=== PATIENT | male | born 1940 | race Caucasian/White ===

== ENCOUNTER 2017-01-27 14:05 | Outpatient (CLI) | payer MEDICARE | END 2017-01-27 14:06 | disposition home or self-care (01) | DX: N44.8 Other noninflammatory disorders of the testis (principal); R33.8 Other retention of urine; N50.89 Other specified disorders of the male genital organs; N40.0 Benign prostatic hyperplasia without lower urinary tract symptoms ==

== ENCOUNTER 2017-02-23 12:56 | Outpatient (CLI) | payer MEDICARE | END 2017-02-23 12:57 | disposition home or self-care (01) | LOC: RT 12:56 | PROVIDERS: ATTEND Internal Medicine Cardiovascular Disease | DX: I48.91 Unspecified atrial fibrillation (principal) | CPT/HCPCS: 93005 ==

== ENCOUNTER 2017-03-30 10:54 | Outpatient (CLI) | payer MEDICARE | END 2017-03-30 10:55 | disposition critical access hospital (66) | LOC: EMS 10:54 | PROVIDERS: ATTEND Surgery | DX: R55 Syncope and collapse (principal); R10.12 Left upper quadrant pain; R03.1 Nonspecific low blood-pressure reading | CPT/HCPCS: A0425; A0427 ==

== ENCOUNTER 2017-03-30 11:30 | Emergency (ER) | payer MEDICARE ==
[~2017-03-30 11:30] MED LIST: SODIUM CHLORIDE 0.9% 1,000 ML IV ONE
[2017-03-30 12:16] LABS: BASOPHILS # (AUTO) 0.1 10^3/uL (0.0-0.1); BASOPHILS % (AUTO) 0.5 %; EOSINOPHILS % (AUTO) 0.1 %; HCT - HEMATOCRIT 41.4 % (42.0-52.0); HGB - HEMOGLOBIN 13.7 g/dL (14.0-18.0); LYMPHOCYTES # (AUTO) 1.1 10^3/uL (1.5-3.5); LYMPHOCYTES % (AUTO) 4.7 %; MEAN CORPUSCULAR HEMOGLOBIN 32.4 pg (27.0-31.0); MEAN CORPUSCULAR HGB CONC 33.1 g/dL (32.0-36.0); MEAN CORPUSCULAR VOLUME 97.7 fL (80.0-94.0); MEAN PLATELET VOLUME 9.1 fL (7.4-11.4); MONOCYTES # (AUTO) 1.7 10^3/uL (0.0-1.0); MONOCYTES % (AUTO) 7.3 %; NEUTROPHILS # (AUTO) 20.3 10^3/uL (1.5-6.6); NEUTROPHILS % (AUTO) 87.4 %; RED BLOOD COUNT 4.23 10^6/uL (4.70-6.10); RED CELL DISTRIBUTION WIDTH 14.2 % (12.0-15.0); UNCORRECTED WHITE BLOOD COUNT 23.2 x10^3/uL; WHITE BLOOD COUNT 23.2 x10^3/uL (4.8-10.8)
[2017-03-30] MEDS ORDERED: ASPIRIN CHEW 81 MG TABLET ONE (12:23)
[2017-03-30] MEDS ORDERED: NITROGLYCERIN SL 0.4 MG TABLET SL STA (12:24)
[2017-03-30] MEDS ORDERED: ASPIRIN CHEW 81 MG TABLET PO STA (12:24)
[2017-03-30] MEDS ORDERED: NITROGLYCERIN SL 0.4 MG TABLET SL ONE (12:34)
[2017-03-30 12:35] LABS: ALBUMIN/GLOBULIN RATIO 1.3 (1.0-2.2); BILIRUBIN,TOTAL 1.4 mg/dL (0.2-1.0); CALCIUM 8.7 mg/dL (8.5-10.3); CREATININE 1.1 mg/dL (0.6-1.2); POTASSIUM 4.1 mmol/L (3.5-5.0); TOTAL PROTEIN 6.4 g/dL (6.7-8.2)
[2017-03-30 12:37] LABS: NP AUTO DIFFERENTIAL? NO; NP MAN DIFFERENTIAL? YES; PLATELET ESTIMATE, MANUAL NORMAL (130-450,000) (NORMAL); PLATELET MORPHOLOGY NORMAL APPEARANCE (NORMAL)
--- NOTE | 2017-03-30 13:01 | XRAY Preliminary Report ---
Exam: XR Chest 1 View IMPRESSION: No consolidation evident. [facility] SITE ID: [id number]
--- NOTE | 2017-03-30 13:04 | XRAY Report ---
EXAM: CHEST RADIOGRAPHY EXAM DATE: 03/30/2017 12:47 PM. CLINICAL HISTORY: Chest pain. COMPARISON: None. TECHNIQUE: 1 view. AP portable FINDINGS: Lungs/Pleura: No focal opacities evident. No pleural effusion. No pneumothorax. Mediastinum: Atherosclerotic aortic calcifications. Other: None. IMPRESSION: No consolidation evident. [facility] Referring Provider Line: [phone] SITE ID: [id number]
--- NOTE | 2017-03-30 13:50 | ED Physician Documentation ---
PD HPI SYNCOPE - Stated complaint Stated Complaint: NEAR SYNCOPE - Chief complaint Chief Complaint: General - History obtained from History obtained from: Patient, EMS - History of Present Illness Witnessed: Witnessed (spouse) Timing - onset: Today Preceding symptoms: Generalized weakness Contributing factors: Other (Self caths for chronic urinary obstruction.) Injury occurred: None - Additional information Additional information: The patient is a 76-year-old male with history of CVA, chronic atrial fibrillation, and urinary retention, who presents via ambulance after a near syncopal episode this morning. He was sitting at the breakfast table when other family members noticed him slumping his head and not responding to verbal stimulation. He did not fall, and remained sitting in the chair. They called 911 , and when medics arrived his blood pressure was 50 systolic. An IV was established and he was transported without event. Upon arrival in the emergency department he reports slight left-sided chest pressure. He denies shortness of breath, nausea, vomiting, or abdominal pain. He was chilled during the night, and family members report he had cold sweats this morning. He has no history of similar symptoms in the past. Review of Systems Constitutional: reports: Chills Ears: denies: Tinnitus/ringing Nose: denies: Congestion Throat: denies: Sore throat Cardiac: reports: Chest pain / pressure. denies: Palpitations Respiratory: denies: Dyspnea, Cough GI: denies: Abdominal Pain, Nausea, Vomiting : reports: Other (self caths). denies: Dysuria Skin: denies: Rash Musculoskeletal: denies: Back pain, Extremity pain Neurologic: reports: Near syncope. denies: Headache PD PAST MEDICAL HISTORY - Past Medical History Past Medical History: Yes Cardiovascular: Hypertension, High cholesterol, Atrial fibrillation Neuro: CVA : Retention Musculoskeletal: Chronic back pain - Past Surgical History Past Surgical History: Yes General: Splenectomy Ortho: Hip replacement HEENT: Tonsil/Adenoidectomy - Present Medications Home Medications: Ambulatory Orders Medication Instructions Recorded Confirmed Dabigatran [Pradaxa] 0 mg PO DAILY 07/14/13 03/30/17 Tamsulosin [Flomax] 0.4 mg BID 03/30/17 03/30/17 - Allergies Allergies/Adverse Reactions: Allergies Allergy/AdvReac Type Severity Reaction Status Date / Time No Known Drug Allergies Allergy Verified 03/30/17 11:37 - Social History Does the pt smoke?: No Smoking Status: Never smoker Does the pt drink ETOH?: No Does the pt have substance abuse?: No - Immunizations Immunizations are current?: Yes PD ED PE NORMAL - Vitals Vital signs reviewed: Yes (blood pressure 101/53 with pulse 88.) - General General: Alert and oriented X 3 - HEENT HEENT: Atraumatic, EOMI, Pharynx benign - Neck Neck: Supple, no meningeal sign, No adenopathy - Cardiac Cardiac: No murmur, Other (Regular rate, irregularly irregular rhythm.) - Respiratory Respiratory: No respiratory distress, Clear bilaterally - Abdomen Abdomen: Soft, Non tender - Back Back: No CVA TTP - Derm Derm: No rash - Extremities Extremities: No edema, No calf tenderness / cord - Neuro Neuro: No motor deficit, Other (Alert, oriented, but mildly confused, preferring that his answer questions.) Results - Vitals Vitals: Vital Signs - 24 hr 03/30/17 03/30/17 03/30/17 11:31 11:41 11:45 Temperature 36.4 C L Heart Rate 88 79 76 Respiratory 20 16 16 Rate Blood Pressure 101/53 L 97/58 L 101/59 L O2 Saturation 96 98 03/30/17 03/30/17 03/30/17 12:00 12:15 12:30 Temperature Heart Rate 73 73 74 Respiratory 16 16 16 Rate Blood Pressure 109/61 95/61 109/60 O2 Saturation 100 99 99 03/30/17 03/30/17 03/30/17 12:45 13:00 13:30 Temperature Heart Rate 73 74 72 Respiratory 16 16 16 Rate Blood Pressure 101/65 102/68 100/77 O2 Saturation 99 97 03/30/17 03/30/17 03/30/17 14:00 14:30 15:00 Temperature Heart Rate 72 76 70 Respiratory 16 20 16 Rate Blood Pressure 93/58 L 109/59 L 108/57 L O2 Saturation 97 96 03/30/17 03/30/17 03/30/17 16:00 17:00 18:13 Temperature 36.6 C Heart Rate 70 70 71 Respiratory 16 16 15 Rate Blood Pressure 113/70 102/78 109/66 O2 Saturation 99 96 03/30/17 03/30/17 03/30/17 19:19 19:54 20:54 Temperature 36.4 C L 36.9 C Heart Rate 65 68 68 Respiratory 15 18 16 Rate Blood Pressure 108/65 113/63 112/62 O2 Saturation 99 98 99 03/30/17 21:45 Temperature Heart Rate 67 Respiratory 18 Rate Blood Pressure 115/69 O2 Saturation 98 Oxygen O2 Source Room air - EKG (time done) 11:38 Rate: Rate (enter#) (68) Rhythm: Atrial fibrillation [place]: Normal Ischemia: ST elevation c/w ischemia (Minimal ST elevation in anterior leads V2.) Computer interpretation: Agree with computer - Labs Labs: Laboratory Tests 03/30/17 03/30/17 03/30/17 12:06 12:06 12:06 WBC 23.2 H RBC 4.23 L Hgb 13.7 L Hct 41.4 L MCV 97.7 H MCH 32.4 H MCHC 33.1 RDW 14.2 Plt Count 228 MPV 9.1 Neut # 20.3 H Lymph # 1.1 L [place] # 1.7 H Eos # 0.0 Baso # 0.1 Absolute Nucleated RBC 0.00 Band Neuts % (Manual) Not Reportable Nucleated RBCs 0.0 Differential Comment MANUAL=AUTO DIFF Manual Slide Review Indicated Platelet Estimate NORMAL (130-450,000) Platelet Morphology NORMAL APPEARANCE RBC Morph Micro Appear NORMAL APPEARANCE Sodium 138 Potassium 4.1 Chloride 105 Carbon Dioxide 27 Anion Gap 6.0 BUN 23 H Creatinine 1.1 Estimated GFR (MDRD) 65 L Glucose 125 H Lactic Acid Calcium 8.7 Total Bilirubin 1.4 H AST 18 ALT 14 Alkaline Phosphatase 61 Troponin I < 0.04 Total Protein 6.4 L Albumin 3.6 Globulin 2.8 Albumin/Globulin Ratio 1.3 Lipase 23 Urine Color Urine Clarity Urine pH Ur Specific [place] Urine Protein Urine Glucose (UA) Urine Ketones Urine Occult Blood Urine Nitrite Urine Bilirubin Urine Urobilinogen Ur Leukocyte Esterase Urine RBC Urine WBC Ur Squamous Epith Cells Urine Bacteria Ur Microscopic Review Urine Culture Comments 03/30/17 03/30/17 14:24 15:15 WBC RBC Hgb Hct MCV MCH MCHC RDW Plt Count MPV Neut # Lymph # [place] # Eos # Baso # Absolute Nucleated RBC Band Neuts % (Manual) Nucleated RBCs Differential Comment Manual Slide Review Platelet Estimate Platelet Morphology RBC Morph Micro Appear Sodium Potassium Chloride Carbon Dioxide Anion Gap BUN Creatinine Estimated GFR (MDRD) Glucose Lactic Acid 1.1 Calcium Total Bilirubin AST ALT Alkaline Phosphatase Troponin I Total Protein Albumin Globulin Albumin/Globulin Ratio Lipase Urine Color YELLOW Urine Clarity CLOUDY Urine pH 7.0 Ur Specific [place] 1.010 Urine Protein TRACE Urine Glucose (UA) NEGATIVE Urine Ketones NEGATIVE Urine Occult Blood TRACE-LYSE Urine Nitrite POSITIVE H Urine Bilirubin NEGATIVE Urine Urobilinogen 0.2 (NORMAL) Ur Leukocyte Esterase MODERATE H Urine RBC 0-5 Urine WBC >25 H Ur Squamous Epith Cells FEW Squamous Urine Bacteria Many H Ur Microscopic Review INDICATED Urine Culture Comments INDICATED - Rads (name of study) Portable CXR Radiology: Prelim report reviewed, EMP read contemporaneously, See rad report ( No consolidation evident.) PD MEDICAL DECISION MAKING - ED course Complexity details: reviewed results, re-evaluated patient, considered differential, d/w patient, d/w family, d/w center lead consultant ED course: The patient's presentation is significant for urinary tract infection with systemic inflammatory response syndrome. His urine is positive for greater than 25 white cells per high-power field, and his white blood cell count is elevated at 23.2. Lactate level is normal at 1.1. Blood cultures x2 were drawn and are pending. Electrocardiogram reveals no acute ischemic abnormalities, and troponin level is normal. Treatment in the emergency department included administration of 4 baby aspirin orally. Nitroglycerin was considered, but the patient's mild chest discomfort completely resolved spontaneously. Normal saline 2 L administered IV, and ceftriaxone 1 g was administered IV after blood cultures had been drawn. I discussed the patient's condition with transfer staff at [place], who arranged for ambulance transport to [facility]. He is being transferred by [facility] ambulance. Transfer forms were completed. It should be noted that there was a long delay between the decision to transfer the patient and the arrival of the [facility] transfer crew, causing great consternation and dissatisfaction on the part of the patient's . Departure - Departure Disposition: 02 Transfer Acute Care Hosp Clinical Impression: Near syncope, SIRS (systemic inflammatory response syndrome), Chronic atrial fibrillation Urinary tract infection Qualifiers: Urinary tract infection type: site unspecified Hematuria presence: with hematuria Qualified Code(s): N39.0 - Urinary tract infection, site not specified Condition: Fair Discharge Date/Time: 03/30/17 21:59
[2017-03-30 14:34] LABS: BILIRUBIN,URINE NEGATIVE (NEGATIVE)
[2017-03-30 14:35] LABS: UA w/ MICROSCOPIC CHARGE YES
[2017-03-30 14:41] LABS: UR CULTURE IF IND INDICATED; WBC,URINE >25 /HPF (0-3)
[2017-03-30] MEDS ORDERED: SODIUM CHLORIDE 0.9% 1,000 ML IV ONE (14:46)
[2017-03-30] MEDS ORDERED: cefTRIAXone 1 GM in SODIUM CHLORIDE 0.9% MINIBAG 100 ML IV STA (14:46)
[2017-03-30] MEDS ORDERED: cefTRIAXone 1 GM VIAL ONE (16:25)
[2017-03-30 21:46] VITALS: BP 115/69
== END 2017-03-30 21:59 | disposition short-term general hospital (02) ==
LOC: ED 11:30
DX: N39.0 Urinary tract infection, site not specified (principal); R65.10 Systemic inflammatory response syndrome (SIRS) of non-infectious origin without acute organ dysfunction; I48.91 Unspecified atrial fibrillation; Z79.01 Long term (current) use of anticoagulants; R55 Syncope and collapse; I10 Essential (primary) hypertension; E78.00 Pure hypercholesterolemia, unspecified; Z86.73 Personal history of transient ischemic attack (TIA), and cerebral infarction without residual deficits
CPT/HCPCS: 36415; 71010; 80053; 81001; 83605; 83690; 84484; 85025; 87040; 87077; 87086; 87181; 93005; 93010; 96361; 96365; 99285; A9270; 81003

== ENCOUNTER 2017-07-18 11:55 | Emergency (ER) | payer MEDICARE ==
[2017-07-18 12:29] LABS: BILIRUBIN,URINE NEGATIVE (NEGATIVE)
[2017-07-18 12:30] LABS: UA w/ MICROSCOPIC CHARGE YES
[2017-07-18 12:41] LABS: UR CULTURE IF IND INDICATED; WBC,URINE >25 /HPF (0-3)
[2017-07-18 13:44] VITALS: BP 130/79
[2017-07-18] MEDS ORDERED: levoFLOXacin 250 MG TABLET PO STA (13:44)
--- NOTE | 2017-07-18 13:44 | ED Physician Documentation ---
PD HPI MALE - Stated complaint Stated Complaint: DIZZY - Chief complaint Chief Complaint: General - History obtained from History obtained from: Patient, Family - History of Present Illness Timing - onset: How many days ago (5) Timing - duration: Days (5) Timing - details: Gradual onset, Still present Associated symptoms: Other (light headed/dizzy periodically for the past week progressed.) PD HPI MALE CONTRIB FACTORS: Other (self caths 2 times per day) Similar symptoms before: Diagnosis (UTI) Recently seen: Not recently seen - Additional information Additional information: 76-year-old male status post CVA who has had chronic atrial fibrillation and urinary retention does self cathing twice per day and he is able to void in between. He has had issues with infection. He was admitted to [facility] in [place] in March of this year with urosepsis. He has had a second infection in May of this year which was discovered when they went to do a cystoscopy. He does not recall the antibiotics she was on with these. The patient's saw that he was having some trouble and she felt that he might be dehydrated and had him drink 4 glasses of water. The patient states that he does feel somewhat better now. Review of Systems Constitutional: reports: Fatigue, Sweats. denies: Fever, Chills Eyes: denies: Decreased vision Ears: denies: Ear pain Nose: denies: Congestion Throat: denies: Sore throat Cardiac: denies: Chest pain / pressure, Palpitations Respiratory: denies: Dyspnea, Cough GI: denies: Abdominal Pain, Nausea, Vomiting : denies: Dysuria Skin: denies: Rash Musculoskeletal: denies: Neck pain, Back pain, Extremity pain Neurologic: reports: Other (dizziness). denies: Generalized weakness, Focal weakness, Numbness PD PAST MEDICAL HISTORY - Past Medical History Cardiovascular: Hypertension, High cholesterol, Atrial fibrillation Respiratory: None Neuro: CVA Endocrine/Autoimmune: None GI: None : Benign prostate hypertrophy, Retention Psych: None Musculoskeletal: Chronic back pain Derm: None - Past Surgical History Past Surgical History: Yes General: Splenectomy Ortho: Hip replacement HEENT: Tonsil/Adenoidectomy - Present Medications Home Medications: Ambulatory Orders Medication Instructions Recorded Confirmed Dabigatran [Pradaxa] 0 mg PO DAILY 07/14/13 07/18/17 Tamsulosin [Flomax] 0.4 mg PO BID 03/30/17 07/18/17 Cholecalciferol (Vitamin D3) 1,000 mg PO DAILY 07/18/17 07/18/17 [Vitamin D3] Levofloxacin [Levaquin] 500 mg PO DAILY #7 tablet 07/18/17 - Allergies Allergies/Adverse Reactions: Allergies Allergy/AdvReac Type Severity Reaction Status Date / Time No Known Drug Allergies Allergy Verified 03/30/17 11:37 - Social History Does the pt smoke?: No Smoking Status: Former smoker Does the pt drink ETOH?: Yes Does the pt have substance abuse?: No - Immunizations Immunizations are current?: Yes PD ED PE NORMAL - Vitals Vital signs reviewed: Yes (hypertensive mild ) - General General: No acute distress, Well developed/nourished - HEENT HEENT: Atraumatic, PERRL - Neck Neck: Supple, no meningeal sign - Cardiac Cardiac: No murmur, Other (irregularly irregular) - Respiratory Respiratory: No respiratory distress, Clear bilaterally - Abdomen Abdomen: Soft, Non tender - Back Back: No CVA TTP, No spinal TTP - Extremities Extremities: No deformity, No edema - Neuro Neuro: No motor deficit, No sensory deficit - Psych Psych: Normal mood, Normal affect Results - Vitals Vitals: Vital Signs - 24 hr 07/18/17 07/18/17 11:58 12:32 Temperature 36.6 C Heart Rate 60 70 Respiratory 18 16 Rate Blood Pressure 124/86 H 130/91 H O2 Saturation 99 97 Oxygen O2 Source Room air - Labs Labs: Laboratory Tests 07/18/17 12:18 Urine Color YELLOW Urine Clarity CLEAR Urine pH 6.0 Ur Specific [place] 1.010 Urine Protein NEGATIVE Urine Glucose (UA) NEGATIVE Urine Ketones NEGATIVE Urine Occult Blood TRACE-INTA Urine Nitrite POSITIVE H Urine Bilirubin NEGATIVE Urine Urobilinogen 0.2 (NORMAL) Ur Leukocyte Esterase SMALL H Urine RBC 0-5 Urine WBC >25 H Ur Squamous Epith Cells RARE Squamous Urine Bacteria Few Urine Mucus Few Strands Ur Microscopic Review INDICATED Urine Culture Comments INDICATED Procedures - IVC sono (time) 1340 Bedside IVC sono: IVC measures (cm) (1.74), Euvolemia PD MEDICAL DECISION MAKING - ED course Complexity details: reviewed old records, reviewed results, re-evaluated patient , considered differential, d/w patient, d/w family ED course: 76-year-old male has had infection with self cathing. Today he has some symptoms to suggest possible infection and review of the urine under the microscope shows obvious evidence of infection. We have cultures here of 2 separate species of E. coli both which are sensitive to Levaquin. He is administered Levaquin 500 mg orally in the emergency department. He does not appear ill or septic at this time. Departure - Departure Disposition: 01 Home, Self Care Clinical Impression: Urinary tract infection Qualifiers: Urinary tract infection type: acute cystitis Hematuria presence: without hematuria Qualified Code(s): N30.00 - Acute cystitis without hematuria Condition: Stable Instructions: ED UTI Cystitis Male Follow-Up: Michele Bush MD [Primary Care Provider] - Prescriptions: Levofloxacin [Levaquin] 500 mg PO DAILY #7 tablet
[2017-07-18] MEDS ORDERED: levoFLOXacin 250 MG TABLET ONE (13:51)
== END 2017-07-18 15:02 | disposition home or self-care (01) ==
LOC: ED 11:55
DX: N30.00 Acute cystitis without hematuria (principal); I10 Essential (primary) hypertension; E78.00 Pure hypercholesterolemia, unspecified; Z86.73 Personal history of transient ischemic attack (TIA), and cerebral infarction without residual deficits; Z96.649 Presence of unspecified artificial hip joint; Z87.891 Personal history of nicotine dependence
CPT/HCPCS: 81001; 87086; 99283; 99284; A9270; 81003

== ENCOUNTER 2017-11-12 10:12 | Emergency (ER) | payer MEDICARE ==
[2017-11-12 10:40] LABS: BILIRUBIN,URINE NEGATIVE (NEGATIVE); GLUCOSE, URINE (UA) NEGATIVE (NEGATIVE); KETONES,URINE (UA) NEGATIVE (NEGATIVE); LEUKOCYTE ESTERASE, URINE NEGATIVE (NEGATIVE); NITRITE,URINE NEGATIVE (NEGATIVE); OCCULT BLOOD,URINE NEGATIVE (NEGATIVE); PH,URINE 7.5 PH (5.0-7.5); PROTEIN,URINE NEGATIVE (NEGATIVE); UROBILINOGEN,URINE 0.2 (NORMAL) E.U./dL (NORMAL)
[2017-11-12 10:41] LABS: CLARITY,URINE CLEAR (CLEAR)
[2017-11-12 10:57] LABS: BASOPHILS # (AUTO) 0.1 10^3/uL (0.0-0.1); BASOPHILS % (AUTO) 1.1 %; EOSINOPHILS # (AUTO) 0.2 10^3/uL (0.0-0.7); EOSINOPHILS % (AUTO) 2.3 %; HGB - HEMOGLOBIN 15.9 g/dL (14.0-18.0); LYMPHOCYTES # (AUTO) 1.6 10^3/uL (1.5-3.5); LYMPHOCYTES % (AUTO) 16.1 %; MEAN CORPUSCULAR HGB CONC 33.9 g/dL (32.0-36.0); MEAN CORPUSCULAR VOLUME 97.3 fL (80.0-94.0); MEAN PLATELET VOLUME 9.4 fL (7.4-11.4); MONOCYTES # (AUTO) 0.6 10^3/uL (0.0-1.0); MONOCYTES % (AUTO) 6.7 %; NEUTROPHILS # (AUTO) 7.1 10^3/uL (1.5-6.6); NEUTROPHILS % (AUTO) 73.8 %; PLT - PLATELET COUNT 216 10^3/uL (130-450); RED BLOOD COUNT 4.83 10^6/uL (4.70-6.10); RED CELL DISTRIBUTION WIDTH 13.5 % (12.0-15.0); WHITE BLOOD COUNT 9.7 x10^3/uL (4.8-10.8)
[2017-11-12 11:00] LABS: CALCIUM 9.5 mg/dL (8.5-10.3); CREATININE 0.9 mg/dL (0.6-1.2)
[2017-11-12 11:11] LABS: PLATELET MORPHOLOGY 1+ LARGE PLATELETS (NORMAL)
[2017-11-12 11:12] LABS: PLATELET ESTIMATE, MANUAL NORMAL (130-450,000) (NORMAL); RBC MORPHOLOGY (MULTIPLE) NORMAL APPEARANCE (NORMAL)
--- NOTE | 2017-11-12 12:32 | ED Physician Documentation ---
History of Present Illness - Stated complaint Stated Complaint: LIGHT HEADED - Chief complaint Chief Complaint: General - Additonal information Additional information: hx from pt 76 male had approx 15 min of diffuse weakness this AM no focal numbness or weakness no trouble with vision hearing speech no CP or palpitations no SOA not vertigo sx better now no new meds or med changes he occasionally gets UTIs and want to be checked for that Review of Systems Constitutional: denies: Fever, Chills Cardiac: denies: Chest pain / pressure, Palpitations Respiratory: denies: Dyspnea, Cough GI: denies: Abdominal Pain, Nausea, Vomiting, Diarrhea, Bloody / black stool : reports: Other (self cath) Neurologic: reports: Generalized weakness (X 15 min several hr ago better now) Endocrine: reports: Easy bruising / bleeding PD PAST MEDICAL HISTORY - Past Medical History Past Medical History: Yes Cardiovascular: Hypertension, High cholesterol, Atrial fibrillation Respiratory: None Neuro: CVA Endocrine/Autoimmune: None GI: None : Benign prostate hypertrophy, Retention Psych: None Musculoskeletal: Chronic back pain Derm: None - Past Surgical History Past Surgical History: Yes General: Splenectomy Ortho: Hip replacement HEENT: Tonsil/Adenoidectomy - Present Medications Home Medications: Ambulatory Orders Medication Instructions Recorded Confirmed Dabigatran [Pradaxa] 0 mg PO DAILY 07/14/13 11/12/17 Tamsulosin [Flomax] 0.4 mg PO BID 03/30/17 11/12/17 Cholecalciferol (Vitamin D3) 1,000 mg PO DAILY 07/18/17 11/12/17 [Vitamin D3] - Allergies Allergies/Adverse Reactions: Allergies Allergy/AdvReac Type Severity Reaction Status Date / Time No Known Drug Allergies Allergy Verified 11/12/17 10:21 - Social History Does the pt smoke?: No Smoking Status: Never smoker Does the pt drink ETOH?: Yes Does the pt have substance abuse?: No - Immunizations Immunizations are current?: Yes PD ED PE NORMAL - Vitals Vital signs reviewed: Yes (small dip in BP sitting up but not with standing and pt had no sx standing ) - General General: Alert and oriented X 3 - HEENT HEENT: PERRL - Neck Neck: Supple, no meningeal sign - Cardiac Cardiac: RRR - Respiratory Respiratory: No respiratory distress, Clear bilaterally - Abdomen Abdomen: Soft, Non tender - Derm Derm: Normal color - Neuro Neuro: Alert and oriented X 3, eligibility and occupancy interviewer 2-12 intact, No motor deficit, No sensory deficit, Normal speech Results - Vitals Vitals: Vital Signs - 24 hr 11/12/17 11/12/17 11/12/17 10:15 11:52 13:25 Temperature 36.2 C L Heart Rate 76 73 Heart Rate [ 77 Sitting] Heart Rate [ 91 Standing] Heart Rate [ 65 Supine] Respiratory 16 20 Rate Blood Pressure 122/77 132/96 H Blood Pressure 95/63 [Sitting] Blood Pressure 115/75 [Standing] Blood Pressure 114/73 [Supine] O2 Saturation 99 99 Oxygen O2 Source Room air - EKG (time done) 1139 Rate: Rate (enter#) (44) Rhythm: Atrial fibrillation Ischemia: Normal ST segments - Labs Labs: Laboratory Tests 11/12/17 11/12/17 11/12/17 10:25 10:43 10:43 WBC 9.7 RBC 4.83 Hgb 15.9 Hct 46.9 MCV 97.3 H MCH 33.0 H MCHC 33.9 RDW 13.5 Plt Count 216 MPV 9.4 Neut # 7.1 H Lymph # 1.6 [place] # 0.6 Eos # 0.2 Baso # 0.1 Absolute Nucleated RBC 0.01 Nucleated RBC % 0.1 Manual Slide Review Indicated Platelet Estimate NORMAL (130-450,000) Platelet Morphology 1+ LARGE PLATELETS RBC Morph Micro Appear NORMAL APPEARANCE Sodium 136 Potassium 4.0 Chloride 99 L Carbon Dioxide 26 Anion Gap 11.0 BUN 14 Creatinine 0.9 Estimated GFR (MDRD) 82 L Glucose 133 H Lactic Acid Calcium 9.5 Urine Color YELLOW Urine Clarity CLEAR Urine pH 7.5 Ur Specific [place] 1.015 Urine Protein NEGATIVE Urine Glucose (UA) NEGATIVE Urine Ketones NEGATIVE Urine Occult Blood NEGATIVE Urine Nitrite NEGATIVE Urine Bilirubin NEGATIVE Urine Urobilinogen 0.2 (NORMAL) Ur Leukocyte Esterase NEGATIVE Ur Microscopic Review NOT INDICATED Urine Culture Comments NOT INDICATED 11/12/17 10:43 WBC RBC Hgb Hct MCV MCH MCHC RDW Plt Count MPV Neut # Lymph # [place] # Eos # Baso # Absolute Nucleated RBC Nucleated RBC % Manual Slide Review Platelet Estimate Platelet Morphology RBC Morph Micro Appear Sodium Potassium Chloride Carbon Dioxide Anion Gap BUN Creatinine Estimated GFR (MDRD) Glucose Lactic Acid 1.7 Calcium Urine Color Urine Clarity Urine pH Ur Specific [place] Urine Protein Urine Glucose (UA) Urine Ketones Urine Occult Blood Urine Nitrite Urine Bilirubin Urine Urobilinogen Ur Leukocyte Esterase Ur Microscopic Review Urine Culture Comments PD MEDICAL DECISION MAKING - ED course ED course: traige VS and orthostatioc VS all fine but EKG HR was 44 will recheck not anemic nl lytes sx were not c/w stroke no UTI he has had prior SIRS /sepsis 2/2 UTI but that does not seem to be the issue today if anything cause this episode of weakness and low BP I suspect it was bradycardia suggested place in obs but pt and reluctant to do that so will try and get echo in ER and keep pt on tele for several more hr echo not available today and when I otilia to check in on pt I found him standing at the end of his bed doing calisthenics think he is OK to dc for today - with to keep an eye on him, they have a BP HR cuff to monitor VS, see PMD tomorrow for recheck and get echo arrange Departure - Departure Disposition: 01 Home, Self Care Clinical Impression: Near syncope Condition: Good Instructions: ED Near Syncope Unkn Follow-Up: Michele Bush MD [Primary Care Provider] - Comments: Please drink plenty of fluids Check your blood pressure and heart rate frequently at home and keep a record - if the heart rate is less than 45 or the systolic blood pressure is less than 100 come back to the ER. Otherwise follow up with your PMD tomorrow to get an echocardiogram arranged
[2017-11-12 13:26] VITALS: BP 132/96
== END 2017-11-12 14:04 | disposition home or self-care (01) ==
LOC: ED 10:12
DX: R55 Syncope and collapse (principal); I48.91 Unspecified atrial fibrillation; Z79.01 Long term (current) use of anticoagulants; I10 Essential (primary) hypertension; E78.00 Pure hypercholesterolemia, unspecified; N40.0 Benign prostatic hyperplasia without lower urinary tract symptoms; Z86.73 Personal history of transient ischemic attack (TIA), and cerebral infarction without residual deficits
CPT/HCPCS: 36415; 80048; 81001; 81003; 83605; 85025; 87040; 87086; 93005; 99283; 99284

== ENCOUNTER 2019-06-12 13:08 | Outpatient (CLI) | payer MEDICARE ==
--- NOTE | 2019-06-13 17:09 | Ultrasound Report ---
Reason: TESTICULAR MASS Procedure Date: 06/12/2019 Accession Number: [id number] / [id number] Procedure: US - Testicle CPT Code: FULL RESULT: EXAM: SCROTAL ULTRASOUND EXAM DATE: 06/12/2019 02:14 PM. CLINICAL HISTORY: Follow-up for right scrotal mass. COMPARISON: Scrotal ultrasound 01/27/2017. TECHNIQUE: Real-time scanning was performed with static images obtained. Color-flow images were utilized. FINDINGS: Right: Testis: 3.9 x 1.9 x 3.1 cm. 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 Otherwise normal echotexture. No suspicious mass, calcification, or abnormal blood flow. Epididymis: Better seen than before. Head 1 x 0.8 x 0.9 cm. Remainder of the epididymis appears heterogeneous but not enlarged or hyperemic. Hydrocele: Small. Varicocele: None. Other: Redemonstration of extratesticular multilocular cystic lesion measuring approximately 8.2 x 7.6 x 9.9 cm (previously 10 x 7.6 x 9.6 cm) without convincing blood flow on color Doppler. Left: Testis: 4.7 x 1.9 x 2.8 cm. Prominent rete testes as before. Otherwise normal echotexture. No mass, calcification, or abnormal blood flow. Epididymis: Head 1.1 x 0.8 x 0.7 cm. Normal echotexture. No mass or abnormal blood flow. Hydrocele: Small. Varicocele: None. Other: No scrotal hernia. IMPRESSION: 1. Similar prominent bilateral rete testes. Otherwise unremarkable bilateral testes. 2. Better depicted of a mildly heterogeneous right epididymis without acute findings or focal mass. 3. Redemonstration of the prominent extratesticular multilocular cystic lesion in the right hemiscrotum. Differential includes organized hydrocele or other fluid collection mimicking a cystic mass. Separation of this structure from the better depicted right epididymis makes spermatocele less likely. 4. Unremarkable left epididymis. 5. Otherwise small bilateral hydroceles. [facility]
== END 2019-06-12 13:09 | disposition home or self-care (01) ==
LOC: DI 13:08
PROVIDERS: ATTEND Internal Medicine
DX: N50.89 Other specified disorders of the male genital organs (principal); N43.3 Hydrocele, unspecified
CPT/HCPCS: 76870

== ENCOUNTER 2020-01-04 20:18 | Inpatient (IN) | payer MEDICARE ==
--- NOTE | 2020-01-04 20:55 | ED Physician Documentation ---
History of Present Illness - Stated complaint Stated Complaint: M , FEVER, SHAKY - Chief complaint Chief Complaint: Abd Pain - History obtained from History obtained from: Patient, Family (The patient is a 79-year-old male presents with his with a chief complaint of fever and likely urinary tract infection. Patient's been self cathing himself at home.He does report fevers and dysuria.Does get a history of recurrent admissions for urosepsis.) Review of Systems Constitutional: reports: Fever, Chills Eyes: reports: Reviewed and negative Ears: reports: Reviewed and negative Nose: reports: Reviewed and negative Throat: reports: Reviewed and negative Cardiac: reports: Reviewed and negative Respiratory: reports: Reviewed and negative GI: reports: Reviewed and negative : reports: Dysuria, Frequency, Hesitancy Skin: reports: Reviewed and negative Musculoskeletal: reports: Reviewed and negative Neurologic: reports: Reviewed and negative Psychiatric: reports: Reviewed and negative Endocrine: reports: Reviewed and negative Immunocompromised: reports: Reviewed and negative PD PAST MEDICAL HISTORY - Past Medical History Cardiovascular: Hypertension, High cholesterol, Atrial fibrillation Respiratory: None Endocrine/Autoimmune: None GI: None : Benign prostate hypertrophy, Retention Psych: None Musculoskeletal: Chronic back pain Derm: None - Past Surgical History Past Surgical History: Yes General: Splenectomy Ortho: Hip replacement HEENT: Tonsil/Adenoidectomy - Present Medications Home Medications: Ambulatory Orders Medication Instructions Recorded Confirmed Dabigatran [Pradaxa] 0 mg PO DAILY 07/14/13 11/12/17 Tamsulosin [Flomax] 0.4 mg PO BID 03/30/17 11/12/17 Cholecalciferol (Vitamin D3) 1,000 mg PO DAILY 07/18/17 11/12/17 [Vitamin D3] - Allergies Allergies/Adverse Reactions: Allergies Allergy/AdvReac Type Severity Reaction Status Date / Time No Known Drug Allergies Allergy Verified 11/12/17 10:21 - Social History Does the pt smoke?: No Smoking Status: Never smoker Does the pt drink ETOH?: Yes Does the pt have substance abuse?: No - Immunizations Immunizations are current?: Yes PD ED PE NORMAL - Vitals Vital signs reviewed: Yes - General General: No acute distress, Well developed/nourished - HEENT HEENT: Atraumatic, PERRL, Moist mucous membranes, Pharynx benign - Neck Neck: Supple, no meningeal sign, No JVD - Cardiac Cardiac: RRR, No murmur, Strong equal pulses - Respiratory Respiratory: No respiratory distress, Clear bilaterally - Abdomen Abdomen: Normal bowel sounds, Soft, Non tender, Non distended, No organomegaly - Male Male : Other (circumcised, testicles descended bilaterally, no blood at the urethral meatus. ) - Derm Derm: Normal color, Warm and dry, No rash - Extremities Extremities: No deformity, No edema - Neuro Neuro: Alert and oriented X 3, enamel shader 2-12 intact, No motor deficit, No sensory deficit, Normal speech - Psych Psych: Normal mood, Normal affect Results - Vitals Vitals: Vital Signs - 24 hr 01/04/20 20:20 Temperature 38.4 C H Heart Rate 95 Respiratory 18 Rate Blood Pressure 137/72 H O2 Saturation 100 Oxygen O2 Source Room air - Labs Labs: Laboratory Tests 01/04/20 01/04/20 01/04/20 20:45 20:58 20:58 WBC 15.1 H RBC 4.23 L Hgb 13.8 L Hct 42.4 MCV 100.2 H MCH 32.6 H MCHC 32.5 RDW 13.2 Plt Count 239 MPV 10.9 Neut # (Auto) Not Reportable Lymph # (Auto) Not Reportable [place] # (Auto) Not Reportable Eos # (Auto) Not Reportable Baso # (Auto) Not Reportable Absolute Nucleated RBC Not Reportable Total Counted 100 Band Neuts % (Manual) 0 Abnorm Lymph % (Manual) 0 Nucleated RBC % Not Reportable Neutrophils # (Manual) 13.6 H Lymphocytes # (Manual) 0.8 L Monocytes # (Manual) 0.8 Eosinophils # (Manual) 0.0 Basophils # (Manual) 0.0 Differential Comment MANUAL DIFFERENTIAL Manual Slide Review Indicated WBC Morphology NORMAL APPEARANCE Platelet Estimate NORMAL (130-450,000) Platelet Morphology NORMAL APPEARANCE RBC Morph Micro Appear 2+ MACROCYTOSIS PT 13.7 H INR 1.2 APTT 29.4 Sodium Potassium Chloride Carbon Dioxide Anion Gap BUN Creatinine Estimated GFR (MDRD) Glucose Lactic Acid Calcium Total Bilirubin AST ALT Alkaline Phosphatase Total Protein Albumin Globulin Albumin/Globulin Ratio Lipase Urine Color YELLOW Urine Clarity CLOUDY Urine pH 6.0 Ur Specific [place] 1.025 Urine Protein 100 H Urine Glucose (UA) NEGATIVE Urine Ketones NEGATIVE Urine Occult Blood SMALL H Urine Nitrite POSITIVE H Urine Bilirubin NEGATIVE Urine Urobilinogen 0.2 (NORMAL) Ur Leukocyte Esterase LARGE H Urine RBC 6-10 H Urine WBC >25 H Urine WBC Clumps PRESENT Ur Squamous Epith Cells NONE SEEN Urine Bacteria Many H Ur Microscopic Review INDICATED Urine Culture Comments INDICATED 01/04/20 01/04/20 20:58 20:58 WBC RBC Hgb Hct MCV MCH MCHC RDW Plt Count MPV Neut # (Auto) Lymph # (Auto) [place] # (Auto) Eos # (Auto) Baso # (Auto) Absolute Nucleated RBC Total Counted Band Neuts % (Manual) Abnorm Lymph % (Manual) Nucleated RBC % Neutrophils # (Manual) Lymphocytes # (Manual) Monocytes # (Manual) Eosinophils # (Manual) Basophils # (Manual) Differential Comment Manual Slide Review WBC Morphology Platelet Estimate Platelet Morphology RBC Morph Micro Appear PT INR APTT Sodium 134 L Potassium 3.8 Chloride 101 Carbon Dioxide 25 Anion Gap 8.0 BUN 19 Creatinine 1.1 Estimated GFR (MDRD) 65 L Glucose 137 H Lactic Acid 1.6 Calcium 8.5 Total Bilirubin 0.6 AST 18 ALT 11 Alkaline Phosphatase 42 Total Protein 6.7 Albumin 3.5 Globulin 3.2 Albumin/Globulin Ratio 1.1 Lipase 35 Urine Color Urine Clarity Urine pH Ur Specific [place] Urine Protein Urine Glucose (UA) Urine Ketones Urine Occult Blood Urine Nitrite Urine Bilirubin Urine Urobilinogen Ur Leukocyte Esterase Urine RBC Urine WBC Urine WBC Clumps Ur Squamous Epith Cells Urine Bacteria Ur Microscopic Review Urine Culture Comments PD MEDICAL DECISION MAKING - ED course Complexity details: considered differential (urosepsis) - Consults Consults: Consulted (name) (22:13 Dr. Neville, will accept for admission.), Request solutions delivery consultant admit patient (22:13) - Critical Care Time(min): 30 Time Includes: Direct patient care, Review records, Reassess patient, Document care, Coordinate care, Medical consult, Family consult for tx dec Data interpretation: Labs, Pulse ox, CXR Procedures included in critical care time: Peripheral IV Procedures excluded from critical care time: EKG Departure - Departure Disposition: 66 [facility] DC/Xfer Clinical Impression: UTI (urinary tract infection) Qualifiers: Urinary tract infection type: site unspecified Hematuria presence: without hematuria Qualified Code(s): N39.0 - Urinary tract infection, site not specified Condition: Stable
[2020-01-04] MEDS ORDERED: cefTRIAXone 1 GM in SODIUM CHLORIDE 0.9% MINIBAG 100 ML IV STA (21:05)
[2020-01-04] MEDS ORDERED: SODIUM CHLORIDE 0.9% 1,000 ML IV ONE (21:05)
[2020-01-04 21:07] LABS: EOSINOPHILS % (AUTO) 0.1 %
[2020-01-04 21:09] LABS: BILIRUBIN,URINE NEGATIVE (NEGATIVE); GLUCOSE, URINE (UA) NEGATIVE (NEGATIVE); KETONES,URINE (UA) NEGATIVE (NEGATIVE); LEUKOCYTE ESTERASE, URINE LARGE (NEGATIVE); NITRITE,URINE POSITIVE (NEGATIVE); OCCULT BLOOD,URINE SMALL (NEGATIVE); PROTEIN,URINE 100 mg/dL (NEGATIVE); UROBILINOGEN,URINE 0.2 (NORMAL) E.U./dL (NORMAL)
[2020-01-04 21:10] LABS: BASOPHILS % (AUTO) 0.7 %; HGB - HEMOGLOBIN 13.8 g/dL (14.0-18.0); LYMPHOCYTES % (AUTO) 5.2 %; MEAN CORPUSCULAR HEMOGLOBIN 32.6 pg (27.0-31.0); MEAN CORPUSCULAR HGB CONC 32.5 g/dL (32.0-36.0); MEAN CORPUSCULAR VOLUME 100.2 fL (80.0-94.0); MEAN PLATELET VOLUME 10.9 fL (7.4-11.4); MONOCYTES % (AUTO) 9.3 %; PLT - PLATELET COUNT 239 10^3/uL (130-450); RED BLOOD COUNT 4.23 10^6/uL (4.70-6.10); RED CELL DISTRIBUTION WIDTH 13.2 % (12.0-15.0); WHITE BLOOD COUNT 15.1 x10^3/uL (4.8-10.8)
[2020-01-04 21:11] LABS: CLARITY,URINE CLOUDY (CLEAR)
[2020-01-04 21:11] LABS: INR 1.2 (0.8-1.2); PT - PROTHROMBIN TIME 13.7 secs (9.9-12.6)
[2020-01-04 21:13] LABS: ABNORMAL LYMPHS % (MANUAL) 0 %; BAND NEUTROPHILS % (MANUAL) 0 %
[2020-01-04 21:18] LABS: PARTIAL THROMBOPLASTIN TIME 29.4 secs (24.9-33.3)
[2020-01-04 21:20] LABS: ALBUMIN 3.5 g/dL (3.2-5.5); ALBUMIN/GLOBULIN RATIO 1.1 (1.0-2.2); BILIRUBIN,TOTAL 0.6 mg/dL (0.2-1.0); CALCIUM 8.5 mg/dL (8.5-10.3); CREATININE 1.1 mg/dL (0.6-1.2); TOTAL PROTEIN 6.7 g/dL (6.7-8.2)
[2020-01-04 21:21] LABS: BACTERIA,URINE Many /HPF (None Seen); SQUAMOUS EPITHELIAL CELL,UR NONE SEEN (<= Few); WBC CLUMPS,URINE PRESENT
--- NOTE | 2020-01-04 21:21 | XRAY Report ---
Reason: fever Procedure Date: 01/04/2020 Accession Number: [id number] / [id number] Procedure: XR - Chest 1 View X-Ray CPT Code: 42872 Final Report FULL RESULT: EXAM: CHEST RADIOGRAPHY EXAM DATE: 01/04/2020 09:06 PM. CLINICAL HISTORY: Fever. COMPARISON: CHEST 1 VIEW 03/30/2017 12:47 PM. TECHNIQUE: 1 view. FINDINGS: LUNGS: The lungs are clear. PLEURA: No significant pleural effusion. No clinically significant pneumothorax. MEDIASTINUM: Heart and mediastinal contours are notable for aortic calcification. The cardiac silhouette is top normal in size. Question small hiatal hernia. BONES: No suspicious osseous lesions. IMPRESSION: No acute cardiopulmonary abnormality. RADIA
[2020-01-04 21:29] LABS: DIFFERENTIAL COMMENT MANUAL DIFFERENTIAL; LYMPHOCYTES # (MANUAL) 0.8 10^3/uL (1.5-3.5); LYMPHOCYTES % (MANUAL) 5 %; MONOCYTES # (MANUAL) 0.8 10^3/uL (0.0-1.0); PLATELET ESTIMATE, MANUAL NORMAL (130-450,000) (NORMAL); PLATELET MORPHOLOGY NORMAL APPEARANCE (NORMAL); RBC MORPHOLOGY (MULTIPLE) 2+ MACROCYTOSIS (NORMAL)
[2020-01-04] MEDS ORDERED: SODIUM CHLORIDE FLUSH 0.9% 10 ML SYRINGE IVP PRN (22:11)
--- NOTE | 2020-01-04 22:20 | HISTORY & PHYSICAL EXAMINATION ---
Chief Complaint - Chief Complaint Chief Complaint: fever History of Present Illness - Admitted From Admitted From:: [facility] - History Obtained From Records Reviewed: yes History obtained from: Exam Limitations: cognitively impaired since stroke - History of Present Illness HPI Comment/Other: Patient is a 79 y/o male who was brought to the ED by his because he had a temp of 104F at home, could not urinate and had rigors today. He has a history of BPH. He self-caths multiple times daily. He gets fixated on a need to urinate and wakes up every 45 minutes at night to do so. 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 In the ED he had a temperature of 38.4 C, a WBC of 15 and a UA which was strongl y suggestive of a UTI. As a result he was presented for admission. He denied chest pain, dyspnea, abd pain, nausea, vomiting, fever or chills. History - Past Medical History Cardiovascular: reports: Hypertension, High cholesterol, Atrial fibrillation Respiratory: reports: None Endocrine/Autoimmune: reports: None GI: reports: None : reports: Benign prostate hypertrophy, Retention Psych: reports: None Musculoskeletal: reports: Chronic back pain Derm: reports: None MRSA Hx?: No - Past Surgical History General: reports: Splenectomy Ortho: reports: Hip replacement (left), Knee replacement (left) HEENT: reports: Tonsil/Adenoidectomy, Other (Carotid endarterectomy) - Family & Social History Family History Comment/Other: father: dementia. at age 93. mother: Diabetes mellitus and CHF Living arrangement: At home Living Situation: With spouse/s.o. Social History Notes: 30+ smoking history. Quit in 1996. Rarely drinks alcohol. No illicit drugs - POLST Patient has POLST: No POLST Status: Full Code Meds/Allgy - Home Medications Home Medications: Ambulatory Orders Medication Instructions Recorded Confirmed Dabigatran [Pradaxa] 2 tab PO BID 07/14/13 11/12/17 Finasteride 1 tab DAILY 01/04/20 01/04/20 - Allergies Allergies/Adverse Reactions: Allergies Allergy/AdvReac Type Severity Reaction Status Date / Time No Known Drug Allergies Allergy Verified 11/12/17 10:21 Review of Systems - Constitutional Constitutional: reports: Fever. denies: Fatigue, Chills - Eyes Eyes: denies: Pain, Vision loss - Ears, Nose & Throat Ears, Nose & Throat: denies: Tinnitus, Sore throat - Cardiovascular Cariovascular: denies: Edema, Syncope - Respiratory Respiratory: denies: Cough, Sputum production, Wheezing, SOB at rest, SOB with exertion - Genitourinary Genitourinary: reports: Dysuria, Frequency - Musculoskeletal Musculoskeletal: denies: Muscle pain, Back pain, Stiffness - Integumentary Integumentary: denies: Rash, Pruritis, Lesions - Neurological Neurological: reports: Memory problems, Abnormal gait. denies: General weakness, Focal weakness, Headache - Psychiatric Psychiatric: denies: Depression, Anxiety - Endocrine Endocrine: denies: Polyuria, Polydypsia - Hematologic/Lymphatic Hematologic/Lymphatic: denies: Anemia, Bruising, Petechiae Prior Level of Functionality: He lives at home with his . He has some cognitive impairment since his stroke. He is fixated on urinating an wakes up every 45 minutes at night to do so, event when told that it is not necessary. His is not very stable on his feet. Exam - Vital Signs Vital Signs: Vital Signs x48h Temp Pulse Resp BP Pulse Ox 01/04/20 20:20 38.4 C H 95 18 137/72 H 100 - Physical Exam General Appearance: positive: No acute distress, Alert Eyes Bilateral: positive: PERRL, EOMI ENT: positive: No signs of dehydration Neck: positive: No JVD, Trachea midline, Other (site of previous carotid endarterectomy noted) Respiratory: positive: Chest non-tender, No respiratory distress, Breath sounds nml. negative: Wheezes, Rales, Rhonchi Cardiovascular: positive: Regular rate & rhythm Abdomen: positive: Non-tender, No organomegaly, Nml bowel sounds, No distention. negative: Guarding, Rebound Back: positive: Nml inspection Skin: positive: Color nml, No rash, Warm Extremities: positive: Non-tender, Full ROM, Nml appearance, No pedal edema Neurologic/Psychiatric: positive: Oriented x3, Mood/affect nml Comments/Other: right testicle more enlarged than the left. New cyst on the corner of left testicle. Conclusion/Plan - Problem List (1) Urinary tract infection Conclusion/Plan: Patient started on rocephin 2g daily Will continue. Blood and urine cultures pending Patient recephin IV hydration with NS at 100ml/hr Qualifiers: Urinary tract infection type: site unspecified Hematuria presence: without hematuria Qualified Code(s): N39.0 - Urinary tract infection, site not specified (2) Chronic atrial fibrillation Conclusion/Plan: On pradaxa Not on any rate controlling medication (3) BPH (benign prostatic hyperplasia) Conclusion/Plan: On finasteride - Lab Results Fish Bones: 01/04/20 20:58 01/04/20 20:58 Core Measures - Anticipated LOS I expect patient to be DC'd or transferred within 96 hours.: Yes - DVT/VTE - Prophylaxis VTE/DVT Prophylaxis med ordered at admit?: Yes
[2020-01-04] MEDS ORDERED: ACETAMINOPHEN 325 MG TABLET PO STA ×2 (22:22→22:27)
[2020-01-04] MEDS: SODIUM CHLORIDE 0.9% 1,000 ML IV SCH (23:08)
[2020-01-05] MEDS ORDERED: LORazepam 0.5 MG TABLET PO STA (00:09)
[2020-01-05] MEDS ORDERED: cefTRIAXone 1 GM in SODIUM CHLORIDE 0.9% MINIBAG 100 ML IV STA (00:10)
[2020-01-05] MEDS: SODIUM CHLORIDE FLUSH 0.9% 10 ML SYRINGE IVP SCH ×3 (00:59→16:59)
[2020-01-05] MEDS ORDERED: LIDOCAINE 2% URO-JET 5 ML SYRINGE UR ONE (01:19)
[2020-01-05] MEDS: ACETAMINOPHEN 325 MG TABLET PO PRN ×3 (04:04→21:00)
[2020-01-05 05:36] LABS: BASOPHILS % (AUTO) 0.5 %; EOSINOPHILS % (AUTO) 0.1 %; HGB - HEMOGLOBIN 12.9 g/dL (14.0-18.0); LYMPHOCYTES % (AUTO) 8.6 %; MEAN CORPUSCULAR HEMOGLOBIN 32.5 pg (27.0-31.0); MEAN CORPUSCULAR HGB CONC 32.4 g/dL (32.0-36.0); MEAN CORPUSCULAR VOLUME 100.3 fL (80.0-94.0); MEAN PLATELET VOLUME 11.4 fL (7.4-11.4); MONOCYTES % (AUTO) 13.5 %; NEUTROPHILS % (AUTO) 76.7 %; PLT - PLATELET COUNT 222 10^3/uL (130-450); RED BLOOD COUNT 3.97 10^6/uL (4.70-6.10); RED CELL DISTRIBUTION WIDTH 13.1 % (12.0-15.0); WHITE BLOOD COUNT 17.6 x10^3/uL (4.8-10.8)
[2020-01-05 05:41] LABS: ABNORMAL LYMPHS % (MANUAL) 0 %; BAND NEUTROPHILS % (MANUAL) 0 %
[2020-01-05 05:47] LABS: CALCIUM 8.2 mg/dL (8.5-10.3)
[2020-01-05 05:56] LABS: LYMPHOCYTES # (MANUAL) 2.1 10^3/uL (1.5-3.5); LYMPHOCYTES % (MANUAL) 12 %; MONOCYTES # (MANUAL) 1.9 10^3/uL (0.0-1.0)
[2020-01-05 05:57] LABS: DIFFERENTIAL COMMENT MANUAL DIFFERENTIAL; PLATELET ESTIMATE, MANUAL NORMAL (130-450,000) (NORMAL); PLATELET MORPHOLOGY NORMAL APPEARANCE (NORMAL); RBC MORPHOLOGY (MULTIPLE) NORMAL APPEARANCE (NORMAL)
[2020-01-05] MEDS: PANTOPRAZOLE 40 MG TABLET PO SCH (06:42)
--- NOTE | 2020-01-05 07:25 | PROVIDER PROGRESS NOTE ---
Subjective - Prog Note Date Prog Note Date: 01/05/20 Prog Note Time: 07:22 - Subjective Pt reports feeling: Improved Subjective: John has been tired for much of the AM. He has perked up for lunch and ate some of his sandwich. He remains confused, poor historian, but appears comfortable. His , Birdie is at the bedside. Her medical questions were addressed, and advanced care planning discussion took place concluding that Palliative care would be very beneficial. A Palliative care consult has been made, with tentative plans to meet with Anneliese Betancourt on Monday around 12 noon. Birdie was happy with the medical plan. Current Medications - Current Medications Current Medications: Active Medications: Acetaminophen (Tylenol) 650 mg PO Q6HR PRN Sodium Chloride (Normal Saline 0.9%) 1,000 mls @ 100 mls/hr IV .Q10H TYLER Meropenem 1 gm/ Sodium (Chloride) 100 mls @ 200 mls/hr IV Q8H TYLER Pantoprazole Sodium (Protonix) 40 mg PO QDAC TYLER HOME meds: Dabigatran [Pradaxa] 2 tab PO BID 07/14/13 Finasteride 1 tab DAILY 01/04/20 Objective - Vital Signs/Intake & Output Reviewed Vital Signs: Yes Vital Signs: Vital Signs x48h Temp Pulse Resp BP Pulse Ox 01/05/20 06:41 37.3 C 01/05/20 04:45 38.0 C H 01/05/20 03:57 38.7 C H 95 17 124/57 L 96 01/05/20 00:05 37.1 C Intake & Output: Intake & Output 01/02/20 01/03/20 01/04/20 01/05/20 23:59 23:59 23:59 23:59 Intake Total 1100 300 Output Total 1775 Balance 1100 -1475 - Objective General Appearance: positive: No acute distress, Alert, Lethargic Eyes Bilateral: positive: No lid inflammation ENT: positive: Pharyngeal erythema, Dry mucous membranes Neck: positive: Thyroid nml, No JVD, Trachea midline, Stiff neck, Other (scar to right neck) Respiratory: positive: Chest non-tender, No respiratory distress, Breath sounds nml, Other (diminished, bilaterally) Cardiovascular: positive: Irregularly irregular, Tachycardia, Systolic murmur, Decreased pulse(s) Peripheral Pulses: 1+ Radial (R), 1+ Radial (L) Abdomen: positive: Non-tender, Nml bowel sounds Back: positive: Nml inspection Skin: positive: Color nml, No rash, Warm, Dry, Other (slightly bronze toned) Extremities: positive: Non-tender, Nml appearance, No pedal edema, Joint swelling Neurologic/Psychiatric: positive: CN's nml (2-12), Disoriented to time, Weakness, Sensory loss, Facial droop (right facial droop, baseline per ), Slurred/abnml speech (Difficulty with full sentances today, garbled speech at times Unable to obtain reliable review of systems), Depressed mood/affect (flat) Reflexes: Bicep (R): 2+, Bicep (L): 2+ (patient is left hand dominent) - Lab Results Fish Bones: 01/05/20 05:00 01/05/20 05:00 Other Labs: Lab Results x24hrs 01/05/20 01/05/20 01/04/20 Range/Units 05:00 05:00 20:58 WBC 17.6 H (4.8-10.8) x10^3/uL RBC 3.97 L (4.70-6.10) 10^6/uL Hgb 12.9 L (14.0-18.0) g/dL Hct 39.8 L (42.0-52.0) % MCV 100.3 H (80.0-94.0) fL MCH 32.5 H (27.0-31.0) pg MCHC 32.4 (32.0-36.0) g/dL RDW 13.1 (12.0-15.0) % Plt Count 222 (130-450) 10^3/uL MPV 11.4 (7.4-11.4) fL Neut # (Auto) Not Reportable Lymph # (Auto) Not Reportable Mellette # (Auto) Not Reportable Eos # (Auto) Not Reportable Baso # (Auto) Not Reportable Absolute Nucleated RBC Not Reportable Total Counted 100 Band Neuts % (Manual) 0 (0 - 10) % Abnorm Lymph % (Manual) 0 % Nucleated RBC % Not Reportable Neutrophils # (Manual) 13.6 H (1.5-6.6) 10^3/uL Lymphocytes # (Manual) 2.1 (1.5-3.5) 10^3/uL Monocytes # (Manual) 1.9 H (0.0-1.0) 10^3/uL Eosinophils # (Manual) 0.0 (0-0.7) 10^3/uL Basophils # (Manual) 0.0 (0-0.1) 10^3/uL Differential Comment MANUAL DIFFERENTIAL Manual Slide Review WBC Morphology NORMAL APPEARANCE (NORMAL) Platelet Estimate NORMAL (130-450,000) (NORMAL) Platelet Morphology NORMAL APPEARANCE (NORMAL) RBC Morph Micro Appear NORMAL APPEARANCE (NORMAL) PT (9.9-12.6) secs INR (0.8-1.2) APTT (24.9-33.3) secs Sodium 138 (135-145) mmol/L Potassium 3.9 (3.5-5.0) mmol/L Chloride 102 (101-111) mmol/L Carbon Dioxide 26 (21-32) mmol/L Anion Gap 10.0 (6-13) BUN 14 (6-20) mg/dL Creatinine 1.0 (0.6-1.2) mg/dL Estimated GFR (MDRD) 72 L (>89) Glucose 115 H (70-100) mg/dL Lactic Acid 1.6 (0.5-2.2) mmol/L Calcium 8.2 L (8.5-10.3) mg/dL Total Bilirubin (0.2-1.0) mg/dL AST (10-42) IU/L ALT (10-60) IU/L Alkaline Phosphatase (42-121) IU/L Total Protein (6.7-8.2) g/dL Albumin (3.2-5.5) g/dL Globulin (2.1-4.2) g/dL Albumin/Globulin Ratio (1.0-2.2) Lipase (22-51) U/L Urine Color Urine Clarity (CLEAR) Urine pH (5.0-7.5) PH Ur Specific Axis (1.002-1.030) Urine Protein (NEGATIVE) mg/dL Urine Glucose (UA) (NEGATIVE) mg/dL Urine Ketones (NEGATIVE) mg/dL Urine Occult Blood (NEGATIVE) Urine Nitrite (NEGATIVE) Urine Bilirubin (NEGATIVE) Urine Urobilinogen (NORMAL) E.U./dL Ur Leukocyte Esterase (NEGATIVE) Urine RBC (0-5) /HPF Urine WBC (0-3) /HPF Urine WBC Clumps Ur Squamous Epith Cells (<= Few) Urine Bacteria (None Seen) /HPF Ur Microscopic Review Urine Culture Comments 01/04/20 01/04/20 01/04/20 Range/Units 20:58 20:58 20:58 WBC 15.1 H (4.8-10.8) x10^3/uL RBC 4.23 L (4.70-6.10) 10^6/uL Hgb 13.8 L (14.0-18.0) g/dL Hct 42.4 (42.0-52.0) % MCV 100.2 H (80.0-94.0) fL MCH 32.6 H (27.0-31.0) pg MCHC 32.5 (32.0-36.0) g/dL RDW 13.2 (12.0-15.0) % Plt Count 239 (130-450) 10^3/uL MPV 10.9 (7.4-11.4) fL Neut # (Auto) Not Reportable Lymph # (Auto) Not Reportable Mellette # (Auto) Not Reportable Eos # (Auto) Not Reportable Baso # (Auto) Not Reportable Absolute Nucleated RBC Not Reportable Total Counted 100 Band Neuts % (Manual) 0 (0 - 10) % Abnorm Lymph % (Manual) 0 % Nucleated RBC % Not Reportable Neutrophils # (Manual) 13.6 H (1.5-6.6) 10^3/uL Lymphocytes # (Manual) 0.8 L (1.5-3.5) 10^3/uL Monocytes # (Manual) 0.8 (0.0-1.0) 10^3/uL Eosinophils # (Manual) 0.0 (0-0.7) 10^3/uL Basophils # (Manual) 0.0 (0-0.1) 10^3/uL Differential Comment MANUAL DIFFERENTIAL Manual Slide Review Indicated WBC Morphology NORMAL APPEARANCE (NORMAL) Platelet Estimate NORMAL (130-450,000) (NORMAL) Platelet Morphology NORMAL APPEARANCE (NORMAL) RBC Morph Micro Appear 2+ MACROCYTOSIS (NORMAL) PT 13.7 H (9.9-12.6) secs INR 1.2 (0.8-1.2) APTT 29.4 (24.9-33.3) secs Sodium 134 L (135-145) mmol/L Potassium 3.8 (3.5-5.0) mmol/L Chloride 101 (101-111) mmol/L Carbon Dioxide 25 (21-32) mmol/L Anion Gap 8.0 (6-13) BUN 19 (6-20) mg/dL Creatinine 1.1 (0.6-1.2) mg/dL Estimated GFR (MDRD) 65 L (>89) Glucose 137 H (70-100) mg/dL Lactic Acid (0.5-2.2) mmol/L Calcium 8.5 (8.5-10.3) mg/dL Total Bilirubin 0.6 (0.2-1.0) mg/dL AST 18 (10-42) IU/L ALT 11 (10-60) IU/L Alkaline Phosphatase 42 (42-121) IU/L Total Protein 6.7 (6.7-8.2) g/dL Albumin 3.5 (3.2-5.5) g/dL Globulin 3.2 (2.1-4.2) g/dL Albumin/Globulin Ratio 1.1 (1.0-2.2) Lipase 35 (22-51) U/L Urine Color Urine Clarity (CLEAR) Urine pH (5.0-7.5) PH Ur Specific Axis (1.002-1.030) Urine Protein (NEGATIVE) mg/dL Urine Glucose (UA) (NEGATIVE) mg/dL Urine Ketones (NEGATIVE) mg/dL Urine Occult Blood (NEGATIVE) Urine Nitrite (NEGATIVE) Urine Bilirubin (NEGATIVE) Urine Urobilinogen (NORMAL) E.U./dL Ur Leukocyte Esterase (NEGATIVE) Urine RBC (0-5) /HPF Urine WBC (0-3) /HPF Urine WBC Clumps Ur Squamous Epith Cells (<= Few) Urine Bacteria (None Seen) /HPF Ur Microscopic Review Urine Culture Comments 01/04/20 Range/Units 20:45 WBC (4.8-10.8) x10^3/uL RBC (4.70-6.10) 10^6/uL Hgb (14.0-18.0) g/dL Hct (42.0-52.0) % MCV (80.0-94.0) fL MCH (27.0-31.0) pg MCHC (32.0-36.0) g/dL RDW (12.0-15.0) % Plt Count (130-450) 10^3/uL MPV (7.4-11.4) fL Neut # (Auto) Lymph # (Auto) Mellette # (Auto) Eos # (Auto) Baso # (Auto) Absolute Nucleated RBC Total Counted Band Neuts % (Manual) (0 - 10) % Abnorm Lymph % (Manual) % Nucleated RBC % Neutrophils # (Manual) (1.5-6.6) 10^3/uL Lymphocytes # (Manual) (1.5-3.5) 10^3/uL Monocytes # (Manual) (0.0-1.0) 10^3/uL Eosinophils # (Manual) (0-0.7) 10^3/uL Basophils # (Manual) (0-0.1) 10^3/uL Differential Comment Manual Slide Review WBC Morphology (NORMAL) Platelet Estimate (NORMAL) Platelet Morphology (NORMAL) RBC Morph Micro Appear (NORMAL) PT (9.9-12.6) secs INR (0.8-1.2) APTT (24.9-33.3) secs Sodium (135-145) mmol/L Potassium (3.5-5.0) mmol/L Chloride (101-111) mmol/L Carbon Dioxide (21-32) mmol/L Anion Gap (6-13) BUN (6-20) mg/dL Creatinine (0.6-1.2) mg/dL Estimated GFR (MDRD) (>89) Glucose (70-100) mg/dL Lactic Acid (0.5-2.2) mmol/L Calcium (8.5-10.3) mg/dL Total Bilirubin (0.2-1.0) mg/dL AST (10-42) IU/L ALT (10-60) IU/L Alkaline Phosphatase (42-121) IU/L Total Protein (6.7-8.2) g/dL Albumin (3.2-5.5) g/dL Globulin (2.1-4.2) g/dL Albumin/Globulin Ratio (1.0-2.2) Lipase (22-51) U/L Urine Color YELLOW Urine Clarity CLOUDY (CLEAR) Urine pH 6.0 (5.0-7.5) PH Ur Specific Axis 1.025 (1.002-1.030) Urine Protein 100 H (NEGATIVE) mg/dL Urine Glucose (UA) NEGATIVE (NEGATIVE) mg/dL Urine Ketones NEGATIVE (NEGATIVE) mg/dL Urine Occult Blood SMALL H (NEGATIVE) Urine Nitrite POSITIVE H (NEGATIVE) Urine Bilirubin NEGATIVE (NEGATIVE) Urine Urobilinogen 0.2 (NORMAL) (NORMAL) E.U./dL Ur Leukocyte Esterase LARGE H (NEGATIVE) Urine RBC 6-10 H (0-5) /HPF Urine WBC >25 H (0-3) /HPF Urine WBC Clumps PRESENT Ur Squamous Epith Cells NONE SEEN (<= Few) Urine Bacteria Many H (None Seen) /HPF Ur Microscopic Review INDICATED Urine Culture Comments INDICATED - Diagnostic Imaging Diagnostic Imaging Results: positive: Final report reviewed Diagnostic Imaging Comments: EXAM: CHEST RADIOGRAPHY 01/04/2020 09:06 PM IMPRESSION: No acute cardiopulmonary abnormality. ABX Reporting Has patient been on IV antibiotics over the past 48 hours?: Yes Sepsis Event Note (H) - Evaluation Current Stage of Sepsis: Sepsis Possible source of Sepsis: positive: Genitourinary Confirmed Source and Organism (if known) of Sepsis: e coli - Sepsis Criteria Sepsis Criteria: Recorded Temperature greater than 38.3C or Less than 36C, Recorded Heart Rate greater than 90 bpm, LOC[employer]: altered consciousness (unrelated to primary neuro pathology) Assessment/Plan - Problem List (1) Bacteremia due to Escherichia coli Impression: -1 of 2 blood cultures show e. coli -Rechecking BC x2 in the AM -Continues on Meropenem IV -Checking an echocardiogram in the AM to evaluate for endocarditis, valve vegetation -Continue gentle IV fluids, IV antibiotics, await final culture results Pyelonephritis -Initially treated with IV Rocephin, changed to Meropenem due to +blood cultures and severity of illness -Kidney US showed no hydronephrosis, bilateral simple renal cysts -Multiple, repeated home straight caths prior to coming to the ED beginning at least ~6 months ago -Acute on chronic back pain per patients -Diarrhea which started yesterday -Profound worsening of his baseline confusion -Await final sensitivities, indwelling pavon to remain in place Acute metabolic encephalopathy -Patients reported that the patient took off for a walk by himself, which was out of character for him yesterday before coming down with a fever leading to this admission -Patient has baseline dementia with at home -Profoundly confused throughout the night, requiring sedation -Likely a result of this illness, qualifier for complicated UTI (pyelonephritis) -Continue to treat illness, treat with low dose Ativan PO if needed Fever -Temp max was 38.7 C soon after arriving to the nursing floor, continues today at 1251PM, with a temp of 38.0 C -Treating infection, Tylenol for symptoms Chronic atrial fibrillation -Likely the contributing factor with the patients history of CVA -Continues on pradaxa BID, was instructed to take pills home -No other medications for rate control on home med list -Not on any rate controlling medication -First diagnosed just prior to his stroke, but there was a delay with starting anticoagulation at the time -Continues on telemetry, rates 90-110s, likely due to illness -Await echo in the AM Neurogenic bladder as late effect of CVA -On finasteride at home, recommend stopping since indwelling pavon will be kept in place -Given the patients baseline dementia and short term memory loss, the straight cath routine at home may be more risk than beneficial at home -Palliative care conference in the AM Moderate dementia with behavioral disturbance -Patient has progressively become worse in the past 6 months with absolutely no memory per patients -Status post CVA with cognitive deficit residual -Palliative care consult on Monday ~ 12 (pending approval from provider) to discuss goals of care, and ensure all needs are met for the patient to remain at home COPD with emphysema -Patient smoked for greater than 30 years in total, stopped in the year 1996 -Consequently had carotid artery occlusion, CVA, HTN, BNP (vascular complications) -No recent pneumonia, no cough -No home inhalers, not needed at this point -Await echo in the AM
[2020-01-05] MEDS: SODIUM CHLORIDE 0.9% 1,000 ML IV SCH ×2 (08:49→19:56)
[2020-01-05] MEDS: MEROPENEM 1 GM in SODIUM CHLORIDE 0.9% MINIBAG 100 ML IV SCH ×3 (08:49→23:54)
[2020-01-05] MEDS ORDERED: cefTRIAXone 2 GM in SODIUM CHLORIDE 0.9% MINIBAG 100 ML IV SCH (09:00)
[2020-01-05] MEDS ORDERED: cefTRIAXone 1 GM in SODIUM CHLORIDE 0.9% MINIBAG 100 ML IV SCH (09:00)
--- NOTE | 2020-01-05 10:07 | PHARMACY PROGRESS NOTE ---
- Best Possible Medication History Admit Date and Time: 01/04/202211 Processed by: Pharmacy Medication History completed: Yes Patient Interview: Completed Secondary Source(s): Prescription bottles, Spouse/Significant other As the person ultimately responsible for medication therapy, providers are able to order a medication from an existing home medication list in [facility] via the "Reconcile Routine" prior to Confirmation of that medication by call center support consultant. Such practice is discouraged except when the physician, in their clinical judgment, deems that a medical need exists for a medication without regard to previous use.
--- NOTE | 2020-01-05 10:18 | Ultrasound Report ---
Reason: back pain, UTI, confusion Procedure Date: 01/05/2020 Accession Number: [id number] / [id number] Procedure: US - Retroperitoneal CPT Code: Final Report FULL RESULT: EXAM: RENAL ULTRASOUND EXAM DATE: 01/05/2020 09:07 AM. CLINICAL HISTORY: Back pain, UTI, confusion. COMPARISON: BLADDER ultrasound 01/27/2017 3:29 PM. TECHNIQUE: Real-time scanning was performed with static images obtained. FINDINGS: Right Kidney: 11.6 x 5.7 x 6.0 cm. Normal echotexture with no stones, contour-deforming masses, or hydronephrosis. There are multiple simple renal cortical cysts includin. Inferior pole cyst measuring 0.8 x 0.6 cm. 2. Inferior pole cyst measuring 1.0 x 0.8 x 0.9 cm. 3. Superior lateral cyst measuring 1.5 x 1.6 x 1.9 cm. Left Kidney: 11.6 x 5.3 x 5.5 cm. Normal echotexture with no stones, contour-deforming masses, or hydronephrosis. There are multiple simple renal cortical cysts includin. Medial interpolar region cyst measuring 0.7 x 0.5 x 0.9 cm. 2. Lateral interpolar region cyst measuring 1.1 x 0.7 x 1.3 cm. 3. Superior lateral cyst measuring 1.7 x 1.4 x 1.2 cm. Bladder: Decompressed by a Neumann catheter, limiting evaluation. Other: None. IMPRESSION: 1. No hydronephrosis bilaterally. 2. There are multiple bilateral small simple renal cortical cysts. 3. The bladder is decompressed by a Neumann catheter. RADIA
[2020-01-05] MEDS: DABIGATRAN 75 MG CAPSULE PO SCH ×2 (12:14→21:00)
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
[2020-01-05] MEDS: CALCIUM CARBONATE CHEW 500 MG TABLET PO SCH (22:10)
[2020-01-05] MEDS: LORazepam 0.5 MG TABLET PO PRN (22:10)
[2020-01-06] MEDS: SODIUM CHLORIDE FLUSH 0.9% 10 ML SYRINGE IVP SCH ×3 (01:00→16:05)
[2020-01-06] MEDS: SODIUM CHLORIDE 0.9% 1,000 ML IV SCH (05:56)
[2020-01-06] MEDS: CALCIUM CARBONATE CHEW 500 MG TABLET PO SCH ×3 (05:56→21:26)
[2020-01-06] MEDS: PANTOPRAZOLE 40 MG TABLET PO SCH (05:57)
[2020-01-06 06:13] LABS: BASOPHILS # (AUTO) 0.1 10^3/uL (0.0-0.1); BASOPHILS % (AUTO) 0.5 %; EOSINOPHILS # (AUTO) 0.1 10^3/uL (0.0-0.7); EOSINOPHILS % (AUTO) 0.6 %; HGB - HEMOGLOBIN 13.5 g/dL (14.0-18.0); LYMPHOCYTES # (AUTO) 2.7 10^3/uL (1.5-3.5); LYMPHOCYTES % (AUTO) 14.6 %; MEAN CORPUSCULAR HEMOGLOBIN 31.8 pg (27.0-31.0); MEAN CORPUSCULAR HGB CONC 31.9 g/dL (32.0-36.0); MEAN CORPUSCULAR VOLUME 99.8 fL (80.0-94.0); MONOCYTES # (AUTO) 1.9 10^3/uL (0.0-1.0); MONOCYTES % (AUTO) 10.2 %; NEUTROPHILS # (AUTO) 13.3 10^3/uL (1.5-6.6); NEUTROPHILS % (AUTO) 73.4 %; PLT - PLATELET COUNT 211 10^3/uL (130-450); RED BLOOD COUNT 4.24 10^6/uL (4.70-6.10); RED CELL DISTRIBUTION WIDTH 13.5 % (12.0-15.0); WHITE BLOOD COUNT 18.2 x10^3/uL (4.8-10.8)
[2020-01-06 06:17] LABS: CALCIUM 8.5 mg/dL (8.5-10.3); CREATININE 0.9 mg/dL (0.6-1.2)
[2020-01-06] MEDS: MEROPENEM 1 GM in SODIUM CHLORIDE 0.9% MINIBAG 100 ML IV SCH ×2 (08:58→16:04)
[2020-01-06] MEDS: polyethylene glycoL 3350 17 GM PACKET PO SCH (09:01)
[2020-01-06] MEDS: DOCUSATE SODIUM 250 MG CAPSULE PO SCH (09:01)
[2020-01-06] MEDS: DABIGATRAN 75 MG CAPSULE PO SCH ×2 (09:37→21:26)
--- NOTE | 2020-01-06 13:47 | PROVIDER PROGRESS NOTE ---
Subjective - Prog Note Date Prog Note Date: 01/06/20 Prog Note Time: 13:45 - Subjective Pt reports feeling: Improved Subjective: John has no complaints and has no pain this morning. He has less chills today and is enjoying the food here. The Palliative care conference was beneficial to the patient and his in future planning and in reviewing goals of care. Current Medications - Current Medications Current Medications: Active Medications: Acetaminophen (Tylenol) 650 mg PO Q6HR PRN Calcium Carbonate/Glycine (Tums) 500 mg PO TID [facility]YLER Dabigatran (Pradaxa) 150 mg PO BID [facility] Docusate Sodium (Colace 250mg Capsule) 250 - 500 mg PO DAILY [facility] Meropenem 1 gm/ Sodium (Chloride) 100 mls @ 200 mls/hr IV Q8H [facility] Lorazepam (Ativan) 0.5 mg PO QPM PRN Pantoprazole Sodium (Protonix) 40 mg PO QDAC [facility] Polyethylene Glycol (Miralax) 17 gm PO DAILY [facility] HOME meds: Dabigatran [Pradaxa] 150 mg PO BID 07/14/13 Finasteride 5 mg PO DAILY 01/04/20 Objective - Vital Signs/Intake & Output Reviewed Vital Signs: Yes Vital Signs: Vital Signs x48h Temp Pulse Resp BP Pulse Ox 01/06/20 08:50 37.4 C 89 18 95/61 96 Intake & Output: Intake & Output 01/03/20 01/04/20 01/05/20 01/06/20 23:59 23:59 23:59 23:59 Intake Total 1100 3468.333 1153.333 Output Total 2800 1250 Balance 1100 668.333 -96.667 - Objective General Appearance: positive: No acute distress, Alert Eyes Bilateral: positive: PERRL, No lid inflammation ENT: positive: Pharynx nml, No signs of dehydration Neck: positive: Thyroid nml, No JVD Respiratory: positive: Chest non-tender, No respiratory distress, Breath sounds nml Cardiovascular: positive: Regular rate & rhythm, No gallop, Systolic murmur, Decreased pulse(s) Peripheral Pulses: 1+ Radial (R), 1+ Radial (L) Abdomen: positive: Non-tender, Nml bowel sounds Back: positive: Nml inspection Skin: positive: No rash, Warm, Dry, Other (bronze toned skin) Extremities: positive: Non-tender, Full ROM, Nml appearance, No pedal edema Neurologic/Psychiatric: positive: CN's nml (2-12), Motor nml, Sensation nml, Weakness, Slurred/abnml speech, Depressed mood/affect (flat), Other (baseline dementia) Reflexes: Bicep (R): 2+, Bicep (L): 2+ - Lab Results Fish Bones: 01/06/20 05:00 01/06/20 05:00 Other Labs: Lab Results x24hrs 01/06/20 01/06/20 01/06/20 Range/Units 05:00 05:00 05:00 WBC 18.2 H (4.8-10.8) x10^3/uL RBC 4.24 L (4.70-6.10) 10^6/uL Hgb 13.5 L (14.0-18.0) g/dL Hct 42.3 (42.0-52.0) % MCV 99.8 H (80.0-94.0) fL MCH 31.8 H (27.0-31.0) pg MCHC 31.9 L (32.0-36.0) g/dL RDW 13.5 (12.0-15.0) % Plt Count 211 (130-450) 10^3/uL MPV 12.0 H (7.4-11.4) fL Neut # (Auto) 13.3 H (1.5-6.6) 10^3/uL Lymph # (Auto) 2.7 (1.5-3.5) 10^3/uL [place] # (Auto) 1.9 H (0.0-1.0) 10^3/uL Eos # (Auto) 0.1 (0.0-0.7) 10^3/uL Baso # (Auto) 0.1 (0.0-0.1) 10^3/uL Absolute Nucleated RBC 0.00 x10^3/uL Nucleated RBC % 0.0 /100WBC Sodium 139 (135-145) mmol/L Potassium 4.0 (3.5-5.0) mmol/L Chloride 105 (101-111) mmol/L Carbon Dioxide 26 (21-32) mmol/L Anion Gap 8.0 (6-13) BUN 13 (6-20) mg/dL Creatinine 0.9 (0.6-1.2) mg/dL Estimated GFR (MDRD) 82 L (>89) Glucose 94 (70-100) mg/dL Calcium 8.5 (8.5-10.3) mg/dL TSH 0.80 (0.34-5.60) uIU/mL ABX Reporting Has patient been on IV antibiotics over the past 48 hours?: Yes Sepsis Event Note (H) - Evaluation Current Stage of Sepsis: Sepsis Possible source of Sepsis: positive: Genitourinary - Sepsis Criteria Sepsis Criteria: Recorded Temperature greater than 38.3C or Less than 36C, Recorded Heart Rate greater than 90 bpm, SENIOR ACCOUNTING SPECIALIST: altered consciousness (unrelated to primary neuro pathology) Assessment/Plan - Problem List (1) Bacteremia due to Escherichia coli Impression: -1 of 2 blood cultures show e. coli -Repeat BC x2 are pending -Continues on Meropenem IV -Echocardiogram has been obtained to evaluate for endocarditis, valve vegetation -Continue IV antibiotics, await final culture results Pyelonephritis -Initially treated with IV Rocephin, changed to Meropenem due to +blood cultures and severity of illness -Kidney US showed no hydronephrosis, bilateral simple renal cysts -Multiple, repeated home straight caths prior to coming to the ED beginning at least ~6 months ago -Acute on chronic back pain per patients -Diarrhea is nearly resolved -Profound worsening of his baseline confusion -Await final sensitivities, indwelling pavon to remain in place Acute metabolic encephalopathy -Patients reported that the patient took off for a walk by himself, which was out of character for him yesterday before coming down with a fever leading to this admission -Patient has baseline dementia with owning at home -Profoundly confused throughout the night, requiring sedation -Likely a result of this illness, qualifier for complicated UTI (pyelonephritis) -Continue to treat illness, treat with low dose Ativan PO if needed Fever -Temp max was 38.7 C soon after arriving to the nursing floor, continues today at 1251PM, with a temp of 38.0 C -Treating infection, Tylenol for symptoms Chronic atrial fibrillation -Likely the contributing factor with the patients history of CVA -Continues on pradaxa BID, was instructed to take pills home -No other medications for rate control on home med list -Not on any rate controlling medication -First diagnosed just prior to his stroke, but there was a delay with starting anticoagulation at the time -Monitor vital signs Neurogenic bladder as late effect of CVA -On finasteride at home, recommend stopping since indwelling pavon will be kept in place -Given the patients baseline dementia and short term memory loss, the straight cath routine at home may be more risk than beneficial at home -Palliative care with Anneliese Betancourt with plans to follow up outpatient Moderate dementia with behavioral disturbance -Patient has progressively become worse in the past 6 months with absolutely no memory per patients -Status post CVA with cognitive deficit residual -Palliative care with Anneliese Betancourt with plans to follow up outpatient COPD with emphysema -Patient smoked for greater than 30 years in total, stopped in the year 1996 -Consequently had carotid artery occlusion, CVA, HTN, BNP (vascular complications) -No recent pneumonia, no cough -No home inhalers, not needed at this point
--- NOTE | 2020-01-06 19:34 | CONSULTATION NOTE ---
Palliative Care Consultation - Referral Referring Provider: Trish MICHELLE Time of Visit: 12-1300 Referral setting: Hospitalized patient Referral Reason: Goals of Care/Dementia/UTI/Sepsis - Information Sources Records reviewed: RN notes reviewed, Previous records reviewed History/Review of Systems obtained from: Patient, Family ( Birdie provided history) Exam limitations: Clinical condition (moderate to severe dementia) - History of Present Illness Brief History of Present Illness: This is a 79-year-old who presented to [facility] on 01/04[facility]2020 with high temp of 104, and worsening symptoms of UTI. Patient has had a history of BPH, has been self cathing which has become more difficult in the context of his dementia. She had been told by urologist, only other option was suprapubic catheter, she is quite relieved to find he can have a Pavon catheter. Patient has been hospitalized in the past with sepsis related to UTI. And according to has been treated multiple times by his primary care provider for UTIs. Her frustration is she can see the changes happening, and often it takes a couple weeks to get in. We did discuss so at that point in time, often the UTI has resolved, with pushing fluids and a more conservative approach. Patient does have a history of a significant stroke 7-1/2 years ago, with that has comes severe cognitive issues and short-term memory issues. Patient dany longo has some insight into this, though does not recognize the severity of his deficits. He was sent to neurology, he is due for a follow-up test in February. She had made the appointment as he has continued to decline fairly rapidly, and has presented with symptoms of sundowning, perseveration, and most of these have been focused on his feeling he "I have to pee". She would get quite frustrated with him as there was no correcting this or talking him out of it, and patient does not have the dexterity nor the wherewithal to be cathing with good technique at this point in time. Patient is quite pleasant, easy to engage. They are still involved in their community, he was absolutely "vibrant" previous to his stroke, was a voracious reader, and now is unable to read though still takes a [employer]. He has lost more more executive function, 3 months ago was able to make coffee, now cannot figure it out. He was driving last March, and now has difficulty tracking conversations. 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 Their experience has been with his father, who had Alzheimer's and ended up in a care home, so she is trying to keep his mobility, they are currently in physical therapy with performance therapy, as well as a one-on-one program with a personal driver since May. He has not had any falls. Patient is responding to antibiotics, is feeling somewhat better, does not have fever and chills though did run a low-grade temp this morning. He has been mostly bedbound, he is eating and drinking, but is still quite impulsive and needs his to oversee his care still. Patient's other comorbidities include chronic atrial fib, neurogenic bladder as a late effect of CVA, moderate dementia with behavioral disturbances, COPD with emphysema, history of CAD D, carotid artery occlusion, and is awaiting results of an echo. 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 Support System: Patient lives with his jose alberto of 56 years, . She is aware of the natural course of dementia, and is looking forward to 1 of their 4 sons coming who is moving in May nearby. They currently live in their old family home, she does have friends she walks with on a regular basis, she does not attend the Alzheimer's support groups. She reports all 4 children are very attentive and supportive. Family History - Family History Family History: Mother: , CAD, Diabetes, Type 2, Father: , Alzheimer's Disease Medications/Allergies - Medications Active Medication List: Active Medications Acetaminophen (Tylenol) 650 mg PO Q6HR PRN PRN Reason: Pain 1 to 4 Last Admin: 01/05/20 21:00 Dose: 650 mg Calcium Carbonate/Glycine (Tums) 500 mg PO TID [facility] Last Admin: 01/06/20 14:08 Dose: Not Given Dabigatran (Pradaxa) 150 mg PO BID [facility] Last Admin: 01/06/20 09:37 Dose: 150 mg Docusate Sodium (Colace 250mg Capsule) 250 - 500 mg PO DAILY [facility] Last Admin: 01/06/20 09:01 Dose: 500 mg Meropenem 1 gm/ Sodium (Chloride) 100 mls @ 200 mls/hr IV Q8H [facility] Last Infusion: 01/06/20 16:34 Dose: Infused Lorazepam (Ativan) 0.5 mg PO QPM PRN PRN Reason: Insomnia Last Admin: 01/05/20 22:10 Dose: 0.5 mg Pantoprazole Sodium (Protonix) 40 mg PO QDAC [facility] Last Admin: 01/06/20 05:57 Dose: 40 mg Polyethylene Glycol (Miralax) 17 gm PO DAILY [facility] Last Admin: 01/06/20 09:01 Dose: 17 gm Sodium Chloride (Normal Saline Flush 0.9%) 10 ml IVP PRN PRN PRN Reason: NEEDED PER PROVIDER ORDERS Sodium Chloride (Normal Saline Flush 0.9%) 10 ml IVP 0100,0900,1700 [facility] Last Admin: 01/06/20 16:05 Dose: 10 ml Dabigatran [Pradaxa] 150 mg PO BID 07/14/13 Finasteride 5 mg PO DAILY 01/04/20 - Allergies Allergies/Adverse Reactions: Allergies Allergy/AdvReac Type Severity Reaction Status Date / Time No Known Drug Allergies Allergy Verified 11/12/17 10:21 Review of Systems - Constitutional Constitutional: reports: Fatigue, Fever (recent prior to admission; low grade earlier today 37.4), Weight stable (190) - Eyes Eyes: reports: Vision loss - Ears, Nose & Throat Ears, Nose & Throat: reports: Hearing loss - Respiratory Respiratory: denies: SOB at rest - Gastrointestinal Gastrointestinal: reports: Diarrhea (improved), Good appetite - Genitourinary Genitourinary: reports: Other (new pavon) - Musculoskeletal Musculoskeletal: reports: Stiffness, Muscle weakness - Integumentary Integumentary: reports: Dryness - Neurological Neurological: reports: General weakness, Memory problems (worsening; more acutely in last few months;) - Psychiatric Psychiatric: reports: Anxiety, Behavior disturbances - Hematologic/Lymphatic Hematologic/Lymphatic: reports: Recurrent infections (UTIs; frequent tx) - All Other Systems All Other Systems: reports: Other (limited for ROS with patient report) Physical Exam - Vital Signs Vital Signs: Vital Signs x48h Temp Pulse Resp BP Pulse Ox 01/06/20 16:18 37.0 C 49 L 18 109/65 97 01/06/20 14:56 75 127/63 - Physical Exam General Appearance: positive: No acute distress, Alert Eyes Bilateral: positive: Other (eyes matted with secretions) ENT: negative: Dry mucous membranes Neck: positive: No JVD, Trachea midline Cardiovascular: positive: Irregular Respiratory: positive: No respiratory distress, Diminished in bases. negative: Wheezes, Rales, Rhonchi Abdomen: positive: Non-tender, Soft, Nml bowel sounds Skin: positive: Pallor, Dryness Extremities: positive: No pedal edema Neurologic/Psychiatric: positive: Mood/affect nml, Disoriented to time, Weakness, Flat affect Palliative Care - POLST Patient has POLST: No POLST Status: Full Code (discussion regarding CODE status; please see Palliative Care discussion) Pain: Pain unchanged, Location (intermittent low back pain; exacerbated with "tasks"; currently not on medication) Tiredness/Fatigue: Moderate (4-6) Feelings of wellbeing/Perceived Quality of Life: Fair, Acceptable, Comment (per ; see PC discussion) Sleep: Sleeps poorly Performance Status: Patient's functional status has been declining, it is more difficult for him to walk, though has not had any falls. Birdie is fearful of him eventually ending up in a wheelchair. They do have a walk-in shower with a seat, he does need assistance in direction and cueing for dressing. It will be interesting given his impulsivity, if he is going to be able to manage a Pavon catheter, is certainly preferable to straight cathing. - Palliative Care Discussion: Did discuss goals, hope is to return home, with recovery from his sepsis/UTI. Patient though has been on a downward spiral both functionally and cognitively. They do have some advanced care planning documents, but these were done around the time of the stroke, will need to get a copy of these for the records. She does not have a POLST for her . In the context of CODE STATUS, her original conversation started out with she would want initially things done, and make a decision as far as withdrawing care. Did reframe it in the context at this point in time with his advanced age, more comorbidities, decline, that most likely the chance of success would be smaller, as well as the likelihood of his recovery back to his previous level of function slight to none. She is quite clear in her context of discussing patient's decline, that she would not want surgery again, as anesthesia made him worse in his dementia seem to decline more rapidly. We discussed this in the same context as a procedure the DNAR, and most likely would not benefit him. Did introduce the POLST with DNA R versus CPR; but also then followed up with given the goals of they are expressing, would be to weigh the benefits and burdens moving forward of as decisions as they came up, patient could still have been a DNA R and received the care he is received. She will discuss this with her sons, and we agreed to meet in 2 to 3 weeks to complete the POLST and follow-up on further goals of care. Her goal is to keep him as functional as possible, she does not want to have to place him in a care home like she did with her [id number], but does recognize she also needs to take care of herself. Her [id number] did care for her patient's father at home for long period of time until it got too much. She is looking forward to having her son's support. She does describe behav iors so that are indicative of sundowning, even with the resolution of the Pavon catheter suspect these will continue and may continue to worsen. Patient was present for the conversation, did not seem to be able to grasp, when asked what his understanding was of conversation. 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 Patient does not present with decision-making capacity to be able to weigh benefits and burdens of medical decisions, this will fall to Birdie. She would like the support of her sons, and further following up and defining POLST. Results - Lab Results Lab results reviewed: Yes Fish Bones: 01/06/20 05:00 01/06/20 05:00 Lab and Imaging Results: Lab Results x24hrs 01/06/20 01/06/20 01/06/20 Range/Units 05:00 05:00 05:00 WBC 18.2 H (4.8-10.8) x10^3/uL RBC 4.24 L (4.70-6.10) 10^6/uL Hgb 13.5 L (14.0-18.0) g/dL Hct 42.3 (42.0-52.0) % MCV 99.8 H (80.0-94.0) fL MCH 31.8 H (27.0-31.0) pg MCHC 31.9 L (32.0-36.0) g/dL RDW 13.5 (12.0-15.0) % Plt Count 211 (130-450) 10^3/uL MPV 12.0 H (7.4-11.4) fL Neut # (Auto) 13.3 H (1.5-6.6) 10^3/uL Lymph # (Auto) 2.7 (1.5-3.5) 10^3/uL [place] # (Auto) 1.9 H (0.0-1.0) 10^3/uL Eos # (Auto) 0.1 (0.0-0.7) 10^3/uL Baso # (Auto) 0.1 (0.0-0.1) 10^3/uL Absolute Nucleated RBC 0.00 x10^3/uL Nucleated RBC % 0.0 /100WBC Sodium 139 (135-145) mmol/L Potassium 4.0 (3.5-5.0) mmol/L Chloride 105 (101-111) mmol/L Carbon Dioxide 26 (21-32) mmol/L Anion Gap 8.0 (6-13) BUN 13 (6-20) mg/dL Creatinine 0.9 (0.6-1.2) mg/dL Estimated GFR (MDRD) 82 L (>89) Glucose 94 (70-100) mg/dL Calcium 8.5 (8.5-10.3) mg/dL TSH 0.80 (0.34-5.60) uIU/mL Impression and Recommendations - Palliative Care Impression: This is a 79-year-old gentleman with worsening dementia, 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 Patient is not appropriate candidate for self cathing, and will continue with Pavon catheter for long-term maintenance/management. Patient does present with functional and cognitive decline, increasing care needs, and concern for future goals of care. Palliative care to provide support regarding anticipatory guidance around advanced care planning and educating regarding disease trajectory. Recommendations/Counseling Done: 1. BPH. Counseling provided regarding long-term management of Pavon catheter indwelling. Patient no longer candidate for self cathing, and documented BPH as well as neurogenic bladder in chart. Patient does not present is homebound at this point in time, would recommend in follow-up with PCP and this information is shared with , for prescription to have catheter changed up at [facility] every 4 to 6 weeks. Patient will also need ongoing supplies, these can be ordered through [facility]. Would recommend nursing work with patient and and transition plan, with leg bag, Birdie will need support and training to manage this. 2. Generalized weakness. Patient has reinitiated outpatient physical therapy, would recommend continue with this plan. Follow-up with hospitalist regarding PT eval and work with patient inpatient. Birdie does need patient to be functional, to be able to continue to manage him at home. She does understand with each hospitalization, will continue to be some functional and cognitive decline, but would like to mitigate this if possible. 3. Dementia with behavioral disturbances. Birdie did stay the night, very much appreciated patient sleeping, looks like they used Ativan. Patient may need if continues with perseverating behaviors, and sundowning low-dose antipsychotic at bedtime. Patient is due to see the neurologist in February, may need to be addressed sooner by PCP or on discharge. Counseling provided regarding the natural course of disease, as well as trajectory. Birdie has some insight related to her experience with her [id number], counseling provided to link also the trajectory to goals of care. 4. Advanced care planning. Birdie reports they have done documents that are reflective of not prolonging suffering, looking at quality of life issues, but do not have a POLST. Counseling and education regarding POLST provided, as well as CODE STATUS and implications as well as recommendations for shared decision making in the future.She does want to speak with her sons prior to filling out POLST, she will be the one needing to sign, though certainly can have patient participate with his values. Counseling provided regarding the role of palliative care, will pursue outpatient referral and follow-up in the community setting with PCP. Time Spent: 60 minutes with greater than 50% of this done in counseling regarding advanced care planning, disease trajectory, continuum of care and anticipatory guidance. Coordination of care with hospital team.
[2020-01-06] MEDS: LORazepam 0.5 MG TABLET PO PRN (23:03)
[2020-01-07] MEDS: MEROPENEM 1 GM in SODIUM CHLORIDE 0.9% MINIBAG 100 ML IV SCH ×3 (00:57→16:28)
[2020-01-07] MEDS: SODIUM CHLORIDE FLUSH 0.9% 10 ML SYRINGE IVP SCH ×3 (00:57→16:30)
[2020-01-07 05:46] LABS: BASOPHILS # (AUTO) 0.1 10^3/uL (0.0-0.1); BASOPHILS % (AUTO) 0.6 %; EOSINOPHILS # (AUTO) 0.2 10^3/uL (0.0-0.7); HGB - HEMOGLOBIN 12.8 g/dL (14.0-18.0); LYMPHOCYTES # (AUTO) 1.5 10^3/uL (1.5-3.5); LYMPHOCYTES % (AUTO) 10.3 %; MEAN CORPUSCULAR HEMOGLOBIN 32.7 pg (27.0-31.0); MEAN CORPUSCULAR VOLUME 99.2 fL (80.0-94.0); MEAN PLATELET VOLUME 11.8 fL (7.4-11.4); MONOCYTES # (AUTO) 1.4 10^3/uL (0.0-1.0); MONOCYTES % (AUTO) 9.7 %; NEUTROPHILS # (AUTO) 11.1 10^3/uL (1.5-6.6); NEUTROPHILS % (AUTO) 77.8 %; PLT - PLATELET COUNT 184 10^3/uL (130-450); RED BLOOD COUNT 3.91 10^6/uL (4.70-6.10); RED CELL DISTRIBUTION WIDTH 13.2 % (12.0-15.0); WHITE BLOOD COUNT 14.3 x10^3/uL (4.8-10.8)
[2020-01-07 05:59] LABS: CALCIUM 8.3 mg/dL (8.5-10.3); CREATININE 0.8 mg/dL (0.6-1.2)
[2020-01-07] MEDS: ACETAMINOPHEN 325 MG TABLET PO PRN (06:55)
[2020-01-07] MEDS: PANTOPRAZOLE 40 MG TABLET PO SCH (06:55)
[2020-01-07] MEDS: CALCIUM CARBONATE CHEW 500 MG TABLET PO SCH ×3 (06:56→21:14)
[2020-01-07] MEDS: DABIGATRAN 75 MG CAPSULE PO SCH ×2 (09:55→21:14)
[2020-01-07] MEDS: DOCUSATE SODIUM 250 MG CAPSULE PO SCH (09:55)
[2020-01-07] MEDS: polyethylene glycoL 3350 17 GM PACKET PO SCH (09:56)
[2020-01-07 14:11] LABS: BASOPHILS % (AUTO) 0.4 %; EOSINOPHILS % (AUTO) 1.3 %; LYMPHOCYTES % (AUTO) 11.2 %; MEAN CORPUSCULAR HEMOGLOBIN 31.6 pg (27.0-31.0); MEAN CORPUSCULAR HGB CONC 31.8 g/dL (32.0-36.0); MEAN CORPUSCULAR VOLUME 99.5 fL (80.0-94.0); MEAN PLATELET VOLUME 10.9 fL (7.4-11.4); NEUTROPHILS % (AUTO) 73.4 %; PLT - PLATELET COUNT 182 10^3/uL (130-450); RED BLOOD COUNT 4.11 10^6/uL (4.70-6.10); RED CELL DISTRIBUTION WIDTH 13.3 % (12.0-15.0); WHITE BLOOD COUNT 14.9 x10^3/uL (4.8-10.8)
[2020-01-07 14:13] LABS: ABNORMAL LYMPHS % (MANUAL) 0 %
[2020-01-07 14:34] LABS: BAND NEUTROPHILS % (MANUAL) 1 %; DIFFERENTIAL COMMENT MANUAL DIFFERENTIAL; LYMPHOCYTES # (MANUAL) 1.6 10^3/uL (1.5-3.5); LYMPHOCYTES % (MANUAL) 11 %; MONOCYTES # (MANUAL) 1.3 10^3/uL (0.0-1.0); PLATELET ESTIMATE, MANUAL NORMAL (130-450,000) (NORMAL); PLATELET MORPHOLOGY NORMAL APPEARANCE (NORMAL); RBC MORPHOLOGY (MULTIPLE) NORMAL APPEARANCE (NORMAL)
[2020-01-07] MEDS ORDERED: ZOLPIDEM 5 MG TABLET PO PRN (15:13)
--- NOTE | 2020-01-07 15:15 | PROVIDER PROGRESS NOTE ---
Subjective - Prog Note Date Prog Note Date: 01/07/20 - Subjective Pt reports feeling: Worse Subjective: pt present very confused today. pt has hx of dementia. pt does not present focal neurological deficits. pt has no fever, chill. discussed with pt's for d/c plan for pt. pt's refused pt to be d/c to nurse home, consulted with social work for safely d/c plan Current Medications - Current Medications Current Medications: Active Medications Acetaminophen (Tylenol) 650 mg PO Q6HR PRN PRN Reason: Pain 1 to 4 Last Admin: 01/07/20 06:55 Dose: 650 mg Calcium Carbonate/Glycine (Tums) 500 mg PO TID [facility] Last Admin: 01/07/20 06:56 Dose: 500 mg Dabigatran (Pradaxa) 150 mg PO BID [facility] Last Admin: 01/07/20 09:55 Dose: 150 mg Docusate Sodium (Colace 250mg Capsule) 250 - 500 mg PO DAILY [facility] Last Admin: 01/07/20 09:55 Dose: 500 mg Meropenem 1 gm/ Sodium (Chloride) 100 mls @ 200 mls/hr IV Q8H [facility] Last Infusion: 01/07/20 10:25 Dose: Infused Lorazepam (Ativan) 0.5 mg PO QPM PRN PRN Reason: Insomnia Last Admin: 01/06/20 23:03 Dose: 0.5 mg Pantoprazole Sodium (Protonix) 40 mg PO QDAC [facility] Last Admin: 01/07/20 06:55 Dose: 40 mg Polyethylene Glycol (Miralax) 17 gm PO DAILY [facility] Last Admin: 01/07/20 09:56 Dose: 17 gm Sodium Chloride (Normal Saline Flush 0.9%) 10 ml IVP PRN PRN PRN Reason: NEEDED PER PROVIDER ORDERS Sodium Chloride (Normal Saline Flush 0.9%) 10 ml IVP 0100,0900,1700 [facility] Last Admin: 01/07/20 10:12 Dose: 10 ml Zolpidem Tartrate (Ambien) 5 mg PO QPM PRN PRN Reason: Insomnia Dabigatran [Pradaxa] 150 mg PO BID 07/14/13 Finasteride 5 mg PO DAILY 01/04/20 Objective - Vital Signs/Intake & Output Vital Signs: Vital Signs x48h Temp Pulse Pulse Resp BP BP Pulse Ox 01/07/20 11:33 89 126/73 01/07/20 09:53 92 147/91 H 01/07/20 09:34 37.2 C 75 18 141/91 H 94 Pulse Ox Pulse Ox 01/07/20 11:33 99 01/07/20 09:53 99 01/07/20 09:34 Intake & Output: Intake & Output 01/04/20 01/05/20 01/06/20 01/07/20 23:59 23:59 23:59 23:59 Intake Total 1100 3468.333 3051.333 920 Output Total 2800 1925 2200 Balance 1100 261.192 9109.333 -1280 - Objective General Appearance: positive: No acute distress, Alert. negative: Lethargic Eyes Bilateral: positive: Normal inspection, PERRL, No lid inflammation ENT: positive: ENT inspection nml, Pharynx nml, No signs of dehydration. negative: Purulent nasal drainage Neck: positive: Nml inspection, Thyroid nml, No JVD Respiratory: positive: Chest non-tender, No respiratory distress, Breath sounds nml. negative: Wheezes, Rales, Rhonchi Cardiovascular: positive: Regular rate & rhythm, No murmur, No gallop. negative: Irregularly irregular, Extrasystoles, Tachycardia, Bradycardia, Systolic murmur, Diastolic murmur Peripheral Pulses: 2+ Radial (R), 2+ Radial (L), 2+ Dorsalis pedis (R), 2+ Dorsalis pedis (L) Abdomen: positive: Non-tender, No organomegaly, Nml bowel sounds, No distention. negative: Tenderness, Guarding, Rebound Back: positive: Nml inspection. negative: CVA tenderness (R), CVA tenderness (L) Skin: positive: Color nml, No rash, Warm, Dry. negative: Cyanosis, Diaphoresis, Pallor Extremities: positive: Non-tender, Full ROM, Nml appearance. negative: Calf tenderness, My's sign/cords Neurologic/Psychiatric: positive: Sensation nml. negative: Weakness, Sensory l oss, Facial droop, Slurred/abnml speech, Depressed mood/affect - Lab Results Fish Bones: 01/07/20 14:00 01/07/20 05:00 Other Labs: Lab Results x24hrs 01/07/20 01/07/20 01/07/20 Range/Units 14:00 08:00 08:00 WBC 14.9 H (4.8-10.8) x10^3/uL RBC 4.11 L (4.70-6.10) 10^6/uL Hgb 13.0 L (14.0-18.0) g/dL Hct 40.9 L (42.0-52.0) % MCV 99.5 H (80.0-94.0) fL MCH 31.6 H (27.0-31.0) pg MCHC 31.8 L (32.0-36.0) g/dL RDW 13.3 (12.0-15.0) % Plt Count 182 (130-450) 10^3/uL MPV 10.9 (7.4-11.4) fL Neut # (Auto) Not Reportable (1.5-6.6) 10^3/uL Lymph # (Auto) Not Reportable (1.5-3.5) 10^3/uL Crenshaw # (Auto) Not Reportable (0.0-1.0) 10^3/uL Eos # (Auto) Not Reportable (0.0-0.7) 10^3/uL Baso # (Auto) Not Reportable (0.0-0.1) 10^3/uL Absolute Nucleated RBC Not Reportable x10^3/uL Total Counted 100 Band Neuts % (Manual) 1 (0 - 10) % Abnorm Lymph % (Manual) 0 % Nucleated RBC % Not Reportable /100WBC Neutrophils # (Manual) 11.9 H (1.5-6.6) 10^3/uL Lymphocytes # (Manual) 1.6 (1.5-3.5) 10^3/uL Monocytes # (Manual) 1.3 H (0.0-1.0) 10^3/uL Eosinophils # (Manual) 0.0 (0-0.7) 10^3/uL Basophils # (Manual) 0.0 (0-0.1) 10^3/uL Differential Comment MANUAL DIFFERENTIAL Platelet Estimate NORMAL (130-450,000) (NORMAL) Platelet Morphology NORMAL APPEARANCE (NORMAL) RBC Morph Micro Appear NORMAL APPEARANCE (NORMAL) ESR 11 (0-20) mm/Hr Sodium (135-145) mmol/L Potassium (3.5-5.0) mmol/L Chloride (101-111) mmol/L Carbon Dioxide (21-32) mmol/L Anion Gap (6-13) BUN (6-20) mg/dL Creatinine (0.6-1.2) mg/dL Estimated GFR (MDRD) (>89) Glucose (70-100) mg/dL Calcium (8.5-10.3) mg/dL C-Reactive Protein 10.9 H (0-1.0) mg/dL 01/07/20 01/07/20 Range/Units 05:00 05:00 WBC 14.3 H (4.8-10.8) x10^3/uL RBC 3.91 L (4.70-6.10) 10^6/uL Hgb 12.8 L (14.0-18.0) g/dL Hct 38.8 L (42.0-52.0) % MCV 99.2 H (80.0-94.0) fL MCH 32.7 H (27.0-31.0) pg MCHC 33.0 (32.0-36.0) g/dL RDW 13.2 (12.0-15.0) % Plt Count 184 (130-450) 10^3/uL MPV 11.8 H (7.4-11.4) fL Neut # (Auto) 11.1 H (1.5-6.6) 10^3/uL Lymph # (Auto) 1.5 (1.5-3.5) 10^3/uL Crenshaw # (Auto) 1.4 H (0.0-1.0) 10^3/uL Eos # (Auto) 0.2 (0.0-0.7) 10^3/uL Baso # (Auto) 0.1 (0.0-0.1) 10^3/uL Absolute Nucleated RBC 0.00 x10^3/uL Total Counted Band Neuts % (Manual) (0 - 10) % Abnorm Lymph % (Manual) % Nucleated RBC % 0.0 /100WBC Neutrophils # (Manual) (1.5-6.6) 10^3/uL Lymphocytes # (Manual) (1.5-3.5) 10^3/uL Monocytes # (Manual) (0.0-1.0) 10^3/uL Eosinophils # (Manual) (0-0.7) 10^3/uL Basophils # (Manual) (0-0.1) 10^3/uL Differential Comment Platelet Estimate (NORMAL) Platelet Morphology (NORMAL) RBC Morph Micro Appear (NORMAL) ESR (0-20) mm/Hr Sodium 138 (135-145) mmol/L Potassium 3.6 (3.5-5.0) mmol/L Chloride 106 (101-111) mmol/L Carbon Dioxide 24 (21-32) mmol/L Anion Gap 8.0 (6-13) BUN 13 (6-20) mg/dL Creatinine 0.8 (0.6-1.2) mg/dL Estimated GFR (MDRD) 94 (>89) Glucose 105 H (70-100) mg/dL Calcium 8.3 L (8.5-10.3) mg/dL C-Reactive Protein (0-1.0) mg/dL ABX Reporting Has patient been on IV antibiotics over the past 48 hours?: Yes Sepsis Event Note (H) - Evaluation Current Stage of Sepsis: Sepsis Possible source of Sepsis: positive: Genitourinary - Sepsis Criteria Sepsis Criteria: Recorded Temperature greater than 38.3C or Less than 36C, Recorded Heart Rate greater than 90 bpm, EGG [employer] SP[employer] MIXER: altered consciousness (unrelated to primary neuro pathology) Assessment/Plan - Problem List (1) Confused Impression: Pt is very confused today afternoon. pt hx of dementia, might be "[place]". but pt did not present focal neurological deficits. nurse report he had no good sleep on last night. pt's sleep at pt's room on last night and made some disturbance for pt's sleep. hospital let pt's go home. pt is prescribed low dosage of Ambien, hopefully it can improve pt's sleep overnight and improve pt's confusion. Bacteremia due to Escherichia coli repeated blood culture were negative for bacteremia, pt has no more fever for three days. but pt still had elevated WBC at 14.9. pt might had elevated WBC. CRP is still elevated but ESR is normal. ECHO reveals unremarkable, no vegetations in ECHO. continue Meropenem IV UTI positive for UTI, UA culture reveals positive for Ecoli. pt has been treated with Meropenem. will switch to PO antibiotics on d/c Fever resolved. Chronic atrial fibrillation stable, Continues on pradaxa BID Neurogenic bladder as late effect of CVA pt hx of dementia and CVA. pt has issue to remain clean Neumann in home. Palliat dipika care with Anneliese Betancourt with plans to follow up outpatient, plan order home health RN and Aids Moderate dementia with behavioral disturbance Patient has progressively become worse in the past 6 months with absolutely no memory per patients , but worsening on today. Status post CVA with cognitive deficit residual. Palliative care was consult and follow up outpati ent. continue nurse support.
[2020-01-07] MEDS: LORazepam 0.5 MG TABLET PO PRN (21:14)
[2020-01-08] MEDS: MEROPENEM 1 GM in SODIUM CHLORIDE 0.9% MINIBAG 100 ML IV SCH ×2 (00:15→09:07)
[2020-01-08] MEDS: SODIUM CHLORIDE FLUSH 0.9% 10 ML SYRINGE IVP SCH ×2 (00:19→09:09)
[2020-01-08] MEDS: ACETAMINOPHEN 325 MG TABLET PO PRN (05:09)
[2020-01-08 05:43] LABS: BASOPHILS % (AUTO) 0.3 %; EOSINOPHILS # (AUTO) 0.2 10^3/uL (0.0-0.7); EOSINOPHILS % (AUTO) 1.4 %; HGB - HEMOGLOBIN 11.8 g/dL (14.0-18.0); LYMPHOCYTES # (AUTO) 1.6 10^3/uL (1.5-3.5); LYMPHOCYTES % (AUTO) 13.4 %; MEAN CORPUSCULAR HEMOGLOBIN 31.8 pg (27.0-31.0); MEAN CORPUSCULAR HGB CONC 32.5 g/dL (32.0-36.0); MEAN CORPUSCULAR VOLUME 97.8 fL (80.0-94.0); MEAN PLATELET VOLUME 11.5 fL (7.4-11.4); MONOCYTES # (AUTO) 1.1 10^3/uL (0.0-1.0); MONOCYTES % (AUTO) 9.2 %; NEUTROPHILS # (AUTO) 8.9 10^3/uL (1.5-6.6); NEUTROPHILS % (AUTO) 75.4 %; PLT - PLATELET COUNT 179 10^3/uL (130-450); RED BLOOD COUNT 3.71 10^6/uL (4.70-6.10); RED CELL DISTRIBUTION WIDTH 13.2 % (12.0-15.0); WHITE BLOOD COUNT 11.8 x10^3/uL (4.8-10.8)
[2020-01-08 05:51] LABS: CALCIUM 8.3 mg/dL (8.5-10.3); CREATININE 0.7 mg/dL (0.6-1.2); CRP - C-REACTIVE PROTEIN 8.7 mg/dL (0-1.0)
[2020-01-08] MEDS: CALCIUM CARBONATE CHEW 500 MG TABLET PO SCH ×2 (06:26→14:54)
[2020-01-08] MEDS: polyethylene glycoL 3350 17 GM PACKET PO SCH (10:36)
[2020-01-08] MEDS: DABIGATRAN 75 MG CAPSULE PO SCH (10:37)
[2020-01-08] MEDS: DOCUSATE SODIUM 250 MG CAPSULE PO SCH (10:37)
[2020-01-08] MEDS: PANTOPRAZOLE 40 MG TABLET PO SCH (10:38)
--- NOTE | 2020-01-08 11:37 | Discharge Plan ---
Discharge Plan Problem Reviewed?: Yes Disposition: Home Health Service Condition: Poor Prescriptions: Ciprofloxacin [Cipro] 500 mg PO BID #28 tablet Diet: Regular Activity Restrictions: Activity as Tolerated Shower Restrictions: No (fall precaution) Instruction Topics: Ciprofloxacin tablets, Catheter Bag Urinary Empty Clean, Catheter Indwelling Urinary Dc, Leg Bag Care Dc Health Concerns: UTI and Neumann care Plan of Treatment: you was found to have fever, UTI and bacteremia. you are prescribed antibiotics Cipro to finish the treatment course. Home health RN and Aide are arranged for your Neumann care and your dementia care. Care Goals: stabilization and improvement of your medical conditions Assessment: discussed with you about the care plan, you understood Additional Instructions or Follow Up instructions: you may followup your PCP in one to two weeks, followup your urologist as out- pt. Should your symptoms return or worsen, you may present ER or call 911 for help. No Smoking: If you smoke, Please STOP! Call for help. Follow-up with: Ray Warren MD [Primary Care Provider] -
--- NOTE | 2020-01-08 11:55 | DISCHARGE SUMMARY ---
Discharge Summary Admit Date: 01/04/20 Discharge Date: 01/08/20 Discharging Provider: Ion Maciel Primary Care Provider: Ray Hankins Condition at Discharge: Poor Discharge Disposition: Home Health Service Discharge Facility Name: home - DIAGNOSES Admission Diagnoses: (1) Urinary tract infection (2) Chronic atrial fibrillation (3) BPH (benign prostatic hyperplasia) Discharge Diagnoses with Status of Each Condition: acute Confused resolved as pt's baseline Bacteremia due to Escherichia coli stable. pt is prescribed antibiotics Cipro to finish the treatment course. pt was found UTI and bacteremia with positive for Ecoli. second blood culture was negative UTI stable, UA culture reveals positive for Ecoli. pt is prescribed PO antibiotics on d/c sepsis resolved. pt was found to have fever, elevated WBC, and bacteremia with positive for Ecoli. pt is prescribed antibiotics Cipro to finish the treatment course. Chronic atrial fibrillation stable, Continues on pradaxa BID Neurogenic bladder as late effect of CVA pt hx of dementia and CVA. pt has issue to remain clean Neumann in home. P alliative care with Anneliese Betancourt with plans to follow up outpatient, plan order home health RN and Aids Moderate dementia with behavioral disturbance stable/chronic I just found pt had temperature at 38.[address] [facility] at 1520 on 01/08/2020 on discharge day. I did not get report pt has lower degree fever from nurse on 01/08/2020. I just talked with nurse working at that day, she state she did not get report from nurse tech pt had lower degree fever at 01/08/2020. When I ordered the d/c order, pt had normal arrange temperature. pt had no fever for nearly three days, second blood culture was negative for bacteremia. pt was prescribed antibiotics Cipro for d/c home. I report this situation to nurse pit supervisor Julia. he will investigate the situation and take appropriate action to correct that. - HPI History of Present Illness: refer from Dr. Neville's HPI on 01/04/2020 Patient is a 79 y/o male who was brought to the ED by his because he had a temp of 104F at home, could not urinate and had rigors today. He has a history of BPH. He self-caths multiple times daily. He gets fixated on a need to urinate and wakes up every 45 minutes at night to do so. 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 In the ED he had a temperature of 38.4 C, a WBC of 15 and a UA which was strongly suggestive of a UTI. As a result he was presented for admission. He denied chest pain, dyspnea, abd pain, nausea, vomiting, fever or chills. - HOSPITAL COURSE Hospital Course: pt was admitted for fever. pt was found to have UTI, and bacteremia. pt was treated with antibiotics. after treatment, pt had no more fever for nearly three days, second blood culture was negative. UTI and blood culture reveals positive for Ecoli. pt was prescribed antibiotics Cipro according to the sensitive study. The detail of hospital course is as the below. acute Confused resolved as pt's baseline Bacteremia due to Escherichia coli stable. pt is prescribed antibiotics Cipro to finish the treatment course. pt was found UTI and bacteremia with positive for Ecoli. second blood culture was negative UTI stable, UA culture reveals positive for Ecoli. pt is prescribed PO antibiotics on d/c sepsis resolved. pt was found to have fever, elevated WBC, and bacteremia with positive for Ecoli. pt is prescribed antibiotics Cipro to finish the treatment course. Chronic atrial fibrillation stable, Continues on pradaxa BID Neurogenic bladder as late effect of CVA pt hx of dementia and CVA. pt has issue to remain clean Neumann in home. Palliative care with Anneliese Betancourt with plans to follow up outpatient, plan order home health RN and Aids Moderate dementia with behavioral disturbance stable/chronic - ALLERGIES Allergies/Adverse Reactions: Allergies Allergy/AdvReac Type Severity Reaction Status Date / Time No Known Drug Allergies Allergy Verified 11/12/17 10:21 - MEDICATIONS Home Medications: Ambulatory Orders Medication Instructions Recorded Confirmed Dabigatran [Pradaxa] 150 mg PO BID 07/14/13 01/05/20 Finasteride 5 mg PO DAILY 01/04/20 01/05/20 Ciprofloxacin [Cipro] 500 mg PO BID #28 tablet 01/08/20 - PHYSICAL EXAM AT DISCHARGE General Appearance: positive: No acute distress, Alert. negative: Lethargic Eyes Bilateral: positive: Normal inspection, PERRL, No lid inflammation ENT: positive: ENT inspection nml, Pharynx nml, No signs of dehydration. negative: Purulent nasal drainage Neck: positive: Nml inspection, Thyroid nml, No JVD, Trachea midline. negative: Thyromegaly, Lymphadenopathy (R), Lymphadenopathy (L) Respiratory: positive: Chest non-tender, No respiratory distress, Breath sounds nml. negative: Wheezes, Rales, Rhonchi Cardiovascular: positive: Regular rate & rhythm, No murmur, No gallop. negative: Irregularly irregular, Extrasystoles, Tachycardia, Bradycardia, JVD present, Systolic murmur, Diastolic murmur Peripheral Pulses: positive: 2+ Abdomen: positive: Non-tender, No organomegaly, Nml bowel sounds, No distention. negative: Tenderness, Guarding, Rebound Back: positive: Nml inspection. negative: CVA tenderness (R), CVA tenderness (L) Skin: positive: Color nml, No rash, Warm, Dry. negative: Cyanosis, Diaphoresis, Pallor Extremities: positive: Non-tender, Full ROM, Nml appearance. negative: Calf tenderness, My's sign/cords Neurologic/Psychiatric: positive: Sensation nml, Mood/affect nml. negative: [place], Sensory loss, Facial droop, Slurred/abnml speech, Depressed mood/affect - LABS Result Diagrams: 01/08/20 05:10 01/08/20 05:10 - SEPSIS Current Stage of Sepsis: Sepsis Possible source of Sepsis: Genitourinary Sepsis Criteria: Recorded Temperature greater than 38.3C or Less than 36C, Recorded Heart Rate greater than 90 bpm, CHIEF CHEMIST: altered consciousness (unrelated to primary neuro pathology) - FOLLOW UP Follow Up: you was found to have fever, UTI and bacteremia. you are prescribed antibiotics Cipro to finish the treatment course. Home health RN and Aide are arranged for your Neumann care and your dementia care. you may followup your PCP in one to two weeks, followup your urologist as out- pt. Should your symptoms return or worsen, you may present ER or call 911 for help. - TIME SPENT Time Spent in Discharge (Minutes): 30
[2020-01-08] MEDS ORDERED: CIPROFLOXACIN 250 MG TABLET PO SCH (12:00)
[2020-01-08 15:23] VITALS: BP 118/76
== END 2020-01-08 16:57 | disposition home or self-care (01) | DRG 871 ==
LOC: ED 20:18 → MS2 22:12
PROVIDERS: ADMIT Internal Medicine; ATTEND Nurse Practitioner Gerontology
DX: N39.0 Urinary tract infection, site not specified (principal); A41.51 Sepsis due to Escherichia coli [E. coli]; I48.91 Unspecified atrial fibrillation; E78.00 Pure hypercholesterolemia, unspecified; G93.41 Metabolic encephalopathy; N12 Tubulo-interstitial nephritis, not specified as acute or chronic; I48.20 Chronic atrial fibrillation, unspecified; F03.91 Unspecified dementia, unspecified severity, with behavioral disturbance; N31.9 Neuromuscular dysfunction of bladder, unspecified; I69.911 Memory deficit following unspecified cerebrovascular disease; N40.1 Benign prostatic hyperplasia with lower urinary tract symptoms; R33.8 Other retention of urine; I10 Essential (primary) hypertension; I25.10 Atherosclerotic heart disease of native coronary artery without angina pectoris; E78.5 Hyperlipidemia, unspecified; J43.9 Emphysema, unspecified; R19.7 Diarrhea, unspecified; G89.29 Other chronic pain; M54.9 Dorsalgia, unspecified; R26.9 Unspecified abnormalities of gait and mobility; Z96.642 Presence of left artificial hip joint; Z96.652 Presence of left artificial knee joint; Z51.5 Encounter for palliative care; Z90.49 Acquired absence of other specified parts of digestive tract; Z91.81 History of falling; Z87.891 Personal history of nicotine dependence
CPT/HCPCS: 36415; 51798; 71045; 76770; 80048; 80053; 81001; 83605; 83690; 84443; 85025; 85610; 85651; 85730; 86140; 87040; 87086; 87181; 93306; 96365; 97161; 97165; 99222; 99285; 99291; A9270; J2185; 81003

== ENCOUNTER 2020-01-09 16:42 | Emergency (ER) | payer MEDICARE ==
[2020-01-09 16:56] VITALS: BP 142/100
--- NOTE | 2020-01-09 17:33 | ED Physician Documentation ---
History of Present Illness - Stated complaint Stated Complaint: CATHETER COMPLICATION - Chief complaint Chief Complaint: General - History obtained from History obtained from: Patient - History of Present Illness Timing: Today Pain level max: 0 Pain level now: 0 - Additonal information Additional information: Apparently the patient's catheter was not draining well earlier today at the doctor's office and so they sent him here. Nothing makes this better or worse. No fevers. No other symptoms Review of Systems Constitutional: denies: Fever, Chills GI: denies: Abdominal Pain, Vomiting, Diarrhea Skin: denies: Rash PD PAST MEDICAL HISTORY - Past Medical History Cardiovascular: Hypertension, High cholesterol, Atrial fibrillation Respiratory: None Neuro: Dementia, CVA Endocrine/Autoimmune: None GI: None : Benign prostate hypertrophy, Retention, Incontinence, Indwelling catheter (new to be permanent) Psych: Anxiety, Other Musculoskeletal: Chronic back pain Derm: None - Past Surgical History Past Surgical History: Yes General: Splenectomy, Other Ortho: Hip replacement, Knee replacement HEENT: Tonsil/Adenoidectomy, Other (Carotid endarterectomy) - Present Medications Home Medications: Ambulatory Orders Medication Instructions Recorded Confirmed Dabigatran [Pradaxa] 150 mg PO BID 07/14/13 01/05/20 Finasteride 5 mg PO DAILY 01/04/20 01/05/20 Ciprofloxacin [Cipro] 500 mg PO BID #28 tablet 01/08/20 - Allergies Allergies/Adverse Reactions: Allergies Allergy/AdvReac Type Severity Reaction Status Date / Time No Known Drug Allergies Allergy Verified 11/12/17 10:21 - Social History Does the pt smoke?: No Smoking Status: Former smoker Does the pt drink ETOH?: Yes Does the pt have substance abuse?: No - Immunizations Immunizations are current?: Yes - POLST Patient has POLST: No POLST Status: Full Code PD ED PE NORMAL - Vitals Vital signs reviewed: Yes - General General: Alert and oriented X 3, No acute distress - HEENT HEENT: Moist mucous membranes - Derm Derm: Warm and dry - Extremities Extremities: No edema - Neuro Neuro: Alert and oriented X 3 - Psych Psych: Normal mood, Normal affect Results - Vitals Vitals: Vital Signs - 24 hr 01/09/20 16:49 Temperature 37.2 C Heart Rate 85 Respiratory 18 Rate Blood Pressure 142/100 H O2 Saturation 93 Oxygen O2 Source [With Activity] Room air O2 Source Room air PD MEDICAL DECISION MAKING - ED course Complexity details: considered differential, d/w patient ED course: Catheter is draining without any difficulty, clear yellow urine. Catheter care was reviewed by the nurse with the . Patient and family both feel comfortable at this time. Patient and family counseled regarding signs and symptoms for which I believe and urgent re-evaluation would be necessary. Patient with good understanding of and agreement to plan and is comfortable going home at this time This document was made in part using voice recognition software. While efforts are made to proofread this document, sound alike and grammatical errors may occur. Departure - Departure Disposition: Home, Self Care Clinical Impression: Neumann catheter in place Condition: Good Instructions: ED Catheter Care Neumann Follow-Up: Ray Warren MD [Primary Care Provider] - Comments: Return if you worsen. Leave the catheter in place.
== END 2020-01-09 17:35 | disposition home or self-care (01) ==
LOC: ED 16:42
DX: Z03.89 Encounter for observation for other suspected diseases and conditions ruled out (principal); I10 Essential (primary) hypertension; F03.90 Unspecified dementia, unspecified severity, without behavioral disturbance, psychotic disturbance, mood disturbance, and anxiety; Z87.891 Personal history of nicotine dependence
CPT/HCPCS: 99281; 99282

== ENCOUNTER 2020-01-22 13:00 | Outpatient (CLI) | payer MEDICARE ==
--- NOTE | 2020-01-22 17:24 | CONSULTATION NOTE ---
Palliative Care Follow Up - Referral Referring Provider: Dr. Ray Warren Time of Visit: DIGITAL PHONE CALL [phone] [id number] Referral setting: Home Referral Reason: Demenita/Constipation/BPH/F/up UTI - Information Sources Records reviewed: Previous records reviewed History/Review of Systems obtained from: Family (patient unable to participate other than thru 's questions; spoke with Birdie in home) Exam limitations: Clinical condition (patient with dementia) - History of Present Illness Update Brief HPI Update: Patient hospitalized 01/03 through 01/07 for urinary tract infection, has long- term BPH, and had been straight cathing. Patient with his increasing dementia, is no longer able to maintain appropriate technique, and had bacteremia due to E. coli. He is currently completing his Cipro, is still with his dementia having difficulty adapting to Pavon catheter, and now presents with constipation. He has been declining both functionally and cognitively over the last few weeks to months, palliative care had initial consult in hospital, agreed to follow-up regarding goals of care and support. Patient is receiving support through [employer], and they are wanting to limit exposure so telephone follow up set up as do not have video capability. Social History - Living Situation Living arrangement: At home Living Situation: With spouse/s.o. Support System: Birdie reports feeling quite isolated, she does have support from her family but they are not wanting to expose either 1 of them. Patient does have some insight into his dementia, but is having more confusion and difficulty and needing more redirection. Though she does report his behaviors as far as perseverating and wandering at night, have improved with placement of the Pavon catheter. Medications/Allergies - Medications Home Medications: Ambulatory Orders Medication Instructions Recorded Confirmed Dabigatran [Pradaxa] 150 mg PO BID 07/14/13 01/05/20 Finasteride 5 mg PO DAILY 01/04/20 01/05/20 Ciprofloxacin [Cipro] 500 mg PO BID #28 tablet 01/08/20 polyethylene glycoL 3350 [Miralax] 17 gm PO DAILY PRN 01/23/20 01/23/20 - Allergies Allergies/Adverse Reactions: Allergies Allergy/AdvReac Type Severity Reaction Status Date / Time No Known Drug Allergies Allergy Verified 11/12/17 10:21 Review of Systems - Constitutional Constitutional: reports: Fever (low grade 99.0; no chills), Weakness - Respiratory Respiratory: denies: Cough, SOB at rest - Gastrointestinal Gastrointestinal: reports: Constipation (having hard stool; c/o difficulty during phone call) - Genitourinary Genitourinary: reports: Other (pavon catheter; did get leg bag; learning to manage with RN support) - Musculoskeletal Musculoskeletal: reports: Muscle weakness (to start PT tomorrow) - Neurological Neurological: reports: Memory problems (she does recognize he has not returned to baseline; reviewed mostly likely would not) - Psychiatric Psychiatric: reports: Anxiety, Aggitation (improved), Other (sleeping better) - Hematologic/Lymphatic Hematologic/Lymphatic: reports: Recurrent infections (UTI) Palliative Care - POLST Patient has POLST: No - Palliative Care Discussion: Had initiated conversation regarding goals of care and POLST form with in hospital. She had wanted to have further conversations with her family. We reviewed the POLST, at this point in time it would be prudent and recommended to be DNA R, given her goals are still to treat reversible conditions and perceives though his quality of life is deteriorating is still acceptable to lola selective treatments. She does understand he is on a decline, both functionally and cognitively. She will complete the POLST, encouraged her to get signed at providers office sooner than later given his high risk for recurrent infection and hospitalization. Impression and Recommendations - Palliative Care Impression: This is a 79-year-old gentleman who continues to present with failure to thrive, recent hospitalization for UTI and now with permanent Pavon catheter placement. He continues to have functional and cognitive decline, remains at high risk for rehospitalization. Goals are to focus on supporting and improving quality of life. Recommendations/Counseling Done: 1. BPH. Patient currently receiving home health services, is getting support for monthly catheter changes, patient is homebound given he is too frail to be out with the coronavirus. They are staying isolated. She does feel like they are managing better. Patient still has continued trouble adapting. 2. Constipation. Instructed given the Pavon catheter, she does need to make sure he is having soft bowel movements every 1 to 2 days, counseling provided regarding initiating MiraLAX at least every other day. She can also titrate to half capful if 1 capful to much for loosening. 3. Advanced care planning. Discussion regarding POLST, reviewed options again, encouraged to fill out and have local provider sign. We discussed in the future, continue with telephone support, if an acute change or downward deterioration can reach out for palliative care for home visit if needed. Time Spent: 30 minutes of counseling via phone consult for [id number].
== END 2020-01-22 13:01 | disposition home or self-care (01) ==
LOC: PC 13:00
PROVIDERS: ATTEND Nurse Practitioner Adult Health
DX: Z51.5 Encounter for palliative care (principal); R62.7 Adult failure to thrive; N40.1 Benign prostatic hyperplasia with lower urinary tract symptoms; K59.00 Constipation, unspecified; F03.91 Unspecified dementia, unspecified severity, with behavioral disturbance; Z91.83 Wandering in diseases classified elsewhere; N39.0 Urinary tract infection, site not specified; B96.20 Unspecified Escherichia coli [E. coli] as the cause of diseases classified elsewhere; M62.81 Muscle weakness (generalized); Z79.899 Other long term (current) drug therapy

== ENCOUNTER 2020-01-31 07:01 | Emergency (ER) | payer MEDICARE ==
--- NOTE | 2020-01-31 07:33 | ED Physician Documentation ---
PD HPI MALE - Stated complaint Stated Complaint: MALE - Chief complaint Chief Complaint: General - History obtained from History obtained from: Patient - History of Present Illness Timing - onset: Today Timing - duration: Hours (The patient had his catheter changed by home health nurse last evening around 5 PM. There was some blood out in the catheter at the time of changing it. He denied it really hurting much. He had some hematuria in the catheter after the placement. However overnight he feels full bladder with distention and there is not been any output in his catheter bag. He feels the catheter is not draining.) Timing - details: Gradual onset, Still present Associated symptoms: Indwelling catheter, Neumann problem (not draining overnight, with full bladder now.) Recently seen: Other (Home health nurse changed his Neumann catheter 5 PM with some blood in the urine after changing it. This was a routine planned Neumann change.) Review of Systems Constitutional: denies: Fever, Chills Nose: denies: Congestion Throat: denies: Sore throat Respiratory: denies: Cough GI: denies: Nausea, Vomiting : reports: Hematuria Skin: denies: Rash PD PAST MEDICAL HISTORY - Past Medical History Cardiovascular: Hypertension, High cholesterol, Atrial fibrillation Respiratory: None Neuro: Dementia, CVA Endocrine/Autoimmune: None GI: None : Benign prostate hypertrophy, Retention, Incontinence, Indwelling catheter Psych: Anxiety, Other Musculoskeletal: Chronic back pain Derm: None - Past Surgical History Past Surgical History: Yes General: Splenectomy, Other Ortho: Hip replacement, Knee replacement HEENT: Tonsil/Adenoidectomy, Other - Present Medications Home Medications: Ambulatory Orders Medication Instructions Recorded Confirmed Dabigatran [Pradaxa] 150 mg PO BID 07/14/13 01/05/20 Finasteride 5 mg PO DAILY 01/04/20 01/05/20 Ciprofloxacin [Cipro] 500 mg PO BID #28 tablet 01/08/20 polyethylene glycoL 3350 [Miralax] 17 gm PO DAILY PRN 01/23/20 01/23/20 - Allergies Allergies/Adverse Reactions: Allergies Allergy/AdvReac Type Severity Reaction Status Date / Time No Known Drug Allergies Allergy Verified 01/31/20 07:11 - Social History Does the pt smoke?: No Smoking Status: Never smoker Does the pt drink ETOH?: Yes Does the pt have substance abuse?: No - Immunizations Immunizations are current?: Yes - POLST Patient has POLST: No POLST Status: Full Code PD ED PE NORMAL - Vitals Vital signs reviewed: Yes - General General: Alert and oriented X 3, Well developed/nourished, Other (He appears uncomfortable with a full bladder. The Neumann catheter is in place without any drainage around it. The penile meatus is normal in appearance.) - Abdomen Abdomen: Normal bowel sounds, Soft, No organomegaly, Other (Suprapubic and bladder fullness with some tenderness locally. Upper abdomen is nontender.) - Male Male : Other (Neumann in place with normal external genitalia.) - Back Back: No CVA TTP - Derm Derm: Normal color, Warm and dry - Neuro Neuro: Alert and oriented X 3, No motor deficit, Normal speech Results - Vitals Vitals: Vital Signs - 24 hr 01/31/20 01/31/20 07:11 09:14 Temperature 36.9 C 36.8 C Heart Rate 116 H 85 Respiratory 18 16 Rate Blood Pressure 151/107 H 150/87 H O2 Saturation 97 98 Oxygen O2 Source [With Activity] Room air O2 Source Room air PD MEDICAL DECISION MAKING - ED course Complexity details: considered differential (Sounds like a clogged Neumann likely from blood clots. The nurse tried irrigation first but was unable to get it to clear. The current Neumann was removed and a new one placed with good drainage of some clots and a lot of urine. He is feeling much improved. The nurse then irrigated the bladder and did not get any further clots out. There is only a slight red tinge of the urine out at this time. Appears to be draining.), d/w patient Departure - Departure Disposition: 01 Home, Self Care Clinical Impression: Complication, blocked Neumann catheter Qualifiers: Encounter type: initial encounter Qualified Code(s): T83.091A - Other mechanical complication of indwelling urethral catheter, initial encounter Hematuria Qualifiers: Hematuria type: gross Qualified Code(s): R31.0 - Gross hematuria Condition: Stable Record reviewed to determine appropriate education?: Yes Follow-Up: Ray Warren MD [Primary Care Provider] - Comments: I would anticipate your catheter draining well now since there is less blood coming out to clog it. Return if blocked catheter again later today or tomorrow. Otherwise normal activity and medications. Discharge Date/Time: 01/31/20 10:12
[2020-01-31 09:29] VITALS: BP 150/87
== END 2020-01-31 10:12 | disposition home or self-care (01) ==
LOC: ED 07:01
DX: T83.091A Other mechanical complication of indwelling urethral catheter, initial encounter (principal); R31.0 Gross hematuria; I10 Essential (primary) hypertension; I48.91 Unspecified atrial fibrillation; N40.1 Benign prostatic hyperplasia with lower urinary tract symptoms; R33.9 Retention of urine, unspecified; R32 Unspecified urinary incontinence
CPT/HCPCS: 51702; 99283

== ENCOUNTER 2020-02-20 18:38 | Outpatient (CLI) | payer MEDICARE | END 2020-02-20 23:59 | disposition EMS.NT | LOC: EMS 18:38 | PROVIDERS: ATTEND Surgery | DX: R53.1 Weakness (principal); R42 Dizziness and giddiness ==

== ENCOUNTER 2020-02-23 15:02 | Emergency (ER) | payer MEDICARE ==
[2020-02-23 15:11] VITALS: BP 141/72
[2020-02-23] MEDS ORDERED: TETANUS/DIPHTHERIA/PERTUSSIS 0.5 ML SYRINGE IM ONE (15:36)
--- NOTE | 2020-02-23 15:36 | ED Physician Documentation ---
History of Present Illness - Stated complaint Stated Complaint: R HAND INJ/L SIDE WEAKNESS - Chief complaint Chief Complaint: Ext Problem - History obtained from History obtained from: Patient, Family - History of Present Illness Timing: How many days ago (3) Pain level max: 4 Pain level now: 3 - Additonal information Additional information: 79-year-old male with a history of dementia presents to the emergency department complaining of right hand redness and swelling for the past 3 days. Nothing makes it better or worse. Started after he spent the day gardening. No fevers. Unknown last tetanus shot. also states that he had trouble holding a glass 3 days ago, symptoms have not recurred since then. 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 He is left-handed. Review of Systems Unable to obtain: Dementia Constitutional: denies: Fever, Chills GI: denies: Vomiting Neurologic: denies: Focal weakness, Numbness, Altered mental status, Headache PD PAST MEDICAL HISTORY - Past Medical History Cardiovascular: Hypertension, High cholesterol, Atrial fibrillation Respiratory: None Neuro: Dementia, CVA Endocrine/Autoimmune: None GI: None : Benign prostate hypertrophy, Retention, Incontinence, Indwelling catheter Psych: Anxiety, Other Musculoskeletal: Chronic back pain Derm: None - Past Surgical History Past Surgical History: Yes General: Splenectomy, Other Ortho: Hip replacement, Knee replacement HEENT: Tonsil/Adenoidectomy, Other - Present Medications Home Medications: Ambulatory Orders Medication Instructions Recorded Confirmed Dabigatran [Pradaxa] 150 mg PO BID 07/14/13 01/05/20 Finasteride 5 mg PO DAILY 01/04/20 01/05/20 Ciprofloxacin [Cipro] 500 mg PO BID #28 tablet 01/08/20 polyethylene glycoL 3350 [Miralax] 17 gm PO DAILY PRN 01/23/20 01/23/20 Cephalexin [Keflex] 500 mg PO Q6H #28 capsule 02/23/20 Sulfamethox/Trimeth 800/160 1 each PO BID #14 tablet 02/23/20 [Bactrim Ds 800/160] - Allergies Allergies/Adverse Reactions: Allergies Allergy/AdvReac Type Severity Reaction Status Date / Time No Known Drug Allergies Allergy Verified 01/31/20 07:11 - Social History Does the pt smoke?: No Smoking Status: Never smoker Does the pt drink ETOH?: Yes Does the pt have substance abuse?: No - Immunizations Immunizations are current?: Yes - POLST Patient has POLST: No POLST Status: Full Code PD ED PE NORMAL - Vitals Vital signs reviewed: Yes - General General: Alert and oriented X 3, No acute distress, Well developed/nourished - HEENT HEENT: Atraumatic, PERRL, EOMI, Moist mucous membranes - Neck Neck: Supple, no meningeal sign - Cardiac Cardiac: RRR - Respiratory Respiratory: No respiratory distress, Clear bilaterally - Abdomen Abdomen: Soft, Non tender, Non distended - Back Back: No spinal TTP - Derm Derm: Warm and dry - Extremities Extremities: Other (Erythema and mild swelling to the dorsum of the right hand extending up to the right wrist. Neurovascular intact. No palmar tenderness. No pain with range of motion of the fingers. No tenderness along the tendon sheaths. No drainable abscess.) - Neuro Neuro: Alert and oriented X 3, No motor deficit, No sensory deficit Eye Opening: Spontaneous Motor: Obeys Commands Verbal: Oriented GCS Score: 15 - Psych Psych: Normal mood, Normal affect - Free text exam Free text exam: NIH stroke scale of 0 at 1530 Results - Vitals Vitals: Vital Signs - 24 hr 02/23/20 15:05 Temperature 36.6 C Heart Rate 83 Respiratory 16 Rate Blood Pressure 141/72 H O2 Saturation 98 Oxygen O2 Source [With Activity] Room air O2 Source Room air PD MEDICAL DECISION MAKING - ED course Complexity details: considered differential, d/w patient, d/w family ED course: Patient with cellulitis of the right hand. Will place him on antibiotics for this. He had difficulty with his left hand a few days ago, unlikely to see much on the CT scan today, recommend following up with his doctor for an MRI. Patient and family are comfortable with this plan. Symptoms only lasted a few minutes. Patient is well-appearing, nontoxic. Afebrile. Normal neuro exam here. Patient and family counseled regarding signs and symptoms for which I believe and urgent re-evaluation would be necessary. Patient with good understanding of and agreement to plan and is comfortable going home at this time This document was made in part using voice recognition software. While efforts are made to proofread this document, sound alike and grammatical errors may occur. Departure - Departure Disposition: 01 Home, Self Care Clinical Impression: Cellulitis Qualifiers: Site of cellulitis: extremity Site of cellulitis of extremity: upper extremity Laterality: right Qualified Code(s): L03.113 - Cellulitis of right upper limb Condition: Good Instructions: ED Infec Skin Cellulitis Follow-Up: Ray Warren MD [Primary Care Provider] - Within 3 Days Prescriptions: Cephalexin [Keflex] 500 mg PO Q6H #28 capsule Sulfamethox/Trimeth 800/160 [Bactrim Ds 800/160] 1 each PO BID #14 tablet Comments: Your prescriptions were sent to [facility] in [place]. Return if you worsen. Follow-up with your doctor in 3 days for wound check. Return for increasing redness, swelling, fevers or any other new or worsening symptoms.
== END 2020-02-23 15:51 | disposition home or self-care (01) ==
LOC: ED 15:02
DX: L03.113 Cellulitis of right upper limb (principal); F03.90 Unspecified dementia, unspecified severity, without behavioral disturbance, psychotic disturbance, mood disturbance, and anxiety; I10 Essential (primary) hypertension
CPT/HCPCS: 90471; 99283; 99284

== ENCOUNTER 2020-04-01 14:48 | Emergency (ER) | payer MEDICARE ==
--- NOTE | 2020-04-01 15:36 | ED Physician Documentation ---
PD HPI MALE - Stated complaint Stated Complaint: M - Chief complaint Chief Complaint: Abd Pain - History obtained from History obtained from: Patient, Family - History of Present Illness Timing - onset: Today Timing - duration: Hours Timing - details: Abrupt onset, Still present Associated symptoms: Unable to urinate, Neumann problem PD HPI MALE CONTRIB FACTORS: Indwelling catheter Similar symptoms before: Diagnosis (urinary retention) Recently seen: Admitted - Additional information Additional information: 79-year-old male who previously was self cathing has had an indwelling Neumann catheter over the past month after a prior infection. Today the home health nurse came in to change out the catheter and this is not part properly draining now. The catheter was readjusted a small amount of drainage came out the patient has a distended bladder and discomfort related to this. He has not had fever or vomiting associated with this. Review of Systems Constitutional: denies: Fever Eyes: denies: Decreased vision Ears: denies: Ear pain Nose: denies: Congestion Throat: denies: Sore throat Cardiac: denies: Chest pain / pressure Respiratory: denies: Dyspnea, Cough GI: denies: Abdominal Pain, Nausea, Vomiting : reports: Unable to Void, Neumann Problem. denies: Dysuria, Frequency PD PAST MEDICAL HISTORY - Past Medical History Cardiovascular: Hypertension, High cholesterol, Atrial fibrillation Respiratory: None Neuro: Dementia, CVA Endocrine/Autoimmune: None GI: None : Benign prostate hypertrophy, Retention, Incontinence, Indwelling catheter Psych: Anxiety, Other Musculoskeletal: Chronic back pain Derm: None - Past Surgical History Past Surgical History: Yes General: Splenectomy, Other Ortho: Hip replacement, Knee replacement HEENT: Tonsil/Adenoidectomy, Other - Present Medications Home Medications: Ambulatory Orders Medication Instructions Recorded Confirmed Dabigatran [Pradaxa] 150 mg PO BID 07/14/13 01/05/20 Finasteride 5 mg PO DAILY 01/04/20 01/05/20 Ciprofloxacin [Cipro] 500 mg PO BID #28 tablet 01/08/20 polyethylene glycoL 3350 [Miralax] 17 gm PO DAILY PRN 01/23/20 01/23/20 Cephalexin [Keflex] 500 mg PO Q6H #28 capsule 02/23/20 Sulfamethox/Trimeth 800/160 1 each PO BID #14 tablet 02/23/20 [Bactrim Ds 800/160] Nitrofurantoin Monohyd/M-Cryst 100 mg PO BID #14 capsule 04/01/20 [Macrobid 100 mg Capsule] - Allergies Allergies/Adverse Reactions: Allergies Allergy/AdvReac Type Severity Reaction Status Date / Time No Known Drug Allergies Allergy Verified 04/01/20 15:01 - Social History Does the pt smoke?: No Smoking Status: Never smoker Does the pt drink ETOH?: Yes Does the pt have substance abuse?: No - Immunizations Immunizations are current?: Yes - POLST Patient has POLST: No POLST Status: Full Code PD ED PE NORMAL - Vitals Vital signs reviewed: Yes (hypertensive and bradycardic) - General General: Alert and oriented X 3, No acute distress, Well developed/nourished - HEENT HEENT: Atraumatic, PERRL, EOMI - Respiratory Respiratory: No respiratory distress - Abdomen Abdomen: Soft, Other (There is suprapubic tenderness that is severe and there is a palpable bladder below the umbilicus.) - Back Back: No CVA TTP, No spinal TTP - Derm Derm: Normal color, Warm and dry, No rash - Extremities Extremities: No deformity, No edema - Neuro Neuro: Alert and oriented X 3, nuclear physicist 2-12 intact, No motor deficit, No sensory deficit, Normal speech Eye Opening: Spontaneous Motor: Obeys Commands Verbal: Oriented GCS Score: 15 - Psych Psych: Normal mood, Normal affect Results - Vitals Vitals: Vital Signs - 24 hr 04/01/20 14:54 Temperature 98.5 C H Heart Rate 46 L Respiratory 16 Rate Blood Pressure 188/130 H O2 Saturation 93 Oxygen O2 Source [With Activity] Room air O2 Source Room air - Labs Labs: Laboratory Tests 04/01/20 04/01/20 04/01/20 15:48 15:48 15:55 WBC 14.5 H RBC 4.51 L Hgb 14.7 Hct 45.3 MCV 100.4 H MCH 32.6 H MCHC 32.5 RDW 14.2 Plt Count 236 MPV 10.9 Neut # (Auto) 11.2 H Lymph # (Auto) 1.7 Barber # (Auto) 1.3 H Eos # (Auto) 0.2 Baso # (Auto) 0.1 Absolute Nucleated RBC 0.00 Nucleated RBC % 0.0 Sodium 137 Potassium 3.7 Chloride 99 L Carbon Dioxide 28 Anion Gap 10.0 BUN 16 Creatinine 1.0 Estimated GFR (MDRD) 72 L Glucose 119 H Calcium 9.2 Total Bilirubin 0.9 AST 21 ALT 14 Alkaline Phosphatase 48 Total Protein 7.1 Albumin 4.0 Globulin 3.1 Albumin/Globulin Ratio 1.3 Lipase 37 Urine Color YELLOW Urine Clarity CLOUDY Urine pH 6.0 Ur Specific [place] 1.010 Urine Protein TRACE Urine Glucose (UA) NEGATIVE Urine Ketones NEGATIVE Urine Occult Blood LARGE H Urine Nitrite NEGATIVE Urine Bilirubin NEGATIVE Urine Urobilinogen 0.2 (NORMAL) Ur Leukocyte Esterase LARGE H Urine RBC 6-10 H Urine WBC >25 H Urine WBC Clumps PRESENT Ur Squamous Epith Cells NONE SEEN Urine Bacteria Moderate H Ur Microscopic Review INDICATED Urine Culture Comments INDICATED PD MEDICAL DECISION MAKING - ED course Complexity details: reviewed old records, reviewed results, re-evaluated patient, considered differential, d/w patient, d/w family ED course: 79-year-old male with a recently indwelling Neumann catheter had his catheter changed today by the visiting home health nurse and following that he developed urinary retention. Here in the emergency department the RN has removed the prior catheter placed a new catheter and she is irrigated debris from the bladder. The patient has evidence of infection and today we will treat. I have discussed with the patient and his the eventual colonization of his catheter and at some point treating what appears to be infection will not be indicated Departure - Departure Disposition: 01 Home, Self Care Clinical Impression: Urinary retention Urinary tract infection Qualifiers: Urinary tract infection type: catheter-associated UTI Indwelling urinary catheter type: indwelling urethral catheter Encounter type: initial encounter Qualified Code(s): T83.511A - Infection and inflammatory reaction due to indwelling urethral catheter, initial encounter; N39.0 - Urinary tract infection, site not specified Condition: Stable Instructions: ED UTI Cystitis Male Follow-Up: Ray Warren MD [Primary Care Provider] - Prescriptions: Nitrofurantoin Monohyd/M-Cryst [Macrobid 100 mg Capsule] 100 mg PO BID #14 capsule
[2020-04-01 16:00] LABS: BASOPHILS # (AUTO) 0.1 10^3/uL (0.0-0.1); BASOPHILS % (AUTO) 0.8 %; EOSINOPHILS # (AUTO) 0.2 10^3/uL (0.0-0.7); EOSINOPHILS % (AUTO) 1.1 %; HGB - HEMOGLOBIN 14.7 g/dL (14.0-18.0); LYMPHOCYTES # (AUTO) 1.7 10^3/uL (1.5-3.5); LYMPHOCYTES % (AUTO) 11.8 %; MEAN CORPUSCULAR HEMOGLOBIN 32.6 pg (27.0-31.0); MEAN CORPUSCULAR HGB CONC 32.5 g/dL (32.0-36.0); MEAN CORPUSCULAR VOLUME 100.4 fL (80.0-94.0); MEAN PLATELET VOLUME 10.9 fL (7.4-11.4); MONOCYTES # (AUTO) 1.3 10^3/uL (0.0-1.0); MONOCYTES % (AUTO) 8.6 %; NEUTROPHILS # (AUTO) 11.2 10^3/uL (1.5-6.6); NEUTROPHILS % (AUTO) 77.2 %; PLT - PLATELET COUNT 236 10^3/uL (130-450); RED BLOOD COUNT 4.51 10^6/uL (4.70-6.10); RED CELL DISTRIBUTION WIDTH 14.2 % (12.0-15.0); WHITE BLOOD COUNT 14.5 x10^3/uL (4.8-10.8)
[2020-04-01 16:07] LABS: ALBUMIN/GLOBULIN RATIO 1.3 (1.0-2.2); BILIRUBIN,TOTAL 0.9 mg/dL (0.2-1.0); CALCIUM 9.2 mg/dL (8.5-10.3); TOTAL PROTEIN 7.1 g/dL (6.7-8.2)
[2020-04-01 16:15] LABS: BILIRUBIN,URINE NEGATIVE (NEGATIVE); CLARITY,URINE CLOUDY (CLEAR); GLUCOSE, URINE (UA) NEGATIVE (NEGATIVE); KETONES,URINE (UA) NEGATIVE (NEGATIVE); LEUKOCYTE ESTERASE, URINE LARGE (NEGATIVE); NITRITE,URINE NEGATIVE (NEGATIVE); OCCULT BLOOD,URINE LARGE (NEGATIVE); PROTEIN,URINE TRACE mg/dL (NEGATIVE); UROBILINOGEN,URINE 0.2 (NORMAL) E.U./dL (NORMAL)
[2020-04-01] MEDS ORDERED: LIDOCAINE 1% 2 ML VIAL MC ONE (16:15)
[2020-04-01] MEDS ORDERED: cefTRIAXone 1 GM VIAL IM STA (16:15)
[2020-04-01 16:26] LABS: BACTERIA,URINE Moderate /HPF (None Seen); SQUAMOUS EPITHELIAL CELL,UR NONE SEEN (<= Few); WBC CLUMPS,URINE PRESENT
[2020-04-01 16:42] VITALS: BP 161/89
== END 2020-04-01 16:42 | disposition home or self-care (01) ==
LOC: ED 14:48
DX: T83.511A Infection and inflammatory reaction due to indwelling urethral catheter, initial encounter (principal); N39.0 Urinary tract infection, site not specified; Y84.6 Urinary catheterization as the cause of abnormal reaction of the patient, or of later complication, without mention of misadventure at the time of the procedure; R33.9 Retention of urine, unspecified; I10 Essential (primary) hypertension; R00.1 Bradycardia, unspecified; Z86.73 Personal history of transient ischemic attack (TIA), and cerebral infarction without residual deficits; Z79.01 Long term (current) use of anticoagulants
CPT/HCPCS: 36415; 51798; 80053; 81001; 81003; 83690; 85025; 87086; 87181; 96372; 99283; 99284

== ENCOUNTER 2020-07-03 17:09 | Inpatient (IN) | payer MEDICARE ==
--- NOTE | 2020-07-03 17:34 | ED Physician Documentation ---
PD HPI MALE - Stated complaint Stated Complaint: MALE - Chief complaint Chief Complaint: UTI - History obtained from History obtained from: Patient, Family - Additional information Additional information: 79-year-old gentleman had his Neumann catheter replaced today and subsequently developed gross hematuria and now it is obstructed. Suprapubic pain, during his evaluation he developed chills, fever, and left flank pain as well. Review of Systems Ten Systems: 10 systems reviewed and negative Constitutional: reports: Chills GI: reports: Abdominal Pain : reports: Unable to Void, Hematuria PD PAST MEDICAL HISTORY - Past Medical History Cardiovascular: Hypertension, High cholesterol, Atrial fibrillation Respiratory: None Neuro: Dementia, CVA Endocrine/Autoimmune: None GI: None : Benign prostate hypertrophy, Retention, Incontinence, Indwelling catheter Psych: Anxiety, Other Musculoskeletal: Chronic back pain Derm: None - Past Surgical History Past Surgical History: Yes General: Splenectomy, Other Ortho: Hip replacement, Knee replacement HEENT: Tonsil/Adenoidectomy, Other - Present Medications Home Medications: Ambulatory Orders Medication Instructions Recorded Confirmed Dabigatran [Pradaxa] 150 mg PO BID 07/14/13 01/05/20 Finasteride 5 mg PO DAILY 01/04/20 01/05/20 Ciprofloxacin [Cipro] 500 mg PO BID #28 tablet 01/08/20 polyethylene glycoL 3350 [Miralax] 17 gm PO DAILY PRN 01/23/20 01/23/20 Cephalexin [Keflex] 500 mg PO Q6H #28 capsule 02/23/20 Sulfamethox/Trimeth 800/160 1 each PO BID #14 tablet 02/23/20 [Bactrim Ds 800/160] Nitrofurantoin Monohyd/M-Cryst 100 mg PO BID #14 capsule 04/01/20 [Macrobid 100 mg Capsule] - Allergies Allergies/Adverse Reactions: Allergies Allergy/AdvReac Type Severity Reaction Status Date / Time No Known Drug Allergies Allergy Verified 04/01/20 15:01 - Social History Does the pt smoke?: No Smoking Status: Never smoker Does the pt drink ETOH?: Yes Does the pt have substance abuse?: No - Immunizations Immunizations are current?: Yes - POLST Patient has POLST: No POLST Status: Full Code PD ED PE NORMAL - Vitals Vital signs reviewed: Yes - General General: Alert and oriented X 3, No acute distress - Respiratory Respiratory: No respiratory distress, Clear bilaterally - Abdomen Abdomen: Normal bowel sounds, Soft, Other (Not Much in the leg bag, what is there is bloody, the suprapubic area is full and tender.) Results - Vitals Vitals: Vital Signs - 24 hr 07/03/20 07/03/20 07/03/20 17:10 17:28 18:42 Temperature 38.6 C H 99.7 C H Heart Rate 91 75 114 H Respiratory 18 16 23 Rate Blood Pressure 186/97 H 178/105 H 119/55 L O2 Saturation 98 100 95 07/03/20 07/03/20 07/03/20 19:12 19:37 20:16 Temperature 99.1 C H 37.9 C H 37.9 C H Heart Rate 104 H 96 105 H Respiratory 20 19 18 Rate Blood Pressure 119/55 L 135/72 H 148/72 H O2 Saturation 96 98 98 Oxygen O2 Source [With Activity] Room air O2 Source Room air - Labs Labs: Laboratory Tests 07/03/20 07/03/20 07/03/20 18:15 18:15 18:15 WBC 10.6 RBC 4.67 L Hgb 14.9 Hct 46.3 MCV 99.1 H MCH 31.9 H MCHC 32.2 RDW 13.3 Plt Count 215 MPV 10.4 Neut # (Auto) Not Reportable Lymph # (Auto) Not Reportable [place] # (Auto) Not Reportable Eos # (Auto) Not Reportable Baso # (Auto) Not Reportable Absolute Nucleated RBC Not Reportable Total Counted 100 Band Neuts % (Manual) 23 H Abnorm Lymph % (Manual) 0 Nucleated RBC % Not Reportable Neutrophils # (Manual) 9.2 H Lymphocytes # (Manual) 1.0 L Monocytes # (Manual) 0.0 Eosinophils # (Manual) 0.4 Basophils # (Manual) 0.0 Differential Comment MANUAL DIFFERENTIAL Platelet Estimate NORMAL (130-450,000) Platelet Morphology NORMAL APPEARANCE RBC Morph Micro Appear NORMAL APPEARANCE Sodium 142 Potassium 4.0 Chloride 103 Carbon Dioxide 28 Anion Gap 11.0 BUN 17 Creatinine 1.1 Estimated GFR (MDRD) 65 L Glucose 86 Lactic Acid 4.3 H* Calcium 9.4 Total Bilirubin 0.7 AST 25 ALT 16 Alkaline Phosphatase 53 Total Protein 7.1 Albumin 3.9 Globulin 3.2 Albumin/Globulin Ratio 1.2 Lipase 39 Urine Color Urine Clarity Urine pH Ur Specific [place] Urine Protein Urine Glucose (UA) Urine Ketones Urine Occult Blood Urine Nitrite Urine Bilirubin Urine Urobilinogen Ur Leukocyte Esterase Urine RBC Urine WBC Ur Squamous Epith Cells Urine Bacteria Ur Microscopic Review Urine Culture Comments 07/03/20 18:22 WBC RBC Hgb Hct MCV MCH MCHC RDW Plt Count MPV Neut # (Auto) Lymph # (Auto) [place] # (Auto) Eos # (Auto) Baso # (Auto) Absolute Nucleated RBC Total Counted Band Neuts % (Manual) Abnorm Lymph % (Manual) Nucleated RBC % Neutrophils # (Manual) Lymphocytes # (Manual) Monocytes # (Manual) Eosinophils # (Manual) Basophils # (Manual) Differential Comment Platelet Estimate Platelet Morphology RBC Morph Micro Appear Sodium Potassium Chloride Carbon Dioxide Anion Gap BUN Creatinine Estimated GFR (MDRD) Glucose Lactic Acid Calcium Total Bilirubin AST ALT Alkaline Phosphatase Total Protein Albumin Globulin Albumin/Globulin Ratio Lipase Urine Color LT RED Urine Clarity HAZY Urine pH 6.0 Ur Specific [place] 1.010 Urine Protein NEGATIVE Urine Glucose (UA) NEGATIVE Urine Ketones NEGATIVE Urine Occult Blood LARGE H Urine Nitrite NEGATIVE Urine Bilirubin NEGATIVE Urine Urobilinogen 0.2 (NORMAL) Ur Leukocyte Esterase LARGE H Urine RBC 11-25 H Urine WBC 11-25 H Ur Squamous Epith Cells NONE SEEN Urine Bacteria Many H Ur Microscopic Review INDICATED Urine Culture Comments INDICATED - Rads (name of study) CT KUB Radiology: EMP read contemporaneously (Wall thickening and perivesicular inflammation consistent with cystitis. Possible 5.6 cm bladder diverticulum without stones. No obstructive uropathy.) PD MEDICAL DECISION MAKING - ED course ED course: 79-year-old gentleman presents with an obstructed Neumann catheter with hematuria. Tried irrigating it at bedside which was unsuccessful and subsequently replacement of the Neumann was done by the nurse with significant output, however despite that his suprapubic pain and some left flank pain worsened and this is in the setting of a fever. Sepsis time of onset as per sepsis orders (1842) when lactic acidosis was noted. Given cefepime. Note made that I had ordered 2 blood cultures but nurse started antibiotics after the first without obtaining the second. Was given 30 mils per kilogram of crystalloid. CT done to rule out obstruction and negative for same. - Critical Care Time(min): 45 Time Includes: Direct patient care, Review records, Reassess patient, Document care, Coordinate care, Medical consult, Family consult for tx dec Data interpretation: Labs, Pulse ox Procedures included in critical care time: Peripheral IV - Sepsis Event Current Stage of Sepsis: Sepsis Possible source of Sepsis: Genitourinary Mental/Cognitive Status: Normal for patient Capillary refill: Less than 2 seconds Peripheral Pulse Strength: 3+ Normal Sepsis Comment: Lactic acidosis + source Departure - Departure Disposition: 66 [facility] DC/Xfer Clinical Impression: Neurogenic bladder as late effect of cerebrovascular accident (CVA), Chronic atrial fibrillation Complication, blocked Neumann catheter Qualifiers: Encounter type: initial encounter Qualified Code(s): T83.091A - Other mechanical complication of indwelling urethral catheter, initial encounter Fever Qualifiers: Fever type: due to other condition Qualified Code(s): R50.81 - Fever presenting with conditions classified elsewhere Sepsis Qualifiers: Sepsis type: sepsis due to unspecified organism Sepsis acute organ dysfunction status: without acute organ dysfunction Qualified Code(s): A41.9 - Sepsis, unspecified organism Condition: Serious Discharge Date/Time: 07/03/20 21:21
[2020-07-03] MEDS ORDERED: ACETAMINOPHEN 325 MG TABLET PO STA (17:53)
[2020-07-03] MEDS ORDERED: MORPHINE 2 MG/ML CARPUJECT IVP STA (17:57)
[2020-07-03 18:26] LABS: BASOPHILS % (AUTO) 0.5 %; EOSINOPHILS % (AUTO) 1.6 %; HGB - HEMOGLOBIN 14.9 g/dL (14.0-18.0); LYMPHOCYTES % (AUTO) 10.5 %; MEAN CORPUSCULAR HEMOGLOBIN 31.9 pg (27.0-31.0); MEAN CORPUSCULAR HGB CONC 32.2 g/dL (32.0-36.0); MEAN CORPUSCULAR VOLUME 99.1 fL (80.0-94.0); MEAN PLATELET VOLUME 10.4 fL (7.4-11.4); MONOCYTES % (AUTO) 0.5 %; NEUTROPHILS % (AUTO) 86.3 %; PLT - PLATELET COUNT 215 10^3/uL (130-450); RED BLOOD COUNT 4.67 10^6/uL (4.70-6.10); RED CELL DISTRIBUTION WIDTH 13.3 % (12.0-15.0); WHITE BLOOD COUNT 10.6 x10^3/uL (4.8-10.8)
[2020-07-03] MEDS ORDERED: HYDROmorphone 1 MG/ML CARPUJECT IVP STA (18:26)
[2020-07-03 18:37] LABS: ABNORMAL LYMPHS % (MANUAL) 0 %
[2020-07-03 18:38] LABS: ALBUMIN 3.9 g/dL (3.2-5.5); ALBUMIN/GLOBULIN RATIO 1.2 (1.0-2.2); BILIRUBIN,TOTAL 0.7 mg/dL (0.2-1.0); CALCIUM 9.4 mg/dL (8.5-10.3); CREATININE 1.1 mg/dL (0.6-1.2); TOTAL PROTEIN 7.1 g/dL (6.7-8.2)
[2020-07-03] MEDS ORDERED: LACTATED RINGERS 2,449.41 ML IV STA (18:42)
[2020-07-03] MEDS ORDERED: CEFEPIME 2 GM in SODIUM CHLORIDE 0.9% MINIBAG 100 ML IV STA (18:43)
[2020-07-03 18:51] LABS: BILIRUBIN,URINE NEGATIVE (NEGATIVE); GLUCOSE, URINE (UA) NEGATIVE (NEGATIVE); KETONES,URINE (UA) NEGATIVE (NEGATIVE); LEUKOCYTE ESTERASE, URINE LARGE (NEGATIVE); NITRITE,URINE NEGATIVE (NEGATIVE); OCCULT BLOOD,URINE LARGE (NEGATIVE); PROTEIN,URINE NEGATIVE (NEGATIVE); UROBILINOGEN,URINE 0.2 (NORMAL) E.U./dL (NORMAL)
[2020-07-03 18:53] LABS: CLARITY,URINE HAZY (CLEAR)
[2020-07-03 19:16] LABS: BAND NEUTROPHILS % (MANUAL) 23 %; EOSINOPHILS # (MANUAL) 0.4 10^3/uL (0-0.7); LYMPHOCYTES % (MANUAL) 9 %
[2020-07-03 19:18] LABS: BACTERIA,URINE Many /HPF (None Seen); SQUAMOUS EPITHELIAL CELL,UR NONE SEEN (<= Few)
[2020-07-03 19:20] LABS: PLATELET ESTIMATE, MANUAL NORMAL (130-450,000) (NORMAL); PLATELET MORPHOLOGY NORMAL APPEARANCE (NORMAL); RBC MORPHOLOGY (MULTIPLE) NORMAL APPEARANCE (NORMAL)
[2020-07-03 19:21] LABS: DIFFERENTIAL COMMENT MANUAL DIFFERENTIAL
--- NOTE | 2020-07-03 20:05 | CT Report ---
PROCEDURE: Abdomen/Pelvis WO INDICATIONS: back pain, uti TECHNIQUE: Noncontrast 5 mm thick sections acquired from the diaphragms to the symphysis. 5 mm coronal and sagi ttal reformats were then performed. For radiation dose reduction, the following was used: automated exposure control, adjustment of mA and/or kV according to patient size. COMPARISON: None. FINDINGS: Image quality: Adequate. There is respiratory motion at the lung bases and suboptimal positioning of the patient's arms.. ABDOMEN: Lung bases: No dense consolidations at the lung bases. Heart size is mildly enlarged. There is a sm all paraesophageal hiatal hernia. Solid organs: There has been a splenectomy and redevelopment of multiple small soft tissue masses in the high left upper quadrant consistent with splenosis. The unenhanced appearance of the liver is nor mal. Gallbladder is within normal limits Pancreas is normal in contours. No adrenal nodules. Kidne ys are normal in size, without hydronephrosis or nephrolithiasis. There is a small cortical cyst in the upper pole of each kidney. Mild, symmetric perinephric inflammation. Peritoneum and bowel: Unenhanced bowel loops demonstrate normal wall thickness and caliber. No free fluid or air. Occasional sigmoid diverticulosis. Nodes and vessels: No retroperitoneal or mesenteric adenopathy by size criteria. Aorta and inferior vena cava are normal in caliber. Mild abdominal aortic calcification. Miscellaneous: Tiny fat-containing umbilical hernia.. PELVIS: Genitourinary: The urinary bladder is partially decompressed with Neumann catheter and there is a small amount of air anteriorly. The wall demonstrates diffuse thickening and mild perivesicular inflammati on. Posterior and to the right of midline from the urinary bladder is unencapsulated, slightly irregu lar thin walled fluid collection measuring roughly 5.6 x 4.8 x 3.6 cm which contains a small amount o f nondependent gas. This may be a bladder diverticulum, though this is not well assessed secondary to beam hardening artifact from the left hip arthroplasty. No definite stones in the urinary bladder or in the possible bladder diverticulum. The prostate gland may be enlarged. Miscellaneous: No inguinal hernias or adenopathy. Bones: No suspicious bony lesions. No vertebral body compression fractures. Degenerative disc and endplate changes at L4-5 and L5-S1. IMPRESSION: 1. There is bladder wall thickening and perivesicular inflammation consistent with cystitis and poten tially superimposed on chronic outlet obstruction. 2. Possible 5.6 cm bladder diverticulum may predispose the patient to urinary stasis though no stones are evident. 3. No CT evidence of obstructive uropathy in the kidneys. Without IV contrast, pyelonephritis cannot be excluded. 4. Small periesophageal hiatal hernia. 5. Post splenectomy with splenosis. Reviewed by: Niya Duarte MD on 07/03/2020 8:04 PM PDT Approved by: Niya Duarte MD on 07/03/2020 8:04 PM PDT Station ID: [id number]
[2020-07-03] MEDS ORDERED: SODIUM CHLORIDE FLUSH 0.9% 10 ML SYRINGE IVP PRN (20:21)
[2020-07-03] MEDS ORDERED: ACETAMINOPHEN 325 MG TABLET PO PRN (20:21)
--- NOTE | 2020-07-03 20:32 | HISTORY & PHYSICAL EXAMINATION ---
History of Present Illness - Admitted From Admitted From:: [facility] ED - History Obtained From Records Reviewed: Yes History obtained from: ED physician and notes - History of Present Illness HPI Comment/Other: Patient is a 79-year-old male with history of a Atrial fibrillation on pradaxa, CVA and cognitive deficit as a result. He presented to the ED because his Neumann catheter was replaced after which he developed gross hematuria. The catheter subsequently became obstructed and the patient started experiencing some suprapubic pain. During evaluation in the ED he was noted to have chills and a fever with a temperature as high as 38.6C. He had about 24% bands on his CBC and a lactic acid of 4.3 Consequently he was presented for admission for treatment of sepsis due to UTI. The patient was last admitted in December 2019 with a UTI At bedside patient is alert and awake but not oriented to place time or reason. He denies chest pain, dyspnea, abdominal pain, nausea, vomiting. He has significant scrotal edema on exam. Neumann catheter is in place draining urine which appears clear but with some reddish sedimentation in the tubing. Attempts to reach his for more information regarding his presentation has been unsuccessful. A message was left on the voicemail to call back. The history above was mainly obtained from the ED physician and the ED physicians documentation. 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 at age 93. mother: Diabetes mellitus and CHF Social History Notes: 30+ smoking history. Quit in 1996. Rarely drinks alcohol. No illicit drugs - POLST Patient has POLST: No POLST Status: Full Code Meds/Allgy - Home Medications Home Medications: Ambulatory Orders Medication Instructions Recorded Confirmed Dabigatran [Pradaxa] 150 mg PO BID 07/14/13 01/05/20 Finasteride 5 mg PO DAILY 01/04/20 01/05/20 Ciprofloxacin [Cipro] 500 mg PO BID #28 tablet 01/08/20 polyethylene glycoL 3350 [Miralax] 17 gm PO DAILY PRN 01/23/20 01/23/20 Cephalexin [Keflex] 500 mg PO Q6H #28 capsule 02/23/20 Sulfamethox/Trimeth 800/160 1 each PO BID #14 tablet 02/23/20 [Bactrim Ds 800/160] Nitrofurantoin Monohyd/M-Cryst 100 mg PO BID #14 capsule 04/01/20 [Macrobid 100 mg Capsule] - Allergies Allergies/Adverse Reactions: Allergies Allergy/AdvReac Type Severity Reaction Status Date / Time No Known Drug Allergies Allergy Verified 04/01/20 15:01 Review of Systems - Constitutional Constitutional: reports: Fever, Chills. denies: Fatigue - Eyes Eyes: denies: Pain - Ears, Nose & Throat Ears, Nose & Throat: denies: Ear pain - Cardiovascular Cariovascular: denies: Irregular heart rate, Palpitations, Chest pain, Edema, Lightheadedness, Syncope - Respiratory Respiratory: denies: Cough, Sputum production, Wheezing - Gastrointestinal Gastrointestinal: denies: Abdominal pain, Abdominal distention, Black stools, Nausea, Vomiting - Genitourinary Genitourinary: reports: Hematuria, Flank pain - Musculoskeletal Musculoskeletal: denies: Muscle pain, Back pain, Muscle aches - Integumentary Integumentary: denies: Rash, Pruritis, Lesions - Neurological Neurological: denies: Focal weakness, Headache, Dizziness Prior Level of Functionality: Current to previous records, he lives at home with his . He has some cognitive impairment since his stroke. He is fixated on urinating and wakes up every 45 minutes at night to do so, even when told that it is not necessary. He is not very stable on his feet. Exam - Vital Signs Vital Signs: Vital Signs x48h Temp Pulse Resp BP Pulse Ox 07/03/20 20:16 37.9 C H 105 H 18 148/72 H 98 07/03/20 19:37 37.9 C H 96 19 135/72 H 98 07/03/20 19:12 99.1 C H 104 H 20 119/55 L 96 07/03/20 18:42 99.7 C H 114 H 23 119/55 L 95 07/03/20 17:28 75 16 178/105 H 100 07/03/20 17:10 38.6 C H 91 18 186/97 H 98 - Physical Exam General Appearance: positive: Mild distress, Moderate distress Eyes Bilateral: positive: PERRL, EOMI ENT: positive: Dry mucous membranes Neck: positive: No JVD, Trachea midline Respiratory: positive: Chest non-tender, No respiratory distress, Breath sounds nml. negative: Wheezes, Rales, Rhonchi Cardiovascular: positive: Regular rate & rhythm, No murmur Abdomen: positive: Non-tender, No organomegaly, Nml bowel sounds, No distention. negative: Guarding, Rebound Skin: positive: Color nml, No rash, Warm, Dry Extremities: positive: Non-tender, Full ROM, Nml appearance, No pedal edema Neurologic/Psychiatric: positive: Mood/affect nml. negative: Oriented x3 Comments/Other: Scrotal edema Sepsis Event Note (H) - Evaluation Current Stage of Sepsis: Sepsis Possible source of Sepsis: positive: Genitourinary - Sepsis Criteria Sepsis Criteria: Recorded Temperature greater than 38.3C or Less than 36C, Recorded Heart Rate greater than 90 bpm, WBC count greater than 10% bands, Metabolic: lactate > 2 mmol/L Conclusion/Plan - Problem List (1) Sepsis Conclusion/Plan: Secondary to UTI. Blocked catheter was changed. Urine and blood cultures were collected. Patient was started on Rocephin. Will continue. IV hydration with normal saline at 100 mils an hour. Tylenol for fever prn Qualifiers: Sepsis type: sepsis due to unspecified organism Sepsis acute organ dysfunction status: without acute organ dysfunction Qualified Code(s): A41.9 - Sepsis, unspecified organism (2) Urinary tract infection Conclusion/Plan: Blocked catheter was changed. Urine and blood cultures were collected. Patient was started on Rocephin. Will continue. IV hydration with normal saline at 100 mils an hour. Tylenol for fever prn Qualifiers: Urinary tract infection type: catheter-associated UTI Indwelling urinary catheter type: indwelling urethral catheter Encounter type: initial encounter Qualified Code(s): T83.511A - Infection and inflammatory reaction due to indwelling urethral catheter, initial encounter; N39.0 - Urinary tract infec tion, site not specified (3) Chronic atrial fibrillation Conclusion/Plan: On Pradaxa. Not on any rate controlling medication (4) BPH (benign prostatic hyperplasia) Conclusion/Plan: On finasteride. (5) Scrotal swelling Conclusion/Plan: Testicular ultrasound pending - Lab Results Fish Bones: 07/03/20 18:15 07/03/20 18:15
[2020-07-03] MEDS: SODIUM CHLORIDE 0.9% 1,000 ML IV SCH (22:14)
[2020-07-03] MEDS: ACETAMINOPHEN 325 MG TABLET PO PRN (22:19)
[2020-07-04] MEDS: SODIUM CHLORIDE FLUSH 0.9% 10 ML SYRINGE IVP SCH ×3 (00:18→18:46)
[2020-07-04] MEDS ORDERED: ONDANSETRON 4 MG/2 ML VIAL IVP PRN (04:02)
[2020-07-04 05:26] LABS: CALCIUM 8.7 mg/dL (8.5-10.3)
[2020-07-04 05:29] LABS: BASOPHILS % (AUTO) 0.5 %; EOSINOPHILS % (AUTO) 0.1 %; HGB - HEMOGLOBIN 13.6 g/dL (14.0-18.0); LYMPHOCYTES % (AUTO) 1.5 %; MEAN CORPUSCULAR HEMOGLOBIN 33.1 pg (27.0-31.0); MEAN CORPUSCULAR HGB CONC 32.8 g/dL (32.0-36.0); MEAN PLATELET VOLUME 11.5 fL (7.4-11.4); MONOCYTES % (AUTO) 4.6 %; NEUTROPHILS % (AUTO) 90.3 %; PLT - PLATELET COUNT 183 10^3/uL (130-450); RED BLOOD COUNT 4.11 10^6/uL (4.70-6.10); RED CELL DISTRIBUTION WIDTH 13.7 % (12.0-15.0); WHITE BLOOD COUNT 28.6 x10^3/uL (4.8-10.8)
[2020-07-04 05:37] LABS: ABNORMAL LYMPHS % (MANUAL) 0 %
[2020-07-04 05:53] LABS: BAND NEUTROPHILS % (MANUAL) 3 %; LYMPHOCYTES # (MANUAL) 0.3 10^3/uL (1.5-3.5); LYMPHOCYTES % (MANUAL) 1 %; MONOCYTES # (MANUAL) 0.9 10^3/uL (0.0-1.0)
[2020-07-04 05:54] LABS: DIFFERENTIAL COMMENT MANUAL DIFFERENTIAL; PLATELET ESTIMATE, MANUAL NORMAL (130-450,000) (NORMAL); PLATELET MORPHOLOGY NORMAL APPEARANCE (NORMAL); RBC MORPHOLOGY (MULTIPLE) NORMAL APPEARANCE (NORMAL)
[2020-07-04] MEDS: PANTOPRAZOLE 40 MG TABLET PO SCH (06:38)
[2020-07-04] MEDS: ACETAMINOPHEN 325 MG TABLET PO PRN (06:38)
[2020-07-04] MEDS: SODIUM CHLORIDE 0.9% 1,000 ML IV SCH ×2 (06:43→18:45)
[2020-07-04] MEDS ORDERED: BENZOCAINE/MENTHOL LOZENGE MM PRN (07:35)
[2020-07-04] MEDS: cefTRIAXone 1 GM in SODIUM CHLORIDE 0.9% MINIBAG 100 ML IV SCH (09:00)
--- NOTE | 2020-07-04 09:01 | PROVIDER PROGRESS NOTE ---
Assessment/Plan - Problem List (1) Sepsis Assessment/Plan: Lactic acid level of 4.5 has corrected down to 1.5 10.6 white blood count at admission has climbed to 28.6 today, and UTI as the source. Continue with IV fluids, iv antibiotics. (2) Gram-negative bacteremia Assessment/Plan: He has a complicated UTI, chronic indwelling Neumann in place and the CT abdomen pelvis showed positive cystitis with bladder wall streaking. Follow the white blood count 4 improvement. Await culture results of identification and sensitivity. Conitnue empiric IV ceftriaxone for now. (3) UTI (urinary tract infection) Assessment/Plan: This ss a complicated UTI; he has a chronic indwelling Neumann for his neurogenic bladder and BPH, there is evidence of cystitis but not pyelonephritis. Await urine culture and sensitivity results. Remain on empiric iv ceftriaxone for now (4) Complication, blocked Neumann catheter Qualifiers: Encounter type: initial encounter Qualified Code(s): T83.091A - Other mechanical complication of indwelling urethral catheter, initial encounter Assessment/Plan: As per hx, the Neumann placed in the ED is patent (5) Scrotal swelling Assessment/Plan: He had tenderness localized to the scrotum when examined by the admitting hospitalist. Ultrasound of the testicles was ordered and shows a large, hypoechoic, septated mass of the right side, which is likely a spermatocele. We will request a consultation regarding management from General Surgery, we do not have Urology here. 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 Details of why the Neumann was changed yesterday in the first place, before coming to the ER, is not clear. His medication list (which has not yet been reconciled by pharmacy), indicates he takes Keflex, Macrobid, Bactrim and Cipro, presumably as prophylaxis/to suppress UTIs. (8) BPH (benign prostatic hyperplasia) Assessment/Plan: As per Hx. Resume any meds for BPH once his medications are reconciled. (9) Chronic atrial fibrillation Assessment/Plan: Rate is controlled, without any heart rate slowing meds, this is a sign of conduction system disease. He remains on Pradaxa for stroke prophylaxis. (10) Dementia Assessment/Plan: Reportedly, this started after his CVA - Current Meds Current Meds: Current Medications Generic Name Dose Route Start Last Admin Trade Name Rileyq PRN Reason Stop Dose Admin Acetaminophen 650 mg 07/03/20 22:16 07/04/20 06:38 Tylenol PO 650 mg Q4HR PRN Administration Pain 1 to 4 Sodium Chloride 1,000 mls @ 100 mls/hr 07/03/20 21:00 07/04/20 06:43 Normal Saline 0.9% IV 100 mls/hr .Q10H TYLER Administration Ondansetron HCl 4 mg 07/04/20 04:02 07/04/20 04:13 Zofran Inj IVP 4 mg Q4HR PRN Administration Nausea / Vomiting Pantoprazole Sodium 40 mg 07/04/20 07:00 07/04/20 06:38 Protonix PO 40 mg QDAC TYLER Administration Sodium Chloride 10 ml 07/04/20 01:00 07/04/20 00:18 Normal Saline Flush 0.9% IVP Not Given 0100,0900,1700 TYLER - Lab Result Fish Bone Diagrams: 07/04/20 04:40 07/04/20 04:40 Subjective - Subjective Patient Reports: Resting Comfortably, Other (Awake, confused, was calling for help to be repositioned) Objective Vital Signs: Vital Signs - 24 hr 07/03/20 07/03/20 07/03/20 17:10 17:28 18:42 Temperature 38.6 C H 99.7 C H Heart Rate 91 75 114 H Heart Rate [ Brachial] Heart Rate [ Monitoring electrodes] Respiratory 18 16 23 Rate Blood Pressure 186/97 H 178/105 H 119/55 L Blood Pressure [Right Brachial artery] O2 Saturation 98 100 95 07/03/20 07/03/20 07/03/20 19:12 19:37 20:16 Temperature 99.1 C H 37.9 C H 37.9 C H Heart Rate 104 H 96 105 H Heart Rate [ Brachial] Heart Rate [ Monitoring electrodes] Respiratory 20 19 18 Rate Blood Pressure 119/55 L 135/72 H 148/72 H Blood Pressure [Right Brachial artery] O2 Saturation 96 98 98 07/03/20 07/03/20 07/03/20 20:37 21:01 21:25 Temperature 37.6 C H Heart Rate 99 105 H Heart Rate [ 80 Brachial] Heart Rate [ Monitoring electrodes] Respiratory 18 19 18 Rate Blood Pressure 146/79 H 146/79 H Blood Pressure 136/89 H [Right Brachial artery] O2 Saturation 98 99 99 07/03/20 07/03/20 07/04/20 22:20 23:18 00:05 Temperature 38 C H 36.6 C 37.1 C Heart Rate Heart Rate [ 94 Brachial] Heart Rate [ Monitoring electrodes] Respiratory 16 Rate Blood Pressure Blood Pressure 104/41 L [Right Brachial artery] O2 Saturation 95 07/04/20 07/04/20 03:34 08:15 Temperature 37.0 C 36.9 C Heart Rate Heart Rate [ 74 Brachial] Heart Rate [ 71 Monitoring electrodes] Respiratory 17 18 Rate Blood Pressure Blood Pressure 115/71 102/56 L [Right Brachial artery] O2 Saturation 96 98 Oxygen O2 Source [With Activity] Room air O2 Source Room air I&O (Last 24 Hrs): Intake and Output Totals x24h 07/02/20 07/03/20 07/04/20 23:59 23:59 23:59 Intake Total 3121.077 776.667 Output Total 2000 350 Balance 1121.077 426.667 General: Alert HEENT: Mucous membr. moist/pink Neck: Supple Neuro: Disoriented, Non Focal Cardiovascular: Other (irreg) Respiratory: No respiratory distress Abdomen: Soft Genitourinary: Other (Neumann in place) Extremities: No edema - Results Results: Laboratory Results WBC 28.6 x10^3/uL (4.8-10.8) H 07/04/20 04:40 RBC 4.11 10^6/uL (4.70-6.10) L 07/04/20 04:40 Hgb 13.6 g/dL (14.0-18.0) L 07/04/20 04:40 Hct 41.5 % (42.0-52.0) L 07/04/20 04:40 MCV 101.0 fL (80.0-94.0) H 07/04/20 04:40 MCH 33.1 pg (27.0-31.0) H 07/04/20 04:40 MCHC 32.8 g/dL (32.0-36.0) 07/04/20 04:40 RDW 13.7 % (12.0-15.0) 07/04/20 04:40 Plt Count 183 10^3/uL (130-450) 07/04/20 04:40 MPV 11.5 fL (7.4-11.4) H 07/04/20 04:40 Neut # (Auto) Not Reportable 07/04/20 04:40 Lymph # (Auto) Not Reportable 07/04/20 04:40 [place] # (Auto) Not Reportable 07/04/20 04:40 Eos # (Auto) Not Reportable 07/04/20 04:40 Baso # (Auto) Not Reportable 07/04/20 04:40 Absolute Nucleated RBC Not Reportable 07/04/20 04:40 Total Counted 100 07/04/20 04:40 Band Neuts % (Manual) 3 % (0-10) 07/04/20 04:40 Abnorm Lymph % (Manual) 0 % 07/04/20 04:40 Nucleated RBC % Not Reportable 07/04/20 04:40 Neutrophils # (Manual) 27.5 10^3/uL (1.5-6.6) H 07/04/20 04:40 Lymphocytes # (Manual) 0.3 10^3/uL (1.5-3.5) L 07/04/20 04:40 Monocytes # (Manual) 0.9 10^3/uL (0.0-1.0) 07/04/20 04:40 Eosinophils # (Manual) 0.0 10^3/uL (0-0.7) 07/04/20 04:40 Basophils # (Manual) 0.0 10^3/uL (0-0.1) 07/04/20 04:40 Differential Comment MANUAL DIFFERENTIAL 07/04/20 04:40 WBC Morphology NORMAL APPEARANCE (NORMAL) 07/04/20 04:40 Platelet Estimate NORMAL (130-450,000) (NORMAL) 07/04/20 04:40 Platelet Morphology NORMAL APPEARANCE (NORMAL) 07/04/20 04:40 RBC Morph Micro Appear NORMAL APPEARANCE (NORMAL) 07/04/20 04:40 Sodium 139 mmol/L (135-145) 07/04/20 04:40 Potassium 4.0 mmol/L (3.5-5.0) 07/04/20 04:40 Chloride 106 mmol/L (101-111) 07/04/20 04:40 Carbon Dioxide 25 mmol/L (21-32) 07/04/20 04:40 Anion Gap 8.0 (6-13) 07/04/20 04:40 BUN 17 mg/dL (6-20) 07/04/20 04:40 Creatinine 1.0 mg/dL (0.6-1.2) 07/04/20 04:40 Estimated GFR (MDRD) 72 (>89) L 07/04/20 04:40 Glucose 156 mg/dL (70-100) H 07/04/20 04:40 Lactic Acid 1.5 mmol/L (0.5-2.2) 07/03/20 20:40 Calcium 8.7 mg/dL (8.5-10.3) 07/04/20 04:40 Total Bilirubin 0.7 mg/dL (0.2-1.0) 07/03/20 18:15 AST 25 IU/L (10-42) 07/03/20 18:15 ALT 16 IU/L (10-60) 07/03/20 18:15 Alkaline Phosphatase 53 IU/L (42-121) 07/03/20 18:15 Total Protein 7.1 g/dL (6.7-8.2) 07/03/20 18:15 Albumin 3.9 g/dL (3.2-5.5) 07/03/20 18:15 Globulin 3.2 g/dL (2.1-4.2) 07/03/20 18:15 Albumin/Globulin Ratio 1.2 (1.0-2.2) 07/03/20 18:15 Lipase 39 U/L (22-51) 07/03/20 18:15 Urine Color LT RED 07/03/20 18:22 Urine Clarity HAZY (CLEAR) 07/03/20 18:22 Urine pH 6.0 PH (5.0-7.5) 07/03/20 18:22 Ur Specific [place] 1.010 (1.002-1.030) 07/03/20 18:22 Urine Protein NEGATIVE mg/dL (NEGATIVE) 07/03/20 18:22 Urine Glucose (UA) NEGATIVE mg/dL (NEGATIVE) 07/03/20 18:22 Urine Ketones NEGATIVE mg/dL (NEGATIVE) 07/03/20 18:22 Urine Occult Blood LARGE (NEGATIVE) H 07/03/20 18:22 Urine Nitrite NEGATIVE (NEGATIVE) 07/03/20 18:22 Urine Bilirubin NEGATIVE (NEGATIVE) 07/03/20 18:22 Urine Urobilinogen 0.2 (NORMAL) E.U./dL (NORMAL) 07/03/20 18:22 Ur Leukocyte Esterase LARGE (NEGATIVE) H 07/03/20 18:22 Urine RBC 11-25 /HPF (0-5) H 07/03/20 18:22 Urine WBC 11-25 /HPF (0-3) H 07/03/20 18:22 Ur Squamous Epith Cells NONE SEEN (<= Few) 07/03/20 18:22 Urine Bacteria Many /HPF (None Seen) H 07/03/20 18:22 Ur Microscopic Review INDICATED 07/03/20 18: Urine Culture Comments INDICATED 07/03/20 18:22 Sepsis Event Note (H) - Evaluation Current Stage of Sepsis: Sepsis Possible source of Sepsis: positive: Genitourinary - Sepsis Criteria Sepsis Criteria: Recorded Temperature greater than 38.3C or Less than 36C, Recorded Heart Rate greater than 90 bpm, WBC count greater than 10% bands, Metabolic: lactate > 2 mmol/L
--- NOTE | 2020-07-04 11:23 | Ultrasound Report ---
PROCEDURE: Testicle INDICATIONS: scrotal swelling and pain TECHNIQUE: Real-time scanning was performed of the scrotum and testicles, with image documentation. Color and p ulse Doppler interrogation was performed of both testicles. COMPARISON: None. FINDINGS: Right: Testicle is normal in size at 3.2 x 2.0 x 2.5 cm, and homogenous in echotexture. Epididymis is not visualized. No hydrocele or varicoceles. Prominent septated focus of hypoechogenicity appears to be surrounding the testicle and present within the scrotal sac. Multiple areas of septation are i dentified. Left: Testicle is normal in size at 3.5 x 2.8 x 2.8 cm, and homogeneous in echotexture. There appear s to be incidental note of prominence of the rete testis. Epididymis is normal in overall size and mo rphology. Varicocele is present. Overlying scrotal skin is normal in thickness. Doppler: Color and pulse Doppler demonstrate normal and symmetric arterial flow in both testicles. IMPRESSION: 1. Large hypoechoic focus with septations surrounding the right testicle in the scrotal sac. Overall appearance appears most suggestive of a large spermatocele. Reviewed by: Stephanie Patel MD on 07/04/2020 11:21 AM PDT Approved by: Stephanie Patel MD on 07/04/2020 11:21 AM PDT Station ID: [id number]
[2020-07-04] MEDS ORDERED: polyethylene glycoL 3350 17 GM PACKET PO PRN (15:20)
[2020-07-04] MEDS: oxyCODONE 5 MG TABLET PO PRN (22:00)
[2020-07-04] MEDS: DABIGATRAN 75 MG CAPSULE PO SCH (22:00)
[2020-07-05] MEDS: SODIUM CHLORIDE FLUSH 0.9% 10 ML SYRINGE IVP SCH ×3 (00:30→17:13)
[2020-07-05] MEDS: SODIUM CHLORIDE 0.9% 1,000 ML IV SCH ×2 (05:10→17:13)
[2020-07-05] MEDS: PANTOPRAZOLE 40 MG TABLET PO SCH (06:53)
[2020-07-05 07:40] LABS: CALCIUM 8.4 mg/dL (8.5-10.3)
[2020-07-05] MEDS: oxyCODONE 5 MG TABLET PO PRN (07:52)
[2020-07-05 07:57] LABS: BASOPHILS # (AUTO) 0.1 10^3/uL (0.0-0.1); BASOPHILS % (AUTO) 0.6 %; EOSINOPHILS # (AUTO) 0.1 10^3/uL (0.0-0.7); EOSINOPHILS % (AUTO) 0.5 %; HGB - HEMOGLOBIN 13.4 g/dL (14.0-18.0); LYMPHOCYTES # (AUTO) 1.3 10^3/uL (1.5-3.5); LYMPHOCYTES % (AUTO) 7.2 %; MEAN CORPUSCULAR HEMOGLOBIN 32.4 pg (27.0-31.0); MEAN CORPUSCULAR VOLUME 98.3 fL (80.0-94.0); MEAN PLATELET VOLUME 11.4 fL (7.4-11.4); MONOCYTES % (AUTO) 5.5 %; NEUTROPHILS # (AUTO) 15.2 10^3/uL (1.5-6.6); NEUTROPHILS % (AUTO) 85.5 %; PLT - PLATELET COUNT 185 10^3/uL (130-450); RED BLOOD COUNT 4.13 10^6/uL (4.70-6.10); RED CELL DISTRIBUTION WIDTH 13.8 % (12.0-15.0); WHITE BLOOD COUNT 17.8 x10^3/uL (4.8-10.8)
[2020-07-05] MEDS: DABIGATRAN 75 MG CAPSULE PO SCH ×2 (08:48→20:33)
[2020-07-05] MEDS: FINASTERIDE 5 MG TABLET PO SCH (08:48)
[2020-07-05] MEDS: cefTRIAXone 1 GM in SODIUM CHLORIDE 0.9% MINIBAG 100 ML IV SCH (08:48)
--- NOTE | 2020-07-05 09:01 | PROVIDER PROGRESS NOTE ---
Assessment/Plan - Problem List (1) Gram-negative bacteremia Assessment/Plan: Awaiting identification and then sensitivities. Computer continue empiric ceftriaxone IV. A 14-day total course is planned. Will switch to p.o. antibiotics when appropriate. (2) E. coli UTI Assessment/Plan: The urine culture has grown E. coli which is pansensitive. Continue with IV antibiotics, because of the bacteremia and cystitis was found on imaging of the abdomen pelvis by CT. A total 14-day course of antibiotics is planned. Will switch to p.o. antibiotics when appropriate. (3) Complication, blocked Neumann catheter Qualifiers: Encounter type: initial encounter Qualified Code(s): T83.091A - Other mechanical complication of indwelling urethral catheter, initial encounter Assessment/Plan: Neumann was blocked and was replaced in the ER this admission. (4) Spermatocele of epididymis, single Assessment/Plan: He had tenderness localized to the scrotum when examined by the admitting Hospitalist. Ultrasound of the testicles was ordered and shows a large, hypoechoic, septated mass of the right side, which is a spermatocele. We will request a consultation regarding management from General Surgery, we do not have Urology here. 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 He used to have to self catheterize himself, and by report, he did this every 45 minutes, probably from his dementia. Now he has a chronic indwelling Neumann. (6) Chronic indwelling Neumann catheter Assessment/Plan: As per Hx. It is unclear why the Neumann was changed on the day that led up to the fever, and presentation to the ER. Neumann was blocked and was replaced in the ER this admission. (7) BPH (benign prostatic hyperplasia) Assessment/Plan: BPH meds have been started to use here (8) Dementia Assessment/Plan: He has dementia with behavioral disturbances, needs a lot of supervision. 24-hour care home care as needed after discharge, will communicate this to Social Work and commercial airline pilot. (9) Chronic atrial fibrillation Assessment/Plan: His heart rate is under control, without any heart rate slowing meds; this is a sign of conduction system disease but there are no bradycardias that are concer brayden. He is on Pradaxa for stroke prophylaxis. (10) Sepsis Assessment/Plan: Cleared - Current Meds Current Meds: Current Medications Generic Name Dose Route Start Last Admin Trade Name Rileyq PRN Reason Stop Dose Admin Acetaminophen 650 mg 07/03/20 22:16 07/04/20 06:38 Tylenol PO 650 mg Q4HR PRN Administration Pain 1 to 4 Dabigatran 150 mg 07/04/20 21:00 07/05/20 08:48 Pradaxa PO 150 mg BID TYLER Administration Finasteride 5 mg 07/05/20 09:00 07/05/20 08:48 Proscar PO 5 mg DAILY TYLER Administration Sodium Chloride 1,000 mls @ 100 mls/hr 07/03/20 21:00 07/05/20 05:10 Normal Saline 0.9% IV 100 mls/hr .Q10H TYLER Administration Ceftriaxone Sodium 1 gm/ 100 mls @ 200 mls/hr 07/04/20 09:00 07/05/20 08:48 Sodium Chloride IV 200 mls/hr DAILY TYLER Administration Ondansetron HCl 4 mg 07/04/20 04:02 07/04/20 04:13 Zofran Inj IVP 4 mg Q4HR PRN Administration Nausea / Vomiting Oxycodone HCl 5 mg 07/03/20 20:21 07/05/20 07:52 Roxicodone PO 5 mg Q4HR PRN Administration Pain 5 to 7 Pantoprazole Sodium 40 mg 07/04/20 07:00 07/05/20 06:53 Protonix PO Not Given QDAC TYLER Sodium Chloride 10 ml 07/04/20 01:00 07/05/20 00:30 Normal Saline Flush 0.9% IVP 10 ml 0100,0900,1700 TYLER Administration - Lab Result Fish Bone Diagrams: 07/05/20 07:25 07/05/20 07:25 - Additional Planning My Orders: My Active Orders 07/04/20 15:20 polyethylene glycoL 3350 [Miralax] 17 gm PO DAILY PRN 07/04/20 21:00 Dabigatran [Pradaxa] 150 mg PO BID 07/05/20 09:00 Finasteride [Proscar] 5 mg PO DAILY 07/06/20 05:00 MAGNESIUM [CHEM] DAILYLAB Subjective - Subjective Nursing Reports: Other (This patient needs constant monitoring from his RN and [employer], he tries to get up out of bed often, has pulled out his IV and then played with the iv line, calls for help just to be repositioned in bed.) Objective Vital Signs: Vital Signs - 24 hr 07/04/20 07/04/20 07/04/20 11:25 12:42 16:01 Temperature 36.7 C 36.7 C Heart Rate [ 72 Activity] Heart Rate [ 55 L 65 Brachial] Heart Rate [ 99 Monitoring electrodes] Heart Rate [ 75 Sitting] Heart Rate [ 74 Supine] Respiratory 20 18 Rate Blood Pressure 114/64 [Activity] Blood Pressure [Left Brachial artery] Blood Pressure 113/69 121/65 [Right Brachial artery] Blood Pressure 108/70 [Sitting] Blood Pressure 122/75 [Supine] O2 Saturation 98 100 07/04/20 07/04/20 07/05/20 22:06 23:20 04:30 Temperature 36.6 C 36.6 C 36.8 C Heart Rate [ Activity] Heart Rate [ 77 Brachial] Heart Rate [ 62 92 Monitoring electrodes] Heart Rate [ Sitting] Heart Rate [ Supine] Respiratory 18 16 16 Rate Blood Pressure [Activity] Blood Pressure 129/94 H [Left Brachial artery] Blood Pressure 153/92 H 148/89 H [Right Brachial artery] Blood Pressure [Sitting] Blood Pressure [Supine] O2 Saturation 98 98 99 07/05/20 08:03 Temperature 36.7 C Heart Rate [ Activity] Heart Rate [ Brachial] Heart Rate [ 93 Monitoring electrodes] Heart Rate [ Sitting] Heart Rate [ Supine] Respiratory 18 Rate Blood Pressure [Activity] Blood Pressure 148/93 H [Left Brachial artery] Blood Pressure [Right Brachial artery] Blood Pressure [Sitting] Blood Pressure [Supine] O2 Saturation 97 Oxygen O2 Source [With Activity] Room air O2 Source Room air I&O (Last 24 Hrs): Intake and Output Totals x24h 07/03/20 07/04/20 07/05/20 23:59 23:59 23:59 Intake Total 3121.077 2176.667 1000 Output Total 1999 0268 650 Balance 1121.077 -248.333 350 General: Other (Awake, appears in no distress) HEENT: Atraumatic, Mucous membr. moist/pink Neck: Supple Neuro: Disoriented Cardiovascular: Other (Irreg irreg) Respiratory: No respiratory distress Abdomen: Soft Extremities: No edema - Results Results: Laboratory Results WBC 17.8 x10^3/uL (4.8-10.8) H 07/05/20 07:25 RBC 4.13 10^6/uL (4.70-6.10) L 07/05/20 07:25 Hgb 13.4 g/dL (14.0-18.0) L 07/05/20 07:25 Hct 40.6 % (42.0-52.0) L 07/05/20 07:25 MCV 98.3 fL (80.0-94.0) H 07/05/20 07:25 MCH 32.4 pg (27.0-31.0) H 07/05/20 07:25 MCHC 33.0 g/dL (32.0-36.0) 07/05/20 07:25 RDW 13.8 % (12.0-15.0) 07/05/20 07:25 Plt Count 185 10^3/uL (130-450) 07/05/20 07:25 MPV 11.4 fL (7.4-11.4) 07/05/20 07:25 Neut # (Auto) 15.2 10^3/uL (1.5-6.6) H 07/05/20 07:25 Lymph # (Auto) 1.3 10^3/uL (1.5-3.5) L 07/05/20 07:25 [place] # (Auto) 1.0 10^3/uL (0.0-1.0) 07/05/20 07:25 Eos # (Auto) 0.1 10^3/uL (0.0-0.7) 07/05/20 07:25 Baso # (Auto) 0.1 10^3/uL (0.0-0.1) 07/05/20 07:25 Absolute Nucleated RBC 0.00 x10^3/uL 07/05/20 07:25 Total Counted 100 07/04/20 04:40 Band Neuts % (Manual) 3 % (0-10) 07/04/20 04:40 Abnorm Lymph % (Manual) 0 % 07/04/20 04:40 Nucleated RBC % 0.0 /100WBC 07/05/20 07:25 Neutrophils # (Manual) 27.5 10^3/uL (1.5-6.6) H 07/04/20 04:40 Lymphocytes # (Manual) 0.3 10^3/uL (1.5-3.5) L 07/04/20 04:40 Monocytes # (Manual) 0.9 10^3/uL (0.0-1.0) 07/04/20 04:40 Eosinophils # (Manual) 0.0 10^3/uL (0-0.7) 07/04/20 04:40 Basophils # (Manual) 0.0 10^3/uL (0-0.1) 07/04/20 04:40 Differential Comment MANUAL DIFFERENTIAL 07/04/20 04:40 WBC Morphology NORMAL APPEARANCE (NORMAL) 07/04/20 04:40 Platelet Estimate NORMAL (130-450,000) (NORMAL) 07/04/20 04:40 Platelet Morphology NORMAL APPEARANCE (NORMAL) 07/04/20 04:40 RBC Morph Micro Appear NORMAL APPEARANCE (NORMAL) 07/04/20 04:40 Sodium 140 mmol/L (135-145) 07/05/20 07:25 Potassium 3.9 mmol/L (3.5-5.0) 07/05/20 07:25 Chloride 108 mmol/L (101-111) 07/05/20 07:25 Carbon Dioxide 25 mmol/L (21-32) 07/05/20 07:25 Anion Gap 7.0 (6-13) 07/05/20 07:25 BUN 14 mg/dL (6-20) 07/05/20 07:25 Creatinine 1.0 mg/dL (0.6-1.2) 07/05/20 07:25 Estimated GFR (MDRD) 72 (>89) L 07/05/20 07:25 Glucose 103 mg/dL (70-100) H 07/05/20 07:25 Lactic Acid 1.5 mmol/L (0.5-2.2) 07/03/20 20:40 Calcium 8.4 mg/dL (8.5-10.3) L 07/05/20 07:25 Total Bilirubin 0.7 mg/dL (0.2-1.0) 07/03/20 18:15 AST 25 IU/L (10-42) 07/03/20 18:15 ALT 16 IU/L (10-60) 07/03/20 18:15 Alkaline Phosphatase 53 IU/L (42-121) 07/03/20 18:15 Total Protein 7.1 g/dL (6.7-8.2) 07/03/20 18:15 Albumin 3.9 g/dL (3.2-5.5) 07/03/20 18:15 Globulin 3.2 g/dL (2.1-4.2) 07/03/20 18:15 Albumin/Globulin Ratio 1.2 (1.0-2.2) 07/03/20 18:15 Lipase 39 U/L (22-51) 07/03/20 18:15 Urine Color LT RED 07/03/20 18:22 Urine Clarity HAZY (CLEAR) 07/03/20 18:22 Urine pH 6.0 PH (5.0-7.5) 07/03/20 18:22 Ur Specific [place] 1.010 (1.002-1.030) 07/03/20 18:22 Urine Protein NEGATIVE mg/dL (NEGATIVE) 07/03/20 18:22 Urine Glucose (UA) NEGATIVE mg/dL (NEGATIVE) 07/03/20 18:22 Urine Ketones NEGATIVE mg/dL (NEGATIVE) 07/03/20 18:22 Urine Occult Blood LARGE (NEGATIVE) H 07/03/20 18:22 Urine Nitrite NEGATIVE (NEGATIVE) 07/03/20 18:22 Urine Bilirubin NEGATIVE (NEGATIVE) 07/03/20 18:22 Urine Urobilinogen 0.2 (NORMAL) E.U./dL (NORMAL) 07/03/20 18:22 Ur Leukocyte Esterase LARGE (NEGATIVE) H 07/03/20 18:22 Urine RBC 11-25 /HPF (0-5) H 07/03/20 18:22 Urine WBC 11-25 /HPF (0-3) H 07/03/20 18:22 Ur Squamous Epith Cells NONE SEEN (<= Few) 07/03/20 18:22 Urine Bacteria Many /HPF (None Seen) H 07/03/20 18:22 Ur Microscopic Review INDICATED 07/03/20 18: Urine Culture Comments INDICATED 07/03/20 18:22 Sepsis Event Note (H) - Evaluation Current Stage of Sepsis: Sepsis Possible source of Sepsis: positive: Genitourinary - Sepsis Criteria Sepsis Criteria: Recorded Temperature greater than 38.3C or Less than 36C, Recorded Heart Rate greater than 90 bpm, WBC count greater than 10% bands, Metabolic: lactate > 2 mmol/L
[2020-07-05] MEDS: polyethylene glycoL 3350 17 GM PACKET PO SCH (13:21)
--- NOTE | 2020-07-05 16:02 | CONSULTATION NOTE ---
Referring Provider Name of Referring Provider:: Dr. Vida Stokes MD Consult Date: 07/05/20 Chief Complaint - Chief Complaint Chief Complaint: Scrotal swelling History of Present Illness - History Obtained From Records Reviewed: EMR History obtained from: EMR, Hospitalist, Patient Exam Limitations: Minimal - History of Present Illness HPI Comment/Other: 79-year-old male with history of a Atrial fibrillation on pradaxa, CVA and cognitive deficit as a result. History of neurogenic bladder for which he performs self-catheterization regularly. He presented to the ED because his Neumann catheter was replaced after which he developed gross hematuria, and ultimately developed suprapubic pain, fever, lactic acidosis as well as leukocytosis. Consequently he was admitted for treatment of presumptive uroepsis. He was noted for scrotal edema and work-up was performed. Suspected spermatocele surgery was consulted. 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 at age 93. mother: Diabetes mellitus and CHF Social History Notes: 30+ smoking history. Quit in 1996. Rarely drinks alcohol. No illicit drugs - POLST Patient has POLST: No POLST Status: Full Code Meds/Allgy - Home Medications Home Medications: Ambulatory Orders Medication Instructions Recorded Confirmed Dabigatran [Pradaxa] 150 mg PO BID 07/14/13 01/05/20 Finasteride 5 mg PO DAILY 01/04/20 01/05/20 polyethylene glycoL 3350 [Miralax] 17 gm PO DAILY PRN 01/23/20 01/23/20 - Allergies Allergies/Adverse Reactions: Allergies Allergy/AdvReac Type Severity Reaction Status Date / Time No Known Drug Allergies Allergy Verified 04/01/20 15:01 Review of Systems - Constitutional Constitutional: reports: Other (See hospitalist note for specifics of presenting review of systems.) - Eyes Eyes: reports: Other (See hospitalist note for specifics of presenting review of systems.) - Ears, Nose & Throat Ears, Nose & Throat: reports: Other (See hospitalist note for specifics of presenting review of systems.) - Cardiovascular Cariovascular: reports: Other (See hospitalist note for specifics of presenting review of systems.) - Respiratory Respiratory: reports: Other (See hospitalist note for specifics of presenting review of systems.) - Gastrointestinal Gastrointestinal: reports: Other (See hospitalist note for specifics of presenting review of systems.) - Genitourinary Genitourinary: reports: Other (Denies any scrotal pain, redness, discharge, or other complication in recent days other than his presenting symptoms as a relates to his historic bladder concerns.) - Musculoskeletal Musculoskeletal: reports: Other (See hospitalist note for specifics of presenting review of systems.) - Integumentary Integumentary: reports: Other (See hospitalist note for specifics of presenting review of systems.) - Neurological Neurological: reports: Other (See hospitalist note for specifics of presenting review of systems. He is awake and alert with no gross sensorimotor deficits on my focused exam.) - Psychiatric Psychiatric: reports: Other (See hospitalist note for specifics of presenting review of systems.) - Endocrine Endocrine: reports: Other (See hospitalist note for specifics of presenting review of systems.) - Hematologic/Lymphatic Hematologic/Lymphatic: reports: Other (See hospitalist note for specifics of presenting review of systems.) Exam - Vital Signs Vital Signs: Vital Signs x48h Temp Pulse Pulse Resp BP BP Pulse Ox 07/05/20 12:08 37.1 C 85 20 118/83 H 98 07/05/20 08:03 36.7 C 93 18 148/93 H 97 - Physical Exam General Appearance: positive: No acute distress, Alert Eyes Bilateral: positive: Normal inspection, PERRL, EOMI ENT: positive: ENT inspection nml Neck: positive: Nml inspection Respiratory: positive: Chest non-tender, No respiratory distress, Breath sounds nml. negative: Wheezes, Rales, Rhonchi Abdomen: positive: Non-tender. negative: Tenderness, Guarding, Rebound Rectal: positive: Other (No perianal tenderness, no palpable cords, no areas of palpable fluctuance, no peritoneal pathology on inspection. WENCESLAO was deferred.) Extremities: positive: Non-tender, Full ROM Neurologic/Psychiatric: positive: CN's nml (2-12) Comments/Other: Scrotal exam was as follows: Palpable testicle on left, no palpable hernia bilaterally, area of fullness on the right without significant pain, no warmth, no concerns for tracking infection, no blanching erythema. Right testicle palpable mobile as well with no associated pain. Fullness consistent with either hydrocele and/or spermatocele. No firmness concerning for malignancy on physical exam. Conclusion/Plan - Diagnosis Diagnosis: 1. History of CVA. 2. Systemic anticoagulation. 3. Atrial fibr illation. 4. Neurogenic bladder. 5. Urosepsis. 6. Spermatocele versus hydrocele - Plan Plan: 79-year-old male with for urosepsis with multiple comorbid states including atrial fibrillation, history of CVA, systemic anticoagulation. Right scrotal swelling on imaging without any concerns on CT for herniation. Patient with no obstructive symptoms from a gastrointestinal standpoint as well. As it relates to his scrotal ultrasound, concern for spermatocele however could also be hydrocele. In either case absent any significant symptomatology would d efer any operative intervention. Would only consider these in someone with chronic discomfort and given this patient's age, comorbid states, and complicating features and absence any concerns for any infectious etiology which would merit emergent intervention especially as relates to a tracking peroneal/perianal infection for which he has no evidence, would defer any surgical intervention at this time. Please note that voice recognition software was used to transcribe this note and inadvertent errors might persist in spite of review and editing. I am obliged to you for your attention. I am thankful to you for allowing me to participate with you in this care of this patient. - Lab Results Fish Bones: 07/06/20 05:07 07/06/20 05:07
[2020-07-05] MEDS: ACETAMINOPHEN 325 MG TABLET PO PRN (21:09)
[2020-07-06] MEDS: SODIUM CHLORIDE 0.9% 1,000 ML IV SCH ×3 (01:13→22:07)
[2020-07-06] MEDS: SODIUM CHLORIDE FLUSH 0.9% 10 ML SYRINGE IVP SCH ×3 (01:14→20:55)
[2020-07-06 05:33] LABS: BASOPHILS # (AUTO) 0.1 10^3/uL (0.0-0.1); BASOPHILS % (AUTO) 0.5 %; EOSINOPHILS # (AUTO) 0.1 10^3/uL (0.0-0.7); EOSINOPHILS % (AUTO) 0.9 %; HGB - HEMOGLOBIN 12.8 g/dL (14.0-18.0); LYMPHOCYTES # (AUTO) 0.8 10^3/uL (1.5-3.5); LYMPHOCYTES % (AUTO) 7.1 %; MEAN CORPUSCULAR HEMOGLOBIN 32.4 pg (27.0-31.0); MEAN CORPUSCULAR HGB CONC 33.3 g/dL (32.0-36.0); MEAN CORPUSCULAR VOLUME 97.2 fL (80.0-94.0); MEAN PLATELET VOLUME 11.4 fL (7.4-11.4); MONOCYTES # (AUTO) 0.7 10^3/uL (0.0-1.0); NEUTROPHILS # (AUTO) 9.9 10^3/uL (1.5-6.6); NEUTROPHILS % (AUTO) 85.1 %; PLT - PLATELET COUNT 164 10^3/uL (130-450); RED BLOOD COUNT 3.95 10^6/uL (4.70-6.10); RED CELL DISTRIBUTION WIDTH 13.5 % (12.0-15.0); WHITE BLOOD COUNT 11.6 x10^3/uL (4.8-10.8)
[2020-07-06 05:50] LABS: CALCIUM 8.3 mg/dL (8.5-10.3); CREATININE 0.8 mg/dL (0.6-1.2)
[2020-07-06] MEDS: PANTOPRAZOLE 40 MG TABLET PO SCH (06:46)
[2020-07-06] MEDS: cefTRIAXone 1 GM in SODIUM CHLORIDE 0.9% MINIBAG 100 ML IV SCH (10:02)
[2020-07-06] MEDS: FINASTERIDE 5 MG TABLET PO SCH (10:04)
[2020-07-06] MEDS: DABIGATRAN 75 MG CAPSULE PO SCH ×2 (10:06→20:55)
[2020-07-06] MEDS: polyethylene glycoL 3350 17 GM PACKET PO SCH (11:50)
--- NOTE | 2020-07-06 14:39 | PHARMACY PROGRESS NOTE ---
- Best Possible Medication History Admit Date and Time: 07/03/202020 Processed by: Pharmacy Medication History completed: Yes Patient Interview: Pt unable to participate Secondary Source(s): Spouse/Significant other As the person ultimately responsible for medication therapy, providers are able to order a medication from an existing home medication list in [facility] via the "Reconcile Routine" prior to Confirmation of that medication by marketing support coordinator. Such practice is discouraged except when the physician, in their clinical judgment, deems that a medical need exists for a medication without regard to previous use.
--- NOTE | 2020-07-06 18:36 | PROVIDER PROGRESS NOTE ---
Assessment/Plan - Problem List (1) E coli bacteremia Assessment/Plan: The blood culture bacteria was identified as E coli. We are awaiting sensitivities to determine duration of treatment and what antibiotic will be planned. (2) E. coli UTI Assessment/Plan: We are awaiting the sensitivities of this E. coli, found on blood cultures, to ascertain if it is the same as the urine, and this will determine the plan for antibiotic treatment. He can then be changed to oral antibiotics. His course of treatment is planned for 3 to 4 weeks since he has a complicated UTI as the source. (3) Complication, blocked Neumann catheter Qualifiers: Encounter type: subsequent encounter Qualified Code(s): T83.091D - Other mechanical complication of indwelling urethral catheter, subsequent encounter Assessment/Plan: Patient had presented after his Neumann was changed by his Home Health agency, and apparently he had to wait 5 weeks for this to be done. The patient's would like a new and different Home Health agency referral placed, since she said the Urologist wants the chronic Neumann to be changed every 3 to 4 weeks. A Home [facility] referral will be ordered. (4) Spermatocele of epididymis, single Assessment/Plan: He had tenderness localized to the scrotum when examined by the admitting Hospitalist. Ultrasound of the testicles was ordered and shows a large, hypoechoic, septated mass of the right side, which is a spermatocele. A consultation regarding management from General Surgery was done, outpatient management was advised. 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 He used to have to self catheterize himself, and by report, he did this every 45 minutes, probably from his dementia. Now he has a chronic indwelling Neumann. (6) Chronic indwelling Neumann catheter Assessment/Plan: As per Hx. The Neumann was changed on the day that led up to the fever, and presentation to the ER. Neumann was blocked and was replaced in the ER this admission. (7) BPH (benign prostatic hyperplasia) Assessment/Plan: BPH meds have been ordered to use here (8) Dementia Assessment/Plan: He has dementia with behavioral disturbances, needs alot of supervision here. 24-hour longterm care is needed after discharge. Social Work and icing mixer have been in contact with the , his caregiver. (9) Chronic atrial fibrillation Assessment/Plan: His heart rate is under control, without any heart rate slowing meds; this is a sign of conduction system disease but there are no bradycardias that are concerning. He is on Pradaxa for stroke prophylaxis. (10) Sepsis Assessment/Plan: Resolved - Current Meds Current Meds: Current Medications Generic Name Dose Route Start Last Admin Trade Name Freq PRN Reason Stop Dose Admin Acetaminophen 650 mg 07/03/20 22:16 07/05/20 21:09 Tylenol PO 650 mg Q4HR PRN Administration Pain 1 to 4 Dabigatran 150 mg 07/04/20 21:00 07/06/20 10:06 Pradaxa PO 150 mg BID TYLER Administration Finasteride 5 mg 07/05/20 09:00 07/06/20 10:04 Proscar PO 5 mg DAILY TYLER Administration Sodium Chloride 1,000 mls @ 100 mls/hr 07/03/20 21:00 07/06/20 11:13 Normal Saline 0.9% IV 100 mls/hr .Q10H TYLER Administration Ceftriaxone Sodium 1 gm/ 100 mls @ 200 mls/hr 07/04/20 09:00 07/06/20 11:51 Sodium Chloride IV Infused DAILY TYLER Infusion Ondansetron HCl 4 mg 07/04/20 04:02 07/04/20 04:13 Zofran Inj IVP 4 mg Q4HR PRN Administration Nausea / Vomiting Oxycodone HCl 5 mg 07/03/20 20:21 07/05/20 07:52 Roxicodone PO 5 mg Q4HR PRN Administration Pain 5 to 7 Pantoprazole Sodium 40 mg 07/04/20 07:00 07/06/20 06:46 Protonix PO 40 mg QDAC TYLER Administration Polyethylene Glycol 17 gm 07/05/20 12:00 07/06/20 11:50 Miralax PO Not Given DAILY TYLER Sodium Chloride 10 ml 07/04/20 01:00 07/06/20 10:07 Normal Saline Flush 0.9% IVP Not Given 0100,0900,1700 TYLER - Lab Result Fish Bone Diagrams: 07/07/20 05:40 07/07/20 05:40 - Additional Planning My Orders: My Active Orders 07/06/20 11:06 Miscellaenous Nursing Order [RC] QSHIFT 07/06/20 Lunch Cardiac Diet [DIET] Subjective - Subjective Patient Reports: Resting Comfortably Nursing Reports: Other (He climbs out of bed without calling for assistance.) Objective Vital Signs: Vital Signs - 24 hr 07/05/20 07/05/20 07/06/20 21:00 23:55 03:45 Temperature 37.2 C 36.6 C 36.3 C L Heart Rate [ Activity] Heart Rate [ 52 L Brachial] Heart Rate [ 81 95 Monitoring electrodes] Heart Rate [ Sitting] Heart Rate [ Supine] Respiratory 19 16 16 Rate Blood Pressure [Activity] Blood Pressure 150/67 H 159/91 H [Left Brachial artery] Blood Pressure 154/91 H [Right Brachial artery] Blood Pressure [Sitting] Blood Pressure [Supine] O2 Saturation 100 97 96 07/06/20 07/06/20 07/06/20 07:07 10:35 11:11 Temperature 36.8 C 37.2 C Heart Rate [ 72 Activity] Heart Rate [ Brachial] Heart Rate [ 89 92 Monitoring electrodes] Heart Rate [ 75 Sitting] Heart Rate [ 81 Supine] Respiratory 18 18 Rate Blood Pressure 114/64 [Activity] Blood Pressure [Left Brachial artery] Blood Pressure 166/99 H 147/91 H [Right Brachial artery] Blood Pressure 108/70 [Sitting] Blood Pressure 166/117 H [Supine] O2 Saturation 97 94 07/06/20 17:00 Temperature 37.0 C Heart Rate [ Activity] Heart Rate [ 51 L Brachial] Heart Rate [ Monitoring electrodes] Heart Rate [ Sitting] Heart Rate [ Supine] Respiratory 18 Rate Blood Pressure [Activity] Blood Pressure [Left Brachial artery] Blood Pressure 150/70 H [Right Brachial artery] Blood Pressure [Sitting] Blood Pressure [Supine] O2 Saturation 99 Oxygen O2 Source [With Activity] Room air O2 Source Room air I&O (Last 24 Hrs): Intake and Output Totals x24h 07/04/20 07/05/20 07/06/20 23:59 23:59 23:59 Intake Total 2176.667 0906.667 2083.333 Output Total 2425 0 2650 Balance -130.889 2968.667 -566.667 - Results Results: Laboratory Results WBC 11.6 x10^3/uL (4.8-10.8) H 07/06/20 05:07 RBC 3.95 10^6/uL (4.70-6.10) L 07/06/20 05:07 Hgb 12.8 g/dL (14.0-18.0) L 07/06/20 05:07 Hct 38.4 % (42.0-52.0) L 07/06/20 05:07 MCV 97.2 fL (80.0-94.0) H 07/06/20 05:07 MCH 32.4 pg (27.0-31.0) H 07/06/20 05:07 MCHC 33.3 g/dL (32.0-36.0) 07/06/20 05:07 RDW 13.5 % (12.0-15.0) 07/06/20 05:07 Plt Count 164 10^3/uL (130-450) 07/06/20 05:07 MPV 11.4 fL (7.4-11.4) 07/06/20 05:07 Neut # (Auto) 9.9 10^3/uL (1.5-6.6) H 07/06/20 05:07 Lymph # (Auto) 0.8 10^3/uL (1.5-3.5) L 07/06/20 05:07 Menard # (Auto) 0.7 10^3/uL (0.0-1.0) 07/06/20 05:07 Eos # (Auto) 0.1 10^3/uL (0.0-0.7) 07/06/20 05:07 Baso # (Auto) 0.1 10^3/uL (0.0-0.1) 07/06/20 05:07 Absolute Nucleated RBC 0.00 x10^3/uL 07/06/20 05:07 Total Counted 100 07/04/20 04:40 Band Neuts % (Manual) 3 % (0-10) 07/04/20 04:40 Abnorm Lymph % (Manual) 0 % 07/04/20 04:40 Nucleated RBC % 0.0 /100WBC 07/06/20 05:07 Neutrophils # (Manual) 27.5 10^3/uL (1.5-6.6) H 07/04/20 04:40 Lymphocytes # (Manual) 0.3 10^3/uL (1.5-3.5) L 07/04/20 04:40 Monocytes # (Manual) 0.9 10^3/uL (0.0-1.0) 07/04/20 04:40 Eosinophils # (Manual) 0.0 10^3/uL (0-0.7) 07/04/20 04:40 Basophils # (Manual) 0.0 10^3/uL (0-0.1) 07/04/20 04:40 Differential Comment MANUAL DIFFERENTIAL 07/04/20 04:40 WBC Morphology NORMAL APPEARANCE (NORMAL) 07/04/20 04:40 Platelet Estimate NORMAL (130-450,000) (NORMAL) 07/04/20 04:40 Platelet Morphology NORMAL APPEARANCE (NORMAL) 07/04/20 04:40 RBC Morph Micro Appear NORMAL APPEARANCE (NORMAL) 07/04/20 04:40 Sodium 139 mmol/L (135-145) 07/06/20 05:07 Potassium 3.7 mmol/L (3.5-5.0) 07/06/20 05:07 Chloride 107 mmol/L (101-111) 07/06/20 05:07 Carbon Dioxide 27 mmol/L (21-32) 07/06/20 05:07 Anion Gap 5.0 (6-13) L 07/06/20 05:07 BUN 10 mg/dL (6-20) 07/06/20 05:07 Creatinine 0.8 mg/dL (0.6-1.2) 07/06/20 05:07 Estimated GFR (MDRD) 94 (>89) 07/06/20 05:07 Glucose 107 mg/dL (70-100) H 07/06/20 05:07 Lactic Acid 1.5 mmol/L (0.5-2.2) 07/03/20 20:40 Calcium 8.3 mg/dL (8.5-10.3) L 07/06/20 05:07 Magnesium 2.0 mg/dL (1.7-2.8) 07/06/20 05:07 Total Bilirubin 0.7 mg/dL (0.2-1.0) 07/03/20 18:15 AST 25 IU/L (10-42) 07/03/20 18:15 ALT 16 IU/L (10-60) 07/03/20 18:15 Alkaline Phosphatase 53 IU/L (42-121) 07/03/20 18:15 Total Protein 7.1 g/dL (6.7-8.2) 07/03/20 18:15 Albumin 3.9 g/dL (3.2-5.5) 07/03/20 18:15 Globulin 3.2 g/dL (2.1-4.2) 07/03/20 18:15 Albumin/Globulin Ratio 1.2 (1.0-2.2) 07/03/20 18:15 Lipase 39 U/L (22-51) 07/03/20 18:15 Urine Color LT RED 07/03/20 18:22 Urine Clarity HAZY (CLEAR) 07/03/20 18:22 Urine pH 6.0 PH (5.0-7.5) 07/03/20 18:22 Ur Specific Huguenot 1.010 (1.002-1.030) 07/03/20 18:22 Urine Protein NEGATIVE mg/dL (NEGATIVE) 07/03/20 18:22 Urine Glucose (UA) NEGATIVE mg/dL (NEGATIVE) 07/03/20 18:22 Urine Ketones NEGATIVE mg/dL (NEGATIVE) 07/03/20 18:22 Urine Occult Blood LARGE (NEGATIVE) H 07/03/20 18:22 Urine Nitrite NEGATIVE (NEGATIVE) 07/03/20 18:22 Urine Bilirubin NEGATIVE (NEGATIVE) 07/03/20 18:22 Urine Urobilinogen 0.2 (NORMAL) E.U./dL (NORMAL) 07/03/20 18:22 Ur Leukocyte Esterase LARGE (NEGATIVE) H 07/03/20 18:22 Urine RBC 11-25 /HPF (0-5) H 07/03/20 18:22 Urine WBC 11-25 /HPF (0-3) H 07/03/20 18:22 Ur Squamous Epith Cells NONE SEEN (<= Few) 07/03/20 18:22 Urine Bacteria Many /HPF (None Seen) H 07/03/20 18:22 Ur Microscopic Review INDICATED 07/03/20 18: Urine Culture Comments INDICATED 07/03/20 18: Sepsis Event Note (H) - Evaluation Current Stage of Sepsis: Sepsis Possible source of Sepsis: positive: Genitourinary - Sepsis Criteria Sepsis Criteria: Recorded Temperature greater than 38.3C or Less than 36C, Recorded Heart Rate greater than 90 bpm, WBC count greater than 10% bands, Metabolic: lactate > 2 mmol/L
[2020-07-06] MEDS: oxyCODONE 5 MG TABLET PO PRN (20:55)
[2020-07-06] MEDS: ACETAMINOPHEN 325 MG TABLET PO PRN (20:55)
[2020-07-07] MEDS: SODIUM CHLORIDE FLUSH 0.9% 10 ML SYRINGE IVP SCH ×2 (03:43→09:13)
[2020-07-07 05:59] LABS: BASOPHILS # (AUTO) 0.1 10^3/uL (0.0-0.1); BASOPHILS % (AUTO) 0.7 %; EOSINOPHILS # (AUTO) 0.2 10^3/uL (0.0-0.7); EOSINOPHILS % (AUTO) 1.8 %; HGB - HEMOGLOBIN 13.3 g/dL (14.0-18.0); LYMPHOCYTES # (AUTO) 1.9 10^3/uL (1.5-3.5); LYMPHOCYTES % (AUTO) 16.6 %; MEAN CORPUSCULAR HEMOGLOBIN 31.7 pg (27.0-31.0); MEAN CORPUSCULAR HGB CONC 32.4 g/dL (32.0-36.0); MEAN CORPUSCULAR VOLUME 97.9 fL (80.0-94.0); MEAN PLATELET VOLUME 11.4 fL (7.4-11.4); MONOCYTES # (AUTO) 0.6 10^3/uL (0.0-1.0); MONOCYTES % (AUTO) 5.6 %; NEUTROPHILS # (AUTO) 8.5 10^3/uL (1.5-6.6); NEUTROPHILS % (AUTO) 74.6 %; PLT - PLATELET COUNT 174 10^3/uL (130-450); RED BLOOD COUNT 4.19 10^6/uL (4.70-6.10); RED CELL DISTRIBUTION WIDTH 13.5 % (12.0-15.0); WHITE BLOOD COUNT 11.4 x10^3/uL (4.8-10.8)
[2020-07-07 06:09] LABS: CALCIUM 8.4 mg/dL (8.5-10.3); CREATININE 0.7 mg/dL (0.6-1.2)
[2020-07-07] MEDS: SODIUM CHLORIDE 0.9% 1,000 ML IV SCH (08:45)
[2020-07-07] MEDS: DABIGATRAN 75 MG CAPSULE PO SCH (08:46)
[2020-07-07] MEDS: PANTOPRAZOLE 40 MG TABLET PO SCH (08:50)
[2020-07-07] MEDS: ACETAMINOPHEN 325 MG TABLET PO PRN (08:50)
[2020-07-07] MEDS: FINASTERIDE 5 MG TABLET PO SCH (08:50)
[2020-07-07] MEDS: polyethylene glycoL 3350 17 GM PACKET PO SCH (08:51)
[2020-07-07] MEDS ORDERED: CIPROFLOXACIN 250 MG TABLET PO SCH (09:00)
[2020-07-07] MEDS ORDERED: DOCUSATE SODIUM 250 MG CAPSULE PO SCH (09:00)
[2020-07-07] MEDS ORDERED: SENNA 8.6 MG TABLET PO SCH (09:00)
--- NOTE | 2020-07-07 10:48 | Discharge Plan ---
Discharge Plan Problem Reviewed?: Yes Disposition: Home Health Service Condition: Fair Prescriptions: Ciprofloxacin [Cipro] 500 mg PO BID #120 tablet Tamsulosin [Flomax] 0.4 mg PO DAILY #30 capsule Walker [Ultra-Light Rollator] 1 each MC DAILY #1 each Diet: Cardiac Activity Restrictions: Activity as Tolerated Shower Restrictions: No Driving Restrictions: Yes (no driving) Assistance Devices: Walker Health Concerns: You have an enlarged prostate and you are unable to urinate normally because of it. Due to that you have a chronic indwelling Neumann catheter. Your catheter gets changed periodically by [facility]. In the last few days before he came to the hospital, your catheter became blocked, and you began having bladder pain. You had chills, fever, and increasing confusion. In the emergency room you were identified as having an obstructed bladder, resulting in sepsis with a urinary tract infection. You also have a large spermatocele in 1 of your testicles. You were treated with IV fluids, antibiotics, and seen by Dr. Ovalle (general surgery) for the spermatocele. Unfortunately you do have some memory loss, and that can result in occasional behavioral problems. Plan of Treatment: 1. You will need antibiotics for at least 4 weeks because of your large prostate resulting in a urinary tract infection 2. You are requesting referral to [facility] [place] urology services. However, we cannot make referrals directly. We are asking that Dr. Bush, your primary vt re provider, make that referral to the [facility] [place]. We will notify his office of your request. 3. You have requested a change from [facility] to [facility]. We have written that order. 4. We have asked [facility] be [facility] to change your catheter every 4 weeks. 5. While you were in the hospital, you have quite a bit of balance problems and are at risk for falls. Physical therapy has requested that you received a walker. Since you have [employer] insurance, we cannot send you home with a walker. We will be sending a prescription to [facility] and [facility] will send it to your ho use. 6. Please see your primary care provider in follow-up in the next 1 to 2 weeks. Care Goals: 1. To hopefully have the Neumann removed in the near future 2. To remain stable with regards to confusion and behavior due to dementia Assessment: Patient has memory loss, unable to process discharge instructions. These written instructions will be provided to his . Follow-Up Care: Home Health - RN, Home Health - PT No Smoking: If you smoke, Please STOP! Call for help. Follow-up with: Ray Warren MD [Primary Care Provider] -
[2020-07-07 14:21] VITALS: BP 145/88
--- NOTE | 2020-07-07 17:20 | DISCHARGE SUMMARY ---
Discharge Summary Admit Date: 07/03/20 Discharge Date: 07/07/20 Discharging Provider: Ludy Christianson MD Primary Care Provider: Ray Warren MD Code Status: Attempt Resuscitation Condition at Discharge: Fair Discharge Disposition: Home Health Service - DIAGNOSES Discharge Diagnoses with Status of Each Condition: 1. Sepsis 2. E. coli UTI 3. E. coli bacteremia 4. Complication, blocked Neumann catheter present on admission with status of chronic indwelling Neumann catheter 5. Spermatocele of epididymis 6. Neurogenic bladder as late effect of stroke 7. Benign prostatic hypertrophy with lower urinary tract symptoms of obstruction 8. Dementia 9. Chronic atrial fibrillation - HPI History of Present Illness: Patient is a 79-year-old male with history of a Atrial fibrillation on pradaxa, CVA and cognitive deficit as a result. He presented to the ED because his Neumann catheter was replaced after which he developed gross hematuria. The catheter subsequently became obstructed and the patient started experiencing some suprapubic pain. During evaluation in the ED he was noted to have chills and a fever with a temperature as high as 38.6C. He had about 24% bands on his CBC and a lactic acid of 4.3 Consequently he was presented for admission for treatment of sepsis due to UTI. The patient was last admitted in December 2019 with a UTI At bedside patient is alert and awake but not oriented to place time or reason. He denies chest pain, dyspnea, abdominal pain, nausea, vomiting. He has significant scrotal edema on exam. Neumann catheter is in place draining urine which appears clear but with some reddish sedimentation in the tubing. Attempts to reach his for more information regarding his presentation has been unsuccessful. A message was left on the voicemail to call back. The history above was mainly obtained from the ED physician and the ED physicians documentation. History - Past Medical History Cardiovascular: reports: Hypertension, High cholesterol, Atrial fibrillation Respiratory: reports: None Neuro: reports: Dementia, CVA Endocrine/Autoimmune: reports: None GI: reports: None : reports: Benign prostate hypertrophy, Retention, Incontinence, Indwelling catheter Psych: reports: Anxiety, Other Musculoskeletal: reports: Chronic back pain Derm: reports: None MRSA Hx?: No - Past Surgical History General: reports: Splenectomy, Other Ortho: reports: Hip replacement, Knee replacement HEENT: reports: Tonsil/Adenoidectomy, Other - CONSULTS | PROCEDURES Procedures: 1. Abdomen/pelvis CT without contrast. Bladder wall thickening and perivesicular inflammation consistent with cystitis and potentially superimposed chronic outlet obstruction. There is a possible 5.6 cm bladder diverticulum. No CT evidence of obstruction to of uropathy. Small paraesophageal hiatal hernia. Postsplenectomy splenosis. 2. Scrotum ultrasound with large hypoechoic focus with septations surrounding the right testicle and the scrotal sac. Overall appearance suggestive of large spermatocele. 3. Blood culture July 03 with E. coli 4. Urine culture with E. coli. - HOSPITAL COURSE Hospital Course: During his stay, he was treated with IV antibiotics. Sepsis criteria resolved. Antibiotics were de-escalated once E. coli was identified. Because of good tissue tendon penetration, he is a candidate for oral quinolone to go home on for up to 4 weeks. Chronic atrial fibrillation roommate controlled. Remained on Pradaxa for stroke prophylaxis. General surgery saw the patient for an enlarged scrotal sac and he was I diagnosed with a spermatocele. He was kept on Proscar and Flomax added for his history of benign prostatic hypertrophy. His , power of district attorney, made it clear that she was not happy with the critical access hospital agency that was following her for his Neumann catheter change. She requested a new home health agency and that was done. As such physical therapy is requesting he go home with a walker. He will need RN for Neumann, PT/OT, and a bath aide. She is also requesting the patient be referred to urology at [facility]. We have explained to her in the discharge instructions that his primary care provider, Ray Warren, can make that referral. She describes a situation where his dementia is relatively stable with regards to behavior. However there are outburst that he has at home. She finds those deeply unsettling. At discharge the patient was upright in bed. Wrinkling his nose at breakfast saying that it did not taste good. He was also angry with his . Said that she was not allowing him to speak to their children and keeping him "a prisoner in his own home. I do not know if there is delusions or paranoia with his dementia. His temperature was 37. Pulse 78. Blood pressure 145/88. Respirations 20. 98% on room air. He is a 5 foot 10 inch white male, 84 kg. Looks his stated age. Well-nourished well-developed. Neck is supple without JVD. Lungs are clear to auscultation and percussion. He has a slow regular rate and rhythm. To me he sounds like he is in sinus but he does have a history of A. fib. Abdomen is soft, nontender. Normal bowel sounds. No masses. No suprapubic tenderness. The Neumann is in place draining clear yellow urine. He is confused, very forgetful. He is oriented to who he is and that he is in [place], and that this is the hospital. But not why he is here. Or the date. He is able to feed himself. Stand but has balance issues. Greater than 30 minutes was spent coordinating discharge. - ALLERGIES Allergies/Adverse Reactions: Allergies Allergy/AdvReac Type Severity Reaction Status Date / Time No Known Drug Allergies Allergy Verified 04/01/20 15:01 - MEDICATIONS Home Medications: Ambulatory Orders Medication Instructions Recorded Confirmed Dabigatran Etexilate Mesylate 150 mg PO BID 07/06/20 07/06/20 [Pradaxa] Acetaminophen [Tylenol] 650 mg PO Q4HR PRN tablet 07/07/20 Ciprofloxacin [Cipro] 500 mg PO BID #120 tablet 07/07/20 Finasteride [Proscar] 5 mg PO DAILY tablet 07/07/20 Tamsulosin [Flomax] 0.4 mg PO DAILY #30 capsule 07/07/20 Walker [Ultra-Light Rollator] 1 each MC DAILY #1 each 07/07/20 - LABS Result Diagrams: 07/07/20 05:40 07/07/20 05:40 - SEPSIS Current Stage of Sepsis: Sepsis Possible source of Sepsis: Genitourinary Sepsis Criteria: Recorded Temperature greater than 38.3C or Less than 36C, Recorded Heart Rate greater than 90 bpm, WBC count greater than 10% bands, Metabolic: lactate > 2 mmol/L
== END 2020-07-07 14:22 | disposition home health service (06) | DRG 698 ==
LOC: ED 17:09 → MS3 20:21 → MS2 21:30
PROVIDERS: ADMIT Internal Medicine; ATTEND Specialist
DX: T83.518A Infection and inflammatory reaction due to other urinary catheter, initial encounter (principal); A41.9 Sepsis, unspecified organism; E87.2 Acidosis; A41.51 Sepsis due to Escherichia coli [E. coli]; R65.20 Severe sepsis without septic shock; I48.20 Chronic atrial fibrillation, unspecified; N13.8 Other obstructive and reflux uropathy; N39.0 Urinary tract infection, site not specified; F03.91 Unspecified dementia, unspecified severity, with behavioral disturbance; T83.091A Other mechanical complication of indwelling urethral catheter, initial encounter; N30.91 Cystitis, unspecified with hematuria; I69.998 Other sequelae following unspecified cerebrovascular disease; N31.9 Neuromuscular dysfunction of bladder, unspecified; I69.919 Unspecified symptoms and signs involving cognitive functions following unspecified cerebrovascular disease; N40.1 Benign prostatic hyperplasia with lower urinary tract symptoms; R33.8 Other retention of urine; R32 Unspecified urinary incontinence; N43.40 Spermatocele of epididymis, unspecified; I10 Essential (primary) hypertension; E78.00 Pure hypercholesterolemia, unspecified; R26.2 Difficulty in walking, not elsewhere classified; Z96.649 Presence of unspecified artificial hip joint; Z96.659 Presence of unspecified artificial knee joint; Z87.891 Personal history of nicotine dependence; Z87.440 Personal history of urinary (tract) infections; Z79.2 Long term (current) use of antibiotics; Z79.01 Long term (current) use of anticoagulants; Z91.81 History of falling
CPT/HCPCS: 36415; 51702; 74176; 76870; 80048; 80053; 81001; 83605; 83690; 83735; 85025; 87040; 87077; 87086; 87181; 96361; 96365; 96375; 97116; 97161; 97165; 97530; 99291; A9270; J1170; J7120; 81003

== ENCOUNTER 2020-10-18 10:05 | Emergency (ER) | payer MEDICARE ==
[2020-10-18 10:12] VITALS: BP 149/56
[2020-10-18 11:04] LABS: BILIRUBIN,URINE NEGATIVE (NEGATIVE); GLUCOSE, URINE (UA) NEGATIVE (NEGATIVE); KETONES,URINE (UA) NEGATIVE (NEGATIVE); LEUKOCYTE ESTERASE, URINE SMALL (NEGATIVE); NITRITE,URINE POSITIVE (NEGATIVE); OCCULT BLOOD,URINE LARGE (NEGATIVE); PH,URINE 6.5 PH (5.0-7.5); PROTEIN,URINE 100 mg/dL (NEGATIVE); UROBILINOGEN,URINE 1 (NORMAL) E.U./dL (NORMAL)
[2020-10-18 11:07] LABS: CLARITY,URINE CLOUDY (CLEAR)
[2020-10-18 11:12] LABS: BACTERIA,URINE Moderate /HPF (None Seen); RBC,URINE TNTC /HPF (0-5); SQUAMOUS EPITHELIAL CELL,UR NONE SEEN (<= Few)
--- NOTE | 2020-10-18 11:25 | ED Physician Documentation ---
History of Present Illness - Stated complaint Stated Complaint: MALE - Chief complaint Chief Complaint: Abd Pain - History obtained from History obtained from: Family () - Additonal information Additional information: 79-year-old man with past medical history of UTI, BPH, straight cath intermittently, presents with hematuria for the past 2 days. He has advanced dementia and further history is limited by this. states that he has not had fevers at home. Review of Systems Unable to obtain: Dementia PD PAST MEDICAL HISTORY - Past Medical History Past Medical History: Yes Cardiovascular: Hypertension, High cholesterol, Atrial fibrillation Respiratory: None Neuro: Dementia, CVA Endocrine/Autoimmune: None GI: None : Benign prostate hypertrophy, Retention, Incontinence, Indwelling catheter HEENT: None Psych: Anxiety, Other Musculoskeletal: Chronic back pain Derm: None - Past Surgical History Past Surgical History: Yes General: Splenectomy, Other Ortho: Hip replacement, Knee replacement HEENT: Tonsil/Adenoidectomy, Other - Present Medications Home Medications: Ambulatory Orders Medication Instructions Recorded Confirmed Dabigatran Etexilate Mesylate 150 mg PO BID 07/06/20 07/06/20 [Pradaxa] Acetaminophen [Tylenol] 650 mg PO Q4HR PRN tablet 07/07/20 Ciprofloxacin [Cipro] 500 mg PO BID #120 tablet 07/07/20 Finasteride [Proscar] 5 mg PO DAILY tablet 07/07/20 Tamsulosin [Flomax] 0.4 mg PO DAILY #30 capsule 07/07/20 Walker [Ultra-Light Rollator] 1 each MC DAILY #1 each 07/07/20 Cefpodoxime Proxetil [Vantin] 200 mg PO Q12H 7 Days #14 tablet 10/18/20 - Allergies Allergies/Adverse Reactions: Allergies Allergy/AdvReac Type Severity Reaction Status Date / Time No Known Drug Allergies Allergy Verified 10/18/20 10:11 - Social History Does the pt smoke?: No Smoking Status: Never smoker Does the pt drink ETOH?: Yes Does the pt have substance abuse?: No - Immunizations Immunizations are current?: Yes - POLST Patient has POLST: No POLST Status: Full Code PD ED PE NORMAL - Vitals Vital signs reviewed: Yes - General General: Alert and oriented X 3 - HEENT HEENT: Atraumatic, PERRL, EOMI - Neck Neck: Supple, no meningeal sign - Cardiac Cardiac: RRR - Respiratory Respiratory: No respiratory distress, Clear bilaterally - Abdomen Abdomen: Non tender, Non distended - Male Male : Other (External male genitalia.Treatment, however states this is at baseline. Normal cremaster reflex bilaterally) - Rectal Rectal: Deferred - Back Back: No CVA TTP - Neuro Neuro: Other (alert, No acute distress) - Psych Psych: Normal mood, Normal affect Results - Vitals Vitals: Vital Signs - 24 hr 10/18/20 10:09 Temperature 36.0 C L Heart Rate 91 Respiratory 20 Rate Blood Pressure 149/56 H O2 Saturation 100 Oxygen O2 Source [With Activity] Room air O2 Source Room air - Labs Labs: Microbiology 10/18/20 10:56 Urine Culture - Preliminary Urine,Clean Catch CULTURE IN PROGRESS. RESULTS TO FOLLOW. Laboratory Tests 10/18/20 10:56 Urine Color BROWN Urine Clarity CLOUDY Urine pH 6.5 Ur Specific [place] 1.025 Urine Protein 100 H Urine Glucose (UA) NEGATIVE Urine Ketones NEGATIVE Urine Occult Blood LARGE H Urine Nitrite POSITIVE H Urine Bilirubin NEGATIVE Urine Urobilinogen 1 (NORMAL) Ur Leukocyte Esterase SMALL H Urine RBC TNTC H Urine WBC 6-10 H Ur Squamous Epith Cells NONE SEEN Urine Bacteria Moderate H Urine Culture Comments INDICATED PD MEDICAL DECISION MAKING - ED course ED course: 79yM with History of BPH requiring self-catheterization, with prior hospitalization for urinary tract infection in June presents with asymptomatic hematuria x2 days. Patient states that he otherwise feels fine. Had a CT without any signs of cancer or stones at that time. His urinalysis today shows urinary tract infection. Will treat with antibiotics. Shared decision made to discharge the patient with the understanding that if any of his symptoms worsen or if he develops new symptoms he should have a low index to return. Strict return precautions given. Patient will follow up with his urologist. Departure - Departure Disposition: 01 Home, Self Care Clinical Impression: UTI (urinary tract infection), Hematuria Condition: Good Instructions: ED UTI Cystitis Male Prescriptions: Cefpodoxime Proxetil [Vantin] 200 mg PO Q12H 7 Days #14 tablet Comments: you have Been seen in the emergency department for urinary tract infection. Make sure that you use sterile procedure when doing self catheterizations from now on. Return to the ED if you develop fevers, abdominal pain, or any other new or worsening symptoms. Take antibiotics as prescribed. follow up with urology. Discharge Date/Time: 10/18/20 11:41
== END 2020-10-18 11:41 | disposition home or self-care (01) ==
LOC: ED 10:05
DX: N39.0 Urinary tract infection, site not specified (principal); R31.9 Hematuria, unspecified; N40.1 Benign prostatic hyperplasia with lower urinary tract symptoms; R33.8 Other retention of urine; I10 Essential (primary) hypertension; I48.91 Unspecified atrial fibrillation; Z79.01 Long term (current) use of anticoagulants; F03.90 Unspecified dementia, unspecified severity, without behavioral disturbance, psychotic disturbance, mood disturbance, and anxiety
CPT/HCPCS: 81001; 87077; 87086; 87181; 99283

== ENCOUNTER 2020-10-27 14:31 | Outpatient (CLI) | payer MEDICARE ==
[2020-10-27 20:13] LABS: BASOPHILS # (AUTO) 0.1 10^3/uL (0.0-0.1); BASOPHILS % (AUTO) 1.1 %; EOSINOPHILS # (AUTO) 0.2 10^3/uL (0.0-0.7); EOSINOPHILS % (AUTO) 2.1 %; HGB - HEMOGLOBIN 14.9 g/dL (14.0-18.0); LYMPHOCYTES # (AUTO) 1.6 10^3/uL (1.5-3.5); LYMPHOCYTES % (AUTO) 17.4 %; MEAN CORPUSCULAR HEMOGLOBIN 32.1 pg (27.0-31.0); MEAN CORPUSCULAR HGB CONC 32.4 g/dL (32.0-36.0); MEAN CORPUSCULAR VOLUME 99.1 fL (80.0-94.0); MEAN PLATELET VOLUME 11.7 fL (7.4-11.4); MONOCYTES # (AUTO) 0.8 10^3/uL (0.0-1.0); NEUTROPHILS # (AUTO) 6.3 10^3/uL (1.5-6.6); NEUTROPHILS % (AUTO) 70.2 %; PLT - PLATELET COUNT 278 10^3/uL (130-450); RED BLOOD COUNT 4.64 10^6/uL (4.70-6.10)
[2020-10-27 20:33] LABS: ALBUMIN 4.2 g/dL (3.2-5.5); ALBUMIN/GLOBULIN RATIO 1.4 (1.0-2.2); BILIRUBIN,TOTAL 0.8 mg/dL (0.2-1.0); CALCIUM 9.5 mg/dL (8.5-10.3); TOTAL PROTEIN 7.2 g/dL (6.7-8.2)
== END 2020-10-27 14:32 | disposition home or self-care (01) ==
LOC: LAB.S 14:31
PROVIDERS: ATTEND Physician Assistant
DX: Z86.2 Personal history of diseases of the blood and blood-forming organs and certain disorders involving the immune mechanism (principal); R31.9 Hematuria, unspecified
CPT/HCPCS: 36415; 80053; 85025

== ENCOUNTER 2020-11-21 12:45 | Outpatient (CLI) | payer MEDICARE | END 2020-11-21 12:46 | disposition critical access hospital (66) | LOC: EMS 12:45 | PROVIDERS: ATTEND Surgery | DX: R53.1 Weakness (principal) | CPT/HCPCS: A0425; A0427 ==

== ENCOUNTER 2020-11-21 13:20 | Observation (INO) | payer MEDICARE ==
[2020-11-21] MEDS ORDERED: SODIUM CHLORIDE 0.9% 1,000 ML IV STA (13:41)
--- NOTE | 2020-11-21 13:44 | ED Physician Documentation ---
History of Present Illness - Stated complaint Stated Complaint: NEAR SYNCOPE - Chief complaint Chief Complaint: General - Additonal information Additional information: 79-year-old male who has a history of atrial fibrillation (anticoagulated on pradaxa), prostate issues, previous CVA with left-sided deficits presents the emergency department with a near syncopal event. He was at home and his was helping him to the bathroom when he began to feel as though he would pass out or faint. He did not lose consciousness. He reports that the symptom of feeling that he wanted to pass out improved after he had a bowel movement. EMS was on scene and they noted a blood sugar of 116. He however was orthostatic for them when they stood him up his blood pressures dropped to the 80s over 50s. They initiated IV fluid and gave him approximately 500 mils in route to the emergency department. At this time patient denies chest pain, shortness of breath, abdominal pain. He does have a history of significant prostate enlargement and self catheterizes. He did recently complete a course of antibiotics for urinary tract infection. meds: Flomax, finasteride, donezepil, Seroquel Review of Systems Constitutional: reports: Reviewed and negative Ears: reports: Reviewed and negative Nose: reports: Reviewed and negative Throat: reports: Reviewed and negative Cardiac: reports: Reviewed and negative Respiratory: reports: Reviewed and negative GI: reports: Reviewed and negative : reports: Unable to Void (self cath at baseline, hx of prostate concerns) Skin: reports: Reviewed and negative Musculoskeletal: reports: Reviewed and negative Neurologic: reports: Focal weakness (mild left sided deficits), Near syncope. denies: Syncope, Seizure, Headache, Head injury, LOC PD PAST MEDICAL HISTORY - Past Medical History Cardiovascular: Hypertension, High cholesterol, Atrial fibrillation Respiratory: None Neuro: Dementia, CVA Endocrine/Autoimmune: None GI: None : Benign prostate hypertrophy, Retention, Incontinence, Indwelling catheter HEENT: None Psych: Anxiety, Other Musculoskeletal: Chronic back pain Derm: None - Past Surgical History Past Surgical History: Yes General: Splenectomy, Other Ortho: Hip replacement, Knee replacement HEENT: Tonsil/Adenoidectomy, Other - Present Medications Home Medications: Ambulatory Orders Medication Instructions Recorded Confirmed Finasteride [Proscar] 5 mg PO DAILY tablet 07/07/20 11/21/20 Tamsulosin [Flomax] 0.4 mg PO DAILY #30 capsule 07/07/20 11/21/20 Walker [Ultra-Light Rollator] 1 each MC DAILY #1 each 07/07/20 11/21/20 Donepezil [Aricept] 5 mg PO DAILY PM 11/21/20 11/21/20 QUEtiapine [SEROquel] 25 mg PO DAILY PM 11/21/20 11/21/20 - Allergies Allergies/Adverse Reactions: Allergies Allergy/AdvReac Type Severity Reaction Status Date / Time No Known Drug Allergies Allergy Verified 11/21/20 13:37 - Social History Does the pt smoke?: No Smoking Status: Never smoker Does the pt drink ETOH?: Yes Does the pt have substance abuse?: No - Immunizations Immunizations are current?: Yes - POLST Patient has POLST: No POLST Status: Full Code PD ED PE EXPANDED - General General: Alert, No acute distress, Well developed/nourished - HEENT HEENT: Atraumatic, PERRL, Moist mucous membranes, Pharynx normal - Eyes Eyes: PERRL, Normal accommodation - Neck Neck: Adenopathy, No tenderness - Cardiac Cardiac: Irregularly irregular, Radial strong equal, Cap refill < 2 sec, Prolonged cap refill. No: Murmur Present - Respiratory Respiratory: Clear to ausultation devin. No: Distress, Labored - Abdomen Abdomen: Normal Bowel sounds. No: Tender to palpation - Derm Derm: Normal color, Warm and dry. No: Rash - Extremities Extremities: Normal. No: Deformity, Tenderness - Neuro Neuro: Confused (dementia), CNII-XII intact (mild left arm weakness (baseline)), Normal speech - GCS Eye Opening: Spontaneous Motor: Obeys Commands Verbal: Oriented Total: 15 Results - Vitals Vitals: Vital Signs - 24 hr 11/21/20 11/21/20 11/21/20 13:31 13:37 14:23 Temperature 36.8 C 36.2 C L Heart Rate 66 72 Heart Rate [ 72 Sitting] Heart Rate [ 76 Standing] Heart Rate [ 71 Supine] Respiratory 13 17 Rate Blood Pressure 109/61 113/48 L Blood Pressure 108/68 [Sitting] Blood Pressure 98/68 [Standing] Blood Pressure 121/63 [Supine] O2 Saturation 98 99 11/21/20 15:10 Temperature Heart Rate 76 Heart Rate [ Sitting] Heart Rate [ Standing] Heart Rate [ Supine] Respiratory 16 Rate Blood Pressure 132/85 H Blood Pressure [Sitting] Blood Pressure [Standing] Blood Pressure [Supine] O2 Saturation 100 Oxygen O2 Source [With Activity] Room air O2 Source Room air - EKG (time done) 1347 Rate: Rate (enter#) (70) Rhythm: Atrial fibrillation [place]: Normal Intervals: Normal OK Ischemia: Non specific changes Compare to prior EKG: Unchanged from prior EKG Computer interpretation: Disagree with computer (no LEONOR) - Labs Labs: Laboratory Tests 11/21/20 11/21/20 11/21/20 14:11 14:11 14:11 WBC 16.1 H RBC 4.13 L Hgb 13.4 L Hct 41.6 L MCV 100.7 H MCH 32.4 H MCHC 32.2 RDW 14.0 Plt Count 220 MPV 11.0 Manual Slide Review Indicated Sodium 141 Potassium 4.1 Chloride 100 L Carbon Dioxide 25 Anion Gap 16.0 H BUN 15 Creatinine 1.2 Estimated GFR (MDRD) 59 L Glucose 99 Lactic Acid Calcium 9.2 Total Bilirubin 1.3 H AST 15 ALT 10 Alkaline Phosphatase 50 Troponin I High Sens 12.6 Total Protein 6.3 L Albumin 3.4 Globulin 2.9 Albumin/Globulin Ratio 1.2 Lipase 27 Urine Color Urine Clarity Urine pH Ur Specific [place] Urine Protein Urine Glucose (UA) Urine Ketones Urine Occult Blood Urine Nitrite Urine Bilirubin Urine Urobilinogen Ur Leukocyte Esterase Urine RBC Urine WBC Urine WBC Clumps Ur Squamous Epith Cells Urine Bacteria Ur Microscopic Review Urine Culture Comments 11/21/20 11/21/20 14:32 14:48 WBC RBC Hgb Hct MCV MCH MCHC RDW Plt Count MPV Manual Slide Review Sodium Potassium Chloride Carbon Dioxide Anion Gap BUN Creatinine Estimated GFR (MDRD) Glucose Lactic Acid 1.8 Calcium Total Bilirubin AST ALT Alkaline Phosphatase Troponin I High Sens Total Protein Albumin Globulin Albumin/Globulin Ratio Lipase Urine Color YELLOW Urine Clarity SL. CLOUDY Urine pH 6.5 Ur Specific [place] 1.010 Urine Protein TRACE Urine Glucose (UA) NEGATIVE Urine Ketones NEGATIVE Urine Occult Blood SMALL H Urine Nitrite POSITIVE H Urine Bilirubin NEGATIVE Urine Urobilinogen 0.2 (NORMAL) Ur Leukocyte Esterase LARGE H Urine RBC 0-5 Urine WBC >25 H Urine WBC Clumps PRESENT Ur Squamous Epith Cells RARE Squamous Urine Bacteria Many H Ur Microscopic Review INDICATED Urine Culture Comments INDICATED - Rads (name of study) CXR Radiology: Final report received (no acute findings) PD MEDICAL DECISION MAKING - ED course Complexity details: reviewed results, re-evaluated patient, considered differential, d/w patient, d/w family ED course: 79-year-old male brought into the ER via EMS for a near syncopal event at home when he was ambulating with his to the bathroom. He does have a pre- existing history of atrial fib rate controlled with finasteride and anticoagulated on Pradaxa. 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 He did complete a course of antibiotics last week for a recurrent urinary tract infection. Here in the emergency department he was noted to have an orthostatic blood pressure change with a decrease of almost 20 points systolic from laying to standing. This was after 1 L of IV fluid. Screening labs reveal moderate leukocytosis of 16,000. Lactic acid is not elevated. He does not have a fever here. However unfortunately his urine does show persistence of infection. 1 g of ceftriaxone was ordered. I discussed this case with our admitting hospitalist Dr. Martini she agrees to bring the patient in on an observation status for further management of his presyncopal episodes and evaluation of his urinary tract infection. He does not meet the criteria for sepsis. I did speak on the phone with his and she understands that we will be bringing him into the hospital overnight. Departure - Departure Disposition: ED Place in Observation Clinical Impression: Near syncope, Cystitis
--- NOTE | 2020-11-21 13:54 | ED Physician Documentation ---
History of Present Illness - Stated complaint Stated Complaint: NEAR SYNCOPE - Chief complaint Chief Complaint: General PD PAST MEDICAL HISTORY - Past Medical History Past Medical History: Yes Cardiovascular: Hypertension, High cholesterol, Atrial fibrillation Respiratory: None Neuro: Dementia, CVA Endocrine/Autoimmune: None GI: None : Benign prostate hypertrophy, Retention, Incontinence, Indwelling catheter HEENT: None Psych: Anxiety, Other Musculoskeletal: Chronic back pain Derm: None - Past Surgical History Past Surgical History: Yes General: Splenectomy, Other Ortho: Hip replacement, Knee replacement HEENT: Tonsil/Adenoidectomy, Other - Present Medications Home Medications: Ambulatory Orders Medication Instructions Recorded Confirmed Dabigatran Etexilate Mesylate 150 mg PO BID 07/06/20 07/06/20 [Pradaxa] Acetaminophen [Tylenol] 650 mg PO Q4HR PRN tablet 07/07/20 Ciprofloxacin [Cipro] 500 mg PO BID #120 tablet 07/07/20 Finasteride [Proscar] 5 mg PO DAILY tablet 07/07/20 Tamsulosin [Flomax] 0.4 mg PO DAILY #30 capsule 07/07/20 Walker [Ultra-Light Rollator] 1 each MC DAILY #1 each 07/07/20 Cefpodoxime Proxetil [Vantin] 200 mg PO Q12H 7 Days #14 tablet 10/18/20 - Allergies Allergies/Adverse Reactions: Allergies Allergy/AdvReac Type Severity Reaction Status Date / Time No Known Drug Allergies Allergy Verified 11/21/20 13:37 - Social History Does the pt smoke?: No Smoking Status: Never smoker Does the pt drink ETOH?: Yes Does the pt have substance abuse?: No - Immunizations Immunizations are current?: Yes - POLST Patient has POLST: No POLST Status: Full Code Results - Vitals Vitals: Vital Signs - 24 hr 11/21/20 11/21/20 13:31 13:37 Temperature 36.8 C 36.2 C L Heart Rate 66 72 Respiratory 13 17 Rate Blood Pressure 109/61 113/48 L O2 Saturation 98 99 Oxygen O2 Source [With Activity] Room air O2 Source Room air - EKG (time done) 1347 Rhythm: Atrial fibrillation [place]: Other QRS: Normal Compare to prior EKG: Unchanged from prior EKG Computer interpretation: Disagree with computer (no ST elevation anterior leads)
[2020-11-21 14:16] LABS: BASOPHILS # (AUTO) 0.1 10^3/uL (0.0-0.1); BASOPHILS % (AUTO) 0.3 %; EOSINOPHILS % (AUTO) 0.2 %; HGB - HEMOGLOBIN 13.4 g/dL (14.0-18.0); LYMPHOCYTES # (AUTO) 1.2 10^3/uL (1.5-3.5); LYMPHOCYTES % (AUTO) 7.4 %; MEAN CORPUSCULAR HEMOGLOBIN 32.4 pg (27.0-31.0); MEAN CORPUSCULAR HGB CONC 32.2 g/dL (32.0-36.0); MEAN CORPUSCULAR VOLUME 100.7 fL (80.0-94.0); MONOCYTES # (AUTO) 1.8 10^3/uL (0.0-1.0); MONOCYTES % (AUTO) 11.2 %; NEUTROPHILS % (AUTO) 80.7 %; PLT - PLATELET COUNT 220 10^3/uL (130-450); RED BLOOD COUNT 4.13 10^6/uL (4.70-6.10); WHITE BLOOD COUNT 16.1 x10^3/uL (4.8-10.8)
[2020-11-21 14:41] LABS: BILIRUBIN,URINE NEGATIVE (NEGATIVE); GLUCOSE, URINE (UA) NEGATIVE (NEGATIVE); KETONES,URINE (UA) NEGATIVE (NEGATIVE); LEUKOCYTE ESTERASE, URINE LARGE (NEGATIVE); NITRITE,URINE POSITIVE (NEGATIVE); OCCULT BLOOD,URINE SMALL (NEGATIVE); PH,URINE 6.5 PH (5.0-7.5); PROTEIN,URINE TRACE mg/dL (NEGATIVE); UROBILINOGEN,URINE 0.2 (NORMAL) E.U./dL (NORMAL)
[2020-11-21 14:43] LABS: CLARITY,URINE SL. CLOUDY (CLEAR)
--- NOTE | 2020-11-21 14:48 | XRAY Report ---
PROCEDURE: Chest 1 View X-Ray INDICATIONS: Chest Pain TECHNIQUE: One view of the chest was acquired. COMPARISON: None. FINDINGS: Surgical changes and devices: None. Lungs and pleura: No pleural effusions or pneumothorax. Lungs are clear. Mediastinum: Mediastinal contours appear normal. Heart size is normal. Bones and chest wall: No suspicious bony lesions. Overlying soft tissues appear unremarkable. IMPRESSION: No acute disease. Reviewed by: Rito Beal MD on 11/21/2020 2:47 PM PST Approved by: Rito Beal MD on 11/21/2020 2:47 PM PST Station ID: [id number]
[2020-11-21 14:49] LABS: ALBUMIN 3.4 g/dL (3.2-5.5); ALBUMIN/GLOBULIN RATIO 1.2 (1.0-2.2); BILIRUBIN,TOTAL 1.3 mg/dL (0.2-1.0); CALCIUM 9.2 mg/dL (8.5-10.3); CREATININE 1.2 mg/dL (0.6-1.2); TOTAL PROTEIN 6.3 g/dL (6.7-8.2)
[2020-11-21 14:54] LABS: BACTERIA,URINE Many /HPF (None Seen); RBC,URINE 0-5 /HPF (0-5); SQUAMOUS EPITHELIAL CELL,UR RARE Squamous (<= Few); WBC CLUMPS,URINE PRESENT
[2020-11-21] MEDS ORDERED: cefTRIAXone 1 GM VIAL IVP STA (15:23)
[2020-11-21 16:01] LABS: DIFFERENTIAL COMMENT MANUAL=AUTO DIFF; PLATELET ESTIMATE, MANUAL NORMAL (130-450,000) (NORMAL); PLATELET MORPHOLOGY NORMAL APPEARANCE (NORMAL); RBC MORPHOLOGY (MULTIPLE) NORMAL APPEARANCE (NORMAL)
[2020-11-21 16:30] LABS: C. PNEUMONIAE- RESP PCR PANEL NOT DETECTED
[2020-11-21] MEDS ORDERED: ACETAMINOPHEN 325 MG TABLET PO PRN (17:27)
[2020-11-21] MEDS ORDERED: SODIUM CHLORIDE FLUSH 0.9% 10 ML SYRINGE IVP PRN (17:27)
[2020-11-21] MEDS ORDERED: DONEPEZIL 5 MG TABLET PO SCH ×2 (18:00)
[2020-11-21] MEDS: NS W/20 MEQ KCL 1,000 ML IV SCH (18:51)
--- NOTE | 2020-11-21 18:58 | CT Report ---
PROCEDURE: Abdomen/Pelvis WO INDICATIONS: UTI, self caths for BPH TECHNIQUE: Noncontrast 5 mm thick sections acquired from the diaphragms to the symphysis. 5 mm coronal and sagi ttal reformats were then performed. For radiation dose reduction, the following was used: automated exposure control, adjustment of mA and/or kV according to patient size. COMPARISON: None. FINDINGS: Image quality: Excellent. ABDOMEN: Lung bases: Lung bases are clear. Heart size is borderline enlarged. Mild coronary artery calcifica tions. Moderate hiatal hernia. Solid organs: Liver and spleen are normal in size. Gallbladder negative. Pancreas is normal in cont ours. No adrenal nodules. Kidneys are normal in size, without hydronephrosis or nephrolithiasis. Mi ld prominence of the left ureter although the exact etiology and age is unknown. Subcentimeter renal foci which are statistically cysts, however too to characterize accurately and therefore technically indeterminate. Nonspecific presumed right renal exophytic cyst. This finding technically too small to characterize. Peritoneum and bowel: Unenhanced bowel loops demonstrate normal wall thickness and caliber. No free fluid or air. Colonic diverticulosis incidentally noted without evidence of acute inflammation. Nodes and vessels: No retroperitoneal or mesenteric adenopathy by size criteria. Aorta and inferior vena cava are normal in caliber. Scattered vascular calcifications are present in the aorta. Miscellaneous: No ventral hernias. PELVIS: Genitourinary: Large right posterior bladder diverticulum. The bladder is distended. Miscellaneous: No inguinal hernias or adenopathy. Bones: No suspicious bony lesions. No vertebral body compression fractures. IMPRESSION: No urolithiasis. No definite urinary obstruction. Moderate hiatal hernia Additional chronic and incidental findings as above. Distended bladder. Reviewed by: Rito Akers MD on 11/21/2020 6:56 PM PST Approved by: Rito Akers MD on 11/21/2020 6:56 PM PST Station ID: [id number]
[2020-11-21] MEDS ORDERED: QUEtiapine 25 MG TABLET PO SCH (21:00)
--- NOTE | 2020-11-21 21:22 | HISTORY & PHYSICAL EXAMINATION ---
DATE OF SERVICE: 11/21/2020 Physician: Vida Pineda MD HISTORY OF PRESENT ILLNESS: This is a 79-year-old white male with a history of stroke and dementia following that stroke, also has neurogenic bladder because of the stroke and BPH. He required a chronic indwelling Neumann during 2019, prior to that he was self-cathing and because of his dementia, he would get up 45 minutes to do this. He has been admitted here approximately 6 months ago and a year ago with UTI growing Escherichia coli and also had gram-negative bacteremia with that and a blocked Neumann catheter. He also has BPH, chronic atrial fibrillation and is on Pradaxa. The patient was walking to the bathroom with the assistance of his today and had near syncope, but did not entirely lose consciousness. He sat on the toilet and then felt better. Because of this, the called the ambulance. On the scene, he was documented to have a standing blood pressure of 80s/50s. He started to get fluids en route by ambulance. In the ER, he still was orthostatic after getting a liter of fluid with a supine blood pressure of 121/63 and then upon standing, it was 98/68. His heart rate is in the 70s with this and did not have a compensatory tachycardia. His other workup in the ER showed an abnormal urinalysis with evidence of bacteriuria and he is being placed in observation for managing near syncope, orthostasis, possible recurrent UTI. PAST MEDICAL HISTORY 1. Stroke. 2. Dementia. 3. Neurogenic bladder. 4. BPH. 5. Chronic atrial fibrillation. 6. Prior chronic indwelling Neumann, but this is no longer present and he does self-cath at home. 7. History of COPD. 8. History of prior spermatocele. 9. Recurrent UTIs and prior gram-negative bacteremia. ALLERGIES: NONE. MEDICATIONS 1. Pradaxa 150 mg b.i.d. 2. Tamsulosin 0.4 mg b.i.d. 3. Finasteride 5 mg every day. 4. Donepezil 5 mg every night. 5. Quetiapine 25 mg t.i.d. REVIEW OF SYSTEMS: The patient states he is still feeling "weak." He cannot give me any other details about any other parts of his history. I tried to call his and there is nobody picking up the phone to give me more details. A comprehensive review of systems was done from chart review and the pertinent positives are listed, the rest are negative. FAMILY HISTORY: No inherited diseases. SOCIAL HISTORY: He lives with his . He is a Nonsmoker. No alcohol abuse history. PHYSICAL EXAM GENERAL: Elderly white male. He appears fatigued, but is in no distress. He is supine in bed. VITAL SIGNS: Blood pressure 127/81, pulse 84 in atrial fibrillation, afebrile, and room air saturation is 100%. HEENT: Reveals dry oral mucosa and his eyes looked very tired and he appears sleepy. NECK: No JVD in a supine position. CHEST: Clear anteriorly. HEART: Sounds are irregular. No audible murmur. ABDOMEN: Soft, nontender. No organomegaly. EXTREMITIES: No clubbing, cyanosis or edema. NEUROLOGIC: Poor memory, nonfocal. LABORATORY DATA: Sodium 141, potassium 4.1, BUN 15, creatinine 1.2. His usual creatinine is 0.7. Lactic acid is 1.8. Troponin is normal at 12.6. bilirubin 1.3. Normal liver tests. Normal lipase. White blood count 16.1, hemoglobin 13.4, MCV is 100.7, platelet count normal at 220. No INR was done and it would be inaccurate in a patient on Pradaxa. [employer] swab was negative for COVID. His urinalysis showed a pH of 6.5, specific gravity 1.01, trace protein, small occult blood, positive nitrite, large leukocyte esterase, greater than 25 white cells and many bacteria. CHEST X-RAY: No active pulmonary disease. EKG: Atrial fibrillation, low voltage in the limb leads, there is no significant change from prior EKG. IMPRESSION/DIAGNOSES 1. Near syncope. 2. Orthostatic hypotension. 3. Prerenal azotemia. 4. Probable urinary tract infection with presence of both nitrites, leukocyte esterase and many bacteria in a patient who has to self-cath. 5. Neurogenic bladder. 6. Benign prostatic hypertrophy. 7. Dementia. 8. Old stroke. 9. Chronic atrial fibrillation and this patient is not on any heart rate slowing medications with no orthostatic rise in heart rate to compensate, suggesting that he has sick sinus syndrome. PLAN 1. Admit the patient to Observation status on the Hospitalist service on telemetry. 2. Start IV fluids and follow I's and O's. 3. Recheck orthostatic vital signs every day. If he continues to have orthostasis and evidence of prerenal azotemia on labs tomorrow, he will be admitted to full inpatient status for further management of his intravascular volume. 4. Start treatment for UTI using IV ceftriaxone. Review if he is sensitive to ceftriaxone on old urine cultures. 5. Obtain CT of the abdomen and pelvis without contrast for evaluation of extent of UTI, such as possible pyelonephritis. If this is present, then he will also have indication to be admitted to full inpatient status. 6. Continue with his medications for dementia and anxiety and agitation. 7. Continue his medications for stroke prophylaxis using his Pradaxa. Continue medications for his BPH, resuming his tamsulosin and finasteride. CODE STATUS: FULL CODE (there is no POLST on file in this EMR and he does not understand due to dementia). DEEP VENOUS THROMBOSIS PROPHYLAXIS: KASANDRA stockings for compression. ATTESTATION: Patient is expected to be discharged or transferred to another facility within 96 hours: Yes. cc: Michele Bush MD TD: 11/21/2020 18:11 MTDD
[2020-11-21] MEDS: DONEPEZIL 5 MG TABLET PO SCH (22:45)
[2020-11-21] MEDS: DABIGATRAN 75 MG CAPSULE PO SCH (22:45)
[2020-11-21] MEDS: FAMOTIDINE 20 MG TABLET PO SCH (22:45)
[2020-11-21] MEDS: QUEtiapine 25 MG TABLET PO SCH (22:45)
[2020-11-21] MEDS: TAMSULOSIN 0.4 MG CAPSULE PO SCH (22:46)
[2020-11-22] MEDS: SODIUM CHLORIDE FLUSH 0.9% 10 ML SYRINGE IVP SCH ×3 (03:38→16:40)
[2020-11-22] MEDS: NS W/20 MEQ KCL 1,000 ML IV SCH ×2 (05:00→14:52)
[2020-11-22 05:06] LABS: BASOPHILS % (AUTO) 0.6 %; EOSINOPHILS % (AUTO) 2.2 %; HGB - HEMOGLOBIN 13.3 g/dL (14.0-18.0); MEAN CORPUSCULAR HEMOGLOBIN 31.7 pg (27.0-31.0); MEAN CORPUSCULAR VOLUME 99.3 fL (80.0-94.0); MEAN PLATELET VOLUME 11.1 fL (7.4-11.4); MONOCYTES % (AUTO) 14.5 %; NEUTROPHILS % (AUTO) 62.2 %; PLT - PLATELET COUNT 234 10^3/uL (130-450); RED BLOOD COUNT 4.19 10^6/uL (4.70-6.10); RED CELL DISTRIBUTION WIDTH 14.1 % (12.0-15.0)
[2020-11-22 05:19] LABS: CALCIUM 8.6 mg/dL (8.5-10.3); CREATININE 0.9 mg/dL (0.6-1.2); MAGNESIUM 2.4 mg/dL (1.7-2.8)
[2020-11-22 05:27] LABS: ABNORMAL LYMPHS % (MANUAL) 0 %; BAND NEUTROPHILS % (MANUAL) 0 %
[2020-11-22 05:56] LABS: EOSINOPHILS # (MANUAL) 0.2 10^3/uL (0-0.7); LYMPHOCYTES # (MANUAL) 2.6 10^3/uL (1.5-3.5); LYMPHOCYTES % (MANUAL) 22 %; MONOCYTES # (MANUAL) 1.6 10^3/uL (0.0-1.0); RBC MORPHOLOGY (MULTIPLE) NORMAL APPEARANCE (NORMAL)
[2020-11-22 05:57] LABS: DIFFERENTIAL COMMENT MANUAL DIFFERENTIAL; PLATELET ESTIMATE, MANUAL NORMAL (130-450,000) (NORMAL); PLATELET MORPHOLOGY NORMAL APPEARANCE (NORMAL)
[2020-11-22] MEDS: DABIGATRAN 75 MG CAPSULE PO SCH ×2 (08:38→20:37)
[2020-11-22] MEDS: TAMSULOSIN 0.4 MG CAPSULE PO SCH ×2 (08:38→20:37)
[2020-11-22] MEDS: FAMOTIDINE 20 MG TABLET PO SCH ×2 (08:38→20:37)
[2020-11-22] MEDS: FINASTERIDE 5 MG TABLET PO SCH (08:39)
[2020-11-22] MEDS: cefTRIAXone 1 GM in SODIUM CHLORIDE 0.9% MINIBAG 100 ML IV SCH (08:43)
[2020-11-22] MEDS ORDERED: cefTRIAXone 1 GM VIAL IVP SCH (09:00)
[2020-11-22] MEDS ORDERED: TAMSULOSIN 0.4 MG CAPSULE PO SCH (09:00)
--- NOTE | 2020-11-22 13:04 | PROVIDER PROGRESS NOTE ---
Assessment/Plan - Problem List (1) Orthostatic hypotension Assessment/Plan: Patient has improved in his orthostasis and is no longer hypotensive with standing. His morning labs show resolution of the prerenal azotemia. Continue with IV fluids. Continue to treat the underlying infection. (2) Near syncope Assessment/Plan: Etiology appears to be dehydration, probably from his acute infection. Continue to check orthostatic vital signs. We will order PT evaluation since this near syncope happened while he was walking. (3) E. coli UTI Assessment/Plan: Urinalysis was very abnormal at admission yesterday. CT of abdomen and pelvis did not show nephrolithiasis or hydronephrosis. He does have an enlarged urinary bladder which was expected because of his history (see below). White blood count was elevated at 17, and is improved to 12 after starting IV antibiotics The urine culture is already growing E. coli. Await sensitivities. The last infection was with E. coli and it was 1 month ago. That bacteria was sensitive to cephalosporins. Continue with empiric IV ceftrixone. Follow CBC daily. (4) Urinary retention Assessment/Plan: This is due to a neurogenic bladder after having a stroke, and due to BPH. Since being here, bladder scans are showing 250-1500 cc of fluid in the bladder. We will order straight cath 3 times daily, this is what he does at home, so as to not require inserting a Neumann catheter, which was recently advised to be removed by his Urologist. (5) Dementia Qualifiers: Dementia behavioral disturbance: without behavioral disturbance Assessment/Plan: Continue his home donepezil dose and is quiet appearing, with this he has no behavioral disturbances and is cooperative. The patient's told me yesterday by phone, there is a POLST form in the house but she could not remember the details, however she herself requested the patient be a FULL CODE yesterday. I have requested that Social Work obtain a copy of that POLST form, which is a legal document, and we will follow that documented CODE STATUS, unless the wishes to legally change that request with a new POLST form. (6) Chronic atrial fibrillation Assessment/Plan: His heart rate is in a good range, and this is without any heart rate slowing meds, indicating that he has sick sinus syndrome or intrinsic conduction system disease. He is on his home dose of Pradaxa for stroke prophylaxis. - Current Meds Current Meds: Current Medications Generic Name Dose Route Start Last Admin Trade Name Freq PRN Reason Stop Dose Admin Dabigatran 150 mg 11/21/20 21:00 11/22/20 08:38 Dabigatran 75 Mg Capsule PO 150 mg BID TYLER Administration Donepezil HCl 5 mg 11/21/20 21:00 11/21/20 22:45 Donepezil 5 Mg Tablet PO 5 mg QPM TYLER Administration Famotidine 20 mg 11/21/20 21:00 11/22/20 08:38 Famotidine 20 Mg Tablet PO 20 mg BID TYLER Administration Finasteride 5 mg 11/22/20 09:00 11/22/20 08:39 Finasteride 5 Mg Tablet PO 5 mg DAILY TYLER Administration Potassium Chloride/Sodium Chloride 1,000 mls @ 100 mls/hr 11/21/20 18:00 11/22/20 09:15 Normal Saline 0.9% W/20 Meq Kcl IV 100 mls/hr .Q10H TYLER Infusion Ceftriaxone Sodium 1 gm/ 100 mls @ 200 mls/hr 11/22/20 09:00 11/22/20 09:15 Sodium Chloride IV Infused DAILY TYLER Infusion Quetiapine Fumarate 75 mg 11/21/20 21:00 11/21/20 22:45 Quetiapine 25 Mg Tablet PO 75 mg QPM TYLER Administration Sodium Chloride 10 ml 11/22/20 01:00 11/22/20 08:38 Sodium Chloride Flush 0.9% 10 Ml Syringe IVP Not Given 0100,0900,1700 TYLER Tamsulosin HCl 0.4 mg 11/21/20 21:00 11/22/20 08:38 Tamsulosin 0.4 Mg Capsule PO 0.4 mg BID TYLER Administration - Lab Result Fish Bone Diagrams: 11/22/20 04:14 11/22/20 04:14 - Additional Planning My Orders: My Active Orders 11/21/20 Dinner Soft Mechanical Diet [DIET] 11/21/20 17:27 Activity Orders [RC] Q2HR IO [RC] IOSHIFT Initiate Bowel Care Protocol [RC] .protocol Initiate Line Care Protocol [RC] QSHIFT Initiate Personal Care Protoco [RC] .protocol Telemetry (24 Hour) [RC] Q4HR Vital Signs [RC] Q4HR Acetaminophen [Tylenol] 650 mg PO Q4HR PRN Sodium Chloride Flush 0.9% [Normal Saline Flush 0.9%] 10 ml IVP PRN PRN Code Status [OTHERS] Routine Condition of Patient [OTHERS] Routine DVT Prophylaxis [OTHERS] Routine 11/21/20 17:29 IV Insert [RC] .ALLAN George [RC] QSHIFT 11/21/20 18:00 Ns W/20 Meq KCl [Normal Saline 0.9% W/20 Meq KCl] 1,000 ml IV 100 mls/hr 11/21/20 21:00 Dabigatran [Pradaxa] 150 mg PO BID Donepezil [Aricept] 5 mg PO QPM Famotidine [Pepcid] 20 mg PO BID QUEtiapine [SEROquel] 75 mg PO QPM Tamsulosin [Flomax] 0.4 mg PO BID 11/22/20 Evaluate and Treat PT [PT] Routine 11/22/20 01:00 Sodium Chloride Flush 0.9% [Normal Saline Flush 0.9%] 10 ml IVP 0100,0900,1700 11/22/20 08:00 Orthostatic [Vital Signs - Orthostatic] [RC] DAILY 11/22/20 09:00 Finasteride [Proscar] 5 mg PO DAILY 11/22/20 10:42 Straight Catheter Insertion [RC] TID Subjective - Subjective Patient Reports: Resting Comfortably Objective Vital Signs: Vital Signs - 24 hr 11/21/20 11/21/20 11/21/20 13:31 13:37 14:23 Temperature 36.8 C 36.2 C L Heart Rate 66 72 Heart Rate [ Brachial] Heart Rate [ Monitoring electrodes] Heart Rate [ 72 Sitting] Heart Rate [ 76 Standing] Heart Rate [ 71 Supine] Respiratory 13 17 Rate Blood Pressure 109/61 113/48 L Blood Pressure [Right Brachial artery] Blood Pressure [Right Femoral artery] Blood Pressure 108/68 [Sitting] Blood Pressure 98/68 [Standing] Blood Pressure 121/63 [Supine] O2 Saturation 98 99 11/21/20 11/21/20 11/21/20 15:10 16:22 17:37 Temperature 37.0 C Heart Rate 76 74 84 Heart Rate [ Brachial] Heart Rate [ Monitoring electrodes] Heart Rate [ Sitting] Heart Rate [ Standing] Heart Rate [ Supine] Respiratory 16 20 19 Rate Blood Pressure 132/85 H 112/80 127/81 H Blood Pressure [Right Brachial artery] Blood Pressure [Right Femoral artery] Blood Pressure [Sitting] Blood Pressure [Standing] Blood Pressure [Supine] O2 Saturation 100 99 100 11/21/20 11/21/20 11/22/20 18:06 21:00 00:27 Temperature 36.7 C 36.7 C 36.6 C Heart Rate Heart Rate [ 75 77 Brachial] Heart Rate [ 75 Monitoring electrodes] Heart Rate [ Sitting] Heart Rate [ Standing] Heart Rate [ Supine] Respiratory 18 18 16 Rate Blood Pressure Blood Pressure 136/73 H 133/57 H [Right Brachial artery] Blood Pressure 128/69 [Right Femoral artery] Blood Pressure [Sitting] Blood Pressure [Standing] Blood Pressure [Supine] O2 Saturation 96 96 94 11/22/20 11/22/20 11/22/20 05:00 08:31 11:34 Temperature 36.6 C 36.7 C 36.6 C Heart Rate Heart Rate [ 73 83 71 Brachial] Heart Rate [ Monitoring electrodes] Heart Rate [ Sitting] Heart Rate [ Standing] Heart Rate [ Supine] Respiratory 15 16 18 Rate Blood Pressure Blood Pressure 136/85 H 136/82 H 134/77 H [Right Brachial artery] Blood Pressure [Right Femoral artery] Blood Pressure [Sitting] Blood Pressure [Standing] Blood Pressure [Supine] O2 Saturation 97 98 98 Oxygen O2 Source [With Activity] Room air O2 Source Room air I&O (Last 24 Hrs): Intake and Output Totals x24h 11/20/20 11/21/20 11/22/20 23:59 23:59 23:59 Intake Total 1000 3188.333 Output Total 1820 Balance 1000 1368.333 General: Alert HEENT: Mucous membr. moist/pink Neck: Supple, No JVD Neuro: Alert, Disoriented, Non Focal Cardiovascular: No murmurs, Other (Irreg irreg) Respiratory: No respiratory distress Abdomen: Normal bowel sounds Extremities: No edema - Results Results: Laboratory Results WBC 12.0 x10^3/uL (4.8-10.8) H 11/22/20 04:14 RBC 4.19 10^6/uL (4.70-6.10) L 11/22/20 04:14 Hgb 13.3 g/dL (14.0-18.0) L 11/22/20 04:14 Hct 41.6 % (42.0-52.0) L 11/22/20 04:14 MCV 99.3 fL (80.0-94.0) H 11/22/20 04:14 MCH 31.7 pg (27.0-31.0) H 11/22/20 04:14 MCHC 32.0 g/dL (32.0-36.0) 11/22/20 04:14 RDW 14.1 % (12.0-15.0) 11/22/20 04:14 Plt Count 234 10^3/uL (130-450) 11/22/20 04:14 MPV 11.1 fL (7.4-11.4) 11/22/20 04:14 Neut # (Auto) Not Reportable 11/22/20 04:14 Lymph # (Auto) Not Reportable 11/22/20 04:14 Sunflower # (Auto) Not Reportable 11/22/20 04:14 Eos # (Auto) Not Reportable 11/22/20 04:14 Baso # (Auto) Not Reportable 11/22/20 04:14 Absolute Nucleated RBC Not Reportable 11/22/20 04:14 Total Counted 100 11/22/20 04:14 Band Neuts % (Manual) 0 % (0-10) 11/22/20 04:14 Abnorm Lymph % (Manual) 0 % 11/22/20 04:14 Nucleated RBC % Not Reportable 11/22/20 04:14 Neutrophils # (Manual) 7.6 10^3/uL (1.5-6.6) H 11/22/20 04:14 Lymphocytes # (Manual) 2.6 10^3/uL (1.5-3.5) 11/22/20 04:14 Monocytes # (Manual) 1.6 10^3/uL (0.0-1.0) H 11/22/20 04:14 Eosinophils # (Manual) 0.2 10^3/uL (0-0.7) 11/22/20 04:14 Basophils # (Manual) 0.0 10^3/uL (0-0.1) 11/22/20 04:14 Differential Comment MANUAL DIFFERENTIAL 11/22/20 04:14 Manual Slide Review Indicated 11/21/20 14:11 WBC Morphology NORMAL APPEARANCE (NORMAL) 11/22/20 04:14 Platelet Estimate NORMAL (130-450,000) (NORMAL) 11/22/20 04:14 Platelet Morphology NORMAL APPEARANCE (NORMAL) 11/22/20 04:14 RBC Morph Micro Appear NORMAL APPEARANCE (NORMAL) 11/22/20 04:14 Sodium 138 mmol/L (135-145) 11/22/20 04:14 Potassium 3.9 mmol/L (3.5-5.0) 11/22/20 04:14 Chloride 105 mmol/L (101-111) 11/22/20 04:14 Carbon Dioxide 24 mmol/L (21-32) 11/22/20 04:14 Anion Gap 9.0 (6-13) 11/22/20 04:14 BUN 11 mg/dL (6-20) 11/22/20 04:14 Creatinine 0.9 mg/dL (0.6-1.2) 11/22/20 04:14 Estimated GFR (MDRD) 82 (>89) L 11/22/20 04:14 Glucose 104 mg/dL (70-100) H 11/22/20 04:14 Lactic Acid 1.8 mmol/L (0.5-2.2) 11/21/20 14:48 Calcium 8.6 mg/dL (8.5-10.3) 11/22/20 04:14 Magnesium 2.4 mg/dL (1.7-2.8) 11/22/20 04:14 Total Bilirubin 1.3 mg/dL (0.2-1.0) H 11/21/20 14:11 AST 15 IU/L (10-42) 11/21/20 14:11 ALT 10 IU/L (10-60) 11/21/20 14:11 Alkaline Phosphatase 50 IU/L (42-121) 11/21/20 14:11 Troponin I High Sens 12.6 ng/L (2.3-19.7) 11/21/20 14:11 Total Protein 6.3 g/dL (6.7-8.2) L 11/21/20 14:11 Albumin 3.4 g/dL (3.2-5.5) 11/21/20 14:11 Globulin 2.9 g/dL (2.1-4.2) 11/21/20 14:11 Albumin/Globulin Ratio 1.2 (1.0-2.2) 11/21/20 14:11 Lipase 27 U/L (22-51) 11/21/20 14:11 Urine Color YELLOW 11/21/20 14:32 Urine Clarity SL. CLOUDY (CLEAR) 11/21/20 14:32 Urine pH 6.5 PH (5.0-7.5) 11/21/20 14:32 Ur Specific Robinson 1.010 (1.002-1.030) 11/21/20 14:32 Urine Protein TRACE mg/dL (NEGATIVE) 11/21/20 14:32 Urine Glucose (UA) NEGATIVE mg/dL (NEGATIVE) 11/21/20 14:32 Urine Ketones NEGATIVE mg/dL (NEGATIVE) 11/21/20 14:32 Urine Occult Blood SMALL (NEGATIVE) H 11/21/20 14:32 Urine Nitrite POSITIVE (NEGATIVE) H 11/21/20 14:32 Urine Bilirubin NEGATIVE (NEGATIVE) 11/21/20 14:32 Urine Urobilinogen 0.2 (NORMAL) E.U./dL (NORMAL) 11/21/20 14:32 Ur Leukocyte Esterase LARGE (NEGATIVE) H 11/21/20 14:32 Urine RBC 0-5 /HPF (0-5) 11/21/20 14:32 Urine WBC >25 /HPF (0-3) H 11/21/20 14:32 Urine WBC Clumps PRESENT 11/21/20 14:32 Ur Squamous Epith Cells RARE Squamous (<= Few) 11/21/20 14:32 Urine Bacteria Many /HPF (None Seen) H 11/21/20 14:32 Ur Microscopic Review INDICATED 11/21/20 14:32 Urine Culture Comments INDICATED 11/21/20 14:32 Nasal Adenovirus (PCR) NOT DETECTED 11/21/20 15:23 Nasal B. parapertussis DNA (PCR) NOT DETECTED 11/21/20 15:23 Nasal Coronavir 229E PCR NOT DETECTED 11/21/20 15:23 Nasal Coronavir HKU1 PCR NOT DETECTED 11/21/20 15:23 Nasal Coronavir NL63 PCR NOT DETECTED 11/21/20 15:23 Nasal Coronavir OC43 PCR NOT DETECTED 11/21/20 15:23 Nasal Enterovir/Rhinovir PCR NOT DETECTED 11/21/20 15:23 Nasal Influenza B PCR NOT DETECTED 11/21/20 15:23 Nasal Influenza A PCR NOT DETECTED 11/21/20 15:23 Nasal Parainfluen 1 PCR NOT DETECTED 11/21/20 15:23 Nasal Parainfluen 2 PCR NOT DETECTED 11/21/20 15:23 Nasal Parainfluen 3 PCR NOT DETECTED 11/21/20 15:23 Nasal Parainfluen 4 PCR NOT DETECTED 11/21/20 15:23 Nasal RSV (PCR) NOT DETECTED 11/21/20 15:23 Nasal B.pertussis DNA PCR NOT DETECTED 11/21/20 15:23 Nasal C.pneumoniae (PCR) NOT DETECTED 11/21/20 15:23 Chon Human Metapneumo PCR NOT DETECTED 11/21/20 15:23 Nasal M.pneumoniae (PCR) NOT DETECTED 11/21/20 15:23 Nasal SARS-CoV-2 (PCR) NOT DETECTED 11/21/20 15:23
[2020-11-22] MEDS: DONEPEZIL 5 MG TABLET PO SCH (20:37)
[2020-11-22] MEDS: QUEtiapine 25 MG TABLET PO SCH (20:39)
[2020-11-23] MEDS: NS W/20 MEQ KCL 1,000 ML IV SCH ×2 (01:10→11:08)
[2020-11-23] MEDS: SODIUM CHLORIDE FLUSH 0.9% 10 ML SYRINGE IVP SCH ×2 (01:11→08:50)
[2020-11-23] MEDS: DABIGATRAN 75 MG CAPSULE PO SCH (08:47)
[2020-11-23] MEDS: FINASTERIDE 5 MG TABLET PO SCH (08:48)
[2020-11-23] MEDS: FAMOTIDINE 20 MG TABLET PO SCH (08:48)
[2020-11-23] MEDS: TAMSULOSIN 0.4 MG CAPSULE PO SCH (08:48)
[2020-11-23] MEDS: cefTRIAXone 1 GM in SODIUM CHLORIDE 0.9% MINIBAG 100 ML IV SCH (08:48)
[2020-11-23 09:05] LABS: BASOPHILS # (AUTO) 0.1 10^3/uL (0.0-0.1); BASOPHILS % (AUTO) 0.8 %; EOSINOPHILS # (AUTO) 0.3 10^3/uL (0.0-0.7); EOSINOPHILS % (AUTO) 3.1 %; HGB - HEMOGLOBIN 13.2 g/dL (14.0-18.0); LYMPHOCYTES # (AUTO) 1.9 10^3/uL (1.5-3.5); LYMPHOCYTES % (AUTO) 17.1 %; MEAN CORPUSCULAR HEMOGLOBIN 32.8 pg (27.0-31.0); MEAN CORPUSCULAR HGB CONC 32.9 g/dL (32.0-36.0); MEAN CORPUSCULAR VOLUME 99.5 fL (80.0-94.0); MEAN PLATELET VOLUME 10.8 fL (7.4-11.4); MONOCYTES # (AUTO) 1.3 10^3/uL (0.0-1.0); MONOCYTES % (AUTO) 11.6 %; NEUTROPHILS # (AUTO) 7.3 10^3/uL (1.5-6.6); PLT - PLATELET COUNT 246 10^3/uL (130-450); RED BLOOD COUNT 4.03 10^6/uL (4.70-6.10); RED CELL DISTRIBUTION WIDTH 13.8 % (12.0-15.0); WHITE BLOOD COUNT 10.9 x10^3/uL (4.8-10.8)
[2020-11-23 09:35] LABS: CALCIUM 8.8 mg/dL (8.5-10.3); CREATININE 0.9 mg/dL (0.6-1.2)
[2020-11-23] MEDS: OFLOXACIN 0.3% OPHTH DROPS EACHEYE SCH ×2 (10:00→13:30)
--- NOTE | 2020-11-23 11:09 | Discharge Plan ---
Discharge Plan Problem Reviewed?: Yes Disposition: 06 Home Health Service Condition: Fair Prescriptions: Ciprofloxacin HCl [Cipro] 500 mg PO BID #14 tablet Ofloxacin 0.3% Ophth Drops [Ocuflox 0.3% Ophth Drops] 2 drops EACHEYE QID #1 bottle Diet: Regular Activity Restrictions: Activity as Tolerated Shower Restrictions: No Driving Restrictions: Yes Assistance Devices: [facility] Concerns: The patient was hospitalized for treating dehydration which was causing a low blood pressure, which caused him to nearly faint. The cause was found to be a new urinary tract infection plus significant urinary retention. A new Neumann catheter has been inserted and he is going home with this. The urine culture has grown E. coli. The Hospitalist team spoke to his Urologist, Dr. Ramirez at [facility] today, who advised the antibiotic Ciprofloxacin for 7 days and to continue with the new Neumann, no straight cathing for now. Dr. Ramirez would like the patient to see him in 1 week in his Urology clinic, please make an appointment for that. Home Health service has been reordered for helping manage the Neumann catheter. Please resume all pre-hospital medications. A new medication was electronically prescribed for eyedrops for conjunctivitis. Plan of Treatment: As above. Care Goals: Improvement in symptoms and stabilization are the goals. Assessment: Written instructions are provided for the to take care of this patient at home. No Smoking: If you smoke, Please STOP! Call for help. Follow-up with: Michele Bush MD [Primary Care Provider] - Gurpo Ramirez MD [Physician No Access] -
--- NOTE | 2020-11-23 11:16 | DISCHARGE SUMMARY ---
Discharge Summary Admit Date: 11/21/20 Discharge Date: 11/23/20 Discharging Provider: Dr Vida Pineda Condition at Discharge: Fair Discharge Disposition: 06 Home Health Service - [facility] History of Present Illness: This is a 80 year old white male with history of a stroke that left him with dementia and a neurogenic bladder, he has COPD, BPH and chronic Afib, on Pradaxa. He lives with his who is his caregiver. He has had prior admissions for UTIs, due to chronic indwelling Neumann and due to self cathing (previously he did this every 45 min overnight, presumably due to his dementia). He had his Neumann ordered to be removed in Jun 2020, and self cathing has been managed just 3 times a day now. He saw his Urologist just 1 week ago. Today, while walking in his home, supported by his , he had near syncope, but the sat him down and he felt better. She called paramedics who found him to have a BP of 80/50 at the scene. He was transported to the hospital. He got iv fluids but was still orthostatic in the ER, and is being placed in Observation for management of near syncope with iv hydration. In addition, his WBC is elevated at 16 and urinalysis shows many WBC, positive Nitrates and Leukocyte Esterase and many bacteria, consistent with a UTI. He will have the urine cultured and will be started on empiric antibiotics. He is aware of himself and location, but not aware of time and cannot give any detailed history of what happened and appears lethargic but not in distress. - HOSPITAL COURSE Hospital Course: (1) Orthostatic hypotension Orthostatic vital signs were checked and he was orthostatic yet on the second day. We continued with IV fluids and continued to treat the underlyingurinary tract infection. Orthostasis improved after 30 hours. His morning labs also showed resolution of his prerenal azotemia. (2) Near syncope Etiology appeared to be dehydration, probably from his acute infection. He was evaluated by PT on the day of discharge, since this near syncope happened while he was walking, and PT recommended home PT with [facility], which was ordered. (3) E. coli UTI The urine culture grew E coli, sensitive to everything but Amp and Bactrim. He received iv Ceftrixone while here. A CT of abdomen and pelvis was done and did not show nephrolithiasis or hydronephrosis. It did show an enlarged urinary bladder (not unexpected because of his history). His white blood count was elevated at 16.7, and is improved to 12 after starting IV antibiotics. The Hospitalist called his Urologist, Dr Ramirez, who reported that at the office visit last week, the urinalysis there had also turned positive for E coli, and Dr Ramirez recommended discharge on Cipro 500 mg po bid for 7 days, which was done. (4) Urinary retention He was kept on Flomax and Proscar. His bladder scans were showing up to 1500 cc of residual urine in the bladder. This is due to his neurogenic bladder after having a stroke, and due to his BPH. We first ordered straight cath 3 times daily, as at home, but eventually he did require inserting a Neumann catheter. This was also discussed with Dr Ramirez and he advised to discharge him home with the Neumann, and he would remove it at an appointment to be arranged in 1 week. Home Health nursing was ordered for Neumann care. (5) Dementia We continued his home Donepezil and Quetiapine doses and he had no behavioral disturbances and was cooperative. The patient's was requested to bring in his POLST form, for scanning into his hospital records. (6) Chronic atrial fibrillation His heart rate was in a good range, without any heart rate slowing meds, indicating that he has sick sinus syndrome or intrinsic conduction system disease. He was kept on his home dose of Pradaxa for stroke prophylaxis. (7) Conjunctvitis On the morning of discharge, he was found to have yellow crusty discharge of both eyes. Ofloxacin eyedrops were prescribed for home use. - ALLERGIES Allergies/Adverse Reactions: Allergies Allergy/AdvReac Type Severity Reaction Status Date / Time No Known Drug Allergies Allergy Verified 11/21/20 13:37 - MEDICATIONS Home Medications: Ambulatory Orders Medication Instructions Recorded Confirmed Finasteride [Proscar] 5 mg PO DAILY tablet 07/07/20 11/21/20 Tamsulosin [Flomax] 0.4 mg PO DAILY #30 capsule 07/07/20 11/21/20 Walker [Ultra-Light Rollator] 1 each MC DAILY #1 each 07/07/20 11/21/20 Donepezil [Aricept] 5 mg PO DAILY PM 11/21/20 11/21/20 QUEtiapine [SEROquel] 75 mg PO DAILY PM 11/21/20 11/22/20 Dabigatran Etexilate Mesylate 150 mg PO BID 11/22/20 11/22/20 [Pradaxa] Ciprofloxacin HCl [Cipro] 500 mg PO BID #14 tablet 11/23/20 Ofloxacin 0.3% Ophth Drops 2 drops EACHEYE QID #1 bottle 11/23/20 [Ocuflox 0.3% Ophth Drops] - PHYSICAL EXAM AT DISCHARGE General Appearance: positive: No acute distress, Alert Eyes Bilateral: positive: Other (Yellow crusty secretions of both eyelids) Neck: positive: Nml inspection, No JVD Respiratory: positive: No respiratory distress, Breath sounds nml Cardiovascular: positive: No murmur, Irregularly irregular Abdomen: positive: Non-tender, Nml bowel sounds, Other (A Neumann catheter is in place.) Skin: positive: Warm, Dry Extremities: positive: Non-tender, No pedal edema Neurologic/Psychiatric: positive: Disoriented to time, Other (Alert, non-focal.) - LABS Result Diagrams: 11/23/20 08:50 11/23/20 08:50 - DIAGNOSTIC IMAGING Diagnostic Imaging Results: Final report reviewed - FOLLOW UP Follow Up: See PCP as per routine. See Dr Ramirez, Urologist in 1 week. - TIME SPENT Time Spent in Discharge (Minutes): 60
[2020-11-23 12:51] VITALS: BP 128/69
== END 2020-11-23 13:30 | disposition home health service (06) ==
LOC: EDUNIT# → EDSEX → ED 13:20 → MS2 15:58
PROVIDERS: ADMIT Internal Medicine; ATTEND Internal Medicine
DX: N39.0 Urinary tract infection, site not specified (principal); I95.1 Orthostatic hypotension; R55 Syncope and collapse; B96.20 Unspecified Escherichia coli [E. coli] as the cause of diseases classified elsewhere; E86.0 Dehydration; R79.89 Other specified abnormal findings of blood chemistry; I69.354 Hemiplegia and hemiparesis following cerebral infarction affecting left non-dominant side; I69.398 Other sequelae of cerebral infarction; N40.1 Benign prostatic hyperplasia with lower urinary tract symptoms; R33.8 Other retention of urine; N31.8 Other neuromuscular dysfunction of bladder; F03.90 Unspecified dementia, unspecified severity, without behavioral disturbance, psychotic disturbance, mood disturbance, and anxiety; I48.20 Chronic atrial fibrillation, unspecified; Z79.01 Long term (current) use of anticoagulants; J44.9 Chronic obstructive pulmonary disease, unspecified; Z79.899 Other long term (current) drug therapy; F41.9 Anxiety disorder, unspecified
CPT/HCPCS: 36415; 51701; 51702; 71045; 74176; 80048; 80053; 81001; 83605; 83690; 83735; 84484; 85025; 87086; 87181; 87631; 93005; 96365; 96366; 96368; 96375; 97161; 99284; 99285; A9270; G0378; 0202U; 81003

== ENCOUNTER 2020-11-27 11:53 | Outpatient (CLI) | payer MEDICARE ==
--- NOTE | 2020-11-27 12:21 | XRAY Report ---
PROCEDURE: Toe(s) RT INDICATIONS: RIGHT GREAT TOE PAIN TECHNIQUE: 3 views of the right toe(s) acquired. COMPARISON: None FINDINGS: Bones: No fractures or dislocations. No suspicious bony lesions. Moderate joint space narrowing an d periarticular osteophyte formation at the first metatarsophalangeal joint. Mild periarticular osteo phyte formation at the interphalangeal joints of the digits. Soft tissues: No suspicious soft tissue densities. IMPRESSION: 1. Osteoarthritis. 2. No acute fracture. No osseous lesion. If symptoms and/or clinical suspicion for pathology continue , further assessment with repeat plain films, or advanced imaging (e.g., CT, MRI, or bone scan) is re commended for further assessment. Reviewed by: Krystin Mccrary MD on 11/27/2020 12:20 PM PST Approved by: Krystin Mccrary MD on 11/27/2020 12:20 PM PST Station ID: [id number]
== END 2020-11-27 23:59 | disposition home or self-care (01) ==
LOC: DI.S 11:53
PROVIDERS: ATTEND Physician Assistant
DX: M19.071 Primary osteoarthritis, right ankle and foot (principal)

== ENCOUNTER 2020-12-15 17:30 | Outpatient (CLI) | payer MEDICARE ==
[2020-12-15 19:43] LABS: BILIRUBIN,URINE NEGATIVE (NEGATIVE); GLUCOSE, URINE (UA) NEGATIVE (NEGATIVE); KETONES,URINE (UA) NEGATIVE (NEGATIVE); LEUKOCYTE ESTERASE, URINE MODERATE (NEGATIVE); NITRITE,URINE POSITIVE (NEGATIVE); OCCULT BLOOD,URINE MODERATE (NEGATIVE); PROTEIN,URINE NEGATIVE (NEGATIVE); UROBILINOGEN,URINE 0.2 (NORMAL) E.U./dL (NORMAL)
[2020-12-15 19:49] LABS: CLARITY,URINE SL. CLOUDY (CLEAR)
[2020-12-15 19:51] LABS: BACTERIA,URINE Moderate /HPF (None Seen); MUCUS,URINE Few Strands; SQUAMOUS EPITHELIAL CELL,UR FEW Squamous (<= Few)
== END 2020-12-15 23:59 | disposition home or self-care (01) ==
LOC: LAB.R 17:30
PROVIDERS: ATTEND Internal Medicine
DX: N39.0 Urinary tract infection, site not specified (principal)
CPT/HCPCS: 81001; 81003; 87086

== ENCOUNTER 2021-01-26 | Outpatient (CLI) | payer MEDICARE | END 2021-01-26 09:47 | disposition critical access hospital (66) | DX: R55 Syncope and collapse (principal) | CPT/HCPCS: A0425; A0427 ==

== ENCOUNTER 2021-01-26 10:21 | Emergency (ER) | payer MEDICARE ==
[2021-01-26] MEDS ORDERED: SODIUM CHLORIDE 0.9% 1,000 ML IV STA (10:53)
--- NOTE | 2021-01-26 11:07 | ED Physician Documentation ---
History of Present Illness - Stated complaint Stated Complaint: NEAR SYNCOPE - Chief complaint Chief Complaint: Neuro - History obtained from History obtained from: Patient - Additonal information Additional information: Patient comes emergency department chief complaint of a near syncopal episode that happened this morning. He states that he has a history of syncope and near syncope previously and he is not really sure what triggered this 1. He denies any shortness of breath or chest pain. No abdominal pain. No nausea or vomiting. No focal neurologic deficits. He states he has not felt ill with anything recently. No fevers or chills. No cough. No dysuria. Patient states that he was walking around his house when he suddenly began to feel lightheaded. He states that by the time he sat down, he was removing fruit. He states that he could hear what was going on around him but was not awake enough to move or respond. According to medics, the patient was hypotensive when they picked him up but rebounded in route. Patient denies any other complaints at this time. He states he is not known to have any cardiac issues. He has a history of borderline hypertension, he reports. Review of Systems Ten Systems: 10 systems reviewed and negative Constitutional: reports: Reviewed and negative Eyes: reports: Reviewed and negative Ears: reports: Reviewed and negative Nose: reports: Reviewed and negative Throat: reports: Reviewed and negative Cardiac: reports: Reviewed and negative Respiratory: reports: Reviewed and negative GI: reports: Reviewed and negative : reports: Reviewed and negative Skin: reports: Reviewed and negative Musculoskeletal: reports: Reviewed and negative Neurologic: reports: Syncope. denies: Head injury Psychiatric: reports: Reviewed and negative Endocrine: reports: Reviewed and negative Immunocompromised: reports: Reviewed and negative PD PAST MEDICAL HISTORY - Past Medical History Cardiovascular: Hypertension, High cholesterol, Atrial fibrillation Respiratory: None Neuro: Dementia, CVA Endocrine/Autoimmune: None GI: None : Benign prostate hypertrophy, Retention, Incontinence, Indwelling catheter HEENT: None Psych: Anxiety, Other Musculoskeletal: Chronic back pain Derm: None - Past Surgical History Past Surgical History: Yes General: Splenectomy, Other Ortho: Hip replacement, Knee replacement HEENT: Tonsil/Adenoidectomy, Other - Present Medications Home Medications: Ambulatory Orders Medication Instructions Recorded Confirmed Finasteride [Proscar] 5 mg PO DAILY tablet 07/07/20 11/21/20 Tamsulosin [Flomax] 0.4 mg PO DAILY #30 capsule 07/07/20 11/21/20 Walker [Ultra-Light Rollator] 1 each MC DAILY #1 each 07/07/20 11/21/20 Donepezil [Aricept] 5 mg PO DAILY PM 11/21/20 11/21/20 QUEtiapine [SEROquel] 75 mg PO DAILY PM 11/21/20 11/22/20 Dabigatran Etexilate Mesylate 150 mg PO BID 11/22/20 11/22/20 [Pradaxa] Ciprofloxacin HCl [Cipro] 500 mg PO BID #14 tablet 11/23/20 Ofloxacin 0.3% Ophth Drops 2 drops EACHEYE QID #1 bottle 11/23/20 [Ocuflox 0.3% Ophth Drops] - Allergies Allergies/Adverse Reactions: Allergies Allergy/AdvReac Type Severity Reaction Status Date / Time No Known Drug Allergies Allergy Verified 01/26/21 10:26 - Social History Does the pt smoke?: No Smoking Status: Never smoker Does the pt drink ETOH?: Yes Does the pt have substance abuse?: No - Immunizations Immunizations are current?: Yes - POLST Patient has POLST: No POLST Status: Full Code PD ED PE NORMAL - Vitals Vital signs reviewed: Yes - General General: No acute distress, Well developed/nourished, Other (Patient is alert and well-appearing.) - HEENT HEENT: Atraumatic, PERRL, EOMI, Moist mucous membranes - Neck Neck: Supple, no meningeal sign - Cardiac Cardiac: RRR, No murmur, Strong equal pulses - Respiratory Respiratory: No respiratory distress, Clear bilaterally - Abdomen Abdomen: Soft, Non tender, Non distended - Derm Derm: Normal color, Warm and dry, No rash - Extremities Extremities: No deformity, No edema, No calf tenderness / cord - Neuro Neuro: drafter chief design 2-12 intact, No motor deficit, No sensory deficit, Normal speech, Other (Patient is alert and appropriate and answers questions for himself.) - Psych Psych: Normal mood, Normal affect Results - Vitals Vitals: Vital Signs - 24 hr 01/26/21 01/26/21 01/26/21 10:26 11:00 11:30 Temperature 36.2 C L Heart Rate 76 65 67 Respiratory 16 17 14 Rate Blood Pressure 111/72 122/75 120/70 O2 Saturation 98 98 99 01/26/21 12:00 Temperature 37.0 C Heart Rate 60 Respiratory 15 Rate Blood Pressure 125/69 O2 Saturation 98 Oxygen O2 Source [With Activity] Room air O2 Source Room air - Labs Labs: Laboratory Tests 01/26/21 01/26/21 01/26/21 11:05 11:05 11:05 WBC 9.9 RBC 4.26 L Hgb 13.7 L Hct 42.2 MCV 99.1 H MCH 32.2 H MCHC 32.5 RDW 13.7 Plt Count 219 MPV 10.6 Neut # (Auto) 7.8 H Lymph # (Auto) 1.1 L Mcmullen # (Auto) 0.7 Eos # (Auto) 0.1 Baso # (Auto) 0.1 Absolute Nucleated RBC 0.00 Nucleated RBC % 0.0 Manual Slide Review Indicated WBC Morphology NORMAL APPEARANCE Platelet Estimate NORMAL (130-450,000) Platelet Morphology NORMAL APPEARANCE RBC Morph Micro Appear 1+ MACROCYTOSIS PT 15.5 H INR 1.4 H Sodium 140 Potassium 4.1 Chloride 107 Carbon Dioxide 28 Anion Gap 5.0 L BUN 15 Creatinine 1.0 Estimated GFR (MDRD) 72 L Glucose 112 H Calcium 8.8 Total Bilirubin 0.8 AST 16 ALT 11 Alkaline Phosphatase 48 Troponin I High Sens B-Natriuretic Peptide Total Protein 6.3 L Albumin 3.8 Globulin 2.5 Albumin/Globulin Ratio 1.5 Lipase 33 01/26/21 01/26/21 11:05 11:05 WBC RBC Hgb Hct MCV MCH MCHC RDW Plt Count MPV Neut # (Auto) Lymph # (Auto) Mcmullen # (Auto) Eos # (Auto) Baso # (Auto) Absolute Nucleated RBC Nucleated RBC % Manual Slide Review WBC Morphology Platelet Estimate Platelet Morphology RBC Morph Micro Appear PT INR Sodium Potassium Chloride Carbon Dioxide Anion Gap BUN Creatinine Estimated GFR (MDRD) Glucose Calcium Total Bilirubin AST ALT Alkaline Phosphatase Troponin I High Sens 12.0 B-Natriuretic Peptide 224 H Total Protein Albumin Globulin Albumin/Globulin Ratio Lipase - Rads (name of study) CXR Radiology: Final report received, EMP read indepedently, See rad report (NAD) PD MEDICAL DECISION MAKING - ED course Complexity details: reviewed old records, reviewed results, re-evaluated patient, considered differential, d/w patient ED course: The patient was worked up with labs, EKG, urinalysis, and chest x-ray, all of which were unremarkable. We have discussed the importance of drinking plenty of fluids. Pt has been given an IV fluid bolus in the ED. We have discussed the usual indications for return. Departure - Departure Disposition: 01 Home, Self Care Clinical Impression: Syncope Condition: Stable Instructions: ED Syncope Vasovagal Comments: Your labs, x-ray, and EKG all look good. There is no evidence of an emergent cause of your fainting episode today. Please follow-up with your primary care physician as needed if you continue to have these episodes of lightheadedness. Please also be sure to drink plenty of water to keep yourself well-hydrated and put yourself at less risk of fainting again. If you become faint and also experienced chest pain and shortness of breath, you should return to the [facility] department immediately. Discharge Date/Time: 01/26/21 12:14
[2021-01-26 11:10] LABS: BASOPHILS # (AUTO) 0.1 10^3/uL (0.0-0.1); BASOPHILS % (AUTO) 0.6 %; EOSINOPHILS # (AUTO) 0.1 10^3/uL (0.0-0.7); EOSINOPHILS % (AUTO) 1.2 %; HCT - HEMATOCRIT 42.2 % (42.0-52.0); HGB - HEMOGLOBIN 13.7 g/dL (14.0-18.0); LYMPHOCYTES # (AUTO) 1.1 10^3/uL (1.5-3.5); LYMPHOCYTES % (AUTO) 11.3 %; MEAN CORPUSCULAR HEMOGLOBIN 32.2 pg (27.0-31.0); MEAN CORPUSCULAR HGB CONC 32.5 g/dL (32.0-36.0); MEAN CORPUSCULAR VOLUME 99.1 fL (80.0-94.0); MEAN PLATELET VOLUME 10.6 fL (7.4-11.4); MONOCYTES # (AUTO) 0.7 10^3/uL (0.0-1.0); MONOCYTES % (AUTO) 7.3 %; NEUTROPHILS # (AUTO) 7.8 10^3/uL (1.5-6.6); NEUTROPHILS % (AUTO) 79.3 %; PLT - PLATELET COUNT 219 10^3/uL (130-450); RED BLOOD COUNT 4.26 10^6/uL (4.70-6.10); RED CELL DISTRIBUTION WIDTH 13.7 % (12.0-15.0); WHITE BLOOD COUNT 9.9 x10^3/uL (4.8-10.8)
[2021-01-26 11:11] LABS: SLIDE REVIEW? Indicated
[2021-01-26 11:29] LABS: INR 1.4 (0.8-1.2); PT - PROTHROMBIN TIME 15.5 secs (9.9-12.6)
--- NOTE | 2021-01-26 11:30 | XRAY Report ---
PROCEDURE: Chest 1 View X-Ray INDICATIONS: Chest Pain TECHNIQUE: One view of the chest was acquired. COMPARISON: 11/21/2020 FINDINGS: Surgical changes and devices: None. Lungs and pleura: No pleural effusions or pneumothorax. Lungs are clear. Mediastinum: Mediastinal contours appear normal. Heart size is normal. Small hiatal hernia is pres ent. Bones and chest wall: No suspicious bony lesions. Overlying soft tissues appear unremarkable. IMPRESSION: 1. No acute process. 2. Small hiatal hernia, chronic. Reviewed by: Niya Duarte MD on 01/26/2021 10:29 AM [place] Approved by: Niya Duarte MD on 01/26/2021 10:29 AM [place] Station ID: [id number]
[2021-01-26 11:36] LABS: ALBUMIN 3.8 g/dL (3.2-5.5); ALBUMIN/GLOBULIN RATIO 1.5 (1.0-2.2); BILIRUBIN,TOTAL 0.8 mg/dL (0.2-1.0); CALCIUM 8.8 mg/dL (8.5-10.3); POTASSIUM 4.1 mmol/L (3.5-5.0); TOTAL PROTEIN 6.3 g/dL (6.7-8.2)
[2021-01-26 11:48] LABS: PLATELET MORPHOLOGY NORMAL APPEARANCE (NORMAL)
[2021-01-26 11:49] LABS: PLATELET ESTIMATE, MANUAL NORMAL (130-450,000) (NORMAL); RBC MORPHOLOGY (MULTIPLE) 1+ MACROCYTOSIS (NORMAL); WBC MORPHOLOGY (MULTIPLE) NORMAL APPEARANCE (NORMAL)
[2021-01-26 12:14] VITALS: BP 125/69
--- OUTSIDE RECORDS SUMMARY | 2021-01-27 03:22 | EXTERNAL MEDICAL SUMMARY RPT | Continuity of Care Document ---
:1940 Demographics Phone Unavailable Preferred Language Unknown Marital Status Unknown Buddhist Affiliation Unknown Race Unknown Ethnic Group Unknown Author Organization [facility] Address [address] [phone] Phone Care Team Providers Name Role Phone PA-C Unavailable Unavailable Problems date description facility [id number] Acquired hallux rigidus [facility] [id number] Alcohol intake [facility] [phone] Alcohol use [facility] [id number] Details of drug misuse behavior [facility] [id number] Exercise [facility] [phone] FOOT COMPLETE MIN 3 VIEW [facility] [phone] Former smoker [facility] [phone] Hallux rigidus [facility] [phone] Hallux rigidus, right foot [facility] [phone] Health-related behavior [facility] [phone] Pain in limb [facility] [phone] Pain in toe [facility] [phone] Pain in unspecified toe(s[facility] [phone] Tobacco smoking status DEIS [facility] [phone] Tobacco use and exposure [facility] Medications date description facility [id number] PREDNISONE [facility] [phone] FINASTERIDE [facility] [phone] COLCHICINE [facility] [phone] CIPROFLOXACIN HCL [facility] [phone] COLCHICINE [facility] [phone] CIPROFLOXACIN HCL [facility] [phone] FINASTERIDE [facility] [place] [id number] PREDNISONE [facility] [place] [facility] [place] Vital Signs date measurement value source 20201127 BMI 27.31 kg/m2 20201127 BP_diastolic 70 mm[Hg] 20201127 BP_systolic 105 mm[Hg] 20201127 heart_rate 95 /min 20201127 height_metric 175.9 cm 20201127 height_standard 69.25 in 20201127 respiration_rate 17 /min 20201127 temperature_metric 36.56 C 20201127 temperature_standard 97.8 F 20201127 weight_metric 84.19 kg 20201127 weight_standard 185.6 lb Social History date description facility [id number]
== END 2021-01-26 12:14 | disposition home or self-care (01) ==
LOC: EDUNIT# → ED 10:21
DX: R55 Syncope and collapse (principal)
CPT/HCPCS: 36415; 80053; 83690; 83880; 84484; 85025; 85610; 93005; 99283

== ENCOUNTER 2021-03-14 08:00 | Outpatient (CLI) | payer MEDICARE | END 2021-03-14 23:59 | disposition home or self-care (01) | LOC: LAB.S 08:00 | PROVIDERS: ATTEND Physician Assistant | DX: R30.0 Dysuria (principal) | CPT/HCPCS: 87077; 87086; 87181 ==

== ENCOUNTER 2021-07-12 11:14 | Outpatient (CLI) | payer MEDICARE | END 2021-07-12 11:15 | disposition home or self-care (01) | LOC: RT 11:14 | PROVIDERS: ATTEND Psychiatry & Neurology Neurology | DX: F03.91 Unspecified dementia, unspecified severity, with behavioral disturbance (principal); Z79.899 Other long term (current) drug therapy | CPT/HCPCS: 93005 ==

== ENCOUNTER 2022-08-10 09:08 | Outpatient (CLI) | payer MEDICARE | END 2022-08-10 09:09 | disposition EMS.NT | LOC: EMS 09:08 | DX: Z03.89 Encounter for observation for other suspected diseases and conditions ruled out (principal) ==

== ENCOUNTER 2022-08-11 12:13 | Outpatient (CLI) | payer MEDICARE ==
--- NOTE | 2022-08-11 11:20 | XRAY Report ---
PROCEDURE: Knee 3 View LT INDICATIONS: LEFT KNEE PAIN TECHNIQUE: 3 views of the left knee(s) were acquired. COMPARISON: None. FINDINGS: Bones: No fractures or dislocations. No suspicious bony lesions. Knee arthroplasty is present. Augustus dware is intact without evidence of hardware fracture or periprosthetic lucency to suggest loosening. Soft tissues: Mild joint effusion. No suspicious soft tissue calcifications. IMPRESSION: Knee arthroplasty as above. Reviewed by: Stephanie Patel MD on 08/11/2022 11:18 AM PDT Approved by: Stephanie Patel MD on 08/11/2022 11:18 AM PDT Station ID: [id number]
== END 2022-08-11 12:14 | disposition home or self-care (01) ==
LOC: DI.S 12:13
PROVIDERS: ATTEND Physician Assistant
DX: M25.562 Pain in left knee (principal); Z96.652 Presence of left artificial knee joint

== ENCOUNTER 2022-11-23 21:59 | Outpatient (CLI) | payer MEDICARE | END 2022-11-23 22:00 | disposition EMS.NT | LOC: EMS 21:59 | DX: Z03.89 Encounter for observation for other suspected diseases and conditions ruled out (principal) ==

== ENCOUNTER 2022-11-24 06:43 | Outpatient (CLI) | payer MEDICARE | END 2022-11-24 06:44 | disposition critical access hospital (66) | LOC: EMS 06:43 | DX: M54.50 Low back pain, unspecified (principal); F03.90 Unspecified dementia, unspecified severity, without behavioral disturbance, psychotic disturbance, mood disturbance, and anxiety | CPT/HCPCS: A0425; A0427 ==

== ENCOUNTER 2022-11-24 07:21 | Emergency (ER) | payer MEDICARE ==
[2022-11-24 08:00] LABS: BASOPHILS % (AUTO) 0.4 %; EOSINOPHILS # (AUTO) 0.2 10^3/uL (0.0-0.7); EOSINOPHILS % (AUTO) 1.6 %; HCT - HEMATOCRIT 41.9 % (42.0-52.0); HGB - HEMOGLOBIN 13.7 g/dL (14.0-18.0); LYMPHOCYTES # (AUTO) 1.3 10^3/uL (1.5-3.5); LYMPHOCYTES % (AUTO) 13.7 %; MEAN CORPUSCULAR HEMOGLOBIN 32.2 pg (27.0-31.0); MEAN CORPUSCULAR HGB CONC 32.7 g/dL (32.0-36.0); MEAN CORPUSCULAR VOLUME 98.4 fL (80.0-94.0); MEAN PLATELET VOLUME 10.2 fL (7.4-11.4); MONOCYTES # (AUTO) 0.9 10^3/uL (0.0-1.0); MONOCYTES % (AUTO) 9.5 %; NEUTROPHILS # (AUTO) 7.3 10^3/uL (1.5-6.6); NEUTROPHILS % (AUTO) 74.4 %; PLT - PLATELET COUNT 184 10^3/uL (130-450); RED BLOOD COUNT 4.26 10^6/uL (4.70-6.10); RED CELL DISTRIBUTION WIDTH 13.3 % (12.0-15.0); WHITE BLOOD COUNT 9.8 x10^3/uL (4.8-10.8)
[2022-11-24 08:14] LABS: ALBUMIN 3.6 g/dL (3.2-5.5); ALBUMIN/GLOBULIN RATIO 1.4 (1.0-2.2); BILIRUBIN,TOTAL 0.9 mg/dL (0.2-1.0); CALCIUM 8.4 mg/dL (8.5-10.3); CREATININE 0.9 mg/dL (0.6-1.2); POTASSIUM 3.9 mmol/L (3.5-5.0); TOTAL PROTEIN 6.2 g/dL (6.7-8.2)
[2022-11-24] MEDS ORDERED: ONDANSETRON 4 MG/2 ML VIAL IVP STA (08:14)
[2022-11-24] MEDS ORDERED: MORPHINE 2 MG/ML CARPUJECT IVP STA (08:14)
[2022-11-24] MEDS ORDERED: iohexoL-300 100 ML VIAL ONE (08:23)
[2022-11-24] MEDS ORDERED: PANTOPRAZOLE 80 MG in SODIUM CHLORIDE 0.9% 100ML 100 ML IV STA ×4 (08:28)
[2022-11-24 08:41] LABS: INR 1.4 (0.8-1.2); PT - PROTHROMBIN TIME 15.2 secs (9.9-12.6)
--- NOTE | 2022-11-24 09:06 | CT Report ---
PROCEDURE: CERVICAL SPINE WO INDICATIONS: fall/dementia TECHNIQUE: Noncontrast 3 mm thick sections acquired from the skull base to the T4 level. Sagittal and coronal r eformats were then constructed. For radiation dose reduction, the following was used: automated exp osure control, adjustment of mA and/or kV according to patient size. COMPARISON: None. FINDINGS: Image quality: Excellent. Bones: No fractures or dislocations. There is mild reversal of normal cervical lordosis. Loss of di sc height, degenerative endplate changes and bilateral facet hypertrophic changes are noted throughou t cervical spine with dorsal disc osteophyte complex formation causing dmlx-cy-fkiebrdy central canal stenosis and bilateral neural foraminal narrowing most notably at C5-6 and C6-7 levels Visualized lara perior ribs are intact. Soft tissues: Prevertebral soft tissues are normal in thickness. No paravertebral hematomas. No ap ical pneumothoraces. IMPRESSION: 1. No acute cervical spine fracture or dislocation. 2. Degenerative disc disease throughout cervical spine as above. Reviewed by: Trenton Conroy MD on 11/24/2022 9:04 AM PST Approved by: Trenton Conroy MD on 11/24/2022 9:04 AM PST Station ID: [id number]
[2022-11-24] MEDS ORDERED: iohexoL-300 100 ML VIAL IVP ONE (09:07)
--- NOTE | 2022-11-24 09:09 | CT Report ---
PROCEDURE: HEAD WO INDICATIONS: fall/dementia TECHNIQUE: Noncontrast 4.5 mm thick angled axial sections acquired from the foramen magnum to the vertex. For r adiation dose reduction, the following was used: automated exposure control, adjustment of mA and/or kV according to patient size. COMPARISON: None. FINDINGS: Image quality: Diagnostic. Patient motion is noted. CSF spaces: Basal cisterns are patent. No extra-axial fluid collections. Ventricles are normal in size and shape. Brain: Old infarction involving right frontal parietal lobe near vertex is seen with encephalomalacia . There is moderate cerebral and cerebellar volume loss. Mild periventricular and deep white matter c hronic ischemic small vessel changes are seen. No midline shift. No intracranial masses or hemorrhag e. Last-white matter interface is normal. Skull and face: Calvarium and visualized facial bones are intact, without suspicious lesions. Sinuses: Mild mucosal thickening in bilateral ethmoid sinuses is seen. IMPRESSION: 1. No CT evidence of acute intracranial abnormalities. 2. Age-related volume loss and mild white matter chronic small vessel ischemic changes. Old infarctio n in right frontoparietal lobe with encephalomalacia. 3. Mild bilateral ethmoid sinusitis. Reviewed by: Trenton Conroy MD on 11/24/2022 9:08 AM PST Approved by: Trenton Conroy MD on 11/24/2022 9:08 AM PST Station ID: [id number]
--- NOTE | 2022-11-24 09:11 | ED Physician Documentation ---
History of Present Illness - Stated complaint Stated Complaint: GLF - Chief complaint Chief Complaint: General - History obtained from History obtained from: Family, EMS (Patient's ) - Additonal information Additional information: Patient is an 82-year-old male with a history of dementia presenting for evaluation after a ground-level fall at home yesterday. Patient received fentanyl from EMS and is not able to provide any meaningful history. He is not able to tell me what hurts or about any recent events. Per his he does have some baseline confusion. Yesterday he had a fall at home around 10 PM. He was in his bedroom with his standing behind him. He was trying to get to the bathroom and his pants were undone. He started to urinate and she believes that made him panic and he turned quickly and fell. He did hit his head. He did not have LOC. He was not able to get up from the floor. She called EMS who evaluated him and did not feel he required transport at that time and it lifted him back into his bed. Contrary to this morning's report he did not ambulate after the fall per the . He was complaining to her that his lower back was hurting.This morning she was unable to get him out of bed and called EMS. He is on Pradaxa. Review of Systems Unable to obtain: Dementia PD PAST MEDICAL HISTORY - Past Medical History Cardiovascular: Hypertension, High cholesterol, Atrial fibrillation Respiratory: None Neuro: Dementia, CVA Endocrine/Autoimmune: None GI: None : Benign prostate hypertrophy, Retention, Incontinence, Indwelling catheter HEENT: None Psych: Anxiety, Other Musculoskeletal: Chronic back pain Derm: None - Past Surgical History Past Surgical History: Yes General: Splenectomy, Other Ortho: Hip replacement, Knee replacement HEENT: Tonsil/Adenoidectomy, Other - Present Medications Home Medications: Ambulatory Orders Medication Instructions Recorded Confirmed Finasteride [Proscar] 5 mg PO DAILY tablet 07/07/20 11/21/20 Tamsulosin [Flomax] 0.4 mg PO DAILY #30 capsule 07/07/20 11/21/20 Walker [Ultra-Light Rollator] 1 each MC DAILY #1 each 07/07/20 11/21/20 Donepezil [Aricept] 5 mg PO DAILY PM 11/21/20 11/21/20 QUEtiapine [SEROquel] 75 mg PO DAILY PM 11/21/20 11/22/20 Dabigatran Etexilate Mesylate 150 mg PO BID 11/22/20 11/22/20 [Pradaxa] Ciprofloxacin HCl [Cipro] 500 mg PO BID #14 tablet 11/23/20 Ofloxacin 0.3% Ophth Drops 2 drops EACHEYE QID #1 bottle 11/23/20 [Ocuflox 0.3% Ophth Drops] Lidocaine Patch 5% [Lidoderm Patch] 1 patch TOP DAILY PRN #10 patch 11/24/22 Oxycodone HCl/Acetaminophen 1 each PO Q6H PRN #14 tablet 11/24/22 [Percocet 5-325 mg Tablet] - Allergies Allergies/Adverse Reactions: Allergies Allergy/AdvReac Type Severity Reaction Status Date / Time No Known Drug Allergies Allergy Verified 01/26/21 10:26 - Social History Does the pt smoke?: No Smoking Status: Never smoker Does the pt drink ETOH?: Yes Does the pt have substance abuse?: No - Immunizations Immunizations are current?: Yes - POLST Patient has POLST: No POLST Status: Full Code PD ED PE NORMAL - General General: No acute distress, Well developed/nourished. No: Alert and oriented X 3 (Alert and oriented to person only) - HEENT HEENT: Atraumatic, PERRL, EOMI, Moist mucous membranes, Pharynx benign - Neck Neck: No bony TTP. No: C-Spine cleared by NEXUS criteria - Cardiac Cardiac: RRR - Respiratory Respiratory: No respiratory distress, Clear bilaterally - Abdomen Abdomen: Soft, Non tender, Non distended - Back Back: Other (Lumbar tenderness to palpation; Prefers to lay on his side) - Derm Derm: Warm and dry - Extremities Extremities: No deformity, No tenderness to palpate - Neuro Neuro: No: Alert and oriented X 3 Eye Opening: Spontaneous Motor: Localizes to Pain Verbal: Confused GCS Score: 13 Results - Vitals Vitals: Vital Signs - 24 hr 11/24/22 11/24/22 11/24/22 07:50 08:04 10:48 Temperature 36.7 C Heart Rate 68 70 74 Respiratory 10 L 16 18 Rate Blood Pressure 127/80 152/97 H 142/74 H O2 Saturation 91 L 98 99 If not protocol 2 : Oxygen Flow, liters/minute Oxygen O2 Source [] Room air O2 Source Room air - EKG (time done) 0802 Rate: Rate (enter#) (57) Rhythm: Atrial fibrillation Intervals: No: Prolonged QT Ischemia: No: ST elevation c/w ischemia - Labs Labs: Laboratory Tests 11/24/22 11/24/22 11/24/22 07:56 07:56 07:56 WBC 9.8 RBC 4.26 L Hgb 13.7 L Hct 41.9 L MCV 98.4 H MCH 32.2 H MCHC 32.7 RDW 13.3 Plt Count 184 MPV 10.2 Neut # (Auto) 7.3 H Lymph # (Auto) 1.3 L [place] # (Auto) 0.9 Eos # (Auto) 0.2 Baso # (Auto) 0.0 Absolute Nucleated RBC 0.00 Nucleated RBC % 0.0 PT 15.2 H INR 1.4 H Sodium 135 Potassium 3.9 Chloride 101 Carbon Dioxide 25 Anion Gap 9.0 BUN 15 Creatinine 0.9 Estimated GFR (MDRD) 81 L Glucose 115 H Calcium 8.4 L Total Bilirubin 0.9 AST 19 ALT 17 Alkaline Phosphatase 44 Total Protein 6.2 L Albumin 3.6 Globulin 2.6 Albumin/Globulin Ratio 1.4 Lipase 38 Urine Color Urine Clarity Urine pH Ur Specific [place] Urine Protein Urine Glucose (UA) Urine Ketones Urine Occult Blood Urine Nitrite Urine Bilirubin Urine Urobilinogen Ur Leukocyte Esterase Urine RBC Urine WBC Ur Squamous Epith Cells Urine Bacteria Ur Microscopic Review Urine Culture Comments Nasal Adenovirus (PCR) Nasal B. parapertussis DNA (PCR) Nasal Coronavir 229E PCR Nasal Coronavir HKU1 PCR Nasal Coronavir NL63 PCR Nasal Coronavir OC43 PCR Nasal Enterovir/Rhinovir PCR Nasal Influenza B PCR Nasal Influenza A PCR Nasal Parainfluen 1 PCR Nasal Parainfluen 2 PCR Nasal Parainfluen 3 PCR Nasal Parainfluen 4 PCR Nasal RSV (PCR) Nasal B.pertussis DNA PCR Nasal C.pneumoniae (PCR) Chon Human Metapneumo PCR Nasal M.pneumoniae (PCR) Nasal SARS-CoV-2 (PCR) 11/24/22 11/24/22 08:02 09:12 WBC RBC Hgb Hct MCV MCH MCHC RDW Plt Count MPV Neut # (Auto) Lymph # (Auto) [place] # (Auto) Eos # (Auto) Baso # (Auto) Absolute Nucleated RBC Nucleated RBC % PT INR Sodium Potassium Chloride Carbon Dioxide Anion Gap BUN Creatinine Estimated GFR (MDRD) Glucose Calcium Total Bilirubin AST ALT Alkaline Phosphatase Total Protein Albumin Globulin Albumin/Globulin Ratio Lipase Urine Color DARK YELLOW Urine Clarity CLEAR Urine pH 6.0 Ur Specific [place] 1.025 Urine Protein NEGATIVE Urine Glucose (UA) NEGATIVE Urine Ketones NEGATIVE Urine Occult Blood MODERATE H Urine Nitrite NEGATIVE Urine Bilirubin NEGATIVE Urine Urobilinogen 0.2 (NORMAL) Ur Leukocyte Esterase NEGATIVE Urine RBC 11-25 H Urine WBC 0-3 Ur Squamous Epith Cells NONE SEEN Urine Bacteria Few Ur Microscopic Review INDICATED Urine Culture Comments NOT INDICATED Nasal Adenovirus (PCR) NOT DETECTED Nasal B. parapertussis DNA (PCR) NOT DETECTED Nasal Coronavir 229E PCR NOT DETECTED Nasal Coronavir HKU1 PCR NOT DETECTED Nasal Coronavir NL63 PCR NOT DETECTED Nasal Coronavir OC43 PCR NOT DETECTED Nasal Enterovir/Rhinovir PCR NOT DETECTED Nasal Influenza B PCR NOT DETECTED Nasal Influenza A PCR NOT DETECTED Nasal Parainfluen 1 PCR NOT DETECTED Nasal Parainfluen 2 PCR NOT DETECTED Nasal Parainfluen 3 PCR NOT DETECTED Nasal Parainfluen 4 PCR NOT DETECTED Nasal RSV (PCR) NOT DETECTED Nasal B.pertussis DNA PCR NOT DETECTED Nasal C.pneumoniae (PCR) NOT DETECTED Chon Human Metapneumo PCR NOT DETECTED Nasal M.pneumoniae (PCR) NOT DETECTED Nasal SARS-CoV-2 (PCR) NOT DETECTED PD Medical Decision Making - ED course Complexity details: reviewed results, re-evaluated patient, d/w patient, d/w family ED course: 09 -Patient seems much more awake. He is easily able to tell me his name and that he fell yesterday and knows that he is at a hospital and would be. He is able to tell me that he has pain in his low back. I did review his images with him and reviewed the findings of a compression fracture in his back. Discussed plan for p.o. pain medications as well as lidocaine patch and reassessment. Patient presenting for evaluation after a ground-level fall last night where he did strike his head. He is on Pradaxa. His CT head and C-spine were obtained. Patient received fentanyl from EMS and it was not able to provide much history initially so a CT of the chest and abdomen pelvis were also done.I reviewed these images as well and that there appears to be a compression fracture of L1. No other deformities noted.Patient appeared improved once fentanyl had worn off and was able to tell me that he was at the hospital being evaluated after a fall and that he hurt in his low back. Labs were reviewed. Patient has baseline anemia which is unchanged. He did tolerate p.o. pain medication and was able to ambulate steadily with a walker. His came to the emergency department and they were comfortable with plan for discharge with continued pain medication. Departure - Departure Disposition: 01 Home, Self Care Clinical Impression: Fall at home, Compression fracture of L1 lumbar vertebra Condition: Stable Instructions: ED Fx Comp Vertebral Prescriptions: Lidocaine Patch 5% [Lidoderm Patch] 1 patch TOP DAILY PRN #10 patch PRN Reason: pain Oxycodone HCl/Acetaminophen [Percocet 5-325 mg Tablet] 1 each PO Q6H PRN #14 tablet PRN Reason: pain Comments: You have a compression fracture of your L1 vertebra which is in your low back. I have sent a prescription for pain medication and lidocaine patches to [facility] in [place]. I would recommend close follow-up with your primary care doctor. I would recommend that you continue to use a walker to help you get around at home. If you have any new or worsening symptoms please consider return to the emergency department. I am prescribing a short course of narcotic pain medication for you. These are potentially dangerous and addictive medications that should be used carefully. These medications may constipate you. Take an ngrk-aci-wfbgrpt stool softener (docusate) twice daily with plenty of water while taking these medications. If you go 24 hours without a bowel movement, take yxrw-pcy-obrzyqa miralax, per package instructions. Do not drink or drive while taking these medications. If you received narcotic or sedating medications while in the emergency department, do not drive for 24 hours. Store this medication in a safe, secure place and out of reach of children. It is a violation of federal law to give or sell this medication to another person or to use in a manner other than prescribed. The ED will not refill narcotic prescriptions, including prescriptions lost or stolen. To dispose of unwanted medications: 1. [facility] [address] in [place] has a medication drop box. They accept prescription medications (in pill form) Monday through Monday 9:00 a.m. to 5:00 p.m. 2. The [facility] [employer] accepts prescription medications (in pill form only) for disposal year round. Call for more informati on. 3. Contact the [facility] for the next [facility] sponsored prescription drug collection event. , [phone], or [phone]; Note that many narcotic pain relievers also contain Tylenol/acetaminophen. Please ensure that your total dose of acetaminophen from all sources does not exceed 3 g (3000 mg) per day. Discharge Date/Time: 11/24/22 11:20
--- NOTE | 2022-11-24 09:23 | CT Report ---
PROCEDURE: CHEST W INDICATIONS: fall/pain CONTRAST:100ml OMnipaque 300 TECHNIQUE: After the administration of intravenous contrast, 1 mm axial images were acquired from the pulmonary apices through the posterior costophrenic angles. Axial 5 mm soft tissue kernel reconstructions were performed as well as 8 mm axial MIP and coronal and sagittal 5 mm reformations. For radiation dose reduction, the following was used: automated exposure control, adjustment of mA and/or kV according to patient size. COMPARISON: None. FINDINGS: Image quality: Excellent. Lungs and pleura: Dependent atelectasis in posterior aspect of bilateral lung castillo are seen. No angelito dence of pulmonary contusion or laceration. No acute air space opacities. No pleural effusions or pn eumothorax. Central and peripheral airways are patent and normal in caliber. Mediastinum: Heart size is enlarged. No pericardial effusion. Mild to moderate atherosclerotic calc ifications in coronary vessels and thoracic aorta are seen. No mediastinal hematoma. No mediastinal o r hilar adenopathy by size criteria. Thoracic aorta and central pulmonary arteries are normal in siz e. Esophagus is normal in caliber. Moderate sized hiatal hernia. Bones and chest wall: No suspicious bony lesions. Acute appearing compression deformity involving lara perior endplate of L1 is seen with up to 20% loss of L1 vertebral body height anteriorly. This is a n ew finding since 11/21/2020 study. Degenerative endplate changes are noted throughout thoracic spine v ertebral bodies. No axillary or supraclavicular adenopathy by size criteria. The thyroid is normal i n size and there are no incidental findings.. Abdomen: Visualized upper abdominal solid organs appear normal. Upper abdominal bowel loops are nor mal in caliber. IMPRESSION: 1. Acute appearing superior endplate compression deformity at L1 level with up to 20% loss of L1 vert ebral body height. No significant retropulsion of the posterior wall is seen. No other compression fr acture or spondylolisthesis. 2. No acute rib fracture is seen. 3. Dependent atelectasis in posterior aspect of bilateral lung castillo. No pulmonary contusion or lace ration. No pleural effusion or pneumothorax. Airway is patent. 4. Cardiomegaly, no pericardial effusion. No mediastinal hematoma or lymphadenopathy. CLINICAL RECOMMENDATION STATEMENTS: In patients <35 years with an ITN detected on CT, MRI, or extrathyroidal ultrasound, the Committee re commends further evaluation with dedicated thyroid ultrasound if the nodule is "e1 cm and has no susp icious imaging features, and if the patient has normal life expectancy. In patients "e35 years with an ITN detected on CT, MRI, or extrathyroidal ultrasound, the Committee r ecommends further evaluation with dedicated thyroid ultrasound if the nodule is "e1.5 cm and has no s uspicious imaging features, and if the patient has normal life expectancy. (ACR, 2014) Reviewed by: Trenton Conroy MD on 11/24/2022 9:22 AM PST Approved by: Trenton Conroy MD on 11/24/2022 9:22 AM PST Station ID: [id number]
[2022-11-24 09:26] LABS: B. PARAPERTUSSIS- RESP PCR PAN NOT DETECTED; B. PERTUSSIS- RESP PCR PANEL NOT DETECTED; C. PNEUMONIAE- RESP PCR PANEL NOT DETECTED; CORONAVIRUS 229E-RESP PCR NOT DETECTED; CORONAVIRUS HKU1-RESP PCR NOT DETECTED; CORONAVIRUS NL63-RESP PCR NOT DETECTED; CORONAVIRUS OC43-RESP PCR NOT DETECTED; HUMAN METAPNEUMOVIRUS NOT DETECTED; INFLUENZA A- RESP PCR PANEL NOT DETECTED; INFLUENZA B - RESP PCR PANEL NOT DETECTED; M. PNEUMONIAE- RESP PCR PANEL NOT DETECTED; PARAINFLUENZA VIRUS 1 NOT DETECTED; PARAINFLUENZA VIRUS 2 NOT DETECTED; PARAINFLUENZA VIRUS 3 NOT DETECTED; PARAINFLUENZA VIRUS 4 NOT DETECTED; RHINOVIRUS/ENTEROVIRUS NOT DETECTED; RSV- RESP PCR PANEL NOT DETECTED; SARS-CoV-2 -RESP PCR PANEL NOT DETECTED
--- NOTE | 2022-11-24 09:33 | CT Report ---
PROCEDURE: ABDOMEN/PELVIS W INDICATIONS: fall/pain CONTRAST: 100ml OMnipaque 300 TECHNIQUE: After the administration of IV contrast, 5 mm thick sections acquired from the diaphragms to the symp hysis. 5 mm thick coronal and sagittal reformats were acquired. For radiation dose reduction, the f ollowing was used: automated exposure control, adjustment of mA and/or kV according to patient size. COMPARISON: CT of abdomen and pelvis dated 11/22/2020 and 07/03/2020. FINDINGS: Image quality: Excellent. ABDOMEN: Lung bases: Dependent atelectasis in posterior aspect of bilateral lung bases are seen. Heart size is enlarged, no pericardial effusion. Solid organs: Liver is normal in size and enhancement. Again noted is prior splenectomy and multiple soft tissue masses seen in high left upper quadrant consistent with splenosis unchanged from prior st udies. Gallbladder is within normal limits. Biliary system is non dilated. Pancreas enhances normal ly. No adrenal nodules. Kidneys demonstrate normal size and enhancement, without hydronephrosis. B ilateral renal cysts are seen not significantly changed from prior studies. Peritoneum and bowel: Bowel loops demonstrate normal wall thickness and caliber. No free fluid or a ir. Nodes and vessels: No retroperitoneal or mesenteric adenopathy by size criteria. Aorta and inferior vena cava are normal in size. Moderate atherosclerotic calcifications throughout abdominal aorta an d bilateral iliac vessels are noted. Miscellaneous: Small umbilical hernia is noted containing fat only. PELVIS: Genitourinary: Bladder wall thickness is normal. Large right posterior lateral bladder wall diverti culum is again seen unchanged from prior studies. No discrete bladder wall mass is noted. Miscellaneous: No inguinal hernias or adenopathy. Large right hydrocele is seen. Bones: Patient is status post left total hip arthroplasty. No gross hardware loosening or failure is seen. No suspicious bony lesions. Acute appearing compression fracture involving superior endplate o f L1 with up to 20% loss of L1 vertebral body height anteriorly. No other compression fracture. Degen erative disc disease throughout lower thoracic and lumbar spine is seen. IMPRESSION: 1. No acute solid organ injury within abdomen or pelvis. 2. Acute appearing compression deformity involving superior endplate of L1 as above. No significant r etropulsion of the posterior wall. Degenerative disc disease throughout lower thoracic and lumbar spi ne. No other fracture or dislocation is seen. Prior left total hip arthroplasty. 3. Chronic findings as above, unchanged from prior studies. Reviewed by: Trenton Conroy MD on 11/24/2022 9:32 AM PST Approved by: Trenton Conroy MD on 11/24/2022 9:32 AM PST Station ID: [id number]
[2022-11-24 09:43] LABS: BILIRUBIN,URINE NEGATIVE (NEGATIVE); GLUCOSE, URINE (UA) NEGATIVE (NEGATIVE); KETONES,URINE (UA) NEGATIVE (NEGATIVE); LEUKOCYTE ESTERASE, URINE NEGATIVE (NEGATIVE); NITRITE,URINE NEGATIVE (NEGATIVE); OCCULT BLOOD,URINE MODERATE (NEGATIVE); PROTEIN,URINE NEGATIVE (NEGATIVE); UROBILINOGEN,URINE 0.2 (NORMAL) E.U./dL (NORMAL)
[2022-11-24] MEDS ORDERED: LIDOCAINE PATCH 5% TOP STA (09:45)
[2022-11-24] MEDS ORDERED: oxyCODONE 5 MG TABLET PO STA (09:46)
[2022-11-24] MEDS ORDERED: ACETAMINOPHEN 325 MG TABLET PO STA (09:46)
[2022-11-24 09:47] LABS: CLARITY,URINE CLEAR (CLEAR)
[2022-11-24 09:59] LABS: BACTERIA,URINE Few /HPF (None Seen); SQUAMOUS EPITHELIAL CELL,UR NONE SEEN (<= Few); WBC,URINE 0-3 /HPF (0-3)
--- NOTE | 2022-11-24 10:23 | XRAY Report ---
PROCEDURE: Chest 1 View X-Ray INDICATIONS: fall TECHNIQUE: One view of the chest was acquired. COMPARISON: Chest x-ray 01/26/2021. FINDINGS: Surgical changes and devices: None. Lungs and pleura: No pleural effusions or pneumothorax. Lungs are clear. Mediastinum: Mediastinal contours appear normal. Heart size is normal. Bones and chest wall: No suspicious bony lesions. Overlying soft tissues appear unremarkable. IMPRESSION: No acute pulmonary process. Reviewed by: Stephanie Patel MD on 11/24/2022 10:21 AM [facility] Approved by: Stephanie Patel MD on 11/24/2022 10:21 AM [facility] Station ID: [id number]
[2022-11-24 10:48] VITALS: BP 142/74
== END 2022-11-24 11:20 | disposition home or self-care (01) ==
LOC: EDUNIT# → ED 07:21
DX: S32.010A Wedge compression fracture of first lumbar vertebra, initial encounter for closed fracture (principal); W18.30XA Fall on same level, unspecified, initial encounter; Y92.003 Bedroom of unspecified non-institutional (private) residence as the place of occurrence of the external cause; Z20.822 Contact with and (suspected) exposure to COVID-19
CPT/HCPCS: 36415; 70450; 71045; 71260; 72125; 74177; 80053; 81001; 83690; 85025; 85610; 87633; 93005; 96374; 99284; A9270; Q9967; 81003; 87086

== ENCOUNTER 2022-11-24 16:06 | Outpatient (CLI) | payer MEDICARE | END 2022-11-24 16:07 | disposition critical access hospital (66) | LOC: EMS 16:06 | DX: M54.9 Dorsalgia, unspecified (principal); Z74.1 Need for assistance with personal care | CPT/HCPCS: A0425; A0427 ==

== ENCOUNTER 2022-11-24 16:41 | Emergency (ER) | payer MEDICARE ==
[2022-11-24] MEDS ORDERED: ONDANSETRON 4 MG/2 ML VIAL IVP PRN (17:37)
--- NOTE | 2022-11-24 18:04 | ED Physician Documentation ---
History of Present Illness - Stated complaint Stated Complaint: GLF - Chief complaint Chief Complaint: Trauma Ch/Bk - History obtained from History obtained from: Family (Patient's ) - Additonal information Additional information: Patient is an 82-year-old male with a history of dementia, on Pradaxa presenting for evaluation after a fall and continued low back pain. He was seen this morning after a fall last night at home. He was evaluated with a CT head, cervical spine, chest abdomen pelvis and found to have an L1 compression fracture.He was initially given fentanyl from EMS and was very drowsy and not able to give much information but once that had metabolized he was much more lucid and able to tell us where his pain was. He was tolerating p.o. pain medications and is able to ambulate here with a walker. took him home. When they got home she states that he had difficulties getting out of the car and she was having trouble helping him and he slumped down. He did not hit his head or have LOC. She was able to get some neighbors to come help and get him into the home and placed him into a recliner. She was not able to get the pain medication filled at [facility] as they did not have the prescription ready yet.He slept for a few hours and when he woke up wanted to use the bathroom and could not get back up due to having severe pain in his low back.EMS gave 100 mcg of fentanyl for transport. Review of Systems Unable to obtain: Dementia Constitutional: reports: Fever PD PAST MEDICAL HISTORY - Past Medical History Cardiovascular: Hypertension, High cholesterol, Atrial fibrillation Respiratory: None Neuro: Dementia, CVA Endocrine/Autoimmune: None GI: None : Benign prostate hypertrophy, Retention, Incontinence, Indwelling catheter HEENT: None Psych: Anxiety, Other Musculoskeletal: Chronic back pain Derm: None - Past Surgical History Past Surgical History: Yes General: Splenectomy, Other Ortho: Hip replacement, Knee replacement HEENT: Tonsil/Adenoidectomy, Other - Present Medications Home Medications: Ambulatory Orders Medication Instructions Recorded Confirmed Finasteride [Proscar] 5 mg PO DAILY tablet 07/07/20 11/21/20 Tamsulosin [Flomax] 0.4 mg PO DAILY #30 capsule 07/07/20 11/21/20 Walker [Ultra-Light Rollator] 1 each MC DAILY #1 each 07/07/20 11/21/20 Donepezil [Aricept] 5 mg PO DAILY PM 11/21/20 11/21/20 QUEtiapine [SEROquel] 75 mg PO DAILY PM 11/21/20 11/22/20 Dabigatran Etexilate Mesylate 150 mg PO BID 11/22/20 11/22/20 [Pradaxa] Ciprofloxacin HCl [Cipro] 500 mg PO BID #14 tablet 11/23/20 Ofloxacin 0.3% Ophth Drops 2 drops EACHEYE QID #1 bottle 11/23/20 [Ocuflox 0.3% Ophth Drops] Lidocaine Patch 5% [Lidoderm Patch] 1 patch TOP DAILY PRN #10 patch 11/24/22 Oxycodone HCl/Acetaminophen 1 each PO Q6H PRN #14 tablet 11/24/22 [Percocet 5-325 mg Tablet] - Allergies Allergies/Adverse Reactions: Allergies Allergy/AdvReac Type Severity Reaction Status Date / Time No Known Drug Allergies Allergy Verified 01/26/21 10:26 - Social History Does the pt smoke?: No Smoking Status: Never smoker Does the pt drink ETOH?: Yes Does the pt have substance abuse?: No - Immunizations Immunizations are current?: Yes - POLST Patient has POLST: No POLST Status: Full Code PD ED PE NORMAL - General General: No acute distress, Well developed/nourished, Other (Alert and oriented to person and place) - HEENT HEENT: Atraumatic, PERRL, EOMI, Moist mucous membranes, Pharynx benign - Neck Neck: Supple, no meningeal sign - Cardiac Cardiac: RRR - Respiratory Respiratory: No respiratory distress - Abdomen Abdomen: Soft, Non tender, Non distended - Back Back: Other (Low lumbar tenderness to palpation) - Extremities Extremities: No tenderness to palpate - Neuro Neuro: No motor deficit, No sensory deficit, Normal speech. No: Alert and oriented X 3 (Alert and oriented to person and place) Eye Opening: Spontaneous Motor: Obeys Commands Verbal: Confused GCS Score: 14 Results - Vitals Vitals: Vital Signs - 24 hr 11/24/22 16:56 Temperature 37.0 C Heart Rate 82 Respiratory 19 Rate Blood Pressure 167/105 H O2 Saturation 94 Oxygen O2 Source [With Activity] Room air O2 Source Room air PD Medical Decision Making - ED course ED course: Patient is seen in the emergency department for the second time today after a fall. He was seenThis morning after a fall and found to have an L1 compression fracture. He did have another fall when he was discharged home but did not hit his head and did not sound like he had significant trauma with the second fall.He was helped back into a chair. And the was not able to get his pain medications when he woke up from his nap had severe pain and she was unsure what to do so called EMS.Patient's exam here appears unchanged. He had a thorough work-up this morning with a CT of his head, cervical spine chest abdomen and pelvis and I do not feel he needs a repeat. His labs were also reviewed from this morning without significant findings.At this time her goal will be pain control and to ambulate the patient. states that she is not able to take him home this evening as she does not drive at night. I offered to send home pain medication with him and we could arrange for ambulance transfer due to his dementia and compression fracture but she states that she does not feel comfortable with this plan and cannot accept him home tonight.We will plan to have social work evaluate the patient and speak to the tomorrow to see how we can further support them at home. At this time I do not feel he needs admission to the hospital for his L1 compression fracture. Patient will be signed out at shift change. Departure - Departure Clinical Impression: Compression fracture of L1 lumbar vertebra, Dementia Condition: Stable
[2022-11-24] MEDS: oxyCODONE 5 MG TABLET PO PRN (18:37)
[2022-11-24] MEDS: ACETAMINOPHEN 500 MG TABLET PO PRN (18:37)
[2022-11-24] MEDS ORDERED: oxyCODONE 5 MG TABLET PO STA (21:10)
[2022-11-25] MEDS: oxyCODONE 5 MG TABLET PO PRN ×3 (02:14→15:06)
[2022-11-25] MEDS: ACETAMINOPHEN 500 MG TABLET PO PRN (02:14)
[2022-11-25 02:19] LABS: BILIRUBIN,URINE NEGATIVE (NEGATIVE); GLUCOSE, URINE (UA) NEGATIVE (NEGATIVE); KETONES,URINE (UA) TRACE mg/dL (NEGATIVE); LEUKOCYTE ESTERASE, URINE NEGATIVE (NEGATIVE); NITRITE,URINE NEGATIVE (NEGATIVE); OCCULT BLOOD,URINE LARGE (NEGATIVE); PROTEIN,URINE TRACE mg/dL (NEGATIVE); UROBILINOGEN,URINE 0.2 (NORMAL) E.U./dL (NORMAL)
[2022-11-25 02:25] LABS: BACTERIA,URINE Rare /HPF (None Seen); CLARITY,URINE HAZY (CLEAR); MUCUS,URINE Few Strands; RBC,URINE TNTC /HPF (0-5); SQUAMOUS EPITHELIAL CELL,UR NONE SEEN (<= Few); WBC,URINE 0-3 /HPF (0-3)
[2022-11-25 05:45] LABS: BASOPHILS # (AUTO) 0.1 10^3/uL (0.0-0.1); BASOPHILS % (AUTO) 0.4 %; EOSINOPHILS % (AUTO) 0.3 %; HCT - HEMATOCRIT 44.7 % (42.0-52.0); HGB - HEMOGLOBIN 14.5 g/dL (14.0-18.0); LYMPHOCYTES # (AUTO) 1.3 10^3/uL (1.5-3.5); LYMPHOCYTES % (AUTO) 11.1 %; MEAN CORPUSCULAR HEMOGLOBIN 32.1 pg (27.0-31.0); MEAN CORPUSCULAR HGB CONC 32.4 g/dL (32.0-36.0); MEAN CORPUSCULAR VOLUME 98.9 fL (80.0-94.0); MEAN PLATELET VOLUME 10.7 fL (7.4-11.4); MONOCYTES # (AUTO) 0.9 10^3/uL (0.0-1.0); MONOCYTES % (AUTO) 7.4 %; NEUTROPHILS # (AUTO) 9.5 10^3/uL (1.5-6.6); NEUTROPHILS % (AUTO) 80.5 %; PLT - PLATELET COUNT 169 10^3/uL (130-450); RED BLOOD COUNT 4.52 10^6/uL (4.70-6.10); RED CELL DISTRIBUTION WIDTH 13.4 % (12.0-15.0); WHITE BLOOD COUNT 11.8 x10^3/uL (4.8-10.8)
[2022-11-25 05:46] LABS: CALCIUM 8.9 mg/dL (8.5-10.3); POTASSIUM 4.2 mmol/L (3.5-5.0)
[2022-11-25] MEDS: PANTOPRAZOLE 40 MG TABLET PO SCH (06:22)
[2022-11-25] MEDS ORDERED: QUEtiapine 25 MG TABLET PO STA ×2 (08:54→16:08)
[2022-11-25] MEDS ORDERED: DONEPEZIL 5 MG TABLET PO STA (08:55)
[2022-11-25] MEDS: ACETAMINOPHEN 325 MG TABLET PO SCH ×4 (09:29→21:08)
[2022-11-25] MEDS: oxyCODONE 5 MG TABLET PO SCH ×2 (09:29→21:09)
--- NOTE | 2022-11-25 14:02 | ED Physician Documentation ---
ED Addendum - Addendum Addendum: 11/25/22 13:56 The patient was reportedly very restless overnight and calling for assistance in trying to get out of bed often. I looked at his medication list and it actually included Seroquel 75 mg and Aricept 5 mg at night which she had not had. I think this likely accounts for some of his agitation. He could also relate to back pain. He was receiving pain medications as needed but question would be whether he was able to ask for them. I changed order from oxycodone and Tylenol as needed every 6 hours to straight dosing of acetaminophen 650 mg 4 times daily and then oxycodone 5 mg twice daily with continuing of the every 6 hours if needed interpose doses. We will see if this is more effective for him. Social work is working on getting him to [facility] today or tomorrow. Temporary orders were filled out for placement. Social work will work on getting the rest from his primary care. I wrote a prescription for the oxycodone and also some nasal calcitonin which can be helpful in compression fracture. I sent these to [facility] in [place] which is listed as his preferred pharmacy.
[2022-11-25] MEDS: DONEPEZIL 5 MG TABLET PO SCH (21:09)
[2022-11-25] MEDS: QUEtiapine 25 MG TABLET PO SCH (21:09)
[2022-11-26] MEDS: oxyCODONE 5 MG TABLET PO PRN ×2 (05:18→15:05)
[2022-11-26] MEDS: PANTOPRAZOLE 40 MG TABLET PO SCH (06:37)
[2022-11-26] MEDS ORDERED: TAMSULOSIN 0.4 MG CAPSULE PO STA (07:30)
[2022-11-26] MEDS: oxyCODONE 5 MG TABLET PO SCH ×2 (08:57→20:28)
[2022-11-26] MEDS: ACETAMINOPHEN 325 MG TABLET PO SCH ×4 (08:57→20:28)
--- NOTE | 2022-11-26 09:57 | ED Physician Documentation ---
ED Addendum - Addendum Addendum: 11/26/22 09:54 The patient reportedly rested with some restlessness overnight. He had received his p.m. medications and that seemed to do better last night than the night before when he had not had them. He was not remembering directions and explanations well this morning similar to expected for dementia. He is awake and conversant otherwise. He was having some small urine outputs. He is typically on tamsulosin and finasteride and had not had those. I reordered the tamsulosin. We do not have finasteride and stock here. Hopefully this will improve his urine output. He was having some urinary retention and a bladder scanner had 400 mL during the night and did seem a littl e bit restless at the time. He had a in and out catheterization and seem to be less restless. We will check bladder scanner periodically and I have ordered it for every 4-6 hours. Hopefully he will be urinating and enough to not have too large of a residual as he was more bothered by the Neumann catheter yesterday. The expectation is for the patient to go to [facility] today. Social work should be in a while and help facilitate that but that was the plan yesterday.
[2022-11-26] MEDS ORDERED: QUEtiapine 25 MG TABLET PO PRN (17:35)
--- NOTE | 2022-11-26 17:40 | ED Physician Documentation ---
ED Addendum - Addendum Addendum: 11/26/22 17:39 Nursing staff has requested and as needed for anxiety and agitation. The patient has intermittently been requiring in and out catheterizations and nursing staff just did a bladder scan which showed more than 500 of urine. They attempted to get the patient to urinate but he was unable thus and in and out was completed. They report his agitation has improved. Nonetheless I have written for a twice daily as needed Seroquel of 25 mg. I have asked nursing staff to make sure that they are doing a bladder scan to assess for urinary obstruction as a cause of agitation before medicating him.
[2022-11-26] MEDS: QUEtiapine 25 MG TABLET PO SCH (20:28)
[2022-11-26] MEDS: DONEPEZIL 5 MG TABLET PO SCH (20:28)
[2022-11-26] MEDS: DABIGATRAN 75 MG CAPSULE PO SCH (21:02)
[2022-11-27] MEDS: PANTOPRAZOLE 40 MG TABLET PO SCH (09:24)
[2022-11-27] MEDS: ACETAMINOPHEN 325 MG TABLET PO SCH ×4 (09:25→20:49)
[2022-11-27] MEDS: oxyCODONE 5 MG TABLET PO SCH ×2 (09:25→20:49)
[2022-11-27] MEDS: DABIGATRAN 75 MG CAPSULE PO SCH (09:38)
[2022-11-27] MEDS: APIXABAN 5 MG TABLET PO SCH ×2 (09:38→20:49)
[2022-11-27] MEDS ORDERED: APIXABAN 2.5 MG TABLET PO SCH (10:00)
[2022-11-27] MEDS: oxyCODONE 5 MG TABLET PO PRN (15:12)
[2022-11-27] MEDS: QUEtiapine 25 MG TABLET PO SCH (20:49)
[2022-11-27] MEDS: DONEPEZIL 5 MG TABLET PO SCH (20:49)
[2022-11-28] MEDS: PANTOPRAZOLE 40 MG TABLET PO SCH (06:59)
[2022-11-28] MEDS: APIXABAN 5 MG TABLET PO SCH ×2 (09:20→20:43)
[2022-11-28] MEDS: ACETAMINOPHEN 325 MG TABLET PO SCH ×4 (09:20→20:45)
[2022-11-28] MEDS: oxyCODONE 5 MG TABLET PO SCH ×2 (09:20→20:44)
--- NOTE | 2022-11-28 17:19 | ED Physician Documentation ---
ED Addendum - Addendum Addendum: 11/28/22 17:18 82-year-old male continues to board in the emergency department. In brief this gentleman does have a history of dementia. He has been boarding here now for a number of days as his does not feel that she can continue to care for him at home. She is hoping that he will be able to go to a fpc facility though social work has explained to the patient that fpc facility may not be appropriate if there is no diagnosis from which we would expect him to recover. He does have a known L1 fracture. Over the last 24 hours vital signs have been reviewed. He does have some modest hypertension though this is in the setting of a known history of hypertension. He appears to be eating his diet. Social work continues to work with [place] and insurance for authorization for further evaluation and placement which may include respite care versus fpc facility.
[2022-11-28] MEDS: QUEtiapine 25 MG TABLET PO SCH (20:41)
[2022-11-28] MEDS: DONEPEZIL 5 MG TABLET PO SCH (20:44)
[2022-11-29] MEDS: PANTOPRAZOLE 40 MG TABLET PO SCH (06:34)
[2022-11-29] MEDS: ACETAMINOPHEN 325 MG TABLET PO SCH ×2 (09:19→13:56)
[2022-11-29] MEDS: APIXABAN 5 MG TABLET PO SCH (09:20)
[2022-11-29] MEDS: oxyCODONE 5 MG TABLET PO SCH (09:20)
[2022-11-29 13:59] VITALS: BP 140/75
--- NOTE | 2022-11-29 14:16 | ED Physician Documentation ---
ED Addendum - Addendum Addendum: Patient has been boarding in the emergency department overnight. He has a nonoperative compression fracture in his back. Pt has been Accepted to [facility]. He has been resting comfortably This morning without any complaints. Departure - Departure Disposition: 01 Home, Self Care Clinical Impression: Compression fracture of L1 lumbar vertebra, Dementia Condition: Stable Instructions: ED Fx Comp Vertebral Follow-Up: [facility] [Provider Group] Prescriptions: Calcitonin [Fortical] 1 sprays GARRETT DAILY #1 each oxyCODONE [Roxicodone] 5 mg PO Q6H PRN #20 tablet PRN Reason: Pain
== END 2022-11-29 15:25 | disposition home or self-care (01) ==
LOC: EDUNIT# → ED 16:41
DX: F03.90 Unspecified dementia, unspecified severity, without behavioral disturbance, psychotic disturbance, mood disturbance, and anxiety (principal); S32.010A Wedge compression fracture of first lumbar vertebra, initial encounter for closed fracture; W18.30XA Fall on same level, unspecified, initial encounter; R33.9 Retention of urine, unspecified; I10 Essential (primary) hypertension; Z76.4 Other boarder to healthcare facility; Z75.1 Person awaiting admission to adequate facility elsewhere; Z20.822 Contact with and (suspected) exposure to COVID-19
CPT/HCPCS: 36415; 51798; 80048; 81001; 85025; 87635; A9270; 81003; 87086

== ENCOUNTER 2022-11-29 15:31 | Outpatient (CLI) | payer MEDICARE | END 2022-11-29 15:32 | LOC: EMS 15:31 | PROVIDERS: ATTEND Emergency Medicine | DX: R53.1 Weakness (principal); R41.0 Disorientation, unspecified; R29.6 Repeated falls; M48.56XA Collapsed vertebra, not elsewhere classified, lumbar region, initial encounter for fracture | CPT/HCPCS: A0425; A0428 ==

== ENCOUNTER 2023-01-30 08:00 | Outpatient (CLI) | payer MEDICARE | END 2023-01-30 23:59 | disposition home or self-care (01) | LOC: LAB.S 08:00 | PROVIDERS: ATTEND Physician Assistant | DX: R30.0 Dysuria (principal) | CPT/HCPCS: 87086 ==

== ENCOUNTER 2023-03-10 10:00 | Outpatient (CLI) | payer MEDICARE | END 2023-03-10 10:01 | disposition home or self-care (01) | LOC: LAB.S 10:00 | PROVIDERS: ATTEND Urology | DX: N39.0 Urinary tract infection, site not specified (principal) | CPT/HCPCS: 87077; 87086; 87181 ==

== ENCOUNTER 2023-03-20 13:29 | Emergency (ER) | payer MEDICARE ==
--- NOTE | 2023-03-20 14:18 | ED Physician Documentation ---
History of Present Illness - Stated complaint Stated Complaint: LT ARM PX/UNABLE TO WALK/ WEAKNESS - Chief complaint Chief Complaint: Neuro - History obtained from History obtained from: Patient, Family - History of Present Illness Pain level max: 0 Pain level now: 0 - Additonal information Additional information: 82-year-old male with a history of dementia, brought in by his today. She has noticed over the past 2 to 3 days that he has been weaker than usual. Has a history of chronic recurrent UTIs and has been on multiple antibiotics. Currently is finishing ciprofloxacin. Noted hematuria starting yesterday. No fevers. No chills. Has a history of recurrent urosepsis. Sees urology at [facility] in [place]. She states last night he did complain of left arm pain. Today she noticed him weaker than yesterday. He kept picking up his walker like he did not know how to use it. Seemed more confused than usual. Did not have any focal neurological deficits. 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 No difficulty with speech or swallowing. His caregiver told the that she had more trouble bathing him today than usual as well. also is concerned that the glans of the penis is red and swollen. No abdominal pain. No vomiting. History is limited secondary to dementia. Review of Systems Unable to obtain: Dementia PD PAST MEDICAL HISTORY - Past Medical History Cardiovascular: Hypertension, High cholesterol, Atrial fibrillation Respiratory: None Neuro: Dementia, CVA Endocrine/Autoimmune: None GI: None : Benign prostate hypertrophy, Retention, Incontinence, Indwelling catheter HEENT: None Psych: Anxiety, Other Musculoskeletal: Chronic back pain Derm: None - Past Surgical History Past Surgical History: Yes General: Splenectomy, Other Ortho: Hip replacement, Knee replacement HEENT: Tonsil/Adenoidectomy, Other - Present Medications Home Medications: Ambulatory Orders Medication Instructions Recorded Confirmed Finasteride [Proscar] 5 mg PO DAILY tablet 07/07/20 11/26/22 Tamsulosin [Flomax] 0.4 mg PO DAILY #30 capsule 07/07/20 11/26/22 Walker [Ultra-Light Rollator] 1 each MC DAILY #1 each 07/07/20 11/21/20 QUEtiapine [SEROquel] 75 mg PO DAILY PM 11/21/20 11/25/22 Dabigatran Etexilate Mesylate 150 mg PO BID 11/22/20 11/26/22 [Pradaxa] Lidocaine Patch 5% [Lidoderm Patch] 1 patch TOP DAILY PRN #10 patch 11/24/22 11/25/22 Oxycodone HCl/Acetaminophen 1 each PO Q6H PRN #14 tablet 11/24/22 11/25/22 [Percocet 5-325 mg Tablet] Calcitonin [Fortical] 1 sprays GARRETT DAILY #1 each 11/25/22 oxyCODONE [Roxicodone] 5 mg PO Q6H PRN #20 tablet 11/25/22 Cefpodoxime Proxetil [Vantin] 100 mg PO Q12H #14 tablet 03/20/23 Mupirocin 2% Oint [Bactroban 2% 1 applic TOP BID #22 gm 03/20/23 Oint] - Allergies Allergies/Adverse Reactions: Allergies Allergy/AdvReac Type Severity Reaction Status Date / Time No Known Drug Allergies Allergy Verified 03/20/23 13:37 - Social History Does the pt smoke?: No Smoking Status: Never smoker Does the pt drink ETOH?: Yes Does the pt have substance abuse?: No - Immunizations Immunizations are current?: Yes - POLST Patient has POLST: No POLST Status: Full Code PD ED PE NORMAL - Vitals Vital signs reviewed: Yes - General General: No acute distress, Well developed/nourished, Other (Alert, oriented to person only.) - HEENT HEENT: Atraumatic, PERRL, Moist mucous membranes, Pharynx benign - Neck Neck: Supple, no meningeal sign - Cardiac Cardiac: RRR, Strong equal pulses - Respiratory Respiratory: No respiratory distress, Clear bilaterally - Abdomen Abdomen: Soft, Non tender, Non distended - Male Male : Other (Mild redness and swelling to the glans of the penis.) - Back Back: No CVA TTP, No spinal TTP - Derm Derm: Warm and dry - Extremities Extremities: No deformity, No edema, No calf tenderness / cord - Neuro Neuro: No motor deficit, No sensory deficit Eye Opening: Spontaneous Motor: Obeys Commands Verbal: Confused GCS Score: 14 Results - Vitals Vitals: Vital Signs - 24 hr 03/20/23 03/20/23 03/20/23 13:37 15:45 16:30 Temperature 36.6 C Heart Rate 91 87 77 Respiratory 16 16 20 Rate Blood Pressure 102/64 108/73 O2 Saturation 99 97 100 Oxygen O2 Source [With Activity] Room air O2 Source Room air - Labs Labs: Laboratory Tests 03/20/23 03/20/23 03/20/23 14:22 14:22 14:22 WBC 11.2 H RBC 3.83 L Hgb 12.4 L Hct 39.5 L MCV 103.1 H MCH 32.4 H MCHC 31.4 L RDW 14.1 Plt Count 295 MPV 10.6 Neut # (Auto) 8.1 H Lymph # (Auto) 1.4 L [place] # (Auto) 1.5 H Eos # (Auto) 0.1 Baso # (Auto) 0.1 Absolute Nucleated RBC 0.00 Nucleated RBC % 0.0 PT 14.8 H INR 1.3 H Sodium 141 Potassium 3.8 Chloride 111 Carbon Dioxide 28 Anion Gap 2.0 L BUN 14 Creatinine 0.9 Estimated GFR (MDRD) 81 L Glucose 110 H Lactic Acid Calcium 8.5 Total Bilirubin 0.7 AST 14 ALT < 10 L Alkaline Phosphatase 55 Total Protein 6.6 L Albumin 3.4 Globulin 3.2 Albumin/Globulin Ratio 1.1 Lipase 35 Urine Color Urine Clarity Urine pH Ur Specific [place] Urine Protein Urine Glucose (UA) Urine Ketones Urine Occult Blood Urine Nitrite Urine Bilirubin Urine Urobilinogen Ur Leukocyte Esterase Urine RBC Urine WBC Ur Squamous Epith Cells Urine Bacteria Urine Yeast Ur Microscopic Review Urine Culture Comments 03/20/23 03/20/23 14:26 15:39 WBC RBC Hgb Hct MCV MCH MCHC RDW Plt Count MPV Neut # (Auto) Lymph # (Auto) [place] # (Auto) Eos # (Auto) Baso # (Auto) Absolute Nucleated RBC Nucleated RBC % PT INR Sodium Potassium Chloride Carbon Dioxide Anion Gap BUN Creatinine Estimated GFR (MDRD) Glucose Lactic Acid 1.5 Calcium Total Bilirubin AST ALT Alkaline Phosphatase Total Protein Albumin Globulin Albumin/Globulin Ratio Lipase Urine Color BROWN Urine Clarity CLOUDY Urine pH 6.5 Ur Specific [place] >=1.030 H Urine Protein 100 H Urine Glucose (UA) NEGATIVE Urine Ketones TRACE Urine Occult Blood LARGE H Urine Nitrite POSITIVE H Urine Bilirubin NEGATIVE Urine Urobilinogen 0.2 (NORMAL) Ur Leukocyte Esterase MODERATE H Urine RBC TNTC H Urine WBC >25 H Ur Squamous Epith Cells NONE SEEN Urine Bacteria Few Urine Yeast PRESENT Ur Microscopic Review INDICATED Urine Culture Comments INDICATED - Rads (name of study) Head CT Relevant Findings:: Final report received, See rad report Abdomen pelvis CT Relevant Findings:: Final report received, See rad report Chest x-ray Relevant Findings:: Final report received, See rad report PD Medical Decision Making - ED course Complexity details: reviewed results, re-evaluated patient, considered differential, d/w patient Reviewed Lab Results: CBC shows a mildly elevated white blood cell count. Coagulation studies have a mildly elevated INR. Lactic acid is 1.5. Creatinine normal. ED course: Patient is well-appearing, nontoxic. Afebrile. His urinalysis is consistent with a UTI. No evidence of urosepsis. CT shows bladder diverticulum but no acute abnormalities. No evidence of nephrolithiasis or ureterolithiasis. No evidence of pneumonia. Given IV Rocephin. We will also place on mupirocin for the balanitis. We will have him follow-up with his urologist for further care. Patient was given IV fluids as well. Patient appears to be at his normal gait and balance. No focal neurological deficits to suggest stroke. Family counseled regarding signs and symptoms for which I believe and urgent re-evaluation would be necessary. Family with good understanding of and agreement to plan and is comfortable going home at this time This document was made in part using voice recognition software. While efforts are made to proofread this document, sound alike and grammatical errors may occur. Departure - Departure Disposition: 01 Home, Self Care Clinical Impression: Balanitis UTI (urinary tract infection) Qualifiers: Urinary tract infection type: acute cystitis Hematuria presence: without hematuria Qualified Code(s): N30.00 - Acute cystitis without hematuria Condition: Good Instructions: ED Balanitis, ED UTI Cystitis Male Follow-Up: Ray Warren MD [Primary Care Provider] - Within 1 week Grupo Ramirez MD [Physician No Access] - Prescriptions: Mupirocin 2% Oint [Bactroban 2% Oint] 1 applic TOP BID #22 gm Cefpodoxime Proxetil [Vantin] 100 mg PO Q12H #14 tablet Comments: Follow up with his doctor for further care. We have given him IV fluids and IV antibiotics. You can apply the mupirocin to the head of the penis twice daily to help with the infection there. Make sure to clean and dry the area well. We will change him to a different antibiotic. Please follow-up with his urologist for further care. Discharge Date/Time: 03/20/23 17:05 NIHSS - Time Time: 14:05 - Level of Consciousness Level of consciousness: (0) Alert, Keenly responsive LOC Questions: (1) Answers one Q correctly LOC Commands: (0) Performs both correctly - Gaze Best Gaze: (0) Normal - Visual Visual: (0) No loss - Facial Palsy Facial Palsy: (0) Normal, symmetrical movement - Motor Arms (both separate) Motor Arm (right): (0) No drift Motor Arm (left): (0) No drift - Motor Legs (both separate) Motor Leg (right): (0) No drift Motor Leg (left): (0) No drift - Limb Ataxia Limb Ataxia: (0) Absent - Sensory Sensory: (0) Normal - Best Language Best Language: (0) No aphasia - Dysarthria Dysarthria: (0) Normal - Extinction and Inattention (formally neg Extinction and inattention: (0) No abnormality - Total Score/Results Total Score/Result: 1
--- OUTSIDE RECORDS SUMMARY | 2023-03-20 14:26 | EXTERNAL MEDICAL SUMMARY RPT | Continuity of Care Document ---
Author Name Unknown Address [address] [place] [address] Phone Organization [facility] Address [address] [place] [address] Phone Care Team Providers Care [employer] Cleaning Attendant Name Role Phone Unavailable Unavailable Unavailable u[facility] Patient Registrar, Luiza Unavailable Unavailable Evaristo Chan Pa-C Unavailable Unavailable Medications date description facility 2023-01-30 00:00 cephalexin [facility] [place] 2023-01-30 00:00 cephalexin [facility] [place] 2023-01-31 00:00 cephalexin [facility] [place] 2023-02-02 00:00 cephalexin [facility] [place] 2023-01-30 00:00 ampicillin [facility] [place] 2023-01-30 00:00 ampicillin [facility] [place] 2023-01-30 00:00 cephalexin [facility] [place] 2023-01-30 00:00 cephalexin [facility] [place] 2023-01-31 00:00 cephalexin [facility] [place] 2023-02-02 00:00 cephalexin [facility] [place] 2023-01-30 00:00 ciprofloxacin hcl [facility] [place] 2023-01-30 00:00 ampicillin [facility] [place] 2023-01-30 00:00 sulfamethoxazole-trimethoprim [facility] [place] 2023-01-31 00:00 sulfamethoxazole-trimethoprim [facility] [place] 2023-02-02 00:00 sulfamethoxazole-trimethoprim [facility] [place] 2023-01-30 00:00 ciprofloxacin hcl [facility] [place] 2023-01-30 00:00 sulfamethoxazole-trimethoprim [facility] [place] 2023-01-31 00:00 sulfamethoxazole-trimethoprim [facility] [place] 2023-02-02 00:00 sulfamethoxazole-trimethoprim [facility] [place] 2023-01-30 00:00 sulfamethoxazole-trimethoprim [facility] [place] 2023-01-31 00:00 sulfamethoxazole-trimethoprim [facility] [place] 2023-02-02 00:00 sulfamethoxazole-trimethoprim [facility] [place] 2023-01-30 00:00 cephalexin [facility] [place] 2023-01-30 00:00 cephalexin [facility] [place] 2023-01-31 00:00 cephalexin [facility] [place] 2023-02-02 00:00 cephalexin [facility] [place] 2023-01-30 00:00 ampicillin [facility] [place] 2023-01-30 00:00 cephalexin [facility] [place] 2023-01-30 00:00 cephalexin [facility] [place] 2023-01-31 00:00 cephalexin [facility] [place] 2023-02-02 00:00 cephalexin [facility] [place] 2023-01-30 00:00 sulfamethoxazole-trimethoprim [facility] [place] 2023-01-31 00:00 sulfamethoxazole-trimethoprim [facility] [place] 2023-02-02 00:00 sulfamethoxazole-trimethoprim [facility] [place] 2023-01-30 00:00 ciprofloxacin hcl [facility] [place] 2023-01-30 00:00 ciprofloxacin hcl [facility] [place] Problems date description facility 2023-01-30 00:00 Blood in urine [facility] [place] 2023-01-30 00:00 Dysuria [facility] [place] 2023-01-30 00:00 Hematuria, unspecified [facility] [place] Procedures date description facility 2023-01-30 00:00 Visit Code Hold [facility] [place] 2023-01-30 00:00 POC URINALYSIS DIP [facility] [place] Results/Labs test date author facility value unit interpretation Result panel 1 (unknown) (no date) (unknown) [facility] [place] (no value) (units unknown) (unknown) Result panel 2 (unknown) (no date) (unknown) [facility] [place] (no value) (units unknown) (unknown) Result panel 3 (unknown) (no date) (unknown) [facility] [place] (no value) (units unknown) (unknown) Result panel 4 (unknown) (no date) (unknown) [facility] [place] (no value) (units unknown) (unknown) Result panel 5 (unknown) (no date) (unknown) [facility] [place] (no value) (units unknown) (unknown) Result panel 6 (unknown) (no date) (unknown) [facility] [place] (no value) (units unknown) (unknown) Result panel 7 (unknown) (no date) (unknown) [facility] [place] (no value) (units unknown) (unknown) Result panel 8 (unknown) (no date) (unknown) [facility] [place] (no value) (units unknown) (unknown) Result panel 9 (unknown) (no date) (unknown) [facility] [place] (no value) (units unknown) (unknown) Result panel 10 (unknown) (no date) (unknown) [facility] [place] (no value) (units unknown) (unknown) Result panel 11 (unknown) (no date) (unknown) [facility] [place] (no value) (units unknown) (unknown) Result panel 12 (unknown) (no date) (unknown) [facility] [place] (no value) (units unknown) (unknown) Result panel 13 (unknown) (no date) (unknown) [facility] [place] (no value) (units unknown) (unknown) Result panel 14 (unknown) (no date) (unknown) [facility] [place] (no value) (units unknown) (unknown) Result panel 15 (unknown) (no date) (unknown) [facility] [place] (no value) (units unknown) (unknown) Result panel 16 (unknown) (no date) (unknown) [facility] [place] (no value) (units unknown) (unknown) Result panel 17 (unknown) (no date) (unknown) [facility] [place] (no value) (units unknown) (unknown) Result panel 18 (unknown) (no date) (unknown) [facility] [place] (no value) (units unknown) (unknown) Result panel 19 (unknown) (no date) (unknown) [facility] [place] (no value) (units unknown) (unknown) Result panel 20 (unknown) (no date) (unknown) [facility] [place] (no value) (units unknown) (unknown) Result panel 21 (unknown) (no date) (unknown) [facility] [place] (no value) (units unknown) (unknown) Result panel 22 (unknown) (no date) (unknown) [facility] [place] (no value) (units unknown) (unknown) Result panel 23 (unknown) (no date) (unknown) [facility] [place] (no value) (units unknown) (unknown) Result panel 24 (unknown) (no date) (unknown) [facility] [place] (no value) (units unknown) (unknown) Result panel 25 (unknown) (no date) (unknown) [facility] [place] (no value) (units unknown) (unknown) Result panel 26 (unknown) (no date) (unknown) [facility] [place] (no value) (units unknown) (unknown) Result panel 27 (unknown) (no date) (unknown) [facility] [place] (no value) (units unknown) (unknown) Result panel 28 (unknown) (no date) (unknown) [facility] [place] (no value) (units unknown) (unknown) Result panel 29 (unknown) (no date) (unknown) [facility] [place] (no value) (units unknown) (unknown) Result panel 30 (unknown) (no date) (unknown) [facility] [place] (no value) (units unknown) (unknown) Result panel 31 (unknown) (no date) (unknown) [facility] [place] (no value) (units unknown) (unknown) Result panel 32 (unknown) (no date) (unknown) [facility] [place] (no value) (units unknown) (unknown) Result panel 33 (unknown) (no date) (unknown) [facility] [place] (no value) (units unknown) (unknown) Result panel 34 (unknown) (no date) (unknown) [facility] [place] (no value) (units unknown) (unknown) Result panel 35 (unknown) (no date) (unknown) [facility] [place] (no value) (units unknown) (unknown) Result panel 36 (unknown) (no date) (unknown) [facility] [place] (no value) (units unknown) (unknown) Result panel 37 (unknown) (no date) (unknown) [facility] [place] (no value) (units unknown) (unknown) Result panel 38 (unknown) (no date) (unknown) [facility] [place] (no value) (units unknown) (unknown) Result panel 39 (unknown) (no date) (unknown) [facility] [place] (no value) (units unknown) (unknown) Result panel 40 (unknown) (no date) (unknown) [facility] [place] (no value) (units unknown) (unknown) Result panel 41 (unknown) (no date) (unknown) [facility] [place] (no value) (units unknown) (unknown) Result panel 42 (unknown) (no date) (unknown) [facility] [place] (no value) (units unknown) (unknown) Result panel 43 (unknown) (no date) (unknown) [facility] [place] (no value) (units unknown) (unknown) Result panel 44 (unknown) (no date) (unknown) [facility] [place] (no value) (units unknown) (unknown) Result panel 45 (unknown) (no date) (unknown) [facility] [place] (no value) (units unknown) (unknown) Result panel 46 (unknown) (no date) (unknown) [facility] [place] (no value) (units unknown) (unknown) Result panel 47 (unknown) (no date) (unknown) [facility] [place] (no value) (units unknown) (unknown) Result panel 48 (unknown) (no date) (unknown) [facility] [place] (no value) (units unknown) (unknown) Result panel 49 (unknown) (no date) (unknown) [facility] [place] (no value) (units unknown) (unknown) Result panel 50 (unknown) (no date) (unknown) [facility] [place] (no value) (units unknown) (unknown) Result panel 51 (unknown) (no date) (unknown) [facility] [place] (no value) (units unknown) (unknown) Result panel 52 (unknown) (no date) (unknown) [facility] [place] (no value) (units unknown) (unknown) Result panel 53 (unknown) (no date) (unknown) [facility] [place] (no value) (units unknown) (unknown) Result panel 54 (unknown) (no date) (unknown) [facility] [place] (no value) (units unknown) (unknown) Result panel 55 (unknown) (no date) (unknown) [facility] [place] (no value) (units unknown) (unknown) Result panel 56 (unknown) (no date) (unknown) [facility] [place] (no value) (units unknown) (unknown) Result panel 57 (unknown) (no date) (unknown) [facility] [place] (no value) (units unknown) (unknown) Result panel 58 (unknown) (no date) (unknown) [facility] [place] (no value) (units unknown) (unknown) Result panel 59 (unknown) (no date) (unknown) [facility] [place] (no value) (units unknown) (unknown) Result panel 60 (unknown) (no date) (unknown) [facility] [place] (no value) (units unknown) (unknown) Result panel 61 (unknown) (no date) (unknown) [facility] [place] (no value) (units unknown) (unknown) Result panel 62 (unknown) (no date) (unknown) [facility] [place] (no value) (units unknown) (unknown) Result panel 63 (unknown) (no date) (unknown) [facility] [place] (no value) (units unknown) (unknown) Result panel 64 (unknown) (no date) (unknown) [facility] [place] (no value) (units unknown) (unknown) Result panel 65 (unknown) (no date) (unknown) [facility] [place] (no value) (units unknown) (unknown) Result panel 66 (unknown) (no date) (unknown) [facility] [place] (no value) (units unknown) (unknown) Result panel 67 (unknown) (no date) (unknown) [facility] [place] (no value) (units unknown) (unknown) Result panel 68 (unknown) (no date) (unknown) [facility] [place] (no value) (units unknown) (unknown) Result panel 69 (unknown) (no date) (unknown) [facility] [place] (no value) (units unknown) (unknown) Result panel 70 (unknown) (no date) (unknown) [facility] [place] (no value) (units unknown) (unknown) Result panel 71 (unknown) (no date) (unknown) [facility] [place] (no value) (units unknown) (unknown) Result panel 72 (unknown) (no date) (unknown) [facility] [place] (no value) (units unknown) (unknown) Social History date description facility 2023-01-30 00:00 Former smoker [facility] [place] Vital Signs date measurement value units 2023-01-30 00:00 BMI 25.87 kg/m2 2023-01-30 00:00 BP_diastolic 68 mmHg 2023-01-30 00:00 BP_systolic 119 mmHg 2023-01-30 00:00 heart_rate 63 /min 2023-01-30 00:00 height_metric 175.9 cm 2023-01-30 00:00 height_standard 69.25 in 2023-01-30 00:00 respiration_rate 16 /min 2023-01-30 00:00 temperature_metric 36.61 C 2023-01-30 00:00 temperature_standard 97.9 F 2023-01-30 00:00 weight_metric 79.74 kg 2023-01-30 00:00 weight_standard 175.8 lb
[2023-03-20 14:34] LABS: BASOPHILS # (AUTO) 0.1 10^3/uL (0.0-0.1); BASOPHILS % (AUTO) 0.5 %; EOSINOPHILS # (AUTO) 0.1 10^3/uL (0.0-0.7); EOSINOPHILS % (AUTO) 1.3 %; HCT - HEMATOCRIT 39.5 % (42.0-52.0); HGB - HEMOGLOBIN 12.4 g/dL (14.0-18.0); LYMPHOCYTES # (AUTO) 1.4 10^3/uL (1.5-3.5); LYMPHOCYTES % (AUTO) 12.3 %; MEAN CORPUSCULAR HEMOGLOBIN 32.4 pg (27.0-31.0); MEAN CORPUSCULAR HGB CONC 31.4 g/dL (32.0-36.0); MEAN CORPUSCULAR VOLUME 103.1 fL (80.0-94.0); MEAN PLATELET VOLUME 10.6 fL (7.4-11.4); MONOCYTES # (AUTO) 1.5 10^3/uL (0.0-1.0); MONOCYTES % (AUTO) 13.2 %; NEUTROPHILS # (AUTO) 8.1 10^3/uL (1.5-6.6); NEUTROPHILS % (AUTO) 72.3 %; PLT - PLATELET COUNT 295 10^3/uL (130-450); RED BLOOD COUNT 3.83 10^6/uL (4.70-6.10); RED CELL DISTRIBUTION WIDTH 14.1 % (12.0-15.0); WHITE BLOOD COUNT 11.2 x10^3/uL (4.8-10.8)
[2023-03-20 14:42] LABS: INR 1.3 (0.8-1.2); PT - PROTHROMBIN TIME 14.8 secs (9.9-12.6)
[2023-03-20 14:50] LABS: ALBUMIN 3.4 g/dL (3.2-5.5); ALBUMIN/GLOBULIN RATIO 1.1 (1.0-2.2); ALKALINE PHOSPHATASE 55 IU/L (42-121); ALT ALANINE AMINOTRANSFERASE < 10 IU/L (10-60); AST ASPARTATE AMINOTRANSFERASE 14 IU/L (10-42); BILIRUBIN,TOTAL 0.7 mg/dL (0.2-1.0); BUN - BLOOD UREA NITROGEN 14 mg/dL (6-20); CALCIUM 8.5 mg/dL (8.5-10.3); CARBON DIOXIDE - CO2 28 mmol/L (21-32); CHLORIDE 111 mmol/L (101-111); CREATININE 0.9 mg/dL (0.6-1.2); GFR - MDRD 81 (>89); GLUCOSE 110 mg/dL (70-100); LIPASE 35 U/L (22-51); POTASSIUM 3.8 mmol/L (3.5-5.0); SODIUM 141 mmol/L (135-145); TOTAL PROTEIN 6.6 g/dL (6.7-8.2)
[2023-03-20] MEDS ORDERED: iohexoL-300 100 ML VIAL ONE (15:03)
[2023-03-20] MEDS ORDERED: SODIUM CHLORIDE 0.9% 1,000 ML IV STA (15:19)
[2023-03-20 15:46] LABS: GLUCOSE, URINE (UA) NEGATIVE (NEGATIVE); KETONES,URINE (UA) TRACE mg/dL (NEGATIVE); LEUKOCYTE ESTERASE, URINE MODERATE (NEGATIVE); NITRITE,URINE POSITIVE (NEGATIVE); OCCULT BLOOD,URINE LARGE (NEGATIVE); PH,URINE 6.5 PH (5.0-7.5); PROTEIN,URINE 100 mg/dL (NEGATIVE); UROBILINOGEN,URINE 0.2 (NORMAL) E.U./dL (NORMAL)
--- NOTE | 2023-03-20 15:51 | XRAY Report ---
PROCEDURE: Chest 1 View X-Ray INDICATIONS: cough TECHNIQUE: One view of the chest was acquired. COMPARISON: 11/24/2022 FINDINGS: Surgical changes and devices: None. Lungs and pleura: No pleural effusions or pneumothorax. Lungs are clear. Mediastinum: Mild cardiomegaly. Stable cardiomediastinal contour. Bones and chest wall: No suspicious bony lesions. Overlying soft tissues appear unremarkable. IMPRESSION: 1. Stable cardiomegaly without significant central vascular congestion or aortic contour change. Reviewed by: Niya Duarte MD on 03/20/2023 2:50 PM [facility] Approved by: Niya Duarte MD on 03/20/2023 2:50 PM [facility] Station ID: [id number]
[2023-03-20 15:55] LABS: BILIRUBIN,URINE NEGATIVE (NEGATIVE); CLARITY,URINE CLOUDY (CLEAR); ICTOTEST,URINE NEGATIVE
[2023-03-20 15:56] LABS: BACTERIA,URINE Few /HPF (None Seen); RBC,URINE TNTC /HPF (0-5); SQUAMOUS EPITHELIAL CELL,UR NONE SEEN (<= Few); WBC,URINE >25 /HPF (0-3); YEAST,URINE PRESENT
[2023-03-20] MEDS ORDERED: iohexoL-300 100 ML VIAL IVP ONE (15:57)
--- NOTE | 2023-03-20 16:17 | CT Report ---
PROCEDURE: HEAD WO INDICATIONS: weakness, aloc TECHNIQUE: Noncontrast 4.5 mm thick angled axial sections acquired from the foramen magnum to the vertex. For r adiation dose reduction, the following was used: automated exposure control, adjustment of mA and/or kV according to patient size. COMPARISON: 11/24/2022 FINDINGS: Image quality: Excellent. CSF spaces: Basal cisterns are patent. No extra-axial fluid collections. Ventricles are normal in size and shape. Brain: No midline shift. No intracranial masses or hemorrhage. No mass effect. Last-white matter in terface is normal. There cerebral volume loss for age with resultant ventricular and sulcal prominenc e. There are periventricular and deep white matter chronic small vessel ischemic changes. Atheroscler otic calcifications are noted in the intracranial segments of the bilateral internal carotid arteries . 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 Skull and face: Calvarium and visualized facial bones are intact, without suspicious lesions. Sinuses: Visualized sinuses and mastoids are clear. IMPRESSION: CT head without acute intracranial abnormalities. Stable age-related senescent changes and sequela of chronic small vessel ischemic disease. Stable appearance of encephalomalacia involving the right frontoparietal lobe compatible with remote infarction. No acute calvarial fractures. Reviewed by: Jared Mcmahon MD on 03/20/2023 4:15 PM PDT Approved by: Jared Mcmahon MD on 03/20/2023 4:15 PM PDT Station ID: [id number]
[2023-03-20] MEDS ORDERED: cefTRIAXone 1 GM VIAL IVP STA (16:19)
--- NOTE | 2023-03-20 16:48 | CT Report ---
PROCEDURE: ABDOMEN/PELVIS W INDICATIONS: recurrent UTI, no clearing with abx, hematuria CONTRAST: 100ml Omnipaque 300 TECHNIQUE: After the administration of intravenous contrast, 5 mm thick sections acquired from the diaphragms to the symphysis. 5 mm thick coronal and sagittal reformats were acquired. For radiation dose reducti on, the following was used: automated exposure control, adjustment of mA and/or kV according to otilio ent size. COMPARISON: 11/24/2022 FINDINGS: Image quality: Excellent. Lung bases and heart: No consolidations or pleural effusions. Mildly enlarged heart. Moderate-sized h iatal hernia. Liver: No solid mass. Gallbladder and biliary tree: Partially decompressed gallbladder. No biliary tree dilatation. 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 Pancreas: No pancreatic ductal dilation. Adrenals: No adrenal nodule. Kidneys and ureters: Symmetric enhancement. Several renal cysts. No visible solid masses. No hydronep hrosis or intrarenal calculi. No hydroureter. Bowel and peritoneum: No bowel distension. Increased quantity of solid stool throughout the colon. No pathologic free fluid. Diverticulosis without evidence of diverticulitis. Lymph nodes: No central or retroperitoneal adenopathy. Vessels: No infrarenal aortic aneurysm. Mild abdominal aortic calcification. PELVIS Reproductive organs: Partially obscured by left hip arthroplasty artifact. Bladder: Partially distended urinary bladder. There is a prominent probably narrow necked posterior b ladder diverticulum with dependent material and small calcification. Small left posterolateral bladde r diverticulum. Little change compared to the prior study. Pelvic lymph nodes: No pelvic adenopathy by size criteria. Bones: [Arthroplasty components in place. There is a severe L1 compression fracture which has progres sed since the prior study and now demonstrates moderate retropulsion into the central canal by about 30%. Other: Tiny fat-containing umbilical hernia. IMPRESSION: 1. No significant change to large and small bladder diverticula with dependent findings concerning fo r urinary stasis. 2. Degree of prostatomegaly and bladder outlet obstruction is not well evaluated due to beam hardenin g artifact from left upper thigh plasty. 3. Progression of L1 compression fracture now with retropulsion of fracture fragments into the spinal canal. 4. No evidence of pyelonephritis or upper urinary tract obstruction. Reviewed by: Niya Duarte MD on 03/20/2023 3:46 PM [facility] Approved by: Niya Duarte MD on 03/20/2023 3:46 PM [place] Station ID: [id number]
[2023-03-20 17:02] VITALS: BP 108/73
== END 2023-03-20 17:05 | disposition home or self-care (01) ==
LOC: ED 13:29
DX: N30.00 Acute cystitis without hematuria (principal); N48.1 Balanitis; R79.1 Abnormal coagulation profile
CPT/HCPCS: 36415; 51701; 70450; 71045; 74177; 80053; 81001; 83605; 83690; 85025; 85610; 87040; 87077; 87086; 87150; 87181; 96374; 99284; Q9967; 81003

== ENCOUNTER 2023-03-22 17:31 | Outpatient (CLI) | payer MEDICARE | END 2023-03-22 23:58 | disposition critical access hospital (66) | LOC: EMS 17:31 | DX: R53.1 Weakness (principal); R50.9 Fever, unspecified; R44.3 Hallucinations, unspecified; N39.0 Urinary tract infection, site not specified | CPT/HCPCS: A0425; A0427 ==

== ENCOUNTER 2023-03-22 18:11 | Inpatient (IN) | payer MEDICARE ==
--- OUTSIDE RECORDS SUMMARY | 2023-03-22 18:21 | EXTERNAL MEDICAL SUMMARY RPT | Continuity of Care Document ---
Author Name Unknown Address [address] [place] [address] Phone Organization [facility] Address [address] [place] [address] Phone Care Team Providers Care Sock Lining Stitcher Name Role Phone Unavailable Unavailable Unavailable [facility] Patient Registrar, Luiza Unavailable Unavailable Evaristo Chan [facility] Unavailable Unavailable Medications date description facility 2023-01-30 00:00 cephalexin [facility] 2023-01-30 00:00 cephalexin [facility] [place] 2023-01-31 00:00 cephalexin [facility] [place] 2023-02-02 00:00 cephalexin [facility] 2023-01-30 00:00 ampicillin [facility] 2023-01-30 00:00 ampicillin [facility] 2023-01-30 00:00 cephalexin [facility] [place] 2023-01-30 00:00 cephalexin [facility] [place] 2023-01-31 00:00 cephalexin [facility] 2023-02-02 00:00 cephalexin [facility] 2023-01-30 00:00 ciprofloxacin hcl [facility] [place] 2023-01-30 00:00 ampicillin [facility] 2023-01-30 00:00 sulfamethoxazole-trimethoprim [facility] 2023-01-31 00:00 sulfamethoxazole-trimethoprim [facility] 2023-02-02 00:00 sulfamethoxazole-trimethoprim [facility] 2023-01-30 00:00 ciprofloxacin hcl [facility] [place] 2023-01-30 00:00 sulfamethoxazole-trimethoprim [facility] [place] 2023-01-31 00:00 sulfamethoxazole-trimethoprim [facility] [place] 2023-02-02 00:00 sulfamethoxazole-trimethoprim [facility] [place] 2023-01-30 00:00 sulfamethoxazole-trimethoprim [facility] [place] 2023-01-31 00:00 sulfamethoxazole-trimethoprim [facility] [place] 2023-02-02 00:00 sulfamethoxazole-trimethoprim [facility] [place] 2023-01-30 00:00 cephalexin [facility] [place] 2023-01-30 00:00 cephalexin [facility] [place] 2023-01-31 00:00 cephalexin [facility] [place] 2023-02-02 00:00 cephalexin [facility] [place] 2023-01-30 00:00 ampicillin [facility] [place] 2023-01-30 00:00 cephalexin [facility] [place] 2023-01-30 00:00 cephalexin [facility] [place] 2023-01-31 00:00 cephalexin [facility] [place] 2023-02-02 00:00 cephalexin [facility] [place] 2023-01-30 00:00 sulfamethoxazole-trimethoprim [facility] [place] 2023-01-31 00:00 sulfamethoxazole-trimethoprim [facility] [place] 2023-02-02 00:00 sulfamethoxazole-trimethoprim [facility] [place] 2023-01-30 00:00 ciprofloxacin hcl [facility] [place] 2023-01-30 00:00 ciprofloxacin hcl [facility] [place] Problems date description facility 2023-01-30 00:00 Blood in urine [facility] [place] 2023-01-30 00:00 Dysuria [facility] [place] 2023-01-30 00:00 Hematuria, unspecified [facility] [place] Procedures date description facility 2023-01-30 00:00 Visit Code Hold [facility] [place] 2023-01-30 00:00 POC URINALYSIS DIP [facility] Results/Labs test date author facility value unit interpretation Result panel 1 (unknown) (no date) (unknown) [facility] (no value) (units unknown) (unknown) Result panel 2 (unknown) (no date) (unknown) [facility] (no [...] panel 6 (unknown) (no date) (unknown) [facility] [...] panel 71 (unknown) (no date) (unknown) [facility] (no value) (units unknown) (unknown) Result panel 72 (unknown) (no date) (unknown) [facility] (no value) (units unknown) (unknown) Social History date description facility 2023-01-30 00:00 Former smoker [facility] [place] Vital Signs date measurement value units 2023-01-30 [...]
--- NOTE | 2023-03-22 18:24 | ED Physician Documentation ---
History of Present Illness - Stated complaint Stated Complaint: SEPTIC - Additonal information Additional information: 82-year-old male return to the emergency department via EMS for concerns of possible sepsis as well as positive blood cultures. This patient was seen here in this emergency department on 20 March by my colleague. At that time there were some concerns of abdominal pain and dysuria as well as recurrent urinary tract infections. Subsequently labs and urinalysis were obtained. Labs felt to be consistent with acute infection and patient was started on cefpodoxime. At the last ED visit he had a very mild white blood cell count elevation of 11.2 thousand. Lactate was not elevated. CT of the abdomen showed no acute findings. Patient was discharged with prescription for cefpodoxime and treatment of the UTI. Subsequently blood cultures have resulted positive in one of the 2 sets for staph epidermis. This most likely represents a contaminant but when patient's was contacted at home she reported the patient had been febrile up to 102, more lethargic and confused from known baseline. EMS reported that they had given him some cold IV fluids in route to the ER and on presentation here he is afebrile. He is confused but without focal deficits. Given the patient's dementia history is obtained from the chart as well as EMS and previous ED records Review of Systems Unable to obtain: Dementia PD PAST MEDICAL HISTORY - Past Medical History Cardiovascular: Hypertension, High cholesterol, Atrial fibrillation Respiratory: None Neuro: Dementia, CVA Endocrine/Autoimmune: None GI: None : Benign prostate hypertrophy, Retention, Incontinence, Indwelling catheter HEENT: None Psych: Anxiety, Other Musculoskeletal: Chronic back pain Derm: None - Past Surgical History Past Surgical History: Yes General: Splenectomy, Other Ortho: Hip replacement, Knee replacement HEENT: Tonsil/Adenoidectomy, Other - Present Medications Home Medications: Ambulatory Orders Medication Instructions Recorded Confirmed Finasteride [Proscar] 5 mg PO DAILY tablet 07/07/20 11/26/22 Tamsulosin [Flomax] 0.4 mg PO DAILY #30 capsule 07/07/20 11/26/22 Walker [Ultra-Light Rollator] 1 each MC DAILY #1 each 07/07/20 11/21/20 QUEtiapine [SEROquel] 75 mg PO DAILY PM 11/21/20 11/25/22 Dabigatran Etexilate Mesylate 150 mg PO BID 11/22/20 11/26/22 [Pradaxa] Lidocaine Patch 5% [Lidoderm Patch] 1 patch TOP DAILY PRN #10 patch 11/24/22 11/25/22 Oxycodone HCl/Acetaminophen 1 each PO Q6H PRN #14 tablet 11/24/22 11/25/22 [Percocet 5-325 mg Tablet] Calcitonin [Fortical] 1 sprays GARRETT DAILY #1 each 11/25/22 oxyCODONE [Roxicodone] 5 mg PO Q6H PRN #20 tablet 11/25/22 Cefpodoxime Proxetil [Vantin] 100 mg PO Q12H #14 tablet 03/20/23 Mupirocin 2% Oint [Bactroban 2% 1 applic TOP BID #22 gm 03/20/23 Oint] - Allergies Allergies/Adverse Reactions: Allergies Allergy/AdvReac Type Severity Reaction Status Date / Time No Known Drug Allergies Allergy Verified 03/22/23 18:18 - Social History Does the pt smoke?: No Smoking Status: Never smoker Does the pt drink ETOH?: Yes Does the pt have substance abuse?: No - Immunizations Immunizations are current?: Yes - POLST Patient has POLST: No POLST Status: Full Code PD ED PE NORMAL - General General: No acute distress, Well developed/nourished. No: Alert and oriented X 3 (Confused and demented at baseline) - Cardiac Cardiac: RRR, No murmur - Respiratory Respiratory: No respiratory distress, Clear bilaterally - Abdomen Abdomen: Normal bowel sounds, Soft, Non tender (Generalized but nonfocal abdominal tenderness) - Back Back: No CVA TTP, No spinal TTP - Derm Derm: Normal color, Warm and dry - Extremities Extremities: No deformity, No tenderness to palpate, Normal ROM s pain - Neuro Neuro: Alert and oriented X 3, care nurse rn 2-12 intact Eye Opening: Spontaneous Motor: Obeys Commands Verbal: Oriented GCS Score: 15 Results - Vitals Vitals: Vital Signs - 24 hr 03/22/23 18:18 Temperature 36.9 C Heart Rate 100 Respiratory 18 Rate Blood Pressure 160/97 H O2 Saturation 97 Oxygen O2 Source [With Activity] Room air O2 Source Room air - Labs Labs: Laboratory Tests 03/22/23 03/22/23 03/22/23 18:25 18:25 18:25 WBC 13.7 H RBC 4.03 L Hgb 13.0 L Hct 40.6 L MCV 100.7 H MCH 32.3 H MCHC 32.0 RDW 13.7 Plt Count 288 MPV 11.2 Neut # (Auto) Not Reportable Lymph # (Auto) Not Reportable Dent # (Auto) Not Reportable Eos # (Auto) Not Reportable Baso # (Auto) Not Reportable Absolute Nucleated RBC Not Reportable Total Counted 100 Band Neuts % (Manual) 0 Abnorm Lymph % (Manual) 0 Nucleated RBC % Not Reportable Neutrophils # (Manual) 11.0 H Lymphocytes # (Manual) 1.4 L Monocytes # (Manual) 1.1 H Eosinophils # (Manual) 0.0 Basophils # (Manual) 0.3 H Differential Comment MANUAL DIFFERENTIAL Platelet Estimate NORMAL (130-450,000) Platelet Morphology NORMAL APPEARANCE RBC Morph Micro Appear 1+ MACROCYTOSIS Sodium 138 Potassium 3.7 Chloride 105 Carbon Dioxide 26 Anion Gap 7.0 BUN 13 Creatinine 0.9 Estimated GFR (MDRD) 81 L Glucose 96 Lactic Acid 1.6 Calcium 8.3 L Total Bilirubin 0.9 AST 17 ALT 11 Alkaline Phosphatase 50 Total Protein 6.6 L Albumin 3.3 Globulin 3.3 Albumin/Globulin Ratio 1.0 Procalcitonin Urine Color Urine Clarity Urine pH Ur Specific [place] Urine Protein Urine Glucose (UA) Urine Ketones Urine Occult Blood Urine Nitrite Urine Bilirubin Urine Urobilinogen Ur Leukocyte Esterase Urine RBC Urine WBC Ur Squamous Epith Cells Amorphous Sediment Urine Bacteria Ur Microscopic Review Urine Culture Comments 03/22/23 03/22/23 18:25 18:40 WBC RBC Hgb Hct MCV MCH MCHC RDW Plt Count MPV Neut # (Auto) Lymph # (Auto) Dent # (Auto) Eos # (Auto) Baso # (Auto) Absolute Nucleated RBC Total Counted Band Neuts % (Manual) Abnorm Lymph % (Manual) Nucleated RBC % Neutrophils # (Manual) Lymphocytes # (Manual) Monocytes # (Manual) Eosinophils # (Manual) Basophils # (Manual) Differential Comment Platelet Estimate Platelet Morphology RBC Morph Micro Appear Sodium Potassium Chloride Carbon Dioxide Anion Gap BUN Creatinine Estimated GFR (MDRD) Glucose Lactic Acid Calcium Total Bilirubin AST ALT Alkaline Phosphatase Total Protein Albumin Globulin Albumin/Globulin Ratio Procalcitonin < 0.05 Urine Color RED/BLOODY Urine Clarity TURBID Urine pH 6.5 Ur Specific [place] 1.025 Urine Protein >=300 H Urine Glucose (UA) NEGATIVE Urine Ketones TRACE Urine Occult Blood LARGE H Urine Nitrite POSITIVE H Urine Bilirubin NEGATIVE Urine Urobilinogen 1 (NORMAL) Ur Leukocyte Esterase TRACE H Urine RBC TNTC H Urine WBC 4-5 Ur Squamous Epith Cells NONE SEEN Amorphous Sediment Moderate Urine Bacteria Few Ur Microscopic Review INDICATED Urine Culture Comments INDICATED PD Medical Decision Making - ED course Complexity details: reviewed results, re-evaluated patient, d/w patient, d/w family ED course: 82-year-old female who has a known history of recurrent urinary tract infections as well as advancing dementia return to the emergency department today for concerns of worsening clinical status as well as reportedly positive blood cultures. Was seen in this emergency department 2 days ago for generalized weakness and concern of strokelike symptoms. At that time UA was thought to be suggestive of urinary tract infection and patient was started on cefpodoxime. 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 Since discharge home, despite being on the cefpodoxime, his has reported that he has had a fever up to 102.4 just prior to EMS arrival. Subsequently b lood cultures obtained from the 03/20/2023 visit resulted positive for Staph epidermidis in one of the 2 sets. This is likely a clinical contaminant. Blood cultures x2 are pending again today. Though clinically I do not suspect bacteremia On presentation to the emergency department today the patient is confused but reportedly more so than baseline. He does have known dementia. No focal deficits. He was afebrile here and were on arrival to the emergency department. He had mild tachycardia with a resting heart rate just over 100. No hypotension. We did obtain a CBC, electrolytes, lactic acid and procalcitonin. His white count is marginally elevated from 48 hours ago now 13.7. No worrisome anemia. His lactate is not elevated. His procalcitonin is negative. A chest x-ray per my interpretation showed no acute focal findings to suggest pneumonia. Urinalysis completed today would be worrisome for infection. Culture is pending however culture obtained 2 days ago did not grow anything. His abdominal exam is rather benign and given the recent CT findings without acute findings I have deferred CT imaging today but clinically the patient presents as sepsis with fever, leukocytosis and tachycardia. Unknown source. He will be started on broad-spectrum antibiotics and I have initiated vancomycin and cefepime. We will contact the telehospitalist for admission and further chapis luation and management of this patient 1935: I spoke on the phone with the patient's Birdie. She indicates to me the patient should be a comfort measures DNR with no CPR or intubation. She would like the patient admitted to the hospital for antibiotics but no other heroic measures would be indicated. She tells me the new POLST form was signed today. She is planning to have the patient admitted to a dementia/memory care unit shortly and the new memory care unit has this information. 1950: I have spoken with tele-hospitalist Dr. betancur who agrees to admit pt for further management of sepsis - Sepsis Event Sepsis Onset Date: 03/22/23 Sepsis Onset Time: 19:00 Current Stage of Sepsis: Sepsis Initial Hypotension: Not hypotensive Possible source of Sepsis: Unknown Mental/Cognitive Status: Confused, Change from baseline Reason for not giving 30ml/kg crystalloid fluids: Not in septic shock Capillary refill: Less than 2 seconds Peripheral Pulse Strength: 2+ Slightly Diminished Peripheral Pulse Location: Pedal Bedside ultrasound performed: No Departure - Departure Disposition: 66 [facility] DC/Xfer Clinical Impression: History of dementia Sepsis Qualifiers: Sepsis type: sepsis due to unspecified organism Sepsis acute organ dysfunction status: without acute organ dysfunction Qualified Code(s): A41.9 - Sepsis, unspecified organism
[2023-03-22 18:44] LABS: BASOPHILS % (AUTO) 0.5 %; EOSINOPHILS % (AUTO) 0.4 %; HCT - HEMATOCRIT 40.6 % (42.0-52.0); LYMPHOCYTES % (AUTO) 8.9 %; MEAN CORPUSCULAR HEMOGLOBIN 32.3 pg (27.0-31.0); MEAN CORPUSCULAR VOLUME 100.7 fL (80.0-94.0); MEAN PLATELET VOLUME 11.2 fL (7.4-11.4); MONOCYTES % (AUTO) 13.6 %; NEUTROPHILS % (AUTO) 76.2 %; PLT - PLATELET COUNT 288 10^3/uL (130-450); RED BLOOD COUNT 4.03 10^6/uL (4.70-6.10); RED CELL DISTRIBUTION WIDTH 13.7 % (12.0-15.0); WHITE BLOOD COUNT 13.7 x10^3/uL (4.8-10.8)
[2023-03-22 18:47] LABS: ABNORMAL LYMPHS % (MANUAL) 0 %; BAND NEUTROPHILS % (MANUAL) 0 %
[2023-03-22] MEDS ORDERED: SODIUM CHLORIDE 0.9% 1,000 ML IV STA (18:50)
[2023-03-22 18:52] LABS: ALBUMIN 3.3 g/dL (3.2-5.5); BILIRUBIN,TOTAL 0.9 mg/dL (0.2-1.0); CALCIUM 8.3 mg/dL (8.5-10.3); CREATININE 0.9 mg/dL (0.6-1.2); POTASSIUM 3.7 mmol/L (3.5-5.0); TOTAL PROTEIN 6.6 g/dL (6.7-8.2)
[2023-03-22 19:00] LABS: GLUCOSE, URINE (UA) NEGATIVE (NEGATIVE); KETONES,URINE (UA) TRACE mg/dL (NEGATIVE); LEUKOCYTE ESTERASE, URINE TRACE (NEGATIVE); NITRITE,URINE POSITIVE (NEGATIVE); OCCULT BLOOD,URINE LARGE (NEGATIVE); PH,URINE 6.5 PH (5.0-7.5); PROTEIN,URINE >=300 mg/dL (NEGATIVE); UROBILINOGEN,URINE 1 (NORMAL) E.U./dL (NORMAL)
[2023-03-22 19:07] LABS: AMORPHOUS SEDIMENT,UR Moderate /LPF; BACTERIA,URINE Few /HPF (None Seen); BILIRUBIN,URINE NEGATIVE (NEGATIVE); CLARITY,URINE TURBID (CLEAR); ICTOTEST,URINE NEGATIVE; RBC,URINE TNTC /HPF (0-5); SQUAMOUS EPITHELIAL CELL,UR NONE SEEN (<= Few)
[2023-03-22] MEDS ORDERED: VANCOMYCIN INJ 1.5 GM in SODIUM CHLORIDE 0.9% 500 ML IV STA (19:18)
[2023-03-22] MEDS ORDERED: CEFEPIME 2 GM in SODIUM CHLORIDE 0.9% MINIBAG 100 ML IV STA (19:18)
[2023-03-22 19:20] LABS: BASOPHILS # (MANUAL) 0.3 10^3/uL (0-0.1); BASOPHILS % (MANUAL) 2 %; DIFFERENTIAL COMMENT MANUAL DIFFERENTIAL; LYMPHOCYTES # (MANUAL) 1.4 10^3/uL (1.5-3.5); LYMPHOCYTES % (MANUAL) 10 %; MONOCYTES # (MANUAL) 1.1 10^3/uL (0.0-1.0); PLATELET ESTIMATE, MANUAL NORMAL (130-450,000) (NORMAL); PLATELET MORPHOLOGY NORMAL APPEARANCE (NORMAL); RBC MORPHOLOGY (MULTIPLE) 1+ MACROCYTOSIS (NORMAL)
[2023-03-22] MEDS ORDERED: VANCOMYCIN 1 GM VIAL ONE (19:32)
[2023-03-22] MEDS ORDERED: LIDOCAINE PATCH 5% TOP PRN (19:44)
[2023-03-22] MEDS ORDERED: ONDANSETRON 4 MG/2 ML VIAL IVP PRN (19:45)
[2023-03-22] MEDS ORDERED: SODIUM CHLORIDE FLUSH 0.9% 10 ML SYRINGE IVP PRN (19:45)
--- NOTE | 2023-03-22 19:48 | XRAY Report ---
PROCEDURE: Chest 1 View X-Ray INDICATIONS: chest pain TECHNIQUE: One view of the chest was acquired. COMPARISON: None. FINDINGS: Surgical changes and devices: None. Lungs and pleura: No pleural effusions or pneumothorax. Lungs are clear. Mediastinum: Mediastinal contours appear normal. Heart size is normal. Bones and chest wall: No suspicious bony lesions. Overlying soft tissues appear unremarkable. IMPRESSION: No acute cardiopulmonary process. Reviewed by: Antony Crowder on 03/22/2023 7:47 PM PDT Approved by: Antony Crowder on 03/22/2023 7:47 PM PDT Station ID: [id number]
--- NOTE | 2023-03-22 20:04 | HISTORY & PHYSICAL EXAMINATION ---
Chief Complaint - Chief Complaint Chief Complaint: fever and chils History of Present Illness - Admitted From Admitted From:: Home - History Obtained From Records Reviewed: Yes History obtained from: ER MD and review of records Exam Limitations: Patient has dementia - History of Present Illness HPI Comment/Other: 82-year-old male return to the emergency department via EMS for concerns of possible sepsis as well as positive blood cultures. This patient was seen here in this emergency department on 20 March by my colleague. At that time there were some concerns of abdominal pain and dysuria as well as recurrent urinary tract infections. Subsequently labs and urinalysis were obtained. Labs felt to be consistent with acute infection and patient was started on cefpodoxime. At the last ED visit he had a very mild white blood cell count elevation of 11.2 thousand. Lactate was not elevated. CT of the abdomen showed no acute findings. Patient was discharged with prescription for cefpodoxime and treatment of the UTI. Subsequently blood cultures have resulted positive in one of the 2 sets for staph epidermis. This most likely represents a contaminant but when patient's was contacted at home she reported the patient had been febrile up to 102, more lethargic and confused from known baseline. EMS reported that they had given him some cold IV fluids in route to the ER and on presentation here he is afebrile. He is confused but without focal deficits. Given the patient's dementia history is obtained from the chart as well as EMS and previous ED records Patient was discussed in detail with ER team, patient has dementia and was not able to give me any meaningful history on the televideo, in the back group his telemetry did show A fib with rate in 90-100's Patient given one dose of Vanc and Cefepime as per patient is full DNR and plan to send him to memory care unit once dc from hospital ok with medical management History - Past Medical History Cardiovascular: reports: Hypertension, High cholesterol, Atrial fibrillation Respiratory: reports: None Neuro: reports: Dementia, CVA Endocrine/Autoimmune: reports: None GI: reports: None : reports: Benign prostate hypertrophy, Retention, Incontinence, Indwelling catheter HEENT: reports: None Psych: reports: Anxiety, Other Musculoskeletal: reports: Chronic back pain Derm: reports: None MRSA Hx?: No - Past Surgical History General: reports: Splenectomy, Other Ortho: reports: Hip replacement, Knee replacement HEENT: reports: Tonsil/Adenoidectomy, Other - Family & Social History Family History: Mother: , CAD, Diabetes, Type 2, Father: , Alzheimer's Disease Family History Comment/Other: father: dementia. at age 93. mother: Diabetes mellitus and CHF Social History Notes: 30+ smoking history. Quit in 1996. Rarely drinks alcohol. No illicit drugs - POLST Patient has POLST: No POLST Status: Full Code Meds/Allgy - Home Medications Home Medications: Ambulatory Orders Medication Instructions Recorded Confirmed Finasteride [Proscar] 5 mg PO DAILY tablet 07/07/20 11/26/22 Tamsulosin [Flomax] 0.4 mg PO DAILY #30 capsule 07/07/20 11/26/22 Walker [Ultra-Light Rollator] 1 each MC DAILY #1 each 07/07/20 11/21/20 QUEtiapine [SEROquel] 75 mg PO DAILY PM 11/21/20 11/25/22 Dabigatran Etexilate Mesylate 150 mg PO BID 11/22/20 11/26/22 [Pradaxa] Lidocaine Patch 5% [Lidoderm Patch] 1 patch TOP DAILY PRN #10 patch 11/24/22 11/25/22 Oxycodone HCl/Acetaminophen 1 each PO Q6H PRN #14 tablet 11/24/22 11/25/22 [Percocet 5-325 mg Tablet] Calcitonin [Fortical] 1 sprays GARRETT DAILY #1 each 11/25/22 oxyCODONE [Roxicodone] 5 mg PO Q6H PRN #20 tablet 11/25/22 Cefpodoxime Proxetil [Vantin] 100 mg PO Q12H #14 tablet 03/20/23 Mupirocin 2% Oint [Bactroban 2% 1 applic TOP BID #22 gm 03/20/23 Oint] - Allergies Allergies/Adverse Reactions: Allergies Allergy/AdvReac Type Severity Reaction Status Date / Time No Known Drug Allergies Allergy Verified 03/22/23 18:18 Review of Systems - Other Findings Other Findings: 14 systme review attempted but unable to obtain due to dementia Prior Level of Functionality: unable to assess lives home with Exam - Vital Signs Vital Signs: Vital Signs x48h Temp Pulse Resp BP Pulse Ox 03/22/23 18:18 36.9 C 100 18 160/97 H 97 - Physical Exam General Appearance: positive: No acute distress Eyes Bilateral: positive: PERRL Neck: positive: Thyroid nml, No JVD Respiratory: positive: Breath sounds nml Cardiovascular: positive: Irregularly irregular Abdomen: positive: Non-tender, No organomegaly Skin: positive: Color nml, No rash Neurologic/Psychiatric: positive: Motor nml, Sensation nml Sepsis Event Note (H) - Evaluation Current Stage of Sepsis: Sepsis Possible source of Sepsis: positive: Unknown - Sepsis Criteria Sepsis Criteria: Recorded Heart Rate greater than 90 bpm, WBC count greater than 10% bands, WBC count greater than 12,000 or less than 4000 Conclusion/Plan - Problem List (1) History of dementia Conclusion/Plan: Supportive care Continue home meds Fall precautions (2) Sepsis Conclusion/Plan: IVF Borad spectrum abx Vanco and Cefepime only one dose given will need to reorder in am lactate is 1.6 Repeat labs in am monitor urine output Follow up blood culture Urine cultures shows no growth from 2 days ago This was a televideo visit using technology Patient and me were both in different locations ER team informed the patient and patient about our visit Qualifiers: Sepsis type: sepsis due to unspecified organism Sepsis acute organ dysfunction status: without acute organ dysfunction Qualified Code(s): A41.9 - Sepsis, unspecified organism (3) UTI (urinary tract infection) Conclusion/Plan: On Cefepime Qualifiers: Urinary tract infection type: acute cystitis Hematuria presence: without hematuria Qualified Code(s): N30.00 - Acute cystitis without hematuria - Lab Results Fish Bones: 03/22/23 18:25 03/22/23 18:25 - EKG Results EKG Findings: A fib on telemetry
[2023-03-22] MEDS ORDERED: DABIGATRAN ETEXILATE MESYLATE 150 MG PO SCH (21:00)
[2023-03-22] MEDS: SODIUM CHLORIDE 0.9% 1,000 ML IV SCH (21:04)
[2023-03-22 21:22] LABS: B. PARAPERTUSSIS- RESP PCR PAN NOT DETECTED; B. PERTUSSIS- RESP PCR PANEL NOT DETECTED; C. PNEUMONIAE- RESP PCR PANEL NOT DETECTED; CORONAVIRUS 229E-RESP PCR NOT DETECTED; CORONAVIRUS HKU1-RESP PCR NOT DETECTED; CORONAVIRUS NL63-RESP PCR NOT DETECTED; CORONAVIRUS OC43-RESP PCR NOT DETECTED; HUMAN METAPNEUMOVIRUS NOT DETECTED; INFLUENZA A- RESP PCR PANEL NOT DETECTED; INFLUENZA B - RESP PCR PANEL NOT DETECTED; M. PNEUMONIAE- RESP PCR PANEL NOT DETECTED; PARAINFLUENZA VIRUS 1 NOT DETECTED; PARAINFLUENZA VIRUS 2 NOT DETECTED; PARAINFLUENZA VIRUS 3 NOT DETECTED; PARAINFLUENZA VIRUS 4 NOT DETECTED; RHINOVIRUS/ENTEROVIRUS NOT DETECTED; RSV- RESP PCR PANEL NOT DETECTED; SARS-CoV-2 -RESP PCR PANEL NOT DETECTED
[2023-03-23] MEDS: ACETAMINOPHEN 325 MG TABLET PO PRN ×2 (00:14→20:13)
[2023-03-23] MEDS: SODIUM CHLORIDE FLUSH 0.9% 10 ML SYRINGE IVP SCH ×3 (01:29→16:26)
[2023-03-23 05:18] LABS: ALBUMIN 2.7 g/dL (3.2-5.5); ALKALINE PHOSPHATASE 40 IU/L (42-121); ALT ALANINE AMINOTRANSFERASE < 10 IU/L (10-60); AST ASPARTATE AMINOTRANSFERASE 12 IU/L (10-42); BILIRUBIN,TOTAL 1.1 mg/dL (0.2-1.0); BUN - BLOOD UREA NITROGEN 11 mg/dL (6-20); CALCIUM 7.9 mg/dL (8.5-10.3); CARBON DIOXIDE - CO2 24 mmol/L (21-32); CHLORIDE 112 mmol/L (101-111); CREATININE 0.7 mg/dL (0.6-1.2); GFR - MDRD 109 (>89); GLUCOSE 98 mg/dL (70-100); POTASSIUM 3.5 mmol/L (3.5-5.0); SODIUM 140 mmol/L (135-145); TOTAL PROTEIN 5.5 g/dL (6.7-8.2)
[2023-03-23] MEDS: SODIUM CHLORIDE 0.9% 1,000 ML IV SCH ×2 (06:01→16:26)
[2023-03-23] MEDS: APIXABAN 5 MG TABLET PO SCH ×2 (08:10→20:14)
[2023-03-23] MEDS: TAMSULOSIN 0.4 MG CAPSULE PO SCH (08:10)
[2023-03-23] MEDS: FINASTERIDE 5 MG TABLET PO SCH (08:10)
[2023-03-23] MEDS: cefTRIAXone 2 GM in SODIUM CHLORIDE 0.9% MINIBAG 100 ML IV SCH (11:15)
--- NOTE | 2023-03-23 11:25 | PHARMACY PROGRESS NOTE ---
- Best Possible Medication History Admit Date and Time: 03/22/231944 Processed by: Pharmacy Medication History completed: Yes Patient Interview: Pt unable to participate Secondary Source(s): Spouse/Significant other, Physician records, Pharmacy re cords, Insurance records As the person ultimately responsible for medication therapy, providers are able to order a medication from an existing home medication list in [facility] via the "Reconcile Routine" prior to Confirmation of that medication by patient support assistant. Such practice is discouraged except when the physician, in their clinical judgment, deems that a medical need exists for a medication without regard to previous use.
--- NOTE | 2023-03-23 13:04 | PROVIDER PROGRESS NOTE ---
Assessment/Plan - Problem List (1) Sepsis Qualifiers: Sepsis type: sepsis due to unspecified organism Sepsis acute organ dysfunction status: without acute organ dysfunction Qualified Code(s): A41.9 - Sepsis, unspecified organism Assessment/Plan: Patient had criteria for sepsis: White blood count 13.7, fever of 38.0 at m idnight, tachycardic with heart rate of 100 at rest Plan: Continue with IVF I will order empiric ceftriaxone IV daily Await blood culture and new Urine culture results (2) UTI (urinary tract infection) Conclusion/Plan: Plan: I will order empiric ceftriaxone IV daily Await blood culture and new Urine culture results Qualifiers: Urinary tract infection type: acute cystitis Hematuria presence: without hematuria Qualified Code(s): N30.00 - Acute cystitis without hematuria (3) History of dementia Conclusion/Plan: Plan: Supportive care and continue home meds, once list is reconciled by pharmacy Will order PT and OT eval and treat - Current Meds Current Meds: Current Medications Generic Name Dose Route Start Last Admin Trade Name Freq PRN Reason Stop Dose Admin Acetaminophen 650 mg 03/22/23 19:45 03/23/23 00:14 Acetaminophen 325 Mg Tablet PO 650 mg Q4HR PRN Administration Pain 1 to 4, or Fever Apixaban 5 mg 03/23/23 09:00 03/23/23 08:10 Apixaban 5 Mg Tablet PO 5 mg BID TYLER Administration Finasteride 5 mg 03/23/23 09:00 03/23/23 08:10 Finasteride 5 Mg Tablet PO 5 mg DAILY TYLER Administration Sodium Chloride 1,000 mls @ 100 mls/hr 03/22/23 20:00 03/23/23 06:01 Normal Saline 0.9% IV 100 mls/hr .Q10H TYLER Administration Ceftriaxone Sodium 2 gm/ 100 mls @ 200 mls/hr 03/23/23 11:00 03/23/23 12:02 Sodium Chloride IV Infused DAILY TYLER Infusion Sodium Chloride 10 ml 03/23/23 01:00 03/23/23 08:10 Sodium Chloride Flush 0.9% 10 Ml Syringe IVP Not Given 0100,0900,1700 TYLER Tamsulosin HCl 0.4 mg 03/23/23 09:00 03/23/23 08:10 Tamsulosin 0.4 Mg Capsule PO 0.4 mg DAILY TYLER Administration - Lab Result Fish Bone Diagrams: 03/22/23 18:25 03/23/23 04:35 - Additional Planning My Orders: My Active Orders 03/23/23 Evaluate and Treat OT [OT] Routine Evaluate and Treat PT [PT] Routine 03/23/23 11:00 cefTRIAXone [Rocephin] 2 gm Sodium Chloride 0.9% Minibag [Normal Saline 0.9% Minibag] 100 ml IV DAILY Subjective - Subjective Nursing Reports: Other (He appears comfortable. He is laying in bed with head of bed elevated, he was able to feed himself today. PT and OT told me he was able to stand but has poor balance and high risk of falls and yet has strong muscles so he is hard to redirect) Objective Vital Signs: Vital Signs - 24 hr 03/22/23 03/22/23 03/22/23 18:18 20:00 20:45 Temperature 36.9 C 37.5 C Heart Rate 100 98 Heart Rate [ 97 Brachial] Respiratory 18 16 Rate Blood Pressure 160/97 H 156/85 H Blood Pressure 142/86 H [Right Brachial artery] O2 Saturation 97 100 100 03/23/23 03/23/23 03/23/23 00:00 01:24 07:51 Temperature 38.0 C H 37.8 C 36.6 C Heart Rate Heart Rate [ 87 90 Brachial] Respiratory 20 18 Rate Blood Pressure Blood Pressure 147/66 H 135/76 H [Right Brachial artery] O2 Saturation 96 99 Oxygen O2 Source [With Activity] Room air O2 Source Room air I&O (Last 24 Hrs): Intake and Output Totals x24h 03/21/23 03/22/23 03/23/23 23:59 23:59 23:59 Intake Total 1600 1475 Balance 1600 1475 General: Alert HEENT: Mucous membr. moist/pink Neck: Supple, No JVD Neuro: Alert, Disoriented, Non Focal Cardiovascular: Regular rate Respiratory: No respiratory distress Abdomen: Soft Extremities: No clubbing, No edema - Results Results: Laboratory Results WBC 13.7 x10^3/uL (4.8-10.8) H 03/22/23 18:25 RBC 4.03 10^6/uL (4.70-6.10) L 03/22/23 18:25 Hgb 13.0 g/dL (14.0-18.0) L 03/22/23 18:25 Hct 40.6 % (42.0-52.0) L 03/22/23 18:25 MCV 100.7 fL (80.0-94.0) H 03/22/23 18:25 MCH 32.3 pg (27.0-31.0) H 03/22/23 18:25 MCHC 32.0 g/dL (32.0-36.0) 03/22/23 18:25 RDW 13.7 % (12.0-15.0) 03/22/23 18:25 Plt Count 288 10^3/uL (130-450) 03/22/23 18:25 MPV 11.2 fL (7.4-11.4) 03/22/23 18:25 Neut # (Auto) Not Reportable 03/22/23 18:25 Lymph # (Auto) Not Reportable 03/22/23 18:25 [place] # (Auto) Not Reportable 03/22/23 18:25 Eos # (Auto) Not Reportable 03/22/23 18:25 Baso # (Auto) Not Reportable 03/22/23 18:25 Absolute Nucleated RBC Not Reportable 03/22/23 18:25 Total Counted 100 03/22/23 18:25 Band Neuts % (Manual) 0 % (0-10) 03/22/23 18:25 Abnorm Lymph % (Manual) 0 % 03/22/23 18:25 Nucleated RBC % Not Reportable 03/22/23 18:25 Neutrophils # (Manual) 11.0 10^3/uL (1.5-6.6) H 03/22/23 18:25 Lymphocytes # (Manual) 1.4 10^3/uL (1.5-3.5) L 03/22/23 18:25 Monocytes # (Manual) 1.1 10^3/uL (0.0-1.0) H 03/22/23 18:25 Eosinophils # (Manual) 0.0 10^3/uL (0-0.7) 03/22/23 18:25 Basophils # (Manual) 0.3 10^3/uL (0-0.1) H 03/22/23 18:25 Differential Comment MANUAL DIFFERENTIAL 03/22/23 18:25 Platelet Estimate NORMAL (130-450,000) (NORMAL) 03/22/23 18:25 Platelet Morphology NORMAL APPEARANCE (NORMAL) 03/22/23 18:25 RBC Morph Micro Appear 1+ MACROCYTOSIS (NORMAL) 03/22/23 18:25 Sodium 140 mmol/L (135-145) 03/23/23 04:35 Potassium 3.5 mmol/L (3.5-5.0) 03/23/23 04:35 Chloride 112 mmol/L (101-111) H 03/23/23 04:35 Carbon Dioxide 24 mmol/L (21-32) 03/23/23 04:35 Anion Gap 4.0 (6-13) L 03/23/23 04:35 BUN 11 mg/dL (6-20) 03/23/23 04:35 Creatinine 0.7 mg/dL (0.6-1.2) 03/23/23 04:35 Estimated GFR (MDRD) 109 (>89) 03/23/23 04:35 Glucose 98 mg/dL (70-100) 03/23/23 04:35 Lactic Acid 1.6 mmol/L (0.5-2.2) 03/22/23 18:25 Calcium 7.9 mg/dL (8.5-10.3) L 03/23/23 04:35 Total Bilirubin 1.1 mg/dL (0.2-1.0) H 03/23/23 04:35 AST 12 IU/L (10-42) 03/23/23 04:35 ALT < 10 IU/L (10-60) L 03/23/23 04:35 Alkaline Phosphatase 40 IU/L (42-121) L 03/23/23 04:35 Total Protein 5.5 g/dL (6.7-8.2) L 03/23/23 04:35 Albumin 2.7 g/dL (3.2-5.5) L 03/23/23 04:35 Globulin 2.8 g/dL (2.1-4.2) 03/23/23 04:35 Albumin/Globulin Ratio 1.0 (1.0-2.2) 03/23/23 04:35 Procalcitonin < 0.05 ng/mL (<0.5) 03/22/23 18:25 Urine Color RED/BLOODY 03/22/23 18:40 Urine Clarity TURBID (CLEAR) 03/22/23 18:40 Urine pH 6.5 PH (5.0-7.5) 03/22/23 18:40 Ur Specific [place] 1.025 (1.002-1.030) 03/22/23 18:40 Urine Protein >=300 mg/dL (NEGATIVE) H 03/22/23 18:40 Urine Glucose (UA) NEGATIVE mg/dL (NEGATIVE) 03/22/23 18:40 Urine Ketones TRACE mg/dL (NEGATIVE) 03/22/23 18:40 Urine Occult Blood LARGE (NEGATIVE) H 03/22/23 18:40 Urine Nitrite POSITIVE (NEGATIVE) H 03/22/23 18:40 Urine Bilirubin NEGATIVE (NEGATIVE) 03/22/23 18:40 Urine Urobilinogen 1 (NORMAL) E.U./dL (NORMAL) 03/22/23 18:40 Ur Leukocyte Esterase TRACE (NEGATIVE) H 03/22/23 18:40 Urine RBC TNTC /HPF (0-5) H 03/22/23 18:40 Urine WBC 4-5 /HPF (0-3) 03/22/23 18:40 Ur Squamous Epith Cells NONE SEEN (<= Few) 03/22/23 18:40 Amorphous Sediment Moderate /LPF 03/22/23 18:40 Urine Bacteria Few /HPF (None Seen) 03/22/23 18:40 Ur Microscopic Review INDICATED 03/22/23 18:40 Urine Culture Comments INDICATED 03/22/23 18:40 Nasal Adenovirus (PCR) NOT DETECTED 03/22/23 20:15 Nasal B. parapertussis DNA (PCR) NOT DETECTED 03/22/23 20:15 Nasal Coronavir 229E PCR NOT DETECTED 03/22/23 20:15 Nasal Coronavir HKU1 PCR NOT DETECTED 03/22/23 20:15 Nasal Coronavir NL63 PCR NOT DETECTED 03/22/23 20:15 Nasal Coronavir OC43 PCR NOT DETECTED 03/22/23 20:15 Nasal Enterovir/Rhinovir PCR NOT DETECTED 03/22/23 20:15 Nasal Influenza B PCR NOT DETECTED 03/22/23 20:15 Nasal Influenza A PCR NOT DETECTED 03/22/23 20:15 Nasal Parainfluen 1 PCR NOT DETECTED 03/22/23 20:15 Nasal Parainfluen 2 PCR NOT DETECTED 03/22/23 20:15 Nasal Parainfluen 3 PCR NOT DETECTED 03/22/23 20:15 Nasal Parainfluen 4 PCR NOT DETECTED 03/22/23 20:15 Nasal RSV (PCR) NOT DETECTED 03/22/23 20:15 Nasal B.pertussis DNA PCR NOT DETECTED 03/22/23 20:15 Nasal C.pneumoniae (PCR) NOT DETECTED 03/22/23 20:15 [place] Human Metapneumo PCR NOT DETECTED 03/22/23 20:15 Nasal M.pneumoniae (PCR) NOT DETECTED 03/22/23 20:15 Nasal SARS-CoV-2 (PCR) NOT DETECTED 03/22/23 20:15 Sepsis Event Note (H) - Evaluation Current Stage of Sepsis: Sepsis Possible source of Sepsis: positive: Unknown - Sepsis Criteria Sepsis Criteria: Recorded Heart Rate greater than 90 bpm, WBC count greater than 10% bands, WBC count greater than 12,000 or less than 4000
[2023-03-23] MEDS ORDERED: ZINC OXIDE 20% OINT 30 GM TUBE TOP PRN (21:11)
[2023-03-24] MEDS: SODIUM CHLORIDE FLUSH 0.9% 10 ML SYRINGE IVP SCH ×3 (00:54→18:09)
[2023-03-24] MEDS: SODIUM CHLORIDE 0.9% 1,000 ML IV SCH ×2 (03:53→15:55)
[2023-03-24 05:50] LABS: BASOPHILS # (AUTO) 0.1 10^3/uL (0.0-0.1); BASOPHILS % (AUTO) 0.7 %; EOSINOPHILS # (AUTO) 0.4 10^3/uL (0.0-0.7); EOSINOPHILS % (AUTO) 3.6 %; HCT - HEMATOCRIT 36.2 % (42.0-52.0); HGB - HEMOGLOBIN 11.7 g/dL (14.0-18.0); LYMPHOCYTES # (AUTO) 1.7 10^3/uL (1.5-3.5); LYMPHOCYTES % (AUTO) 17.6 %; MEAN CORPUSCULAR HEMOGLOBIN 32.3 pg (27.0-31.0); MEAN CORPUSCULAR HGB CONC 32.3 g/dL (32.0-36.0); MEAN PLATELET VOLUME 10.4 fL (7.4-11.4); MONOCYTES # (AUTO) 1.2 10^3/uL (0.0-1.0); MONOCYTES % (AUTO) 12.4 %; NEUTROPHILS # (AUTO) 6.5 10^3/uL (1.5-6.6); NEUTROPHILS % (AUTO) 65.5 %; PLT - PLATELET COUNT 241 10^3/uL (130-450); RED BLOOD COUNT 3.62 10^6/uL (4.70-6.10); RED CELL DISTRIBUTION WIDTH 13.4 % (12.0-15.0); WHITE BLOOD COUNT 9.8 x10^3/uL (4.8-10.8)
[2023-03-24 06:04] LABS: ALBUMIN 2.7 g/dL (3.2-5.5); ALBUMIN/GLOBULIN RATIO 0.9 (1.0-2.2); BILIRUBIN,TOTAL 0.7 mg/dL (0.2-1.0); CREATININE 0.7 mg/dL (0.6-1.2); POTASSIUM 3.3 mmol/L (3.5-5.0); TOTAL PROTEIN 5.8 g/dL (6.7-8.2)
[2023-03-24] MEDS: ACETAMINOPHEN 325 MG TABLET PO PRN ×2 (08:34→13:59)
[2023-03-24] MEDS: APIXABAN 5 MG TABLET PO SCH ×2 (08:35→20:37)
[2023-03-24] MEDS: FINASTERIDE 5 MG TABLET PO SCH (08:35)
[2023-03-24] MEDS: cefTRIAXone 2 GM in SODIUM CHLORIDE 0.9% MINIBAG 100 ML IV SCH (08:35)
[2023-03-24] MEDS: TAMSULOSIN 0.4 MG CAPSULE PO SCH ×2 (08:35→20:36)
[2023-03-24] MEDS ORDERED: POTASSIUM BICARB 25 MEQ TABLET PO ONE (09:01)
[2023-03-24] MEDS: oxyCODONE 5 MG TABLET PO PRN ×2 (10:02→20:36)
--- NOTE | 2023-03-24 17:02 | PROVIDER PROGRESS NOTE ---
Assessment/Plan - Problem List (1) UTI (urinary tract infection) Qualifiers: Urinary tract infection type: acute cystitis Hematuria presence: without hematuria Qualified Code(s): N30.00 - Acute cystitis without hematuria Assessment/Plan: The admitting telemedicine doctor felt he had sepsis caused by a UTI. He received Cefepime starting in the ED and was continued on empiric iv Ceftriaxone. 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 Based on what we see that he needs with caregiving help here, he should go straight to memory care in my opinion (4) Sepsis Assessment/Plan: RESOLVED Patient had criteria for sepsis: White blood count 13.7, fever of 38.0 at midnight, tachycardic with heart rate of 100 at rest Plan: Continue with IVF and iv antibx - Current Meds Current Meds: Current Medications Generic Name Dose Route Start Last Admin Trade Name [place] PRN Reason Stop Dose Admin Acetaminophen 650 mg 03/22/23 19:45 03/24/23 13:59 Acetaminophen 325 Mg Tablet PO 650 mg Q4HR PRN Administration Pain 1 to 4, or Fever Apixaban 5 mg 03/23/23 09:00 03/24/23 08:35 Apixaban 5 Mg Tablet PO 5 mg BID TYLER Administration Finasteride 5 mg 03/23/23 09:00 03/24/23 08:35 Finasteride 5 Mg Tablet PO 5 mg DAILY TYLER Administration Sodium Chloride 1,000 mls @ 100 mls/hr 03/22/23 20:00 03/24/23 15:55 Normal Saline 0.9% IV 100 mls/hr .Q10H TYLER Administration Ceftriaxone Sodium 2 gm/ 100 mls @ 200 mls/hr 03/23/23 11:00 03/24/23 09:15 Sodium Chloride IV Infused DAILY TYLER Infusion Multi-Ingredient Ointment 1 applic 03/23/23 21:11 03/24/23 08:35 Zinc Oxide 20% Oint 30 Gm Tube TOP 1 applic PRN PRN Administration Skin Care Oxycodone HCl 5 mg 03/22/23 19:44 03/24/23 10:02 Oxycodone 5 Mg Tablet PO 5 mg Q6H PRN Administration PAIN Sodium Chloride 10 ml 03/23/23 01:00 03/24/23 08:36 Sodium Chloride Flush 0.9% 10 Ml Syringe IVP Not Given 0100,0900,1700 TYLER Tamsulosin HCl 0.4 mg 03/23/23 09:00 03/24/23 08:35 Tamsulosin 0.4 Mg Capsule PO 0.4 mg DAILY TYLER Administration - Lab Result Fish Bone Diagrams: 03/24/23 05:00 03/24/23 05:30 - Additional Planning My Orders: My Active Orders 03/23/23 21:11 Zinc Oxide 20% Oint [Zinc Oxide] 1 applic TOP PRN PRN 03/24/23 10:10 Miscellaenous Nursing Order [RC] QSHIFT Subjective - Subjective Patient Reports: Other (He looks around, mostly is asleep) Objective Vital Signs: Vital Signs - 24 hr 03/23/23 03/24/23 03/24/23 19:53 00:15 09:38 Temperature 36.9 C 36.8 C Heart Rate [ 70 80 Brachial] Respiratory 12 16 Rate Blood Pressure 136/75 H 133/75 H 150/73 H [Right Brachial artery] O2 Saturation 100 97 03/24/23 16:00 Temperature 36.7 C Heart Rate [ 88 Brachial] Respiratory 18 Rate Blood Pressure 169/101 H [Right Brachial artery] O2 Saturation 100 Oxygen O2 Source [With Activity] Room air O2 Source Room air I&O (Last 24 Hrs): Intake and Output Totals x24h 03/22/23 03/23/23 03/24/23 23:59 23:59 23:59 Intake Total 1600 3165 3460 Output Total 1250 2100 Balance 1600 1915 1360 General: No acute distress, Other (Pale) HEENT: Mucous membr. moist/pink Neck: Supple, No JVD Neuro: Alert, Disoriented Cardiovascular: No murmurs Respiratory: No respiratory distress Abdomen: Soft, No tenderness Extremities: No clubbing, No edema, No tenderness/swelling - Results Results: Laboratory Results WBC 9.8 x10^3/uL (4.8-10.8) 03/24/23 05:00 RBC 3.62 10^6/uL (4.70-6.10) L 03/24/23 05:00 Hgb 11.7 g/dL (14.0-18.0) L 03/24/23 05:00 Hct 36.2 % (42.0-52.0) L 03/24/23 05:00 MCV 100.0 fL (80.0-94.0) H 03/24/23 05:00 MCH 32.3 pg (27.0-31.0) H 03/24/23 05:00 MCHC 32.3 g/dL (32.0-36.0) 03/24/23 05:00 RDW 13.4 % (12.0-15.0) 03/24/23 05:00 Plt Count 241 10^3/uL (130-450) 03/24/23 05:00 MPV 10.4 fL (7.4-11.4) 03/24/23 05:00 Neut # (Auto) 6.5 10^3/uL (1.5-6.6) 03/24/23 05:00 Lymph # (Auto) 1.7 10^3/uL (1.5-3.5) 03/24/23 05:00 [place] # (Auto) 1.2 10^3/uL (0.0-1.0) H 03/24/23 05:00 Eos # (Auto) 0.4 10^3/uL (0.0-0.7) 03/24/23 05:00 Baso # (Auto) 0.1 10^3/uL (0.0-0.1) 03/24/23 05:00 Absolute Nucleated RBC 0.00 x10^3/uL 03/24/23 05:00 Total Counted 100 03/22/23 18:25 Band Neuts % (Manual) 0 % (0-10) 03/22/23 18:25 Abnorm Lymph % (Manual) 0 % 03/22/23 18:25 Nucleated RBC % 0.0 /100WBC 03/24/23 05:00 Neutrophils # (Manual) 11.0 10^3/uL (1.5-6.6) H 03/22/23 18:25 Lymphocytes # (Manual) 1.4 10^3/uL (1.5-3.5) L 03/22/23 18:25 Monocytes # (Manual) 1.1 10^3/uL (0.0-1.0) H 03/22/23 18:25 Eosinophils # (Manual) 0.0 10^3/uL (0-0.7) 03/22/23 18:25 Basophils # (Manual) 0.3 10^3/uL (0-0.1) H 03/22/23 18:25 Differential Comment MANUAL DIFFERENTIAL 03/22/23 18:25 Platelet Estimate NORMAL (130-450,000) (NORMAL) 03/22/23 18:25 Platelet Morphology NORMAL APPEARANCE (NORMAL) 03/22/23 18:25 RBC Morph Micro Appear 1+ MACROCYTOSIS (NORMAL) 03/22/23 18:25 Sodium 137 mmol/L (135-145) 03/24/23 05:30 Potassium 3.3 mmol/L (3.5-5.0) L 03/24/23 05:30 Chloride 107 mmol/L (101-111) 03/24/23 05:30 Carbon Dioxide 25 mmol/L (21-32) 03/24/23 05:30 Anion Gap 5.0 (6-13) L 03/24/23 05:30 BUN 9 mg/dL (6-20) 03/24/23 05:30 Creatinine 0.7 mg/dL (0.6-1.2) 03/24/23 05:30 Estimated GFR (MDRD) 109 (>89) 03/24/23 05:30 Glucose 88 mg/dL (70-100) 03/24/23 05:30 Lactic Acid 1.6 mmol/L (0.5-2.2) 03/22/23 18:25 Calcium 8.0 mg/dL (8.5-10.3) L 03/24/23 05:30 Total Bilirubin 0.7 mg/dL (0.2-1.0) 03/24/23 05:30 AST 17 IU/L (10-42) 03/24/23 05:30 ALT 13 IU/L (10-60) 03/24/23 05:30 Alkaline Phosphatase 46 IU/L (42-121) 03/24/23 05:30 Total Protein 5.8 g/dL (6.7-8.2) L 03/24/23 05:30 Albumin 2.7 g/dL (3.2-5.5) L 03/24/23 05:30 Globulin 3.1 g/dL (2.1-4.2) 03/24/23 05:30 Albumin/Globulin Ratio 0.9 (1.0-2.2) L 03/24/23 05:30 Procalcitonin < 0.05 ng/mL (<0.5) 03/22/23 18:25 Urine Color RED/BLOODY 03/22/23 18:40 Urine Clarity TURBID (CLEAR) 03/22/23 18:40 Urine pH 6.5 PH (5.0-7.5) 03/22/23 18:40 Ur Specific [place] 1.025 (1.002-1.030) 03/22/23 18:40 Urine Protein >=300 mg/dL (NEGATIVE) H 03/22/23 18:40 Urine Glucose (UA) NEGATIVE mg/dL (NEGATIVE) 03/22/23 18:40 Urine Ketones TRACE mg/dL (NEGATIVE) 03/22/23 18:40 Urine Occult Blood LARGE (NEGATIVE) H 03/22/23 18:40 Urine Nitrite POSITIVE (NEGATIVE) H 03/22/23 18:40 Urine Bilirubin NEGATIVE (NEGATIVE) 03/22/23 18:40 Urine Urobilinogen 1 (NORMAL) E.U./dL (NORMAL) 03/22/23 18:40 Ur Leukocyte Esterase TRACE (NEGATIVE) H 03/22/23 18:40 Urine RBC TNTC /HPF (0-5) H 03/22/23 18:40 Urine WBC 4-5 /HPF (0-3) 03/22/23 18:40 Ur Squamous Epith Cells NONE SEEN (<= Few) 03/22/23 18:40 Amorphous Sediment Moderate /LPF 03/22/23 18:40 Urine Bacteria Few /HPF (None Seen) 03/22/23 18:40 Ur Microscopic Review INDICATED 03/22/23 18:40 Urine Culture Comments INDICATED 03/22/23 18:40 Nasal Adenovirus (PCR) NOT DETECTED 03/22/23 20:15 Nasal B. parapertussis DNA (PCR) NOT DETECTED 03/22/23 20:15 Nasal Coronavir 229E PCR NOT DETECTED 03/22/23 20:15 Nasal Coronavir HKU1 PCR NOT DETECTED 03/22/23 20:15 Nasal Coronavir NL63 PCR NOT DETECTED 03/22/23 20:15 Nasal Coronavir OC43 PCR NOT DETECTED 03/22/23 20:15 Nasal Enterovir/Rhinovir PCR NOT DETECTED 03/22/23 20:15 Nasal Influenza B PCR NOT DETECTED 03/22/23 20:15 Nasal Influenza A PCR NOT DETECTED 03/22/23 20:15 Nasal Parainfluen 1 PCR NOT DETECTED 03/22/23 20:15 Nasal Parainfluen 2 PCR NOT DETECTED 03/22/23 20:15 Nasal Parainfluen 3 PCR NOT DETECTED 03/22/23 20:15 Nasal Parainfluen 4 PCR NOT DETECTED 03/22/23 20:15 Nasal RSV (PCR) NOT DETECTED 03/22/23 20:15 Nasal B.pertussis DNA PCR NOT DETECTED 03/22/23 20:15 Nasal C.pneumoniae (PCR) NOT DETECTED 03/22/23 20:15 [place] Human Metapneumo PCR NOT DETECTED 03/22/23 20:15 Nasal M.pneumoniae (PCR) NOT DETECTED 03/22/23 20:15 Nasal SARS-CoV-2 (PCR) NOT DETECTED 03/22/23 20:15 Sepsis Event Note (H) - Evaluation Current Stage of Sepsis: Sepsis Possible source of Sepsis: positive: Unknown - Sepsis Criteria Sepsis Criteria: Recorded Heart Rate greater than 90 bpm, WBC count greater than 10% bands, WBC count greater than 12,000 or less than 4000
[2023-03-24] MEDS: QUEtiapine 25 MG TABLET PO SCH (20:36)
[2023-03-24] MEDS ORDERED: QUEtiapine 25 MG TABLET PO SCH (21:00)
[2023-03-24] MEDS: NYSTATIN POWDER 15 GM TOP SCH (21:09)
[2023-03-25] MEDS: SODIUM CHLORIDE FLUSH 0.9% 10 ML SYRINGE IVP SCH ×5 (00:22→19:57)
[2023-03-25] MEDS: SODIUM CHLORIDE 0.9% 1,000 ML IV SCH (03:19)
[2023-03-25 05:04] LABS: BASOPHILS # (AUTO) 0.1 10^3/uL (0.0-0.1); BASOPHILS % (AUTO) 0.6 %; EOSINOPHILS # (AUTO) 0.6 10^3/uL (0.0-0.7); EOSINOPHILS % (AUTO) 5.4 %; HCT - HEMATOCRIT 36.7 % (42.0-52.0); LYMPHOCYTES # (AUTO) 2.1 10^3/uL (1.5-3.5); LYMPHOCYTES % (AUTO) 18.1 %; MEAN CORPUSCULAR HEMOGLOBIN 32.2 pg (27.0-31.0); MEAN CORPUSCULAR HGB CONC 32.7 g/dL (32.0-36.0); MEAN CORPUSCULAR VOLUME 98.4 fL (80.0-94.0); MEAN PLATELET VOLUME 10.2 fL (7.4-11.4); MONOCYTES # (AUTO) 1.2 10^3/uL (0.0-1.0); MONOCYTES % (AUTO) 10.2 %; NEUTROPHILS # (AUTO) 7.5 10^3/uL (1.5-6.6); NEUTROPHILS % (AUTO) 65.3 %; PLT - PLATELET COUNT 296 10^3/uL (130-450); RED BLOOD COUNT 3.73 10^6/uL (4.70-6.10); RED CELL DISTRIBUTION WIDTH 13.3 % (12.0-15.0); WHITE BLOOD COUNT 11.4 x10^3/uL (4.8-10.8)
[2023-03-25 05:17] LABS: ALBUMIN 2.7 g/dL (3.2-5.5); ALBUMIN/GLOBULIN RATIO 0.8 (1.0-2.2); BILIRUBIN,TOTAL 0.5 mg/dL (0.2-1.0); CALCIUM 8.6 mg/dL (8.5-10.3); CREATININE 0.7 mg/dL (0.6-1.2); POTASSIUM 4.1 mmol/L (3.5-5.0); TOTAL PROTEIN 6.2 g/dL (6.7-8.2)
[2023-03-25] MEDS: oxyCODONE 5 MG TABLET PO PRN ×2 (07:49→14:37)
--- NOTE | 2023-03-25 08:23 | PROVIDER PROGRESS NOTE ---
Assessment/Plan - Problem List (1) UTI (urinary tract infection) Qualifiers: Urinary tract infection type: acute cystitis Hematuria presence: without hematuria Qualified Code(s): N30.00 - Acute cystitis without hematuria Assessment/Plan: The admitting telemedicine doctor felt he had sepsis caused by a UTI. He received Cefepime in the ED and was continued on empiric iv Ceftriaxone daily. This patient's recent history and antibiotic use is complex however: He had a UTI that was being treated with Cipro, and on the urine cx from 03/10/23, he grew E coli and Proteus mirabilis. I think he had not completed the Cipro course of treatment. Then he came to the ER on 03/20 due to hematuria, and blood and ur cx were drawn, and the ED provider sent him home on Cefpodoxime. Then that 03/20 bld cx turned pos for Staph epi, felt to be a contaminant, but he was called on 03/22 and his reported he was worse. He came in now on 03/22 and had a fever on 03/23. From this latest ER presentation, his urine cx has no growth and bld cx have no growth. I reviewed this entire sequence of events, results and antibx usd with today's pharmacist, Donovan. He probably has a semitreated UTI. Since during this admission his white bld count has gone from 11.2 >> 13.7 >> 9.8 yesterday >> 11.4 today, we will keep him on iv Ceftriaxone, which the E coli and Proteus are sens to. Plan: Continue empiric ceftriaxone IV daily, since the E coli and Proteus are sens to that IVF will now be stopped (2) Acute urinary retention Telemedicine doctor was called 2 nights ago because the patient had greater than 1 L residual in his bladder on bladder scanning and Neumann catheter insertion was ordered. Because of his dementia he tries to pull out his Neumann therefore soft restraints of upper extremities were ordered by me starting yesterday afternoon. I restarted his home prostate meds Tamsolusin and Finasteride 2 days ago Plan: Continue with Neumann. 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 Based on what we see that he needs with caregiving help here, he should go straight to memory care in my opinion. SW called her and spoke to her about this today. 4) Chronic A-fib Plan: The patient is on Pradaxa which has been continued here. He has not been ordered to have telemetry (since I expected him to try to pull the patches off too), but his vital signs show stable heart rate (5) Sepsis Assessment/Plan: RESOLVED Patient had criteria for sepsis: White blood count 13.7, fever of 38.0 at midnight, tachycardic with heart rate of 100 at rest Plan: Continue with iv antibx IVF will now be stopped. - Current Meds Current Meds: Current Medications Generic Name Dose Route Start Last Admin Trade Name Freq PRN Reason Stop Dose Admin Acetaminophen 650 mg 03/22/23 19:45 03/24/23 13:59 Acetaminophen 325 Mg Tablet PO 650 mg Q4HR PRN Administration Pain 1 to 4, or Fever Apixaban 5 mg 03/23/23 09:00 03/24/23 20:37 Apixaban 5 Mg Tablet PO 5 mg BID TYLER Administration Finasteride 5 mg 03/23/23 09:00 03/24/23 08:35 Finasteride 5 Mg Tablet PO 5 mg DAILY TYLER Administration Ceftriaxone Sodium 2 gm/ 100 mls @ 200 mls/hr 03/23/23 11:00 03/24/23 09:15 Sodium Chloride IV Infused DAILY TYLER Infusion Multi-Ingredient Ointment 1 applic 03/23/23 21:11 03/24/23 08:35 Zinc Oxide 20% Oint 30 Gm Tube TOP 1 applic PRN PRN Administration Skin Care Nystatin 1 applic 03/24/23 21:00 03/24/23 21:09 Nystatin Powder 15 Gm TOP 1 applic BID TYLER Administration Oxycodone HCl 5 mg 03/22/23 19:44 03/25/23 07:49 Oxycodone 5 Mg Tablet PO 5 mg Q6H PRN Administration PAIN Quetiapine Fumarate 75 mg 03/24/23 20:00 03/24/23 20:36 Quetiapine 25 Mg Tablet PO 75 mg 1999 TYLER Administration Sodium Chloride 10 ml 03/23/23 01:00 03/25/23 00:22 Sodium Chloride Flush 0.9% 10 Ml Syringe IVP Not Given 0100,0900,1700 TYLER Tamsulosin HCl 0.4 mg 03/23/23 09:00 03/24/23 08:35 Tamsulosin 0.4 Mg Capsule PO 0.4 mg DAILY TYLER Administration Tamsulosin HCl 0.4 mg 03/24/23 21:00 03/24/23 20:36 Tamsulosin 0.4 Mg Capsule PO 0.4 mg BID TYLER Administration - Lab Result Fish Bone Diagrams: 03/25/23 05:00 03/25/23 04:46 - Additional Planning My Orders: My Active Orders 03/24/23 10:10 Miscellaenous Nursing Order [RC] QSHIFT 03/24/23 19:30 NonViolent Restraint(s) Q24H 03/24/23 20:00 QUEtiapine [SEROquel] 75 mg PO 199903/24/23 21:00 Nystatin [Nystop] 1 applic TOP BID Tamsulosin [Flomax] 0.4 mg PO BID Subjective - Subjective Nursing Reports: Other (He mostly lays in bed and watches TV) Objective Vital Signs: Vital Signs - 24 hr 03/24/23 03/24/23 03/25/23 09:38 16:00 00:00 Temperature 36.8 C 36.7 C 36.8 C Heart Rate [ 80 88 59 L Brachial] Respiratory 16 18 20 Rate Blood Pressure 150/73 H 169/101 H 150/86 H [Right Brachial artery] O2 Saturation 97 100 94 Oxygen O2 Source [With Activity] Room air O2 Source Room air I&O (Last 24 Hrs): Intake and Output Totals x24h 03/23/23 03/24/23 03/25/23 23:59 23:59 23:59 Intake Total 3165 3720 1000 Output Total 1250 3000 1400 Balance 1915 720 -400 General: Alert, No acute distress HEENT: Mucous membr. moist/pink Neck: Supple, No JVD Neuro: Alert, Disoriented, Non Focal Cardiovascular: No murmurs Respiratory: No respiratory distress Abdomen: Normal bowel sounds, Soft, No tenderness Genitourinary: Other (Neumann in place) Extremities: No clubbing, No edema, No tenderness/swelling - Results Results: Laboratory Results WBC 11.4 x10^3/uL (4.8-10.8) H 03/25/23 05:00 RBC 3.73 10^6/uL (4.70-6.10) L 03/25/23 05:00 Hgb 12.0 g/dL (14.0-18.0) L 03/25/23 05:00 Hct 36.7 % (42.0-52.0) L 03/25/23 05:00 MCV 98.4 fL (80.0-94.0) H 03/25/23 05:00 MCH 32.2 pg (27.0-31.0) H 03/25/23 05:00 MCHC 32.7 g/dL (32.0-36.0) 03/25/23 05:00 RDW 13.3 % (12.0-15.0) 03/25/23 05:00 Plt Count 296 10^3/uL (130-450) 03/25/23 05:00 MPV 10.2 fL (7.4-11.4) 03/25/23 05:00 Neut # (Auto) 7.5 10^3/uL (1.5-6.6) H 03/25/23 05:00 Lymph # (Auto) 2.1 10^3/uL (1.5-3.5) 03/25/23 05:00 [place] # (Auto) 1.2 10^3/uL (0.0-1.0) H 03/25/23 05:00 Eos # (Auto) 0.6 10^3/uL (0.0-0.7) 03/25/23 05:00 Baso # (Auto) 0.1 10^3/uL (0.0-0.1) 03/25/23 05:00 Absolute Nucleated RBC 0.00 x10^3/uL 03/25/23 05:00 Total Counted 100 03/22/23 18:25 Band Neuts % (Manual) 0 % (0-10) 03/22/23 18:25 Abnorm Lymph % (Manual) 0 % 03/22/23 18:25 Nucleated RBC % 0.0 /100WBC 03/25/23 05:00 Neutrophils # (Manual) 11.0 10^3/uL (1.5-6.6) H 03/22/23 18:25 Lymphocytes # (Manual) 1.4 10^3/uL (1.5-3.5) L 03/22/23 18:25 Monocytes # (Manual) 1.1 10^3/uL (0.0-1.0) H 03/22/23 18:25 Eosinophils # (Manual) 0.0 10^3/uL (0-0.7) 03/22/23 18:25 Basophils # (Manual) 0.3 10^3/uL (0-0.1) H 03/22/23 18:25 Differential Comment MANUAL DIFFERENTIAL 03/22/23 18:25 Platelet Estimate NORMAL (130-450,000) (NORMAL) 03/22/23 18:25 Platelet Morphology NORMAL APPEARANCE (NORMAL) 03/22/23 18:25 RBC Morph Micro Appear 1+ MACROCYTOSIS (NORMAL) 03/22/23 18:25 Sodium 144 mmol/L (135-145) 03/25/23 04:46 Potassium 4.1 mmol/L (3.5-5.0) 03/25/23 04:46 Chloride 110 mmol/L (101-111) 03/25/23 04:46 Carbon Dioxide 29 mmol/L (21-32) 03/25/23 04:46 Anion Gap 5.0 (6-13) L 03/25/23 04:46 BUN 7 mg/dL (6-20) 03/25/23 04:46 Creatinine 0.7 mg/dL (0.6-1.2) 03/25/23 04:46 Estimated GFR (MDRD) 109 (>89) 03/25/23 04:46 Glucose 83 mg/dL (70-100) 03/25/23 04:46 Lactic Acid 1.6 mmol/L (0.5-2.2) 03/22/23 18:25 Calcium 8.6 mg/dL (8.5-10.3) 03/25/23 04:46 Total Bilirubin 0.5 mg/dL (0.2-1.0) 03/25/23 04:46 AST 14 IU/L (10-42) 03/25/23 04:46 ALT 12 IU/L (10-60) 03/25/23 04:46 Alkaline Phosphatase 42 IU/L (42-121) 03/25/23 04:46 Total Protein 6.2 g/dL (6.7-8.2) L 03/25/23 04:46 Albumin 2.7 g/dL (3.2-5.5) L 03/25/23 04:46 Globulin 3.5 g/dL (2.1-4.2) 03/25/23 04:46 Albumin/Globulin Ratio 0.8 (1.0-2.2) L 03/25/23 04:46 Procalcitonin < 0.05 ng/mL (<0.5) 03/22/23 18:25 Urine Color RED/BLOODY 03/22/23 18:40 Urine Clarity TURBID (CLEAR) 03/22/23 18:40 Urine pH 6.5 PH (5.0-7.5) 03/22/23 18:40 Ur Specific [place] 1.025 (1.002-1.030) 03/22/23 18:40 Urine Protein >=300 mg/dL (NEGATIVE) H 03/22/23 18:40 Urine Glucose (UA) NEGATIVE mg/dL (NEGATIVE) 03/22/23 18:40 Urine Ketones TRACE mg/dL (NEGATIVE) 03/22/23 18:40 Urine Occult Blood LARGE (NEGATIVE) H 03/22/23 18:40 Urine Nitrite POSITIVE (NEGATIVE) H 03/22/23 18:40 Urine Bilirubin NEGATIVE (NEGATIVE) 03/22/23 18:40 Urine Urobilinogen 1 (NORMAL) E.U./dL (NORMAL) 03/22/23 18:40 Ur Leukocyte Esterase TRACE (NEGATIVE) H 03/22/23 18:40 Urine RBC TNTC /HPF (0-5) H 03/22/23 18:40 Urine WBC 4-5 /HPF (0-3) 03/22/23 18:40 Ur Squamous Epith Cells NONE SEEN (<= Few) 03/22/23 18:40 Amorphous Sediment Moderate /LPF 03/22/23 18:40 Urine Bacteria Few /HPF (None Seen) 03/22/23 18:40 Ur Microscopic Review INDICATED 03/22/23 18:40 Urine Culture Comments INDICATED 03/22/23 18:40 Nasal Adenovirus (PCR) NOT DETECTED 03/22/23 20:15 Nasal B. parapertussis DNA (PCR) NOT DETECTED 03/22/23 20:15 Nasal Coronavir 229E PCR NOT DETECTED 03/22/23 20:15 Nasal Coronavir HKU1 PCR NOT DETECTED 03/22/23 20:15 Nasal Coronavir NL63 PCR NOT DETECTED 03/22/23 20:15 Nasal Coronavir OC43 PCR NOT DETECTED 03/22/23 20:15 Nasal Enterovir/Rhinovir PCR NOT DETECTED 03/22/23 20:15 Nasal Influenza B PCR NOT DETECTED 03/22/23 20:15 Nasal Influenza A PCR NOT DETECTED 03/22/23 20:15 Nasal Parainfluen 1 PCR NOT DETECTED 03/22/23 20:15 Nasal Parainfluen 2 PCR NOT DETECTED 03/22/23 20:15 Nasal Parainfluen 3 PCR NOT DETECTED 03/22/23 20:15 Nasal Parainfluen 4 PCR NOT DETECTED 03/22/23 20:15 Nasal RSV (PCR) NOT DETECTED 03/22/23 20:15 Nasal B.pertussis DNA PCR NOT DETECTED 03/22/23 20:15 Nasal C.pneumoniae (PCR) NOT DETECTED 03/22/23 20:15 Chon Human Metapneumo PCR NOT DETECTED 03/22/23 20:15 Nasal M.pneumoniae (PCR) NOT DETECTED 03/22/23 20:15 Nasal SARS-CoV-2 (PCR) NOT DETECTED 03/22/23 20:15 Sepsis Event Note (H) - Evaluation Current Stage of Sepsis: Sepsis Possible source of Sepsis: positive: Unknown - Sepsis Criteria Sepsis Criteria: Recorded Heart Rate greater than 90 bpm, WBC count greater than 10% bands, WBC count greater than 12,000 or less than 4000
[2023-03-25] MEDS: TAMSULOSIN 0.4 MG CAPSULE PO SCH ×2 (08:29→19:56)
[2023-03-25] MEDS: APIXABAN 5 MG TABLET PO SCH ×2 (08:29→19:56)
[2023-03-25] MEDS: FINASTERIDE 5 MG TABLET PO SCH (08:29)
[2023-03-25] MEDS: cefTRIAXone 2 GM in SODIUM CHLORIDE 0.9% MINIBAG 100 ML IV SCH (08:29)
[2023-03-25] MEDS: NYSTATIN POWDER 15 GM TOP SCH ×2 (10:40→19:57)
[2023-03-25] MEDS: QUEtiapine 25 MG TABLET PO SCH (19:56)
[2023-03-25] MEDS: ACETAMINOPHEN 325 MG TABLET PO PRN (19:56)
[2023-03-26] MEDS: oxyCODONE 5 MG TABLET PO PRN ×4 (00:01→19:07)
[2023-03-26] MEDS: ACETAMINOPHEN 325 MG TABLET PO PRN ×3 (04:18→19:07)
[2023-03-26 05:02] LABS: BASOPHILS # (AUTO) 0.1 10^3/uL (0.0-0.1); BASOPHILS % (AUTO) 0.7 %; EOSINOPHILS # (AUTO) 0.5 10^3/uL (0.0-0.7); EOSINOPHILS % (AUTO) 4.7 %; HCT - HEMATOCRIT 38.8 % (42.0-52.0); HGB - HEMOGLOBIN 12.5 g/dL (14.0-18.0); LYMPHOCYTES # (AUTO) 2.4 10^3/uL (1.5-3.5); LYMPHOCYTES % (AUTO) 22.4 %; MEAN CORPUSCULAR HEMOGLOBIN 32.1 pg (27.0-31.0); MEAN CORPUSCULAR HGB CONC 32.2 g/dL (32.0-36.0); MEAN CORPUSCULAR VOLUME 99.5 fL (80.0-94.0); MEAN PLATELET VOLUME 10.6 fL (7.4-11.4); MONOCYTES # (AUTO) 1.1 10^3/uL (0.0-1.0); MONOCYTES % (AUTO) 10.7 %; NEUTROPHILS # (AUTO) 6.5 10^3/uL (1.5-6.6); NEUTROPHILS % (AUTO) 61.1 %; PLT - PLATELET COUNT 330 10^3/uL (130-450); RED CELL DISTRIBUTION WIDTH 13.5 % (12.0-15.0); WHITE BLOOD COUNT 10.7 x10^3/uL (4.8-10.8)
[2023-03-26] MEDS ORDERED: MORPHINE 10 MG/ML VIAL IVP ONE (05:30)
[2023-03-26] MEDS ORDERED: hydrALAZINE INJ 20 MG/ML VIAL IVP ONE (05:31)
[2023-03-26] MEDS ORDERED: MORPHINE 2 MG/ML CARPUJECT IVP ONE (06:00)
[2023-03-26] MEDS: cefTRIAXone 2 GM in SODIUM CHLORIDE 0.9% MINIBAG 100 ML IV SCH (09:06)
[2023-03-26] MEDS: FINASTERIDE 5 MG TABLET PO SCH (09:06)
[2023-03-26] MEDS: SODIUM CHLORIDE FLUSH 0.9% 10 ML SYRINGE IVP SCH ×2 (09:06→16:36)
[2023-03-26] MEDS: amLODIPine 5 MG TABLET PO SCH (09:06)
[2023-03-26] MEDS: APIXABAN 5 MG TABLET PO SCH ×2 (09:06→20:01)
[2023-03-26] MEDS: TAMSULOSIN 0.4 MG CAPSULE PO SCH ×2 (09:06→20:01)
[2023-03-26] MEDS: NYSTATIN POWDER 15 GM TOP SCH ×2 (09:07→19:51)
--- NOTE | 2023-03-26 09:29 | PROVIDER PROGRESS NOTE ---
Assessment/Plan - Problem List (1) UTI (urinary tract infection) Qualifiers: Urinary tract infection type: acute cystitis Hematuria presence: without hematuria Qualified Code(s): N30.00 - Acute cystitis without hematuria Assessment/Plan: The admitting telemedicine doctor felt he had sepsis caused by a UTI. He received Cefepime in the ED and was continued on empiric iv Ceftriaxone daily. This patient's recent history and antibiotic use is complex however: He had a UTI that was being treated with Cipro, and on the urine cx from 03/10/23, he grew E coli and Proteus mirabilis. I think he had not completed the Cipro course of treatment. Then he came to the ER on 03/20 due to hematuria, and blood and ur cx were drawn, and the ED provider sent him home on Cefpodoxime. Then that 03/20 bld cx turned pos for Staph epi, felt to be a contaminant, but he was called on 03/22 and his reported he was worse. He came in now on 03/22 and had a fever on 03/23. From this latest ER presentation, his urine cx has no growth and bld cx have no growth. I reviewed this entire sequence of events, results and antibx used with our armacist. He probably has a semitreated UTI. Since during this admission his white bld count has gone from 11.2 >> 13.7 >> 9.8 >> 11.4 yesterday>> 10.7 today, we will keep him on iv Ceftriaxone, which the E coli and Proteus are sens to for another day at least. I will then change to po antibx. I will plan a 21- day total course of antibiotics for good prostate penetration IVF were stopped Plan: Continue empiric ceftriaxone IV daily, since the E coli and Proteus are sens to that I updated the and pt's [id number] today at bedside (2) Acute urinary retention Telemedicine doctor was called 2 nights ago because the patient had greater than 1 L residual in his bladder on bladder scanning and Neumann catheter insertion was ordered. Because of his dementia he tries to pull out his Neumann therefore soft restraints of upper extremities were ordered by me starting yesterday afternoon. 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 Then he got weak and has not been able to stand. The patient now needs two person assist to stand or move, he thinks he is falling, he did not know what to do with his utensils to feed himself I resumed his home med Quietipine PT and OT evaluated him but he is not a candidate for rehab at a SNF since he is not directable due to his dementia. I updated the about this today, and said that he now may be bedbound or need to be put in a lift to be transferred from bed to a chair. She understood. The confirmed to me today that he is going to [facility] from here. Plan: Will update social work (they are not here today it is a Monday), regarding this patient's caregiving needs and the 's plan 4) HTN This is a new diagnosis for him. He is as high as 180s over 100s. The nurse suspected that it was because he has poor pain control. He cannot tell us where his pain is because of his dementia As needed IV Hydralazine was ordered by the telemedicine doctor Plan: Treat his pain. I spoke to his asking where the source of his pain usually is and she said lower back. I informed her that using narcotics for pain control will definitely add to his confusion and somnolence. I will order a Lidocaine patch scheduled daily I will start him on Amlodipine 5 mg daily today for the HTN 5) Chronic A-fib Plan: The patient is on Pradaxa which has been continued here. He has not been ordered to have telemetry (since I expected him to try to pull the patches off too), but his vital signs show stable heart rate (6) Sepsis Assessment/Plan: RESOLVED Patient had criteria for sepsis: White blood count 13.7, fever of 38.0 at midnight, tachycardic with heart rate of 100 at rest. IVF were stopped. Plan: Continue with iv antibx - Current Meds Current Meds: Current Medications Generic Name Dose Route Start Last Admin Trade Name Freq PRN Reason Stop Dose Admin Acetaminophen 650 mg 03/22/23 19:45 03/26/23 04:18 Acetaminophen 325 Mg Tablet PO 650 mg Q4HR PRN Administration Pain 1 to 4, or Fever Amlodipine Besylate 5 mg 03/26/23 09:00 03/26/23 09:06 Amlodipine 5 Mg Tablet PO 5 mg DAILY TYLER Administration Apixaban 5 mg 03/23/23 09:00 03/26/23 09:06 Apixaban 5 Mg Tablet PO 5 mg BID TYLER Administration Finasteride 5 mg 03/23/23 09:00 03/26/23 09:06 Finasteride 5 Mg Tablet PO 5 mg DAILY TYLER Administration Ceftriaxone Sodium 2 gm/ 100 mls @ 200 mls/hr 03/23/23 11:00 03/26/23 09:06 Sodium Chloride IV 200 mls/hr DAILY TYLER Administration Lidocaine 1 patch 03/22/23 19:44 03/25/23 10:40 Lidocaine Patch 5% TOP 1 patch DAILY PRN Administration pain Multi-Ingredient Ointment 1 applic 03/23/23 21:11 03/24/23 08:35 Zinc Oxide 20% Oint 30 Gm Tube TOP 1 applic PRN PRN Administration Skin Care Nystatin 1 applic 03/24/23 21:00 03/26/23 09:07 Nystatin Powder 15 Gm TOP 1 applic BID TYLER Administration Oxycodone HCl 5 mg 03/22/23 19:44 03/26/23 07:40 Oxycodone 5 Mg Tablet PO 5 mg Q6H PRN Administration PAIN Quetiapine Fumarate 75 mg 03/24/23 20:00 03/25/23 19:56 Quetiapine 25 Mg Tablet PO 75 mg 2000 TYLER Administration Sodium Chloride 10 ml 03/23/23 01:00 03/26/23 09:06 Sodium Chloride Flush 0.9% 10 Ml Syringe IVP 10 ml 0100,0900,1700 TYLER Administration Tamsulosin HCl 0.4 mg 03/24/23 21:00 03/26/23 09:06 Tamsulosin 0.4 Mg Capsule PO 0.4 mg BID TYLER Administration - Lab Result Fish Bone Diagrams: 03/26/23 04:39 03/25/23 04:46 - Additional Planning My Orders: My Active Orders 03/26/23 09:00 amLODIPine [Norvasc] 5 mg PO DAILY 03/26/23 Lunch DIET [Low Sodium Diet] [DIET] Subjective - Subjective Patient Reports: Other (Lethargic (after getting oxycodone for pain)) Objective Vital Signs: Vital Signs - 24 hr 03/25/23 03/26/23 03/26/23 16:08 04:16 04:40 Temperature 37.3 C 36.5 C Heart Rate [ 91 96 Brachial] Respiratory 22 22 Rate Blood Pressure Blood Pressure 142/105 H 165/109 H [Left Brachial artery] Blood Pressure [Left Radial artery] O2 Saturation 97 96 03/26/23 03/26/23 07:00 08:06 Temperature 36.7 C Heart Rate [ 99 Brachial] Respiratory 24 Rate Blood Pressure 165/103 H Blood Pressure [Left Brachial artery] Blood Pressure 136/78 H [Left Radial artery] O2 Saturation 93 Oxygen O2 Source [With Activity] Room air O2 Source Room air I&O (Last 24 Hrs): Intake and Output Totals x24h 03/24/23 03/25/23 03/26/23 23:59 23:59 23:59 Intake Total 3720 3410 930 Output Total 3000 1836 Balance 720 1574 930 General: Other (Lethargic) HEENT: Mucous membr. moist/pink Neck: Supple Neuro: Other (Today he is lethargic after getting pain meds. Mostly he moves all 4 extremities spontaneously) Cardiovascular: No murmurs Respiratory: No respiratory distress Extremities: No clubbing, No edema, No tenderness/swelling - Results Results: Laboratory Results WBC 10.7 x10^3/uL (4.8-10.8) 03/26/23 04:39 RBC 3.90 10^6/uL (4.70-6.10) L 03/26/23 04:39 Hgb 12.5 g/dL (14.0-18.0) L 03/26/23 04:39 Hct 38.8 % (42.0-52.0) L 03/26/23 04:39 MCV 99.5 fL (80.0-94.0) H 03/26/23 04:39 MCH 32.1 pg (27.0-31.0) H 03/26/23 04:39 MCHC 32.2 g/dL (32.0-36.0) 03/26/23 04:39 RDW 13.5 % (12.0-15.0) 03/26/23 04:39 Plt Count 330 10^3/uL (130-450) 03/26/23 04:39 MPV 10.6 fL (7.4-11.4) 03/26/23 04:39 Neut # (Auto) 6.5 10^3/uL (1.5-6.6) 03/26/23 04:39 Lymph # (Auto) 2.4 10^3/uL (1.5-3.5) 03/26/23 04:39 [place] # (Auto) 1.1 10^3/uL (0.0-1.0) H 03/26/23 04:39 Eos # (Auto) 0.5 10^3/uL (0.0-0.7) 03/26/23 04:39 Baso # (Auto) 0.1 10^3/uL (0.0-0.1) 03/26/23 04:39 Absolute Nucleated RBC 0.00 x10^3/uL 03/26/23 04:39 Total Counted 100 03/22/23 18:25 Band Neuts % (Manual) 0 % (0-10) 03/22/23 18:25 Abnorm Lymph % (Manual) 0 % 03/22/23 18:25 Nucleated RBC % 0.0 /100WBC 03/26/23 04:39 Neutrophils # (Manual) 11.0 10^3/uL (1.5-6.6) H 03/22/23 18:25 Lymphocytes # (Manual) 1.4 10^3/uL (1.5-3.5) L 03/22/23 18:25 Monocytes # (Manual) 1.1 10^3/uL (0.0-1.0) H 03/22/23 18:25 Eosinophils # (Manual) 0.0 10^3/uL (0-0.7) 03/22/23 18:25 Basophils # (Manual) 0.3 10^3/uL (0-0.1) H 03/22/23 18:25 Differential Comment MANUAL DIFFERENTIAL 03/22/23 18:25 Platelet Estimate NORMAL (130-450,000) (NORMAL) 03/22/23 18:25 Platelet Morphology NORMAL APPEARANCE (NORMAL) 03/22/23 18:25 RBC Morph Micro Appear 1+ MACROCYTOSIS (NORMAL) 03/22/23 18:25 Sodium 144 mmol/L (135-145) 03/25/23 04:46 Potassium 4.1 mmol/L (3.5-5.0) 03/25/23 04:46 Chloride 110 mmol/L (101-111) 03/25/23 04:46 Carbon Dioxide 29 mmol/L (21-32) 03/25/23 04:46 Anion Gap 5.0 (6-13) L 03/25/23 04:46 BUN 7 mg/dL (6-20) 03/25/23 04:46 Creatinine 0.7 mg/dL (0.6-1.2) 03/25/23 04:46 Estimated GFR (MDRD) 109 (>89) 03/25/23 04:46 Glucose 83 mg/dL (70-100) 03/25/23 04:46 Lactic Acid 1.6 mmol/L (0.5-2.2) 03/22/23 18:25 Calcium 8.6 mg/dL (8.5-10.3) 03/25/23 04:46 Total Bilirubin 0.5 mg/dL (0.2-1.0) 03/25/23 04:46 AST 14 IU/L (10-42) 03/25/23 04:46 ALT 12 IU/L (10-60) 03/25/23 04:46 Alkaline Phosphatase 42 IU/L (42-121) 03/25/23 04:46 Total Protein 6.2 g/dL (6.7-8.2) L 03/25/23 04:46 Albumin 2.7 g/dL (3.2-5.5) L 03/25/23 04:46 Globulin 3.5 g/dL (2.1-4.2) 03/25/23 04:46 Albumin/Globulin Ratio 0.8 (1.0-2.2) L 03/25/23 04:46 Procalcitonin < 0.05 ng/mL (<0.5) 03/22/23 18:25 Urine Color RED/BLOODY 03/22/23 18:40 Urine Clarity TURBID (CLEAR) 03/22/23 18:40 Urine pH 6.5 PH (5.0-7.5) 03/22/23 18:40 Ur Specific [place] 1.025 (1.002-1.030) 03/22/23 18:40 Urine Protein >=300 mg/dL (NEGATIVE) H 03/22/23 18:40 Urine Glucose (UA) NEGATIVE mg/dL (NEGATIVE) 03/22/23 18:40 Urine Ketones TRACE mg/dL (NEGATIVE) 03/22/23 18:40 Urine Occult Blood LARGE (NEGATIVE) H 03/22/23 18:40 Urine Nitrite POSITIVE (NEGATIVE) H 03/22/23 18:40 Urine Bilirubin NEGATIVE (NEGATIVE) 03/22/23 18:40 Urine Urobilinogen 1 (NORMAL) E.U./dL (NORMAL) 03/22/23 18:40 Ur Leukocyte Esterase TRACE (NEGATIVE) H 03/22/23 18:40 Urine RBC TNTC /HPF (0-5) H 03/22/23 18:40 Urine WBC 4-5 /HPF (0-3) 03/22/23 18:40 Ur Squamous Epith Cells NONE SEEN (<= Few) 03/22/23 18:40 Amorphous Sediment Moderate /LPF 03/22/23 18:40 Urine Bacteria Few /HPF (None Seen) 03/22/23 18:40 Ur Microscopic Review INDICATED 03/22/23 18:40 Urine Culture Comments INDICATED 03/22/23 18:40 Nasal Adenovirus (PCR) NOT DETECTED 03/22/23 20:15 Nasal B. parapertussis DNA (PCR) NOT DETECTED 03/22/23 20:15 Nasal Coronavir 229E PCR NOT DETECTED 03/22/23 20:15 Nasal Coronavir HKU1 PCR NOT DETECTED 03/22/23 20:15 Nasal Coronavir NL63 PCR NOT DETECTED 03/22/23 20:15 Nasal Coronavir OC43 PCR NOT DETECTED 03/22/23 20:15 Nasal Enterovir/Rhinovir PCR NOT DETECTED 03/22/23 20:15 Nasal Influenza B PCR NOT DETECTED 03/22/23 20:15 Nasal Influenza A PCR NOT DETECTED 03/22/23 20:15 Nasal Parainfluen 1 PCR NOT DETECTED 03/22/23 20:15 Nasal Parainfluen 2 PCR NOT DETECTED 03/22/23 20:15 Nasal Parainfluen 3 PCR NOT DETECTED 03/22/23 20:15 Nasal Parainfluen 4 PCR NOT DETECTED 03/22/23 20:15 Nasal RSV (PCR) NOT DETECTED 03/22/23 20:15 Nasal B.pertussis DNA PCR NOT DETECTED 03/22/23 20:15 Nasal C.pneumoniae (PCR) NOT DETECTED 03/22/23 20:15 Chon Human Metapneumo PCR NOT DETECTED 03/22/23 20:15 Nasal M.pneumoniae (PCR) NOT DETECTED 03/22/23 20:15 Nasal SARS-CoV-2 (PCR) NOT DETECTED 03/22/23 20:15 Sepsis Event Note (H) - Evaluation Current Stage of Sepsis: Sepsis Possible source of Sepsis: positive: Unknown - Sepsis Criteria Sepsis Criteria: Recorded Heart Rate greater than 90 bpm, WBC count greater than 10% bands, WBC count greater than 12,000 or less than 4000
[2023-03-26] MEDS: QUEtiapine 25 MG TABLET PO SCH (20:01)
[2023-03-27] MEDS: SODIUM CHLORIDE FLUSH 0.9% 10 ML SYRINGE IVP SCH ×3 (02:43→16:00)
[2023-03-27] MEDS: ACETAMINOPHEN 325 MG TABLET PO PRN ×4 (05:20→21:25)
[2023-03-27] MEDS: oxyCODONE 5 MG TABLET PO PRN (05:20)
--- NOTE | 2023-03-27 06:25 | PROVIDER PROGRESS NOTE ---
Hospitalist Cross-cover Note - Cross-Cover Note Cross-Cover Note: Pt w urinary retention requiring recurrent straight cath. Neumann catheter ordered.
[2023-03-27] MEDS: cefTRIAXone 2 GM in SODIUM CHLORIDE 0.9% MINIBAG 100 ML IV SCH (08:16)
[2023-03-27] MEDS: FINASTERIDE 5 MG TABLET PO SCH (08:17)
[2023-03-27] MEDS: APIXABAN 5 MG TABLET PO SCH ×2 (08:17→19:50)
[2023-03-27] MEDS: TAMSULOSIN 0.4 MG CAPSULE PO SCH ×2 (08:17→19:49)
[2023-03-27] MEDS: amLODIPine 5 MG TABLET PO SCH (08:17)
[2023-03-27] MEDS: LIDOCAINE PATCH 5% TOP SCH (08:18)
[2023-03-27] MEDS: NYSTATIN POWDER 15 GM TOP SCH ×2 (08:20→19:50)
--- NOTE | 2023-03-27 08:29 | PROVIDER PROGRESS NOTE ---
Assessment/Plan - Problem List (1) UTI (urinary tract infection) Qualifiers: Urinary tract infection type: acute cystitis Hematuria presence: without hematuria Qualified Code(s): N30.00 - Acute cystitis without hematuria Assessment/Plan: This patient's recent history and antibiotic use is complex however: He had a UTI that was being treated with Cipro, and on the urine cx from 03/10/23, he grew E coli and Proteus mirabilis. I think he had not completed the Cipro course of treatment. Then he came to the ER on 03/20 due to hematuria, and blood and ur cx were drawn, and the ED provider sent him home on Cefpodoxime. Then that 03/20 bld cx turned pos for Staph epi, felt to be a contaminant, but he was called on 03/22 and his reported he was worse. He came in now on 03/22 and had a fever on 03/23. From this latest ER presentation, his urine cx has no growth and bld cx have no growth. The admitting telemedicine doctor felt he had sepsis caused by a UTI. He received Cefepime in the ED and has been continued on empiric iv Ceftriaxone daily. I reviewed this entire sequence of events, results and antibx used with our pharmacist. He probably has a semitreated UTI. I reviewed all labs. Since during this admission his white bld count has gone from 11.2 >> 13.7 >> 9.8 >> 11.4 >> 10.7 yesterday>> 10.1 today, I kept him on iv Ceftriaxone, which the E coli and Proteus are sens to. IVF were stopped. Plan: Will change ceftriaxone IV daily to oral Levaquin, based on the sensitivity profiles of the E coli and Proteus. This choice was reviewed with pooja Man today. I will plan a 21-day total course of antibiotics for good prostate penetration. He has gotten 6 days of iv antibx, so 15 more days using Levaquin once daily, plus a probiotic. Today is Day 1 of 15 days. I want to assess him after at least 24 hours of being on an oral antibiotic to assure that there is no return of fever or rising WBC. I reviewed all the above with the daughter and [id number] at bedside today (2) Acute urinary retention His home prostate meds Tamsolusin and Finasteride are being given here. This patient has had several episodes of urinary retention greater than 1 L. He had a Neumann in which was discontinued 2 days ago after bladder training. However, again last night Telemedicine doctor was called because the patient had 2 L found on bladder scanning and Neumann catheter insertion was ordered. Because of his dementia he has tried to pull out his Neumann, when he last had it, therefore soft restraints of upper extremities were needed Plan: Unfortunately we again have to order upper extremity restraints so he does not pull out his Neumann. The other alternative is to not use a chronic Neumann, but to schedule straight cathing for him possibly twice daily or at least daily, here and at the [facility]. SW checked if that center would do straight caths and they cannot. I discussed this with the at bedside, and [id number] present. 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 Then he got weak and has not been able to stand. The patient now needs two person assist to stand or move, he thinks he is falling, he did not know what to do with his utensils to feed himself I resumed his home med Quietipine PT and OT evaluated him but he is not a candidate for rehab at a SNF since he is not directable due to his dementia. I updated the about this today, and said that he now may be bedbound or need to be put in a lift to be transferred from bed to a chair. She understood. The confirmed that she wants go to a [facility] from here. SW checked if that center would do straight caths and they cannot. I discussed this with the at bedside, and [id number] present. (4) HTN This is a new diagnosis for him. His BP is as high as 180s over 100s. His nurse suspected that it was because he has poor pain control. He cannot tell us where his pain is because of his dementia As needed IV Hydralazine was ordered by the telemedicine doctor I addressed his pain control and started him on Amlodipine 5 mg daily Plan: Continue Amlodipine daily (5) Low back pain I spoke to his on 03/26 , asking where the source of his pain usually is and she said she thinks it's his lower back. I informed her that using narcotics for pain control will definitely add to his confusion and somnolence. I ordered a Lidocaine patch scheduled daily, not prn Plan: Continue pain control with a scheduled Lidocaine patch I have decreased his oxycodone from 5 mg every 6 hours prn to 2.5 mg every 8 hours prn. (6) Lethargy Only since he has gotten morphine or oxycodone has he been hypersomnolent. Plan: I will decrease his narcotic pain med dose oxycodone from 5 mg every 6 hours prn to 2.5 mg every 8 hours prn. (7) Chronic A-fib Plan: The patient was on Pradaxa, and a DOAC has been continued here. He has not been ordered to have telemetry (since I expected him to try to pull the patches off too), but his vital signs show stable heart rate (8) Sepsis RESOLVED Patient had criteria for sepsis: White blood count 13.7, fever of 38.0 at midnight, tachycardic with heart rate of 100 at rest. IVF were stopped. Plan: Continue with antibx - Current Meds Current Meds: Current Medications Generic Name Dose Route Start Last Admin Trade Name Freq PRN Reason Stop Dose Admin Acetaminophen 650 mg 03/22/23 19:45 03/27/23 05:20 Acetaminophen 325 Mg Tablet PO 650 mg Q4HR PRN Administration Pain 1 to 4, or Fever Amlodipine Besylate 5 mg 03/26/23 09:00 03/26/23 09:06 Amlodipine 5 Mg Tablet PO 5 mg DAILY TYLER Administration Apixaban 5 mg 03/23/23 09:00 03/26/23 20:01 Apixaban 5 Mg Tablet PO 5 mg BID TYLER Administration Finasteride 5 mg 03/23/23 09:00 03/26/23 09:06 Finasteride 5 Mg Tablet PO 5 mg DAILY TYLER Administration Ceftriaxone Sodium 2 gm/ 100 mls @ 200 mls/hr 03/23/23 11:00 03/26/23 09:59 Sodium Chloride IV Infused DAILY TYLER Infusion Multi-Ingredient Ointment 1 applic 03/23/23 21:11 03/24/23 08:35 Zinc Oxide 20% Oint 30 Gm Tube TOP 1 applic PRN PRN Administration Skin Care Nystatin 1 applic 03/24/23 21:00 03/26/23 19:51 Nystatin Powder 15 Gm TOP 1 applic BID TYLER Administration Oxycodone HCl 5 mg 03/22/23 19:44 03/27/23 05:20 Oxycodone 5 Mg Tablet PO 5 mg Q6H PRN Administration PAIN Quetiapine Fumarate 75 mg 03/24/23 20:00 03/26/23 20:01 Quetiapine 25 Mg Tablet PO 75 mg 2000 TYLER Administration Sodium Chloride 10 ml 03/23/23 01:00 03/27/23 02:43 Sodium Chloride Flush 0.9% 10 Ml Syringe IVP 10 ml 0100,0900,1700 TYLER Administration Tamsulosin HCl 0.4 mg 03/24/23 21:00 03/26/23 20:01 Tamsulosin 0.4 Mg Capsule PO 0.4 mg BID TYLER Administration - Lab Result Fish Bone Diagrams: 03/27/23 08:45 03/27/23 08:45 - Additional Planning My Orders: My Active Orders 03/26/23 09:00 amLODIPine [Norvasc] 5 mg PO DAILY 03/26/23 Lunch DIET [Low Sodium Diet] [DIET] 03/26/23 16:09 Miscellaenous Nursing Order [RC] QSHIFT 03/27/23 09:00 Lidocaine Patch 5% [Lidoderm Patch] 1 patch TOP DAILY Subjective - Subjective Patient Reports: Other (Asleep after a.m. oxycodone was given) Objective Vital Signs: Vital Signs - 24 hr 03/26/23 03/27/23 03/27/23 16:35 00:27 08:00 Temperature 36.8 C 36.4 C L 36.8 C Heart Rate [ 99 81 64 Brachial] Respiratory 22 22 12 Rate Blood Pressure 125/75 [Left Brachial artery] Blood Pressure 144/86 H 134/74 H [Right Brachial artery] O2 Saturation 98 97 98 Oxygen O2 Source [With Activity] Room air O2 Source Room air I&O (Last 24 Hrs): Intake and Output Totals x24h 03/25/23 03/26/23 03/27/23 23:59 23:59 23:59 Intake Total 3410 2030 Output Total 1836 4000 Balance 1574 -1970 General: Other (Lethargic) HEENT: Mucous membr. moist/pink Neck: Supple Neuro: Other (Lethargic) Cardiovascular: No murmurs Respiratory: No respiratory distress Abdomen: Soft Extremities: No clubbing, No edema - Results Results: Laboratory Results WBC 10.7 x10^3/uL (4.8-10.8) 03/26/23 04:39 RBC 3.90 10^6/uL (4.70-6.10) L 03/26/23 04:39 Hgb 12.5 g/dL (14.0-18.0) L 03/26/23 04:39 Hct 38.8 % (42.0-52.0) L 03/26/23 04:39 MCV 99.5 fL (80.0-94.0) H 03/26/23 04:39 MCH 32.1 pg (27.0-31.0) H 03/26/23 04:39 MCHC 32.2 g/dL (32.0-36.0) 03/26/23 04:39 RDW 13.5 % (12.0-15.0) 03/26/23 04:39 Plt Count 330 10^3/uL (130-450) 03/26/23 04:39 MPV 10.6 fL (7.4-11.4) 03/26/23 04:39 Neut # (Auto) 6.5 10^3/uL (1.5-6.6) 03/26/23 04:39 Lymph # (Auto) 2.4 10^3/uL (1.5-3.5) 03/26/23 04:39 [place] # (Auto) 1.1 10^3/uL (0.0-1.0) H 03/26/23 04:39 Eos # (Auto) 0.5 10^3/uL (0.0-0.7) 03/26/23 04:39 Baso # (Auto) 0.1 10^3/uL (0.0-0.1) 03/26/23 04:39 Absolute Nucleated RBC 0.00 x10^3/uL 03/26/23 04:39 Total Counted 100 03/22/23 18:25 Band Neuts % (Manual) 0 % (0-10) 03/22/23 18:25 Abnorm Lymph % (Manual) 0 % 03/22/23 18:25 Nucleated RBC % 0.0 /100WBC 03/26/23 04:39 Neutrophils # (Manual) 11.0 10^3/uL (1.5-6.6) H 03/22/23 18:25 Lymphocytes # (Manual) 1.4 10^3/uL (1.5-3.5) L 03/22/23 18:25 Monocytes # (Manual) 1.1 10^3/uL (0.0-1.0) H 03/22/23 18:25 Eosinophils # (Manual) 0.0 10^3/uL (0-0.7) 03/22/23 18:25 Basophils # (Manual) 0.3 10^3/uL (0-0.1) H 03/22/23 18:25 Differential Comment MANUAL DIFFERENTIAL 03/22/23 18:25 Platelet Estimate NORMAL (130-450,000) (NORMAL) 03/22/23 18:25 Platelet Morphology NORMAL APPEARANCE (NORMAL) 03/22/23 18:25 RBC Morph Micro Appear 1+ MACROCYTOSIS (NORMAL) 03/22/23 18:25 Sodium 144 mmol/L (135-145) 03/25/23 04:46 Potassium 4.1 mmol/L (3.5-5.0) 03/25/23 04:46 Chloride 110 mmol/L (101-111) 03/25/23 04:46 Carbon Dioxide 29 mmol/L (21-32) 03/25/23 04:46 Anion Gap 5.0 (6-13) L 03/25/23 04:46 BUN 7 mg/dL (6-20) 03/25/23 04:46 Creatinine 0.7 mg/dL (0.6-1.2) 03/25/23 04:46 Estimated GFR (MDRD) 109 (>89) 03/25/23 04:46 Glucose 83 mg/dL (70-100) 03/25/23 04:46 Lactic Acid 1.6 mmol/L (0.5-2.2) 03/22/23 18:25 Calcium 8.6 mg/dL (8.5-10.3) 03/25/23 04:46 Total Bilirubin 0.5 mg/dL (0.2-1.0) 03/25/23 04:46 AST 14 IU/L (10-42) 03/25/23 04:46 ALT 12 IU/L (10-60) 03/25/23 04:46 Alkaline Phosphatase 42 IU/L (42-121) 03/25/23 04:46 Total Protein 6.2 g/dL (6.7-8.2) L 03/25/23 04:46 Albumin 2.7 g/dL (3.2-5.5) L 03/25/23 04:46 Globulin 3.5 g/dL (2.1-4.2) 03/25/23 04:46 Albumin/Globulin Ratio 0.8 (1.0-2.2) L 03/25/23 04:46 Procalcitonin < 0.05 ng/mL (<0.5) 03/22/23 18:25 Urine Color RED/BLOODY 03/22/23 18:40 Urine Clarity TURBID (CLEAR) 03/22/23 18:40 Urine pH 6.5 PH (5.0-7.5) 03/22/23 18:40 Ur Specific [place] 1.025 (1.002-1.030) 03/22/23 18:40 Urine Protein >=300 mg/dL (NEGATIVE) H 03/22/23 18:40 Urine Glucose (UA) NEGATIVE mg/dL (NEGATIVE) 03/22/23 18:40 Urine Ketones TRACE mg/dL (NEGATIVE) 03/22/23 18:40 Urine Occult Blood LARGE (NEGATIVE) H 03/22/23 18:40 Urine Nitrite POSITIVE (NEGATIVE) H 03/22/23 18:40 Urine Bilirubin NEGATIVE (NEGATIVE) 03/22/23 18:40 Urine Urobilinogen 1 (NORMAL) E.U./dL (NORMAL) 03/22/23 18:40 Ur Leukocyte Esterase TRACE (NEGATIVE) H 03/22/23 18:40 Urine RBC TNTC /HPF (0-5) H 03/22/23 18:40 Urine WBC 4-5 /HPF (0-3) 03/22/23 18:40 Ur Squamous Epith Cells NONE SEEN (<= Few) 03/22/23 18:40 Amorphous Sediment Moderate /LPF 03/22/23 18:40 Urine Bacteria Few /HPF (None Seen) 03/22/23 18:40 Ur Microscopic Review INDICATED 03/22/23 18:40 Urine Culture Comments INDICATED 03/22/23 18:40 Nasal Adenovirus (PCR) NOT DETECTED 03/22/23 20:15 Nasal B. parapertussis DNA (PCR) NOT DETECTED 03/22/23 20:15 Nasal Coronavir 229E PCR NOT DETECTED 03/22/23 20:15 Nasal Coronavir HKU1 PCR NOT DETECTED 03/22/23 20:15 Nasal Coronavir NL63 PCR NOT DETECTED 03/22/23 20:15 Nasal Coronavir OC43 PCR NOT DETECTED 03/22/23 20:15 Nasal Enterovir/Rhinovir PCR NOT DETECTED 03/22/23 20:15 Nasal Influenza B PCR NOT DETECTED 03/22/23 20:15 Nasal Influenza A PCR NOT DETECTED 03/22/23 20:15 Nasal Parainfluen 1 PCR NOT DETECTED 03/22/23 20:15 Nasal Parainfluen 2 PCR NOT DETECTED 03/22/23 20:15 Nasal Parainfluen 3 PCR NOT DETECTED 03/22/23 20:15 Nasal Parainfluen 4 PCR NOT DETECTED 03/22/23 20:15 Nasal RSV (PCR) NOT DETECTED 03/22/23 20:15 Nasal B.pertussis DNA PCR NOT DETECTED 03/22/23 20:15 Nasal C.pneumoniae (PCR) NOT DETECTED 03/22/23 20:15 Chon Human Metapneumo PCR NOT DETECTED 03/22/23 20:15 Nasal M.pneumoniae (PCR) NOT DETECTED 03/22/23 20:15 Nasal SARS-CoV-2 (PCR) NOT DETECTED 03/22/23 20:15 Sepsis Event Note (H) - Evaluation Current Stage of Sepsis: Sepsis Possible source of Sepsis: positive: Unknown - Sepsis Criteria Sepsis Criteria: Recorded Heart Rate greater than 90 bpm, WBC count greater than 10% bands, WBC count greater than 12,000 or less than 4000
[2023-03-27 08:50] LABS: BASOPHILS # (AUTO) 0.1 10^3/uL (0.0-0.1); BASOPHILS % (AUTO) 0.7 %; EOSINOPHILS # (AUTO) 0.7 10^3/uL (0.0-0.7); EOSINOPHILS % (AUTO) 7.2 %; HCT - HEMATOCRIT 37.4 % (42.0-52.0); HGB - HEMOGLOBIN 12.3 g/dL (14.0-18.0); LYMPHOCYTES # (AUTO) 1.9 10^3/uL (1.5-3.5); MEAN CORPUSCULAR HEMOGLOBIN 32.6 pg (27.0-31.0); MEAN CORPUSCULAR HGB CONC 32.9 g/dL (32.0-36.0); MEAN CORPUSCULAR VOLUME 99.2 fL (80.0-94.0); MONOCYTES # (AUTO) 1.1 10^3/uL (0.0-1.0); MONOCYTES % (AUTO) 10.8 %; NEUTROPHILS # (AUTO) 6.3 10^3/uL (1.5-6.6); PLT - PLATELET COUNT 336 10^3/uL (130-450); RED BLOOD COUNT 3.77 10^6/uL (4.70-6.10); RED CELL DISTRIBUTION WIDTH 13.4 % (12.0-15.0); WHITE BLOOD COUNT 10.1 x10^3/uL (4.8-10.8)
[2023-03-27 09:02] LABS: CALCIUM 8.7 mg/dL (8.5-10.3); CREATININE 1.1 mg/dL (0.6-1.2); POTASSIUM 3.5 mmol/L (3.5-5.0)
[2023-03-27] MEDS: MULTIVITAMIN W/MINERALS TABLET PO SCH (17:15)
[2023-03-27] MEDS: CALAMINE/ZINC OXIDE 177 ML BOTTLE TOP PRN (18:51)
[2023-03-27] MEDS: QUEtiapine 25 MG TABLET PO SCH (19:49)
[2023-03-28] MEDS: SODIUM CHLORIDE FLUSH 0.9% 10 ML SYRINGE IVP SCH ×4 (05:13→23:11)
[2023-03-28] MEDS: ACETAMINOPHEN 325 MG TABLET PO PRN ×4 (05:36→18:54)
[2023-03-28 05:52] LABS: BASOPHILS # (AUTO) 0.1 10^3/uL (0.0-0.1); BASOPHILS % (AUTO) 0.7 %; EOSINOPHILS # (AUTO) 0.7 10^3/uL (0.0-0.7); EOSINOPHILS % (AUTO) 8.6 %; HCT - HEMATOCRIT 37.3 % (42.0-52.0); HGB - HEMOGLOBIN 12.1 g/dL (14.0-18.0); LYMPHOCYTES % (AUTO) 23.9 %; MEAN CORPUSCULAR HEMOGLOBIN 31.9 pg (27.0-31.0); MEAN CORPUSCULAR HGB CONC 32.4 g/dL (32.0-36.0); MEAN CORPUSCULAR VOLUME 98.4 fL (80.0-94.0); MEAN PLATELET VOLUME 11.3 fL (7.4-11.4); MONOCYTES # (AUTO) 0.9 10^3/uL (0.0-1.0); MONOCYTES % (AUTO) 10.1 %; NEUTROPHILS # (AUTO) 4.7 10^3/uL (1.5-6.6); NEUTROPHILS % (AUTO) 56.5 %; PLT - PLATELET COUNT 309 10^3/uL (130-450); RED BLOOD COUNT 3.79 10^6/uL (4.70-6.10); RED CELL DISTRIBUTION WIDTH 13.2 % (12.0-15.0); WHITE BLOOD COUNT 8.4 x10^3/uL (4.8-10.8)
[2023-03-28 06:06] LABS: CALCIUM 8.9 mg/dL (8.5-10.3); CREATININE 0.8 mg/dL (0.6-1.2); MAGNESIUM 2.2 mg/dL (1.7-2.8); POTASSIUM 3.5 mmol/L (3.5-5.0)
[2023-03-28] MEDS: FINASTERIDE 5 MG TABLET PO SCH (09:24)
[2023-03-28] MEDS: TAMSULOSIN 0.4 MG CAPSULE PO SCH ×2 (09:24→20:25)
[2023-03-28] MEDS: APIXABAN 5 MG TABLET PO SCH ×2 (09:24→20:25)
[2023-03-28] MEDS: amLODIPine 5 MG TABLET PO SCH (09:24)
[2023-03-28] MEDS: NYSTATIN POWDER 15 GM TOP SCH ×2 (09:24→20:25)
[2023-03-28] MEDS: LIDOCAINE PATCH 5% TOP SCH (09:24)
[2023-03-28] MEDS: SACCHAROMYCES BOULARDII 250 MG CAPSULE PO SCH (09:24)
[2023-03-28] MEDS: levoFLOXacin 250 MG TABLET PO SCH (09:24)
[2023-03-28] MEDS: CALAMINE/ZINC OXIDE 177 ML BOTTLE TOP PRN ×2 (10:14→14:52)
[2023-03-28] MEDS: polyethylene glycoL 3350 17 GM PACKET PO SCH (11:59)
[2023-03-28] MEDS: MULTIVITAMIN W/MINERALS TABLET PO SCH (12:00)
[2023-03-28] MEDS: oxyCODONE 5 MG TABLET PO PRN (20:24)
[2023-03-28] MEDS: QUEtiapine 25 MG TABLET PO SCH (20:25)
[2023-03-29] MEDS: SODIUM CHLORIDE FLUSH 0.9% 10 ML SYRINGE IVP SCH ×3 (10:11→23:49)
[2023-03-29] MEDS: SACCHAROMYCES BOULARDII 250 MG CAPSULE PO SCH (10:11)
[2023-03-29] MEDS: CYANOCOBALAMIN 500 MCG TABLET PO SCH (10:11)
[2023-03-29] MEDS: amLODIPine 5 MG TABLET PO SCH (10:11)
[2023-03-29] MEDS: TAMSULOSIN 0.4 MG CAPSULE PO SCH ×2 (10:11→20:03)
[2023-03-29] MEDS: FINASTERIDE 5 MG TABLET PO SCH (10:11)
[2023-03-29] MEDS: levoFLOXacin 250 MG TABLET PO SCH (10:11)
[2023-03-29] MEDS: LIDOCAINE PATCH 5% TOP SCH (10:12)
[2023-03-29] MEDS: APIXABAN 5 MG TABLET PO SCH ×2 (10:12→20:03)
[2023-03-29] MEDS: polyethylene glycoL 3350 17 GM PACKET PO SCH (10:12)
[2023-03-29] MEDS: NYSTATIN POWDER 15 GM TOP SCH ×2 (10:12→19:20)
[2023-03-29] MEDS: MULTIVITAMIN W/MINERALS TABLET PO SCH (12:39)
--- NOTE | 2023-03-29 16:36 | PROVIDER PROGRESS NOTE ---
Progress Note Assessment/Plan - Problem List (1) UTI (urinary tract infection) Qualifiers: Urinary tract infection type: acute cystitis Hematuria presence: without hematuria Qualified Code(s): N30.00 - Acute cystitis without hematuria Assessment/Plan: Urinary tract infection type: acute cystitis Hematuria presence: without hematuria Qualified Code(s): N30.00 - Acute cystitis without hematuria Assessment/Plan: This patient's recent history and antibiotic use is complex however: He had a UTI that was being treated with Cipro, and on the urine cx from 03/10/23, he grew E coli and Proteus mirabilis. I think he had not completed the Cipro course of treatment. Then he came to the ER on 03/20 due to hematuria, and blood and ur cx were drawn, and the ED provider sent him home on Cefpodoxime. Then that 03/20 bld cx turned pos for Staph epi, felt to be a contaminant, but he was called on 03/22 and his reported he was worse. He came in now on 03/22 and had a fever on 03/23. From this latest ER presentation, his urine cx has no growth and bld cx have no growth. The admitting telemedicine doctor felt he had sepsis caused by a UTI. He received Cefepime in the ED and has been continued on empiric iv Ceftriaxone daily. I reviewed this entire sequence of events, results and antibx used with our pharmacist. He probably has a semitreated UTI. I reviewed all labs. Since during this admission his white bld count has gone from 11.2 >> 13.7 >> 9.8 >> 11.4 >> 10.7 yesterday>> 10.1 today, I kept him on iv Ceftriaxone, which the E coli and Proteus are sens to. IVF were stopped. Plan: Will change ceftriaxone IV daily to oral Levaquin, based on the sensitivity profiles of the E coli and Proteus. This choice was reviewed with pooja Man today. I will plan a 21-day total course of antibiotics for good prostate penetration. He has gotten 6 days of iv antibx, so 15 more days using Levaquin once daily, plus a probiotic. Today is Day 1 of 15 days. I want to assess him after at least 24 hours of being on an oral antibiotic to assure that there is no return of fever or rising WBC. I reviewed all the above with the daughter and [id number] at bedside today (2) Acute urinary retention His home prostate meds Tamsolusin and Finasteride are being given here. This patient has had several episodes of urinary retention greater than 1 L. He had a Neumann in which was discontinued 2 days ago after bladder training. However, again last night Telemedicine doctor was called because the patient had 2 L found on bladder scanning and Neumann catheter insertion was ordered. Because of his dementia he has tried to pull out his Neumann, when he last had it, therefore soft restraints of upper extremities were needed Plan: Unfortunately we again have to order upper extremity restraints so he does not pull out his Neumann. The other alternative is to not use a chronic Neumann, but to schedule straight cathing for him possibly twice daily or at least daily, here and at [facility]. SW checked if that center would do straight caths and they cannot. I discussed this with the at bedside, and [id number] present. March 28, 2023-we will straight cath every 6 hours due to significant urinary retention this will be as needed postvoid residual greater than 300. 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 Then he got weak and has not been able to stand. The patient now needs two person assist to stand or move, he thinks he is falling, he did not know what to do with his utensils to feed himself I resumed his home med Quietipine PT and OT evaluated him but he is not a candidate for rehab at a SNF since he is not directable due to his dementia. I updated the about this today, and said that he now may be bedbound or need to be put in a lift to be transferred from bed to a chair. She understood. The confirmed that she wants go to a [facility] from here. SW checked if that center would do straight caths and they cannot. I discussed this with the at bedside, and [id number] present. (4) HTN This is a new diagnosis for him. His BP is as high as 180s over 100s. His nurse suspected that it was because he has poor pain control. He cannot tell us where his pain is because of his dementia As needed IV Hydralazine was ordered by the telemedicine doctor I addressed his pain control and started him on Amlodipine 5 mg daily Plan: Continue Amlodipine daily (5) Low back pain I spoke to his on 03/26 , asking where the source of his pain usually is and she said she thinks it's his lower back. I informed her that using narcotics for pain control will definitely add to his confusion and somnolence. I ordered a Lidocaine patch scheduled daily, not prn Plan: Continue pain control with a scheduled Lidocaine patch I have decreased his oxycodone from 5 mg every 6 hours prn to 2.5 mg every 8 hours prn. (6) Lethargy Only since he has gotten morphine or oxycodone has he been hypersomnolent. Plan: I will decrease his narcotic pain med dose oxycodone from 5 mg every 6 hours prn to 2.5 mg every 8 hours prn. (7) Chronic A-fib Plan: The patient was on Pradaxa, and a DOAC has been continued here. He has not been ordered to have telemetry (since I expected him to try to pull the patches off too), but his vital signs show stable heart rate (8) Sepsis RESOLVED Patient had criteria for sepsis: White blood count 13.7, fever of 38.0 at midnight, tachycardic with heart rate of 100 at rest. IVF were stopped. Plan: Continue with antibx - Current Meds Current Meds: Current Medications Generic Name Dose Route Start Last Admin Trade Name Freq PRN Reason Stop Dose Admin Acetaminophen 650 mg 03/22/23 19:45 03/28/23 14:52 Acetaminophen 325 Mg Tablet PO 650 mg Q4HR PRN Administration Pain 1 to 4, or Fever Amlodipine Besylate 5 mg 03/26/23 09:00 03/28/23 09:24 Amlodipine 5 Mg Tablet PO 5 mg DAILY TYLER Administration Apixaban 5 mg 03/23/23 09:00 03/28/23 09:24 Apixaban 5 Mg Tablet PO 5 mg BID TYLER Administration Calamine 1 applic 03/27/23 17:18 03/28/23 14:52 Calamine/Zinc Oxide 177 Ml Bottle TOP 1 applic PRN PRN Administration SKIN CARE Finasteride 5 mg 03/23/23 09:00 03/28/23 09:24 Finasteride 5 Mg Tablet PO 5 mg DAILY TYLER Administration Levofloxacin 500 mg 03/28/23 09:00 03/28/23 09:24 Levofloxacin 250 Mg Tablet PO 500 mg DAILY TYLER Administration Lidocaine 1 patch 03/27/23 09:00 03/28/23 09:24 Lidocaine Patch 5% TOP 1 patch DAILY TYLER Administration Multi-Ingredient Ointment 1 applic 03/23/23 21:11 03/24/23 08:35 Zinc Oxide 20% Oint 30 Gm Tube TOP 1 applic PRN PRN Administration Skin Care Multivitamins/Minerals 1 tab 03/27/23 17:00 03/28/23 12:00 Multivitamin W/Minerals Tablet PO 1 tab QDLUNCH TYLER Administration Nystatin 1 applic 03/24/23 21:00 03/28/23 09:24 Nystatin Powder 15 Gm TOP 1 applic BID TYLER Administration Polyethylene Glycol 17 gm 03/28/23 12:00 03/28/23 11:59 Polyethylene Glycol 3350 17 Gm Packet PO 17 gm DAILY TYLER Administration Quetiapine Fumarate 75 mg 03/24/23 20:00 03/27/23 19:49 Quetiapine 25 Mg Tablet PO 75 mg 2000 TYLER Administration Saccharomyces Boulardii 250 mg 03/28/23 09:00 03/28/23 09:24 Saccharomyces Boulardii 250 Mg Capsule PO 250 mg DAILY TYLER Administration Sodium Chloride 10 ml 03/23/23 01:00 03/28/23 16:08 Sodium Chloride Flush 0.9% 10 Ml Syringe IVP Not Given 0100,0900,1700 [facility] Tamsulosin HCl 0.4 mg 03/24/23 21:00 03/28/23 09:24 Tamsulosin 0.4 Mg Capsule PO 0.4 mg BID TYLER Administration - Lab Result Fish Bone Diagrams: 03/28/23 05:02 03/28/23 05:02 - Additional Planning My Orders: My Active Orders 03/28/23 12:00 polyethylene glycoL 3350 [Miralax] 17 gm PO DAILY Objective Vital Signs: Vital Signs - 24 hr 03/28/23 03/28/23 03/28/23 00:35 08:00 16:05 Temperature 36.4 C L 36.2 C L 36.7 C Heart Rate [ 79 78 Brachial] Heart Rate [ 74 Radial] Respiratory 12 16 18 Rate Blood Pressure 139/78 H 153/69 H 139/75 H [Right Brachial artery] O2 Saturation 97 100 99 Oxygen O2 Source [With Activity] Room air O2 Source Room air I&O (Last 24 Hrs): Intake and Output Totals x24h 03/26/23 03/27/23 03/28/23 23:59 23:59 23:59 Intake Total 2029 1580 950 Output Total 4000 3870 3300 Balance -1970 -1280 -2570 General: Alert, Other (Confused) HEENT: Atraumatic Neck: Supple Neuro: Alert, Disoriented Cardiovascular: Regular rate, Normal S1, Normal S2 Respiratory: Chest non-tender, Breath sounds nml Abdomen: Normal bowel sounds, Soft - Results Results: Laboratory Results WBC 8.4 x10^3/uL (4.8-10.8) 03/28/23 05:02 RBC 3.79 10^6/uL (4.70-6.10) L 03/28/23 05:02 Hgb 12.1 g/dL (14.0-18.0) L 03/28/23 05:02 Hct 37.3 % (42.0-52.0) L 03/28/23 05:02 MCV 98.4 fL (80.0-94.0) H 03/28/23 05:02 MCH 31.9 pg (27.0-31.0) H 03/28/23 05:02 MCHC 32.4 g/dL (32.0-36.0) 03/28/23 05:02 RDW 13.2 % (12.0-15.0) 03/28/23 05:02 Plt Count 309 10^3/uL (130-450) 03/28/23 05:02 MPV 11.3 fL (7.4-11.4) 03/28/23 05:02 Neut # (Auto) 4.7 10^3/uL (1.5-6.6) 03/28/23 05:02 Lymph # (Auto) 2.0 10^3/uL (1.5-3.5) 03/28/23 05:02 [place] # (Auto) 0.9 10^3/uL (0.0-1.0) 03/28/23 05:02 Eos # (Auto) 0.7 10^3/uL (0.0-0.7) 03/28/23 05:02 Baso # (Auto) 0.1 10^3/uL (0.0-0.1) 03/28/23 05:02 Absolute Nucleated RBC 0.00 x10^3/uL 03/28/23 05:02 Total Counted 100 03/22/23 18:25 Band Neuts % (Manual) 0 % (0-10) 03/22/23 18:25 Abnorm Lymph % (Manual) 0 % 03/22/23 18:25 Nucleated RBC % 0.0 /100WBC 03/28/23 05:02 Neutrophils # (Manual) 11.0 10^3/uL (1.5-6.6) H 03/22/23 18:25 Lymphocytes # (Manual) 1.4 10^3/uL (1.5-3.5) L 03/22/23 18:25 Monocytes # (Manual) 1.1 10^3/uL (0.0-1.0) H 03/22/23 18:25 Eosinophils # (Manual) 0.0 10^3/uL (0-0.7) 03/22/23 18:25 Basophils # (Manual) 0.3 10^3/uL (0-0.1) H 03/22/23 18:25 Differential Comment MANUAL DIFFERENTIAL 03/22/23 18:25 Platelet Estimate NORMAL (130-450,000) (NORMAL) 03/22/23 18:25 Platelet Morphology NORMAL APPEARANCE (NORMAL) 03/22/23 18:25 RBC Morph Micro Appear 1+ MACROCYTOSIS (NORMAL) 03/22/23 18:25 Sodium 143 mmol/L (135-145) 03/28/23 05:02 Potassium 3.5 mmol/L (3.5-5.0) 03/28/23 05:02 Chloride 107 mmol/L (101-111) 03/28/23 05:02 Carbon Dioxide 29 mmol/L (21-32) 03/28/23 05:02 Anion Gap 7.0 (6-13) 03/28/23 05:02 BUN 12 mg/dL (6-20) 03/28/23 05:02 Creatinine 0.8 mg/dL (0.6-1.2) 03/28/23 05:02 Estimated GFR (MDRD) 93 (>89) 03/28/23 05:02 Glucose 83 mg/dL (70-100) 03/28/23 05:02 Lactic Acid 1.6 mmol/L (0.5-2.2) 03/22/23 18:25 Calcium 8.9 mg/dL (8.5-10.3) 03/28/23 05:02 Magnesium 2.2 mg/dL (1.7-2.8) 03/28/23 05:02 Total Bilirubin 0.5 mg/dL (0.2-1.0) 03/25/23 04:46 AST 14 IU/L (10-42) 03/25/23 04:46 ALT 12 IU/L (10-60) 03/25/23 04:46 Alkaline Phosphatase 42 IU/L (42-121) 03/25/23 04:46 Total Protein 6.2 g/dL (6.7-8.2) L 03/25/23 04:46 Albumin 2.7 g/dL (3.2-5.5) L 03/25/23 04:46 Globulin 3.5 g/dL (2.1-4.2) 03/25/23 04:46 Albumin/Globulin Ratio 0.8 (1.0-2.2) L 03/25/23 04:46 Vitamin B12 219 pg/mL (180-914) 03/27/23 08:45 Procalcitonin < 0.05 ng/mL (<0.5) 03/22/23 18:25 Urine Color RED/BLOODY 03/22/23 18:40 Urine Clarity TURBID (CLEAR) 03/22/23 18:40 Urine pH 6.5 PH (5.0-7.5) 03/22/23 18:40 Ur Specific [place] 1.025 (1.002-1.030) 03/22/23 18:40 Urine Protein >=300 mg/dL (NEGATIVE) H 03/22/23 18:40 Urine Glucose (UA) NEGATIVE mg/dL (NEGATIVE) 03/22/23 18:40 Urine Ketones TRACE mg/dL (NEGATIVE) 03/22/23 18:40 Urine Occult Blood LARGE (NEGATIVE) H 03/22/23 18:40 Urine Nitrite POSITIVE (NEGATIVE) H 03/22/23 18:40 Urine Bilirubin NEGATIVE (NEGATIVE) 03/22/23 18:40 Urine Urobilinogen 1 (NORMAL) E.U./dL (NORMAL) 03/22/23 18:40 Ur Leukocyte Esterase TRACE (NEGATIVE) H 03/22/23 18:40 Urine RBC TNTC /HPF (0-5) H 03/22/23 18:40 Urine WBC 4-5 /HPF (0-3) 03/22/23 18:40 Ur Squamous Epith Cells NONE SEEN (<= Few) 03/22/23 18:40 Amorphous Sediment Moderate /LPF 03/22/23 18:40 Urine Bacteria Few /HPF (None Seen) 03/22/23 18:40 Ur Microscopic Review INDICATED 03/22/23 18:40 Urine Culture Comments INDICATED 03/22/23 18:40 Nasal Adenovirus (PCR) NOT DETECTED 03/22/23 20:15 Nasal B. parapertussis DNA (PCR) NOT DETECTED 03/22/23 20:15 Nasal Coronavir 229E PCR NOT DETECTED 03/22/23 20:15 Nasal Coronavir HKU1 PCR NOT DETECTED 03/22/23 20:15 Nasal Coronavir NL63 PCR NOT DETECTED 03/22/23 20:15 Nasal Coronavir OC43 PCR NOT DETECTED 03/22/23 20:15 Nasal Enterovir/Rhinovir PCR NOT DETECTED 03/22/23 20:15 Nasal Influenza B PCR NOT DETECTED 03/22/23 20:15 Nasal Influenza A PCR NOT DETECTED 03/22/23 20:15 Nasal Parainfluen 1 PCR NOT DETECTED 03/22/23 20:15 Nasal Parainfluen 2 PCR NOT DETECTED 03/22/23 20:15 Nasal Parainfluen 3 PCR NOT DETECTED 03/22/23 20:15 Nasal Parainfluen 4 PCR NOT DETECTED 03/22/23 20:15 Nasal RSV (PCR) NOT DETECTED 03/22/23 20:15 Nasal B.pertussis DNA PCR NOT DETECTED 03/22/23 20:15 Nasal C.pneumoniae (PCR) NOT DETECTED 03/22/23 20:15 [place]on Human Metapneumo PCR NOT DETECTED 03/22/23 20:15 Nasal M.pneumoniae (PCR) NOT DETECTED 03/22/23 20:15 Nasal SARS-CoV-2 (PCR) NOT DETECTED 03/22/23 20:15 Sepsis Event Note (H) - Evaluation Current Stage of Sepsis: Sepsis Possible source of Sepsis: positive: Unknown - Sepsis Criteria Sepsis Criteria: Recorded Heart Rate greater than 90 bpm, WBC count greater than 10% bands, WBC count greater than 12,000 or less than 4000
[2023-03-29] MEDS: CALAMINE/ZINC OXIDE 177 ML BOTTLE TOP PRN (17:36)
[2023-03-29] MEDS: ACETAMINOPHEN 325 MG TABLET PO PRN (19:19)
[2023-03-29] MEDS: QUEtiapine 25 MG TABLET PO SCH (19:20)
[2023-03-29] MEDS: oxyCODONE 5 MG TABLET PO PRN (22:16)
[2023-03-30] MEDS: NYSTATIN POWDER 15 GM TOP SCH ×2 (08:23→20:03)
[2023-03-30] MEDS: SACCHAROMYCES BOULARDII 250 MG CAPSULE PO SCH (08:23)
[2023-03-30] MEDS: amLODIPine 5 MG TABLET PO SCH (08:23)
[2023-03-30] MEDS: CYANOCOBALAMIN 500 MCG TABLET PO SCH (08:23)
[2023-03-30] MEDS: LIDOCAINE PATCH 5% TOP SCH (08:23)
[2023-03-30] MEDS: TAMSULOSIN 0.4 MG CAPSULE PO SCH ×2 (08:23→20:03)
[2023-03-30] MEDS: FINASTERIDE 5 MG TABLET PO SCH (08:23)
[2023-03-30] MEDS: APIXABAN 5 MG TABLET PO SCH ×2 (08:23→20:03)
[2023-03-30] MEDS: levoFLOXacin 250 MG TABLET PO SCH (08:23)
[2023-03-30] MEDS: polyethylene glycoL 3350 17 GM PACKET PO SCH (08:24)
[2023-03-30] MEDS: SODIUM CHLORIDE FLUSH 0.9% 10 ML SYRINGE IVP SCH ×2 (08:24→15:41)
[2023-03-30] MEDS: QUEtiapine 25 MG TABLET PO SCH ×2 (12:20→20:02)
[2023-03-30] MEDS: MULTIVITAMIN W/MINERALS TABLET PO SCH (12:20)
--- NOTE | 2023-03-30 14:50 | PROVIDER PROGRESS NOTE ---
Assessment/Plan - Problem List (1) UTI (urinary tract infection) Qualifiers: Urinary tract infection type: acute cystitis Hematuria presence: without hematuria Qualified Code(s): N30.00 - Acute cystitis without hematuria Assessment/Plan: Assessment/Plan: This patient's recent history and antibiotic use is complex however: He had a UTI that was being treated with Cipro, and on the urine cx from 03/10/23, he grew E coli and Proteus mirabilis. I think he had not completed the Cipro course of treatment. Then he came to the ER on 03/20 due to hematuria, and blood and ur cx were drawn, and the ED provider sent him home on Cefpodoxime. Then that 03/20 bld cx turned pos for Staph epi, felt to be a contaminant, but he was called on 03/22 and his reported he was worse. He came in now on 03/22 and had a fever on 03/23. From this latest ER presentation, his urine cx has no growth and bld cx have no growth. The admitting telemedicine doctor felt he had sepsis caused by a UTI. He received Cefepime in the ED and has been continued on empiric iv Ceftriaxone daily. I reviewed this entire sequence of events, results and antibx used with our pharmacist. He probably has a semitreated UTI. I reviewed all labs. Since zia ng this admission his white bld count has gone from 11.2 >> 13.7 >> 9.8 >> 11.4 >> 10.7 yesterday>> 10.1 today, I kept him on iv Ceftriaxone, which the E coli and Proteus are sens to. IVF were stopped. Plan: Will change ceftriaxone IV daily to oral Levaquin, based on the sensitivity profiles of the E coli and Proteus. This choice was reviewed with pooja Man today. I will plan a 21-day total course of antibiotics for good prostate penetration. He has gotten 6 days of iv antibx, so 15 more days using Levaquin once daily, plus a probiotic. Today is Day 1 of 15 days. I want to assess him after at least 24 hours of being on an oral antibiotic to assure that there is no return of fever or rising WBC. I reviewed all the above with the daughter and [id number] at bedside today (2) Acute urinary retention His home prostate meds Tamsolusin and Finasteride are being given here. This patient has had several episodes of urinary retention greater than 1 L. He had a Neumann in which was discontinued 2 days ago after bladder training. However, again last night Telemedicine doctor was called because the patient had 2 L found on bladder scanning and Neumann catheter insertion was ordered. Because of his dementia he has tried to pull out his Neumann, when he last had it, therefore soft restraints of upper extremities were needed Plan: Unfortunately we again have to order upper extremity restraints so he does not pull out his Neumann. The other alternative is to not use a chronic Neumann, but to schedule straight cathing for him possibly twice daily or at least daily, here and [facility]. SW checked if that center would do straight caths and they cannot. I discussed this with the at bedside, and [id number] present. March 28, 2023-we will straight cath every 6 hours due to significant urinary retention this will be as needed postvoid residual greater than 300. 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 Then he got weak and has not been able to stand. The patient now needs two person assist to stand or move, he thinks he is falling, he did not know what to do with his utensils to feed himself I resumed his home med Quietipine PT and OT evaluated him but he is not a candidate for rehab at a SNF since he is not directable due to his dementia. I updated the about this today, and said that he now may be bedbound or need to be put in a lift to be transferred from bed to a chair. She understood. The confirmed that she wants go to a [facility]. SW checked if that center would do straight caths and they cannot. I discussed this with the at bedside, and [id number] present. March 30, 2023 Will increase Seroquel to twice daily to better control his mood (4) HTN This is a new diagnosis for him. His BP is as high as 180s over 100s. His nurse suspected that it was because he has poor pain control. He cannot tell us where his pain is because of his dementia As needed IV Hydralazine was ordered by the telemedicine doctor I addressed his pain control and started him on Amlodipine 5 mg daily Plan: Continue Amlodipine daily (5) Low back pain I spoke to his on 03/26 , asking where the source of his pain usually is and she said she thinks it's his lower back. I informed her that using narcotics for pain control will definitely add to his confusion and somnolence. I ordered a Lidocaine patch scheduled daily, not prn Plan: Continue pain control with a scheduled Lidocaine patch I have decreased his oxycodone from 5 mg every 6 hours prn to 2.5 mg every 8 hours prn. (6) Lethargy Only since he has gotten morphine or oxycodone has he been hypersomnolent. Plan: I will decrease his narcotic pain med dose oxycodone from 5 mg every 6 hours prn to 2.5 mg every 8 hours prn. (7) Chronic A-fib Plan: The patient was on Pradaxa, and a DOAC has been continued here. He has not been ordered to have telemetry (since I expected him to try to pull the patches off too), but his vital signs show stable heart rate (8) Sepsis RESOLVED Patient had criteria for sepsis: White blood count 13.7, fever of 38.0 at midnight, tachycardic with heart rate of 100 at rest. IVF were stopped. Plan: Continue with antibx - Current Meds Current Meds: Current Medications Generic Name Dose Route Start Last Admin Trade Name Rileyq PRN Reason Stop Dose Admin Acetaminophen 650 mg 03/22/23 19:45 03/29/23 19:19 Acetaminophen 325 Mg Tablet PO 650 mg Q4HR PRN Administration Pain 1 to 4, or Fever Amlodipine Besylate 5 mg 03/26/23 09:00 03/30/23 08:23 Amlodipine 5 Mg Tablet PO 5 mg DAILY TYLER Administration Apixaban 5 mg 03/23/23 09:00 03/30/23 08:23 Apixaban 5 Mg Tablet PO 5 mg BID TYLER Administration Calamine 1 applic 03/27/23 17:18 03/29/23 17:36 Calamine/Zinc Oxide 177 Ml Bottle TOP 1 applic PRN PRN Administration SKIN CARE Cyanocobalamin 500 mcg 03/29/23 10:00 03/30/23 08:23 Cyanocobalamin 500 Mcg Tablet PO 500 mcg DAILY TYLER Administration Finasteride 5 mg 03/23/23 09:00 03/30/23 08:23 Finasteride 5 Mg Tablet PO 5 mg DAILY TYLER Administration Levofloxacin 500 mg 03/28/23 09:00 03/30/23 08:23 Levofloxacin 250 Mg Tablet PO 500 mg DAILY TYLER Administration Lidocaine 1 patch 03/27/23 09:00 03/30/23 08:23 Lidocaine Patch 5% TOP 1 patch DAILY TYLER Administration Multi-Ingredient Ointment 1 applic 03/23/23 21:11 03/24/23 08:35 Zinc Oxide 20% Oint 30 Gm Tube TOP 1 applic PRN PRN Administration Skin Care Multivitamins/Minerals 1 tab 03/27/23 17:00 03/30/23 12:20 Multivitamin W/Minerals Tablet PO 1 tab QDLUNCH TYLER Administration Nystatin 1 applic 03/24/23 21:00 03/30/23 08:23 Nystatin Powder 15 Gm TOP 1 applic BID TYLER Administration Oxycodone HCl 2.5 mg 03/27/23 08:40 03/29/23 22:16 Oxycodone 5 Mg Tablet PO 2.5 mg Q8H PRN Administration PAIN 5-10 Polyethylene Glycol 17 gm 03/28/23 12:00 03/30/23 08:24 Polyethylene Glycol 3350 17 Gm Packet PO 17 gm DAILY TYLER Administration Quetiapine Fumarate 75 mg 03/30/23 12:00 03/30/23 12:20 Quetiapine 25 Mg Tablet PO 75 mg BID TYLER Administration Saccharomyces Boulardii 250 mg 03/28/23 09:00 03/30/23 08:23 Saccharomyces Boulardii 250 Mg Capsule PO 250 mg DAILY TYLER Administration Sodium Chloride 10 ml 03/23/23 01:00 03/30/23 08:24 Sodium Chloride Flush 0.9% 10 Ml Syringe IVP Not Given 0100,0900,1700 [facility] Tamsulosin HCl 0.4 mg 03/24/23 21:00 03/30/23 08:23 Tamsulosin 0.4 Mg Capsule PO 0.4 mg BID TYLER Administration - Lab Result Fish Bone Diagrams: 03/28/23 05:02 03/28/23 05:02 - Additional Planning My Orders: My Active Orders 03/30/23 12:00 QUEtiapine [SEROquel] 75 mg PO BID Subjective - Subjective Patient Reports: Feeling Better Objective Vital Signs: Vital Signs - 24 hr 03/29/23 03/29/23 03/30/23 16:00 23:55 08:00 Temperature 36.9 C 36.3 C L 36.6 C Heart Rate [ 68 68 73 Brachial] Respiratory 16 16 18 Rate Blood Pressure 126/89 H 147/87 H 116/85 H [Right Brachial artery] O2 Saturation 99 99 96 Oxygen O2 Source [With Activity] Room air O2 Source Room air I&O (Last 24 Hrs): Intake and Output Totals x24h 03/28/23 03/29/23 03/30/23 23:59 23:59 23:59 Intake Total 1637 600 700 Output Total 4000 3602 1175 [facility] [phone] General: Alert HEENT: Atraumatic Neuro: Alert, Other (Has dementia) Cardiovascular: Regular rate, Normal S1, Normal S2 Respiratory: No respiratory distress Abdomen: Normal bowel sounds, Soft Skin: No rashes - Results Results: Laboratory Results WBC 8.4 x10^3/uL (4.8-10.8) 03/28/23 05:02 RBC 3.79 10^6/uL (4.70-6.10) L 03/28/23 05:02 Hgb 12.1 g/dL (14.0-18.0) L 03/28/23 05:02 Hct 37.3 % (42.0-52.0) L 03/28/23 05:02 MCV 98.4 fL (80.0-94.0) H 03/28/23 05:02 MCH 31.9 pg (27.0-31.0) H 03/28/23 05:02 MCHC 32.4 g/dL (32.0-36.0) 03/28/23 05:02 RDW 13.2 % (12.0-15.0) 03/28/23 05:02 Plt Count 309 10^3/uL (130-450) 03/28/23 05:02 MPV 11.3 fL (7.4-11.4) 03/28/23 05:02 Neut # (Auto) 4.7 10^3/uL (1.5-6.6) 03/28/23 05:02 Lymph # (Auto) 2.0 10^3/uL (1.5-3.5) 03/28/23 05:02 Hoke # (Auto) 0.9 10^3/uL (0.0-1.0) 03/28/23 05:02 Eos # (Auto) 0.7 10^3/uL (0.0-0.7) 03/28/23 05:02 Baso # (Auto) 0.1 10^3/uL (0.0-0.1) 03/28/23 05:02 Absolute Nucleated RBC 0.00 x10^3/uL 03/28/23 05:02 Total Counted 100 03/22/23 18:25 Band Neuts % (Manual) 0 % (0-10) 03/22/23 18:25 Abnorm Lymph % (Manual) 0 % 03/22/23 18:25 Nucleated RBC % 0.0 /100WBC 03/28/23 05:02 Neutrophils # (Manual) 11.0 10^3/uL (1.5-6.6) H 03/22/23 18:25 Lymphocytes # (Manual) 1.4 10^3/uL (1.5-3.5) L 03/22/23 18:25 Monocytes # (Manual) 1.1 10^3/uL (0.0-1.0) H 03/22/23 18:25 Eosinophils # (Manual) 0.0 10^3/uL (0-0.7) 03/22/23 18:25 Basophils # (Manual) 0.3 10^3/uL (0-0.1) H 03/22/23 18:25 Differential Comment MANUAL DIFFERENTIAL 03/22/23 18:25 Platelet Estimate NORMAL (130-450,000) (NORMAL) 03/22/23 18:25 Platelet Morphology NORMAL APPEARANCE (NORMAL) 03/22/23 18:25 RBC Morph Micro Appear 1+ MACROCYTOSIS (NORMAL) 03/22/23 18:25 Sodium 143 mmol/L (135-145) 03/28/23 05:02 Potassium 3.5 mmol/L (3.5-5.0) 03/28/23 05:02 Chloride 107 mmol/L (101-111) 03/28/23 05:02 Carbon Dioxide 29 mmol/L (21-32) 03/28/23 05:02 Anion Gap 7.0 (6-13) 03/28/23 05:02 BUN 12 mg/dL (6-20) 03/28/23 05:02 Creatinine 0.8 mg/dL (0.6-1.2) 03/28/23 05:02 Estimated GFR (MDRD) 93 (>89) 03/28/23 05:02 Glucose 83 mg/dL (70-100) 03/28/23 05:02 Lactic Acid 1.6 mmol/L (0.5-2.2) 03/22/23 18:25 Calcium 8.9 mg/dL (8.5-10.3) 03/28/23 05:02 Magnesium 2.2 mg/dL (1.7-2.8) 03/28/23 05:02 Total Bilirubin 0.5 mg/dL (0.2-1.0) 03/25/23 04:46 AST 14 IU/L (10-42) 03/25/23 04:46 ALT 12 IU/L (10-60) 03/25/23 04:46 Alkaline Phosphatase 42 IU/L (42-121) 03/25/23 04:46 Total Protein 6.2 g/dL (6.7-8.2) L 03/25/23 04:46 Albumin 2.7 g/dL (3.2-5.5) L 03/25/23 04:46 Globulin 3.5 g/dL (2.1-4.2) 03/25/23 04:46 Albumin/Globulin Ratio 0.8 (1.0-2.2) L 03/25/23 04:46 Vitamin B12 219 pg/mL (180-914) 03/27/23 08:45 Procalcitonin < 0.05 ng/mL (<0.5) 03/22/23 18:25 Urine Color RED/BLOODY 03/22/23 18:40 Urine Clarity TURBID (CLEAR) 03/22/23 18:40 Urine pH 6.5 PH (5.0-7.5) 03/22/23 18:40 Ur Specific [place] 1.025 (1.002-1.030) 03/22/23 18:40 Urine Protein >=300 mg/dL (NEGATIVE) H 03/22/23 18:40 Urine Glucose (UA) NEGATIVE mg/dL (NEGATIVE) 03/22/23 18:40 Urine Ketones TRACE mg/dL (NEGATIVE) 03/22/23 18:40 Urine Occult Blood LARGE (NEGATIVE) H 03/22/23 18:40 Urine Nitrite POSITIVE (NEGATIVE) H 03/22/23 18:40 Urine Bilirubin NEGATIVE (NEGATIVE) 03/22/23 18:40 Urine Urobilinogen 1 (NORMAL) E.U./dL (NORMAL) 03/22/23 18:40 Ur Leukocyte Esterase TRACE (NEGATIVE) H 03/22/23 18:40 Urine RBC TNTC /HPF (0-5) H 03/22/23 18:40 Urine WBC 4-5 /HPF (0-3) 03/22/23 18:40 Ur Squamous Epith Cells NONE SEEN (<= Few) 03/22/23 18:40 Amorphous Sediment Moderate /LPF 03/22/23 18:40 Urine Bacteria Few /HPF (None Seen) 03/22/23 18:40 Ur Microscopic Review INDICATED 03/22/23 18:40 Urine Culture Comments INDICATED 03/22/23 18:40 Nasal Adenovirus (PCR) NOT DETECTED 03/22/23 20:15 Nasal B. parapertussis DNA (PCR) NOT DETECTED 03/22/23 20:15 Nasal Coronavir 229E PCR NOT DETECTED 03/22/23 20:15 Nasal Coronavir HKU1 PCR NOT DETECTED 03/22/23 20:15 Nasal Coronavir NL63 PCR NOT DETECTED 03/22/23 20:15 Nasal Coronavir OC43 PCR NOT DETECTED 03/22/23 20:15 Nasal Enterovir/Rhinovir PCR NOT DETECTED 03/22/23 20:15 Nasal Influenza B PCR NOT DETECTED 03/22/23 20:15 Nasal Influenza A PCR NOT DETECTED 03/22/23 20:15 Nasal Parainfluen 1 PCR NOT DETECTED 03/22/23 20:15 Nasal Parainfluen 2 PCR NOT DETECTED 03/22/23 20:15 Nasal Parainfluen 3 PCR NOT DETECTED 03/22/23 20:15 Nasal Parainfluen 4 PCR NOT DETECTED 03/22/23 20:15 Nasal RSV (PCR) NOT DETECTED 03/22/23 20:15 Nasal B.pertussis DNA PCR NOT DETECTED 03/22/23 20:15 Nasal C.pneumoniae (PCR) NOT DETECTED 03/22/23 20:15 Chon Human Metapneumo PCR NOT DETECTED 03/22/23 20:15 Nasal M.pneumoniae (PCR) NOT DETECTED 03/22/23 20:15 Nasal SARS-CoV-2 (PCR) NOT DETECTED 03/22/23 20:15 Sepsis Event Note (H) - Evaluation Current Stage of Sepsis: Sepsis Possible source of Sepsis: positive: Unknown - Sepsis Criteria Sepsis Criteria: Recorded Heart Rate greater than 90 bpm, WBC count greater than 10% bands, WBC count greater than 12,000 or less than 4000 ABX Reporting Has patient been on IV antibiotics over the past 48 hours?: No
[2023-03-30] MEDS: CALAMINE/ZINC OXIDE 177 ML BOTTLE TOP PRN (20:04)
[2023-03-30] MEDS: oxyCODONE 5 MG TABLET PO PRN (22:40)
[2023-03-31] MEDS: SODIUM CHLORIDE FLUSH 0.9% 10 ML SYRINGE IVP SCH ×3 (02:14→20:57)
[2023-03-31 08:03] LABS: BASOPHILS # (AUTO) 0.1 10^3/uL (0.0-0.1); BASOPHILS % (AUTO) 0.9 %; EOSINOPHILS # (AUTO) 0.5 10^3/uL (0.0-0.7); EOSINOPHILS % (AUTO) 6.1 %; HCT - HEMATOCRIT 38.3 % (42.0-52.0); HGB - HEMOGLOBIN 12.8 g/dL (14.0-18.0); LYMPHOCYTES # (AUTO) 1.8 10^3/uL (1.5-3.5); LYMPHOCYTES % (AUTO) 20.3 %; MEAN CORPUSCULAR HEMOGLOBIN 32.4 pg (27.0-31.0); MEAN CORPUSCULAR HGB CONC 33.4 g/dL (32.0-36.0); MEAN PLATELET VOLUME 9.9 fL (7.4-11.4); MONOCYTES % (AUTO) 11.4 %; NEUTROPHILS # (AUTO) 5.3 10^3/uL (1.5-6.6); NEUTROPHILS % (AUTO) 61.1 %; PLT - PLATELET COUNT 376 10^3/uL (130-450); RED BLOOD COUNT 3.95 10^6/uL (4.70-6.10); RED CELL DISTRIBUTION WIDTH 13.2 % (12.0-15.0); WHITE BLOOD COUNT 8.7 x10^3/uL (4.8-10.8)
[2023-03-31 08:14] LABS: BILIRUBIN,TOTAL 0.5 mg/dL (0.2-1.0); CALCIUM 8.7 mg/dL (8.5-10.3); CREATININE 0.8 mg/dL (0.6-1.2); POTASSIUM 3.6 mmol/L (3.5-5.0); TOTAL PROTEIN 6.1 g/dL (6.7-8.2)
[2023-03-31] MEDS: LIDOCAINE PATCH 5% TOP SCH (11:06)
[2023-03-31] MEDS: NYSTATIN POWDER 15 GM TOP SCH ×2 (11:13→20:57)
[2023-03-31] MEDS: polyethylene glycoL 3350 17 GM PACKET PO SCH (12:47)
[2023-03-31] MEDS: amLODIPine 5 MG TABLET PO SCH (12:48)
[2023-03-31] MEDS: TAMSULOSIN 0.4 MG CAPSULE PO SCH ×2 (12:48→20:57)
[2023-03-31] MEDS: levoFLOXacin 250 MG TABLET PO SCH (12:48)
[2023-03-31] MEDS: APIXABAN 5 MG TABLET PO SCH ×2 (12:48→20:57)
[2023-03-31] MEDS: CYANOCOBALAMIN 500 MCG TABLET PO SCH (12:49)
[2023-03-31] MEDS: MULTIVITAMIN W/MINERALS TABLET PO SCH (12:49)
[2023-03-31] MEDS: FINASTERIDE 5 MG TABLET PO SCH (12:49)
[2023-03-31] MEDS: QUEtiapine 25 MG TABLET PO SCH ×2 (12:50→20:57)
[2023-03-31] MEDS: SACCHAROMYCES BOULARDII 250 MG CAPSULE PO SCH (12:53)
--- NOTE | 2023-03-31 15:45 | PROVIDER PROGRESS NOTE ---
Assessment/Plan - Problem List (1) UTI (urinary tract infection) Qualifiers: Urinary tract infection type: acute cystitis Hematuria presence: without hematuria Qualified Code(s): N30.00 - Acute cystitis without hematuria Assessment/Plan: Urinary tract infection type: acute cystitis Hematuria presence: without hematuria Qualified Code(s): N30.00 - Acute cystitis without hematuria Assessment/Plan: Assessment/Plan: This patient's recent history and antibiotic use is complex however: He had a UTI that was being treated with Cipro, and on the urine cx from 03/10/23, he grew E coli and Proteus mirabilis. I think he had not completed the Cipro course of treatment. Then he came to the ER on 03/20 due to hematuria, and blood and ur cx were drawn, and the ED provider sent him home on Cefpodoxime. Then that 03/20 bld cx turned pos for Staph epi, felt to be a contaminant, but he was called on 03/22 and his reported he was worse. He came in now on 03/22 and had a fever on 03/23. From this latest ER presentation, his urine cx has no growth and bld cx have no growth. The admitting telemedicine doctor felt he had sepsis caused by a UTI. He received Cefepime in the ED and has been continued on empiric iv Ceftriaxone daily. I reviewed this entire sequence of events, results and antibx used with our pharmacist. He probably has a semitreated UTI. I reviewed all labs. Since during this admission his white bld count has gone from 11.2 >> 13.7 >> 9.8 >> 11.4 >> 10.7 yesterday>> 10.1 today, I kept him on iv Ceftriaxone, which the E coli and Proteus are sens to. IVF were stopped. Plan: Will change ceftriaxone IV daily to oral Levaquin, based on the sensitivity profiles of the E coli and Proteus. This choice was reviewed with pharmacist Donovan today. I will plan a 21-day total course of antibiotics for good prostate penetration. He has gotten 6 days of iv antibx, so 15 more days using Levaquin once daily, plus a probiotic. Today is Day 1 of 15 days. I want to assess him after at least 24 hours of being on an oral antibiotic to assure that there is no return of fever or rising WBC. I reviewed all the above with the daughter and [id number] at bedside today (2) Acute urinary retention His home prostate meds Tamsolusin and Finasteride are being given here. This patient has had several episodes of urinary retention greater than 1 L. He had a Neumann in which was discontinued 2 days ago after bladder training. However, again last night Telemedicine doctor was called because the patient had 2 L found on bladder scanning and Neumann catheter insertion was ordered. Because of his dementia he has tried to pull out his Neumann, when he last had it, therefore soft restraints of upper extremities were needed Plan: Unfortunately we again have to order upper extremity restraints so he does not pull out his Neumann. The other alternative is to not use a chronic Neumann, but to schedule straight cathing for him possibly twice daily or at least daily, here [facility]. SW checked if that center would do straight caths and they cannot. I discussed this with the at bedside, and [id number] present. March 28, 2023-we will straight cath every 6 hours due to significant urinary retention this will be as needed postvoid residual greater than 300. 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 Then he got weak and has not been able to stand. The patient now needs two person assist to stand or move, he thinks he is falling, he did not know what to do with his utensils to feed himself I resumed his home med Quietipine PT and OT evaluated him but he is not a candidate for rehab at a SNF since he is not directable due to his dementia. I updated the about this today, and said that he now may be bedbound or need to be put in a lift to be transferred from bed to a chair. She understood. The confirmed that she wants go to a [facility] here. SW checked if that center would do straight caths and they cannot. I discussed this with the at bedside, and [id number] present. March 30, 2023 Will increase Seroquel to twice daily to better control his mood (4) HTN This is a new diagnosis for him. His BP is as high as 180s over 100s. His nurse suspected that it was because he has poor pain control. He cannot tell us where his pain is because of his dementia As needed IV Hydralazine was ordered by the telemedicine doctor I addressed his pain control and started him on Amlodipine 5 mg daily Plan: Continue Amlodipine daily (5) Low back pain I spoke to his on 03/26 , asking where the source of his pain usually is and she said she thinks it's his lower back. I informed her that using narcotics for pain control will definitely add to his confusion and somnolence. I ordered a Lidocaine patch scheduled daily, not prn Plan: Continue pain control with a scheduled Lidocaine patch I have decreased his oxycodone from 5 mg every 6 hours prn to 2.5 mg every 8 hours prn. (6) Lethargy Only since he has gotten morphine or oxycodone has he been hypersomnolent. Plan: I will decrease his narcotic pain med dose oxycodone from 5 mg every 6 hours prn to 2.5 mg every 8 hours prn. (7) Chronic A-fib Plan: The patient was on Pradaxa, and a DOAC has been continued here. He has not been ordered to have telemetry (since I expected him to try to pull the patches off too), but his vital signs show stable heart rate (8) Sepsis RESOLVED Patient had criteria for sepsis: White blood count 13.7, fever of 38.0 at midnig ht, tachycardic with heart rate of 100 at rest. IVF were stopped. Plan: Continue with antibx - Current Meds Current Meds: Current Medications Generic Name Dose Route Start Last Admin Trade Name Rileyq PRN Reason Stop Dose Admin Acetaminophen 650 mg 03/22/23 19:45 03/29/23 19:19 Acetaminophen 325 Mg Tablet PO 650 mg Q4HR PRN Administration Pain 1 to 4, or Fever Amlodipine Besylate 5 mg 03/26/23 09:00 03/31/23 12:48 Amlodipine 5 Mg Tablet PO 5 mg DAILY TYLER Administration Apixaban 5 mg 03/23/23 09:00 03/31/23 12:48 Apixaban 5 Mg Tablet PO 5 mg BID TYLER Administration Calamine 1 applic 03/27/23 17:18 03/30/23 20:04 Calamine/Zinc Oxide 177 Ml Bottle TOP 1 applic PRN PRN Administration SKIN CARE Cyanocobalamin 500 mcg 03/29/23 10:00 03/31/23 12:49 Cyanocobalamin 500 Mcg Tablet PO 500 mcg DAILY TYLER Administration Finasteride 5 mg 03/23/23 09:00 03/31/23 12:49 Finasteride 5 Mg Tablet PO 5 mg DAILY TYLER Administration Levofloxacin 500 mg 03/28/23 09:00 03/31/23 12:48 Levofloxacin 250 Mg Tablet PO 500 mg DAILY TYLER Administration Lidocaine 1 patch 03/27/23 09:00 03/31/23 11:06 Lidocaine Patch 5% TOP 1 patch DAILY TYLER Administration Multi-Ingredient Ointment 1 applic 03/23/23 21:11 03/24/23 08:35 Zinc Oxide 20% Oint 30 Gm Tube TOP 1 applic PRN PRN Administration Skin Care Multivitamins/Minerals 1 tab 03/27/23 17:00 03/31/23 12:49 Multivitamin W/Minerals Tablet PO 1 tab QDLUNCH TYLER Administration Nystatin 1 applic 03/24/23 21:00 03/31/23 11:13 Nystatin Powder 15 Gm TOP 1 applic BID TYLER Administration Oxycodone HCl 2.5 mg 03/27/23 08:40 03/30/23 22:40 Oxycodone 5 Mg Tablet PO 2.5 mg Q8H PRN Administration PAIN 5-10 Polyethylene Glycol 17 gm 03/28/23 12:00 03/31/23 12:47 Polyethylene Glycol 3350 17 Gm Packet PO 17 gm DAILY TYLER Administration Quetiapine Fumarate 75 mg 03/30/23 12:00 03/31/23 12:50 Quetiapine 25 Mg Tablet PO 75 mg BID TYLER Administration Saccharomyces Boulardii 250 mg 03/28/23 09:00 03/31/23 12:53 Saccharomyces Boulardii 250 Mg Capsule PO 250 mg DAILY TYLER Administration Sodium Chloride 10 ml 03/23/23 01:00 03/31/23 12:53 Sodium Chloride Flush 0.9% 10 Ml Syringe IVP Not Given 0100,0900,1700 TYLER Tamsulosin HCl 0.4 mg 03/24/23 21:00 03/31/23 12:48 Tamsulosin 0.4 Mg Capsule PO 0.4 mg BID TYLER Administration - Lab Result Fish Bone Diagrams: 03/31/23 07:56 03/31/23 07:56 Subjective - Subjective Patient Reports: Resting Comfortably ( at bedside) Objective Vital Signs: Vital Signs - 24 hr 03/30/23 03/31/23 03/31/23 15:45 00:40 08:00 Temperature 36.7 C 36.8 C 36.3 C L Heart Rate [ 63 69 73 Brachial] Respiratory 16 18 18 Rate Blood Pressure 125/74 142/89 H 106/74 [Right Brachial artery] O2 Saturation 96 98 100 03/31/23 12:43 Temperature 36.3 C L Heart Rate [ 77 Brachial] Respiratory 18 Rate Blood Pressure 114/62 [Right Brachial artery] O2 Saturation 96 Oxygen O2 Source [With Activity] Room air O2 Source Room air I&O (Last 24 Hrs): Intake and Output Totals x24h 03/29/23 03/30/23 03/31/23 23:59 23:59 23:59 Intake Total 600 1440 440 Output Total 3602 1625 7956 Balance -1565 -137 -9330 General: Cooperative, No acute distress HEENT: Atraumatic Neck: Supple Respiratory: No respiratory distress - Results Results: Laboratory Results WBC 8.7 x10^3/uL (4.8-10.8) 03/31/23 07:56 RBC 3.95 10^6/uL (4.70-6.10) L 03/31/23 07:56 Hgb 12.8 g/dL (14.0-18.0) L 03/31/23 07:56 Hct 38.3 % (42.0-52.0) L 03/31/23 07:56 MCV 97.0 fL (80.0-94.0) H 03/31/23 07:56 MCH 32.4 pg (27.0-31.0) H 03/31/23 07:56 MCHC 33.4 g/dL (32.0-36.0) 03/31/23 07:56 RDW 13.2 % (12.0-15.0) 03/31/23 07:56 Plt Count 376 10^3/uL (130-450) 03/31/23 07:56 MPV 9.9 fL (7.4-11.4) 03/31/23 07:56 Neut # (Auto) 5.3 10^3/uL (1.5-6.6) 03/31/23 07:56 Lymph # (Auto) 1.8 10^3/uL (1.5-3.5) 03/31/23 07:56 [place] # (Auto) 1.0 10^3/uL (0.0-1.0) 03/31/23 07:56 Eos # (Auto) 0.5 10^3/uL (0.0-0.7) 03/31/23 07:56 Baso # (Auto) 0.1 10^3/uL (0.0-0.1) 03/31/23 07:56 Absolute Nucleated RBC 0.00 x10^3/uL 03/31/23 07:56 Total Counted 100 03/22/23 18:25 Band Neuts % (Manual) 0 % (0-10) 03/22/23 18:25 Abnorm Lymph % (Manual) 0 % 03/22/23 18:25 Nucleated RBC % 0.0 /100WBC 03/31/23 07:56 Neutrophils # (Manual) 11.0 10^3/uL (1.5-6.6) H 03/22/23 18:25 Lymphocytes # (Manual) 1.4 10^3/uL (1.5-3.5) L 03/22/23 18:25 Monocytes # (Manual) 1.1 10^3/uL (0.0-1.0) H 03/22/23 18:25 Eosinophils # (Manual) 0.0 10^3/uL (0-0.7) 03/22/23 18:25 Basophils # (Manual) 0.3 10^3/uL (0-0.1) H 03/22/23 18:25 Differential Comment MANUAL DIFFERENTIAL 03/22/23 18:25 Platelet Estimate NORMAL (130-450,000) (NORMAL) 03/22/23 18:25 Platelet Morphology NORMAL APPEARANCE (NORMAL) 03/22/23 18:25 RBC Morph Micro Appear 1+ MACROCYTOSIS (NORMAL) 03/22/23 18:25 Sodium 142 mmol/L (135-145) 03/31/23 07:56 Potassium 3.6 mmol/L (3.5-5.0) 03/31/23 07:56 Chloride 108 mmol/L (101-111) 03/31/23 07:56 Carbon Dioxide 27 mmol/L (21-32) 03/31/23 07:56 Anion Gap 7.0 (6-13) 03/31/23 07:56 BUN 11 mg/dL (6-20) 03/31/23 07:56 Creatinine 0.8 mg/dL (0.6-1.2) 03/31/23 07:56 Estimated GFR (MDRD) 93 (>89) 03/31/23 07:56 Glucose 95 mg/dL (70-100) 03/31/23 07:56 Lactic Acid 1.6 mmol/L (0.5-2.2) 03/22/23 18:25 Calcium 8.7 mg/dL (8.5-10.3) 03/31/23 07:56 Magnesium 2.2 mg/dL (1.7-2.8) 03/28/23 05:02 Total Bilirubin 0.5 mg/dL (0.2-1.0) 03/31/23 07:56 AST 25 IU/L (10-42) 03/31/23 07:56 ALT 22 IU/L (10-60) 03/31/23 07:56 Alkaline Phosphatase 49 IU/L (42-121) 03/31/23 07:56 Total Protein 6.1 g/dL (6.7-8.2) L 03/31/23 07:56 Albumin 3.0 g/dL (3.2-5.5) L 03/31/23 07:56 Globulin 3.1 g/dL (2.1-4.2) 03/31/23 07:56 Albumin/Globulin Ratio 1.0 (1.0-2.2) 03/31/23 07:56 Vitamin B12 219 pg/mL (180-914) 03/27/23 08:45 Procalcitonin < 0.05 ng/mL (<0.5) 03/22/23 18:25 Urine Color RED/BLOODY 03/22/23 18:40 Urine Clarity TURBID (CLEAR) 03/22/23 18:40 Urine pH 6.5 PH (5.0-7.5) 03/22/23 18:40 Ur Specific [place] 1.025 (1.002-1.030) 03/22/23 18:40 Urine Protein >=300 mg/dL (NEGATIVE) H 03/22/23 18:40 Urine Glucose (UA) NEGATIVE mg/dL (NEGATIVE) 03/22/23 18:40 Urine Ketones TRACE mg/dL (NEGATIVE) 03/22/23 18:40 Urine Occult Blood LARGE (NEGATIVE) H 03/22/23 18:40 Urine Nitrite POSITIVE (NEGATIVE) H 03/22/23 18:40 Urine Bilirubin NEGATIVE (NEGATIVE) 03/22/23 18:40 Urine Urobilinogen 1 (NORMAL) E.U./dL (NORMAL) 03/22/23 18:40 Ur Leukocyte Esterase TRACE (NEGATIVE) H 03/22/23 18:40 Urine RBC TNTC /HPF (0-5) H 03/22/23 18:40 Urine WBC 4-5 /HPF (0-3) 03/22/23 18:40 Ur Squamous Epith Cells NONE SEEN (<= Few) 03/22/23 18:40 Amorphous Sediment Moderate /LPF 03/22/23 18:40 Urine Bacteria Few /HPF (None Seen) 03/22/23 18:40 Ur Microscopic Review INDICATED 03/22/23 18:40 Urine Culture Comments INDICATED 03/22/23 18:40 Nasal Adenovirus (PCR) NOT DETECTED 03/22/23 20:15 Nasal B. parapertussis DNA (PCR) NOT DETECTED 03/22/23 20:15 Nasal Coronavir 229E PCR NOT DETECTED 03/22/23 20:15 Nasal Coronavir HKU1 PCR NOT DETECTED 03/22/23 20:15 Nasal Coronavir NL63 PCR NOT DETECTED 03/22/23 20:15 Nasal Coronavir OC43 PCR NOT DETECTED 03/22/23 20:15 Nasal Enterovir/Rhinovir PCR NOT DETECTED 03/22/23 20:15 Nasal Influenza B PCR NOT DETECTED 03/22/23 20:15 Nasal Influenza A PCR NOT DETECTED 03/22/23 20:15 Nasal Parainfluen 1 PCR NOT DETECTED 03/22/23 20:15 Nasal Parainfluen 2 PCR NOT DETECTED 03/22/23 20:15 Nasal Parainfluen 3 PCR NOT DETECTED 03/22/23 20:15 Nasal Parainfluen 4 PCR NOT DETECTED 03/22/23 20:15 Nasal RSV (PCR) NOT DETECTED 03/22/23 20:15 Nasal B.pertussis DNA PCR NOT DETECTED 03/22/23 20:15 Nasal C.pneumoniae (PCR) NOT DETECTED 03/22/23 20:15 [place] Human Metapneumo PCR NOT DETECTED 03/22/23 20:15 Nasal M.pneumoniae (PCR) NOT DETECTED 03/22/23 20:15 Nasal SARS-CoV-2 (PCR) NOT DETECTED 03/22/23 20:15 Sepsis Event Note (H) - Evaluation Current Stage of Sepsis: Sepsis Possible source of Sepsis: positive: Unknown - Sepsis Criteria Sepsis Criteria: Recorded Heart Rate greater than 90 bpm, WBC count greater than 10% bands, WBC count greater than 12,000 or less than 4000 ABX Reporting Has patient been on IV antibiotics over the past 48 hours?: No
[2023-03-31] MEDS: ACETAMINOPHEN 325 MG TABLET PO PRN (23:42)
[2023-04-01] MEDS: SODIUM CHLORIDE FLUSH 0.9% 10 ML SYRINGE IVP SCH ×4 (01:18→17:16)
[2023-04-01] MEDS: FINASTERIDE 5 MG TABLET PO SCH (09:29)
[2023-04-01] MEDS: TAMSULOSIN 0.4 MG CAPSULE PO SCH ×2 (09:29→21:14)
[2023-04-01] MEDS: QUEtiapine 25 MG TABLET PO SCH ×2 (09:30→21:15)
[2023-04-01] MEDS: APIXABAN 5 MG TABLET PO SCH ×2 (09:30→21:15)
[2023-04-01] MEDS: amLODIPine 5 MG TABLET PO SCH (09:30)
[2023-04-01] MEDS: SACCHAROMYCES BOULARDII 250 MG CAPSULE PO SCH (09:30)
[2023-04-01] MEDS: CYANOCOBALAMIN 500 MCG TABLET PO SCH (09:30)
[2023-04-01] MEDS: levoFLOXacin 250 MG TABLET PO SCH (09:30)
[2023-04-01] MEDS: LIDOCAINE PATCH 5% TOP SCH (09:31)
[2023-04-01] MEDS: polyethylene glycoL 3350 17 GM PACKET PO SCH (09:31)
[2023-04-01] MEDS: NYSTATIN POWDER 15 GM TOP SCH ×2 (09:31→18:44)
[2023-04-01] MEDS: MULTIVITAMIN W/MINERALS TABLET PO SCH (12:06)
--- NOTE | 2023-04-01 13:25 | PROVIDER PROGRESS NOTE ---
Assessment/Plan - Problem List (1) UTI (urinary tract infection) Qualifiers: Urinary tract infection type: acute cystitis Hematuria presence: without hematuria Qualified Code(s): N30.00 - Acute cystitis without hematuria Assessment/Plan: Assessment/Plan: This patient's recent history and antibiotic use is complex however: He had a UTI that was being treated with Cipro, and on the urine cx from 03/10/23, he grew E coli and Proteus mirabilis. I think he had not completed the Cipro course of treatment. Then he came to the ER on 03/20 due to hematuria, and blood and ur cx were drawn, and the ED provider sent him home on Cefpodoxime. Then that 03/20 bld cx turned pos for Staph epi, felt to be a contaminant, but he was called on 03/22 and his reported he was worse. He came in now on 03/22 and had a fever on 03/23. From this latest ER presentation, his urine cx has no growth and bld cx have no growth. The admitting telemedicine doctor felt he had sepsis caused by a UTI. He received Cefepime in the ED and has been continued on empiric iv Ceftriaxone daily. I reviewed this entire sequence of events, results and antibx used with our pharmacist. He probably has a semitreated UTI. I reviewed all labs. Since zia ng this admission his white bld count has gone from 11.2 >> 13.7 >> 9.8 >> 11.4 >> 10.7 yesterday>> 10.1 today, I kept him on iv Ceftriaxone, which the E coli and Proteus are sens to. IVF were stopped. Plan: Will change ceftriaxone IV daily to oral Levaquin, based on the sensitivity profiles of the E coli and Proteus. This choice was reviewed with pooja Man today. I will plan a 21-day total course of antibiotics for good prostate penetration. He has gotten 6 days of iv antibx, so 15 more days using Levaquin once daily, plus a probiotic. Today is Day 1 of 15 days. I want to assess him after at least 24 hours of being on an oral antibiotic to assure that there is no return of fever or rising WBC. I reviewed all the above with the daughter and [id number] at bedside today (2) Acute urinary retention His home prostate meds Tamsolusin and Finasteride are being given here. This patient has had several episodes of urinary retention greater than 1 L. He had a Neumann in which was discontinued 2 days ago after bladder training. However, again last night Telemedicine doctor was called because the patient had 2 L found on bladder scanning and Neumann catheter insertion was ordered. Because of his dementia he has tried to pull out his Neumann, when he last had it, therefore soft restraints of upper extremities were needed Plan: Unfortunately we again have to order upper extremity restraints so he does not pull out his Neumann. The other alternative is to not use a chronic Neumann, but to schedule straight cathing for him possibly twice daily or at least daily, here [facility]. SW checked if that center would do straight caths and they cannot. I discussed this with the at bedside, and [id number] present. March 28, 2023-we will straight cath every 6 hours due to significant urinary retention this will be as needed postvoid residual greater than 300. 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 Then he got weak and has not been able to stand. The patient now needs two person assist to stand or move, he thinks he is falling, he did not know what to do with his utensils to feed himself I resumed his home med Quietipine PT and OT evaluated him but he is not a candidate for rehab at a SNF since he is not directable due to his dementia. I updated the about this today, and said that he now may be bedbound or need to be put in a lift to be transferred from bed to a chair. She understood. The confirmed that she wants go to a [facility] here. SW checked if that center would do straight caths and they cannot. I discussed this with the at bedside, and [id number] present. March 30, 2023 Will increase Seroquel to twice daily to better control his mood (4) HTN This is a new diagnosis for him. His BP is as high as 180s over 100s. His nurse suspected that it was because he has poor pain control. He cannot tell us where his pain is because of his dementia As needed IV Hydralazine was ordered by the telemedicine doctor I addressed his pain control and started him on Amlodipine 5 mg daily Plan: Continue Amlodipine daily (5) Low back pain I spoke to his on 03/26 , asking where the source of his pain usually is and she said she thinks it's his lower back. I informed her that using narcotics for pain control will definitely add to his confusion and somnolence. I ordered a Lidocaine patch scheduled daily, not prn Plan: Continue pain control with a scheduled Lidocaine patch I have decreased his oxycodone from 5 mg every 6 hours prn to 2.5 mg every 8 hours prn. (6) Lethargy Only since he has gotten morphine or oxycodone has he been hypersomnolent. Plan: I will decrease his narcotic pain med dose oxycodone from 5 mg every 6 hours prn to 2.5 mg every 8 hours prn. (7) Chronic A-fib Plan: The patient was on Pradaxa, and a DOAC has been continued here. He has not been ordered to have telemetry (since I expected him to try to pull the patches off too), but his vital signs show stable heart rate (8) Sepsis RESOLVED Patient had criteria for sepsis: White blood count 13.7, fever of 38.0 at midnight, tachycardic with heart rate of 100 at rest. IVF were stopped. Plan: Continue with antibx (2) Pain in left hand Assessment/Plan: Check left hand x-ray - Current Meds Current Meds: Current Medications Generic Name Dose Route Start Last Admin Trade Name Freq PRN Reason Stop Dose Admin Acetaminophen 650 mg 03/22/23 19:45 03/31/23 23:42 Acetaminophen 325 Mg Tablet PO 650 mg Q4HR PRN Administration Pain 1 to 4, or Fever Amlodipine Besylate 5 mg 03/26/23 09:00 04/01/23 09:30 Amlodipine 5 Mg Tablet PO 5 mg DAILY TYLER Administration Apixaban 5 mg 03/23/23 09:00 04/01/23 09:30 Apixaban 5 Mg Tablet PO 5 mg BID TYLER Administration Calamine 1 applic 03/27/23 17:18 03/30/23 20:04 Calamine/Zinc Oxide 177 Ml Bottle TOP 1 applic PRN PRN Administration SKIN CARE Cyanocobalamin 500 mcg 03/29/23 10:00 04/01/23 09:30 Cyanocobalamin 500 Mcg Tablet PO 500 mcg DAILY TYLER Administration Finasteride 5 mg 03/23/23 09:00 04/01/23 09:29 Finasteride 5 Mg Tablet PO 5 mg DAILY TYLER Administration Levofloxacin 500 mg 03/28/23 09:00 04/01/23 09:30 Levofloxacin 250 Mg Tablet PO 500 mg DAILY TYLER Administration Lidocaine 1 patch 03/27/23 09:00 04/01/23 09:31 Lidocaine Patch 5% TOP 1 patch DAILY TYLER Administration Multi-Ingredient Ointment 1 applic 03/23/23 21:11 03/24/23 08:35 Zinc Oxide 20% Oint 30 Gm Tube TOP 1 applic PRN PRN Administration Skin Care Multivitamins/Minerals 1 tab 03/27/23 17:00 04/01/23 12:06 Multivitamin W/Minerals Tablet PO 1 tab QDLUNCH TYLER Administration Nystatin 1 applic 03/24/23 21:00 04/01/23 09:31 Nystatin Powder 15 Gm TOP 1 applic BID TYLER Administration Oxycodone HCl 2.5 mg 03/27/23 08:40 03/30/23 22:40 Oxycodone 5 Mg Tablet PO 2.5 mg Q8H PRN Administration PAIN 5-10 Polyethylene Glycol 17 gm 03/28/23 12:00 04/01/23 09:31 Polyethylene Glycol 3350 17 Gm Packet PO 17 gm DAILY TYLER Administration Quetiapine Fumarate 75 mg 03/30/23 12:00 04/01/23 09:30 Quetiapine 25 Mg Tablet PO 75 mg BID TYLER Administration Saccharomyces Boulardii 250 mg 03/28/23 09:00 04/01/23 09:30 Saccharomyces Boulardii 250 Mg Capsule PO 250 mg DAILY TYLER Administration Sodium Chloride 10 ml 03/23/23 01:00 04/01/23 09:31 Sodium Chloride Flush 0.9% 10 Ml Syringe IVP 10 ml 0100,0900,1700 TYLRE Administration Tamsulosin HCl 0.4 mg 03/24/23 21:00 04/01/23 09:29 Tamsulosin 0.4 Mg Capsule PO 0.4 mg BID TYLER Administration - Lab Result Fish Bone Diagrams: 03/31/23 07:56 03/31/23 07:56 - Additional Planning My Orders: My Active Orders 04/01/23 12:47 Hand 2 View LT [XR] Routine Subjective - Subjective Patient Reports: Resting Comfortably ([id number] at bedside) Objective Vital Signs: Vital Signs - 24 hr 03/31/23 03/31/23 04/01/23 15:57 23:38 08:00 Temperature 36.5 C 36.9 C 36.6 C Heart Rate [ 94 92 71 Brachial] Respiratory 20 16 20 Rate Blood Pressure 105/66 121/80 108/61 [Right Brachial artery] O2 Saturation 98 98 94 Oxygen O2 Source [With Activity] Room air O2 Source Room air I&O (Last 24 Hrs): Intake and Output Totals x24h 03/30/23 03/31/23 04/01/23 23:59 23:59 23:59 Intake Total 1440 1230 600 Output Total 1625 2200 1650 Balance -185 -970 -1050 General: Alert, Cooperative HEENT: Atraumatic Neuro: Disoriented, Non Focal Cardiovascular: Regular rate, Normal S1, Normal S2 Respiratory: Breath sounds nml Abdomen: Soft Skin: No rashes - Results Results: Laboratory Results WBC 8.7 x10^3/uL (4.8-10.8) 03/31/23 07:56 RBC 3.95 10^6/uL (4.70-6.10) L 03/31/23 07:56 Hgb 12.8 g/dL (14.0-18.0) L 03/31/23 07:56 Hct 38.3 % (42.0-52.0) L 03/31/23 07:56 MCV 97.0 fL (80.0-94.0) H 03/31/23 07:56 MCH 32.4 pg (27.0-31.0) H 03/31/23 07:56 MCHC 33.4 g/dL (32.0-36.0) 03/31/23 07:56 RDW 13.2 % (12.0-15.0) 03/31/23 07:56 Plt Count 376 10^3/uL (130-450) 03/31/23 07:56 MPV 9.9 fL (7.4-11.4) 03/31/23 07:56 Neut # (Auto) 5.3 10^3/uL (1.5-6.6) 03/31/23 07:56 Lymph # (Auto) 1.8 10^3/uL (1.5-3.5) 03/31/23 07:56 [place] # (Auto) 1.0 10^3/uL (0.0-1.0) 03/31/23 07:56 Eos # (Auto) 0.5 10^3/uL (0.0-0.7) 03/31/23 07:56 Baso # (Auto) 0.1 10^3/uL (0.0-0.1) 03/31/23 07:56 Absolute Nucleated RBC 0.00 x10^3/uL 03/31/23 07:56 Total Counted 100 03/22/23 18:25 Band Neuts % (Manual) 0 % (0-10) 03/22/23 18:25 Abnorm Lymph % (Manual) 0 % 03/22/23 18:25 Nucleated RBC % 0.0 /100WBC 03/31/23 07:56 Neutrophils # (Manual) 11.0 10^3/uL (1.5-6.6) H 03/22/23 18:25 Lymphocytes # (Manual) 1.4 10^3/uL (1.5-3.5) L 03/22/23 18:25 Monocytes # (Manual) 1.1 10^3/uL (0.0-1.0) H 03/22/23 18:25 Eosinophils # (Manual) 0.0 10^3/uL (0-0.7) 03/22/23 18:25 Basophils # (Manual) 0.3 10^3/uL (0-0.1) H 03/22/23 18:25 Differential Comment MANUAL DIFFERENTIAL 03/22/23 18:25 Platelet Estimate NORMAL (130-450,000) (NORMAL) 03/22/23 18:25 Platelet Morphology NORMAL APPEARANCE (NORMAL) 03/22/23 18:25 RBC Morph Micro Appear 1+ MACROCYTOSIS (NORMAL) 03/22/23 18:25 Sodium 142 mmol/L (135-145) 03/31/23 07:56 Potassium 3.6 mmol/L (3.5-5.0) 03/31/23 07:56 Chloride 108 mmol/L (101-111) 03/31/23 07:56 Carbon Dioxide 27 mmol/L (21-32) 03/31/23 07:56 Anion Gap 7.0 (6-13) 03/31/23 07:56 BUN 11 mg/dL (6-20) 03/31/23 07:56 Creatinine 0.8 mg/dL (0.6-1.2) 03/31/23 07:56 Estimated GFR (MDRD) 93 (>89) 03/31/23 07:56 Glucose 95 mg/dL (70-100) 03/31/23 07:56 Lactic Acid 1.6 mmol/L (0.5-2.2) 03/22/23 18:25 Calcium 8.7 mg/dL (8.5-10.3) 03/31/23 07:56 Magnesium 2.2 mg/dL (1.7-2.8) 03/28/23 05:02 Total Bilirubin 0.5 mg/dL (0.2-1.0) 03/31/23 07:56 AST 25 IU/L (10-42) 03/31/23 07:56 ALT 22 IU/L (10-60) 03/31/23 07:56 Alkaline Phosphatase 49 IU/L (42-121) 03/31/23 07:56 Total Protein 6.1 g/dL (6.7-8.2) L 03/31/23 07:56 Albumin 3.0 g/dL (3.2-5.5) L 03/31/23 07:56 Globulin 3.1 g/dL (2.1-4.2) 03/31/23 07:56 Albumin/Globulin Ratio 1.0 (1.0-2.2) 03/31/23 07:56 Vitamin B12 219 pg/mL (180-914) 03/27/23 08:45 Procalcitonin < 0.05 ng/mL (<0.5) 03/22/23 18:25 Urine Color RED/BLOODY 03/22/23 18:40 Urine Clarity TURBID (CLEAR) 03/22/23 18:40 Urine pH 6.5 PH (5.0-7.5) 03/22/23 18:40 Ur Specific [place] 1.025 (1.002-1.030) 03/22/23 18:40 Urine Protein >=300 mg/dL (NEGATIVE) H 03/22/23 18:40 Urine Glucose (UA) NEGATIVE mg/dL (NEGATIVE) 03/22/23 18:40 Urine Ketones TRACE mg/dL (NEGATIVE) 03/22/23 18:40 Urine Occult Blood LARGE (NEGATIVE) H 03/22/23 18:40 Urine Nitrite POSITIVE (NEGATIVE) H 03/22/23 18:40 Urine Bilirubin NEGATIVE (NEGATIVE) 03/22/23 18:40 Urine Urobilinogen 1 (NORMAL) E.U./dL (NORMAL) 03/22/23 18:40 Ur Leukocyte Esterase TRACE (NEGATIVE) H 03/22/23 18:40 Urine RBC TNTC /HPF (0-5) H 03/22/23 18:40 Urine WBC 4-5 /HPF (0-3) 03/22/23 18:40 Ur Squamous Epith Cells NONE SEEN (<= Few) 03/22/23 18:40 Amorphous Sediment Moderate /LPF 03/22/23 18:40 Urine Bacteria Few /HPF (None Seen) 03/22/23 18:40 Ur Microscopic Review INDICATED 03/22/23 18:40 Urine Culture Comments INDICATED 03/22/23 18:40 Nasal Adenovirus (PCR) NOT DETECTED 03/22/23 20:15 Nasal B. parapertussis DNA (PCR) NOT DETECTED 03/22/23 20:15 Nasal Coronavir 229E PCR NOT DETECTED 03/22/23 20:15 Nasal Coronavir HKU1 PCR NOT DETECTED 03/22/23 20:15 Nasal Coronavir NL63 PCR NOT DETECTED 03/22/23 20:15 Nasal Coronavir OC43 PCR NOT DETECTED 03/22/23 20:15 Nasal Enterovir/Rhinovir PCR NOT DETECTED 03/22/23 20:15 Nasal Influenza B PCR NOT DETECTED 03/22/23 20:15 Nasal Influenza A PCR NOT DETECTED 03/22/23 20:15 Nasal Parainfluen 1 PCR NOT DETECTED 03/22/23 20:15 Nasal Parainfluen 2 PCR NOT DETECTED 03/22/23 20:15 Nasal Parainfluen 3 PCR NOT DETECTED 03/22/23 20:15 Nasal Parainfluen 4 PCR NOT DETECTED 03/22/23 20:15 Nasal RSV (PCR) NOT DETECTED 03/22/23 20:15 Nasal B.pertussis DNA PCR NOT DETECTED 03/22/23 20:15 Nasal C.pneumoniae (PCR) NOT DETECTED 03/22/23 20:15 [place]on Human Metapneumo PCR NOT DETECTED 03/22/23 20:15 Nasal M.pneumoniae (PCR) NOT DETECTED 03/22/23 20:15 Nasal SARS-CoV-2 (PCR) NOT DETECTED 03/22/23 20:15 Sepsis Event Note (H) - Evaluation Current Stage of Sepsis: Sepsis Possible source of Sepsis: positive: Unknown - Sepsis Criteria Sepsis Criteria: Recorded Heart Rate greater than 90 bpm, WBC count greater than 10% bands, WBC count greater than 12,000 or less than 4000 ABX Reporting Has patient been on IV antibiotics over the past 48 hours?: No
--- NOTE | 2023-04-01 14:00 | XRAY Report ---
PROCEDURE: Hand 2 View LT INDICATIONS: pain TECHNIQUE: 2 views of the hand(s) acquired. COMPARISON: None. FINDINGS: Bones: No fractures or dislocations. No suspicious bony lesions. Degenerative changes noted involvi ng the first carpal metacarpal joint. Second through fifth fingers are obscured Soft tissues: No suspicious soft tissue calcifications or masses. IMPRESSION: Degenerative first carpometacarpal joint Reviewed by: Reinier Dumont MD on 04/01/2023 12:58 PM [facility]DT Approved by: Reinier Dumont MD on 04/01/2023 12:58 PM AKDT Station ID: [id number]
[2023-04-01] MEDS: ACETAMINOPHEN 325 MG TABLET PO PRN (18:44)
[2023-04-02] MEDS: SODIUM CHLORIDE FLUSH 0.9% 10 ML SYRINGE IVP SCH ×3 (03:58→19:56)
[2023-04-02] MEDS: LIDOCAINE PATCH 5% TOP SCH (08:37)
[2023-04-02] MEDS: polyethylene glycoL 3350 17 GM PACKET PO SCH (08:38)
[2023-04-02] MEDS: NYSTATIN POWDER 15 GM TOP SCH ×2 (08:38→19:55)
[2023-04-02] MEDS: APIXABAN 5 MG TABLET PO SCH ×2 (08:38→19:55)
[2023-04-02] MEDS: levoFLOXacin 250 MG TABLET PO SCH (08:38)
[2023-04-02] MEDS: TAMSULOSIN 0.4 MG CAPSULE PO SCH ×2 (08:39→19:55)
[2023-04-02] MEDS: amLODIPine 5 MG TABLET PO SCH (08:39)
[2023-04-02] MEDS: FINASTERIDE 5 MG TABLET PO SCH (08:39)
[2023-04-02] MEDS: CYANOCOBALAMIN 500 MCG TABLET PO SCH (08:39)
[2023-04-02] MEDS: QUEtiapine 25 MG TABLET PO SCH ×2 (08:39→19:55)
[2023-04-02] MEDS: SACCHAROMYCES BOULARDII 250 MG CAPSULE PO SCH (08:39)
[2023-04-02] MEDS: MULTIVITAMIN W/MINERALS TABLET PO SCH (11:35)
--- NOTE | 2023-04-02 16:16 | PROVIDER PROGRESS NOTE ---
Assessment/Plan - Problem List (1) UTI (urinary tract infection) Qualifiers: Urinary tract infection type: acute cystitis Hematuria presence: without hematuria Qualified Code(s): N30.00 - Acute cystitis without hematuria Assessment/Plan: Assessment/Plan: This patient's recent history and antibiotic use is complex however: He had a UTI that was being treated with Cipro, and on the urine cx from 03/10/23, he grew E coli and Proteus mirabilis. I think he had not completed the Cipro course of treatment. Then he came to the ER on 03/20 due to hematuria, and blood and ur cx were drawn, and the ED provider sent him home on Cefpodoxime. Then that 03/20 bld cx turned pos for Staph epi, felt to be a contaminant, but he was called on 03/22 and his reported he was worse. He came in now on 03/22 and had a fever on 03/23. From this latest ER presentation, his urine cx has no growth and bld cx have no growth. The admitting telemedicine doctor felt he had sepsis caused by a UTI. He received Cefepime in the ED and has been continued on empiric iv Ceftriaxone daily. I reviewed this entire sequence of events, results and antibx used with our pharmacist. He probably has a semitreated UTI. I reviewed all labs. Since zia ng this admission his white bld count has gone from 11.2 >> 13.7 >> 9.8 >> 11.4 >> 10.7 yesterday>> 10.1 today, I kept him on iv Ceftriaxone, which the E coli and Proteus are sens to. IVF were stopped. Plan: Will change ceftriaxone IV daily to oral Levaquin, based on the sensitivity profiles of the E coli and Proteus. This choice was reviewed with pooja Man today. I will plan a 21-day total course of antibiotics for good prostate penetration. He has gotten 6 days of iv antibx, so 15 more days using Levaquin once daily, plus a probiotic. Today is Day 1 of 15 days. I want to assess him after at least 24 hours of being on an oral antibiotic to assure that there is no return of fever or rising WBC. I reviewed all the above with the daughter and [id number] at bedside today (2) Acute urinary retention His home prostate meds Tamsolusin and Finasteride are being given here. This patient has had several episodes of urinary retention greater than 1 L. He had a Neumann in which was discontinued 2 days ago after bladder training. However, again last night Telemedicine doctor was called because the patient had 2 L found on bladder scanning and Neumann catheter insertion was ordered. Because of his dementia he has tried to pull out his Neumann, when he last had it, therefore soft restraints of upper extremities were needed Plan: Unfortunately we again have to order upper extremity restraints so he does not pull out his Neumann. The other alternative is to not use a chronic Neumann, but to schedule straight cathing for him possibly twice daily or at least daily, here [facility]. SW checked if that center would do straight caths and they cannot. I discussed this with the at bedside, and [id number] present. March 28, 2023-we will straight cath every 6 hours due to significant urinary retention this will be as needed postvoid residual greater than 300. 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 Then he got weak and has not been able to stand. The patient now needs two person assist to stand or move, he thinks he is falling, he did not know what to do with his utensils to feed himself I resumed his home med Quietipine PT and OT evaluated him but he is not a candidate for rehab at a SNF since he is not directable due to his dementia. I updated the about this today, and said that he now may be bedbound or need to be put in a lift to be transferred from bed to a chair. She understood. The confirmed that she wants go to a [facility] here. SW checked if that center would do straight caths and they cannot. I discussed this with the at bedside, and [id number] present. March 30, 2023 Will increase Seroquel to twice daily to better control his mood (4) HTN This is a new diagnosis for him. His BP is as high as 180s over 100s. His nurse suspected that it was because he has poor pain control. He cannot tell us where his pain is because of his dementia As needed IV Hydralazine was ordered by the telemedicine doctor I addressed his pain control and started him on Amlodipine 5 mg daily Plan: Continue Amlodipine daily (5) Low back pain I spoke to his on 03/26 , asking where the source of his pain usually is and she said she thinks it's his lower back. I informed her that using narcotics for pain control will definitely add to his confusion and somnolence. I ordered a Lidocaine patch scheduled daily, not prn Plan: Continue pain control with a scheduled Lidocaine patch I have decreased his oxycodone from 5 mg every 6 hours prn to 2.5 mg every 8 hours prn. (6) Lethargy Only since he has gotten morphine or oxycodone has he been hypersomnolent. Plan: I will decrease his narcotic pain med dose oxycodone from 5 mg every 6 hours prn to 2.5 mg every 8 hours prn. (7) Chronic A-fib Plan: The patient was on Pradaxa, and a DOAC has been continued here. He has not been ordered to have telemetry (since I expected him to try to pull the patches off too), but his vital signs show stable heart rate (8) Sepsis RESOLVED Patient had criteria for sepsis: White blood count 13.7, fever of 38.0 at midnight, tachycardic with heart rate of 100 at rest. IVF were stopped. Plan: Continue with antibx (2) Pain in left hand Assessment/Plan: Check left hand x-rayRich resulted as no acute findings On April 01 - Current Meds Current Meds: Current Medications Generic Name Dose Route Start Last Admin Trade Name Rileyq PRN Reason Stop Dose Admin Acetaminophen 650 mg 03/22/23 19:45 04/01/23 18:44 Acetaminophen 325 Mg Tablet PO 650 mg Q4HR PRN Administration Pain 1 to 4, or Fever Amlodipine Besylate 5 mg 03/26/23 09:00 04/02/23 08:39 Amlodipine 5 Mg Tablet PO 5 mg DAILY TYLER Administration Apixaban 5 mg 03/23/23 09:00 04/02/23 08:38 Apixaban 5 Mg Tablet PO 5 mg BID TYLER Administration Calamine 1 applic 03/27/23 17:18 03/30/23 20:04 Calamine/Zinc Oxide 177 Ml Bottle TOP 1 applic PRN PRN Administration SKIN CARE Cyanocobalamin 500 mcg 03/29/23 10:00 04/02/23 08:39 Cyanocobalamin 500 Mcg Tablet PO 500 mcg DAILY TYLER Administration Finasteride 5 mg 03/23/23 09:00 04/02/23 08:39 Finasteride 5 Mg Tablet PO 5 mg DAILY TYLER Administration Levofloxacin 500 mg 03/28/23 09:00 04/02/23 08:38 Levofloxacin 250 Mg Tablet PO 500 mg DAILY YTLER Administration Lidocaine 1 patch 03/27/23 09:00 04/02/23 08:37 Lidocaine Patch 5% TOP 1 patch DAILY TYLER Administration Multi-Ingredient Ointment 1 applic 03/23/23 21:11 03/24/23 08:35 Zinc Oxide 20% Oint 30 Gm Tube TOP 1 applic PRN PRN Administration Skin Care Multivitamins/Minerals 1 tab 03/27/23 17:00 04/02/23 11:35 Multivitamin W/Minerals Tablet PO 1 tab QDLUNCH TYLER Administration Nystatin 1 applic 03/24/23 21:00 04/02/23 08:38 Nystatin Powder 15 Gm TOP 1 applic BID TYLER Administration Oxycodone HCl 2.5 mg 03/27/23 08:40 03/30/23 22:40 Oxycodone 5 Mg Tablet PO 2.5 mg Q8H PRN Administration PAIN 5-10 Polyethylene Glycol 17 gm 03/28/23 12:00 04/02/23 08:38 Polyethylene Glycol 3350 17 Gm Packet PO 17 gm DAILY TYLER Administration Quetiapine Fumarate 75 mg 04/01/23 21:00 04/01/23 21:15 Quetiapine 25 Mg Tablet PO 75 mg QPM TYLER Administration Quetiapine Fumarate 25 mg 04/02/23 09:00 04/02/23 08:39 Quetiapine 25 Mg Tablet PO 25 mg DAILY TYLER Administration Saccharomyces Boulardii 250 mg 03/28/23 09:00 04/02/23 08:39 Saccharomyces Boulardii 250 Mg Capsule PO 250 mg DAILY TYLER Administration Sodium Chloride 10 ml 03/23/23 01:00 04/02/23 08:40 Sodium Chloride Flush 0.9% 10 Ml Syringe IVP Not Given 0100,0900,1700 TYLER Tamsulosin HCl 0.4 mg 03/24/23 21:00 04/02/23 08:39 Tamsulosin 0.4 Mg Capsule PO 0.4 mg BID TYLER Administration - Lab Result Fish Bone Diagrams: 03/31/23 07:56 03/31/23 07:56 - Additional Planning My Orders: My Active Orders 04/01/23 21:00 QUEtiapine [SEROquel] 75 mg PO QPM 04/02/23 09:00 QUEtiapine [SEROquel] 25 mg PO DAILY Subjective - Subjective Patient Reports: Feeling Better Objective Vital Signs: Vital Signs - 24 hr 04/01/23 04/02/23 04/02/23 23:58 08:25 15:37 Temperature 36.6 C 36.5 C 37.0 C Heart Rate [ 72 61 67 Brachial] Respiratory 12 18 16 Rate Blood Pressure 123/68 112/71 117/59 L [Right Brachial artery] O2 Saturation 96 94 98 Oxygen O2 Source [With Activity] Room air O2 Source Room air I&O (Last 24 Hrs): Intake and Output Totals x24h 03/31/23 04/01/23 04/02/23 23:59 23:59 23:59 Intake Total 1230 1290 1200 Output Total 2200 2150 2650 Balance -970 -860 -1450 General: Alert, Other (Remains confused at baseline) HEENT: Atraumatic Neuro: Alert, Disoriented, Non Focal Cardiovascular: Regular rate, Normal S1, Normal S2 Respiratory: Breath sounds nml Abdomen: Normal bowel sounds, Soft Skin: No rashes - Results Results: Laboratory Results WBC 8.7 x10^3/uL (4.8-10.8) 03/31/23 07:56 RBC 3.95 10^6/uL (4.70-6.10) L 03/31/23 07:56 Hgb 12.8 g/dL (14.0-18.0) L 03/31/23 07:56 Hct 38.3 % (42.0-52.0) L 03/31/23 07:56 MCV 97.0 fL (80.0-94.0) H 03/31/23 07:56 MCH 32.4 pg (27.0-31.0) H 03/31/23 07:56 MCHC 33.4 g/dL (32.0-36.0) 03/31/23 07:56 RDW 13.2 % (12.0-15.0) 03/31/23 07:56 Plt Count 376 10^3/uL (130-450) 03/31/23 07:56 MPV 9.9 fL (7.4-11.4) 03/31/23 07:56 Neut # (Auto) 5.3 10^3/uL (1.5-6.6) 03/31/23 07:56 Lymph # (Auto) 1.8 10^3/uL (1.5-3.5) 03/31/23 07:56 [place] # (Auto) 1.0 10^3/uL (0.0-1.0) 03/31/23 07:56 Eos # (Auto) 0.5 10^3/uL (0.0-0.7) 03/31/23 07:56 Baso # (Auto) 0.1 10^3/uL (0.0-0.1) 03/31/23 07:56 Absolute Nucleated RBC 0.00 x10^3/uL 03/31/23 07:56 Total Counted 100 03/22/23 18:25 Band Neuts % (Manual) 0 % (0-10) 03/22/23 18:25 Abnorm Lymph % (Manual) 0 % 03/22/23 18:25 Nucleated RBC % 0.0 /100WBC 03/31/23 07:56 Neutrophils # (Manual) 11.0 10^3/uL (1.5-6.6) H 03/22/23 18:25 Lymphocytes # (Manual) 1.4 10^3/uL (1.5-3.5) L 03/22/23 18:25 Monocytes # (Manual) 1.1 10^3/uL (0.0-1.0) H 03/22/23 18:25 Eosinophils # (Manual) 0.0 10^3/uL (0-0.7) 03/22/23 18:25 Basophils # (Manual) 0.3 10^3/uL (0-0.1) H 03/22/23 18:25 Differential Comment MANUAL DIFFERENTIAL 03/22/23 18:25 Platelet Estimate NORMAL (130-450,000) (NORMAL) 03/22/23 18:25 Platelet Morphology NORMAL APPEARANCE (NORMAL) 03/22/23 18:25 RBC Morph Micro Appear 1+ MACROCYTOSIS (NORMAL) 03/22/23 18:25 Sodium 142 mmol/L (135-145) 03/31/23 07:56 Potassium 3.6 mmol/L (3.5-5.0) 03/31/23 07:56 Chloride 108 mmol/L (101-111) 03/31/23 07:56 Carbon Dioxide 27 mmol/L (21-32) 03/31/23 07:56 Anion Gap 7.0 (6-13) 03/31/23 07:56 BUN 11 mg/dL (6-20) 03/31/23 07:56 Creatinine 0.8 mg/dL (0.6-1.2) 03/31/23 07:56 Estimated GFR (MDRD) 93 (>89) 03/31/23 07:56 Glucose 95 mg/dL (70-100) 03/31/23 07:56 Lactic Acid 1.6 mmol/L (0.5-2.2) 03/22/23 18:25 Calcium 8.7 mg/dL (8.5-10.3) 03/31/23 07:56 Magnesium 2.2 mg/dL (1.7-2.8) 03/28/23 05:02 Total Bilirubin 0.5 mg/dL (0.2-1.0) 03/31/23 07:56 AST 25 IU/L (10-42) 03/31/23 07:56 ALT 22 IU/L (10-60) 03/31/23 07:56 Alkaline Phosphatase 49 IU/L (42-121) 03/31/23 07:56 Total Protein 6.1 g/dL (6.7-8.2) L 03/31/23 07:56 Albumin 3.0 g/dL (3.2-5.5) L 03/31/23 07:56 Globulin 3.1 g/dL (2.1-4.2) 03/31/23 07:56 Albumin/Globulin Ratio 1.0 (1.0-2.2) 03/31/23 07:56 Vitamin B12 219 pg/mL (180-914) 03/27/23 08:45 Procalcitonin < 0.05 ng/mL (<0.5) 03/22/23 18:25 Urine Color RED/BLOODY 03/22/23 18:40 Urine Clarity TURBID (CLEAR) 03/22/23 18:40 Urine pH 6.5 PH (5.0-7.5) 03/22/23 18:40 Ur Specific [place] 1.025 (1.002-1.030) 03/22/23 18:40 Urine Protein >=300 mg/dL (NEGATIVE) H 03/22/23 18:40 Urine Glucose (UA) NEGATIVE mg/dL (NEGATIVE) 03/22/23 18:40 Urine Ketones TRACE mg/dL (NEGATIVE) 03/22/23 18:40 Urine Occult Blood LARGE (NEGATIVE) H 03/22/23 18:40 Urine Nitrite POSITIVE (NEGATIVE) H 03/22/23 18:40 Urine Bilirubin NEGATIVE (NEGATIVE) 03/22/23 18:40 Urine Urobilinogen 1 (NORMAL) E.U./dL (NORMAL) 03/22/23 18:40 Ur Leukocyte Esterase TRACE (NEGATIVE) H 03/22/23 18:40 Urine RBC TNTC /HPF (0-5) H 03/22/23 18:40 Urine WBC 4-5 /HPF (0-3) 03/22/23 18:40 Ur Squamous Epith Cells NONE SEEN (<= Few) 03/22/23 18:40 Amorphous Sediment Moderate /LPF 03/22/23 18:40 Urine Bacteria Few /HPF (None Seen) 03/22/23 18:40 Ur Microscopic Review INDICATED 03/22/23 18:40 Urine Culture Comments INDICATED 03/22/23 18:40 Nasal Adenovirus (PCR) NOT DETECTED 03/22/23 20:15 Nasal B. parapertussis DNA (PCR) NOT DETECTED 03/22/23 20:15 Nasal Coronavir 229E PCR NOT DETECTED 03/22/23 20:15 Nasal Coronavir HKU1 PCR NOT DETECTED 03/22/23 20:15 Nasal Coronavir NL63 PCR NOT DETECTED 03/22/23 20:15 Nasal Coronavir OC43 PCR NOT DETECTED 03/22/23 20:15 Nasal Enterovir/Rhinovir PCR NOT DETECTED 03/22/23 20:15 Nasal Influenza B PCR NOT DETECTED 03/22/23 20:15 Nasal Influenza A PCR NOT DETECTED 03/22/23 20:15 Nasal Parainfluen 1 PCR NOT DETECTED 03/22/23 20:15 Nasal Parainfluen 2 PCR NOT DETECTED 03/22/23 20:15 Nasal Parainfluen 3 PCR NOT DETECTED 03/22/23 20:15 Nasal Parainfluen 4 PCR NOT DETECTED 03/22/23 20:15 Nasal RSV (PCR) NOT DETECTED 03/22/23 20:15 Nasal B.pertussis DNA PCR NOT DETECTED 03/22/23 20:15 Nasal C.pneumoniae (PCR) NOT DETECTED 03/22/23 20:15 [place] Human Metapneumo PCR NOT DETECTED 03/22/23 20:15 Nasal M.pneumoniae (PCR) NOT DETECTED 03/22/23 20:15 Nasal SARS-CoV-2 (PCR) NOT DETECTED 03/22/23 20:15 Sepsis Event Note (H) - Evaluation Current Stage of Sepsis: Sepsis Possible source of Sepsis: positive: Unknown - Sepsis Criteria Sepsis Criteria: Recorded Heart Rate greater than 90 bpm, WBC count greater than 10% bands, WBC count greater than 12,000 or less than 4000
[2023-04-03] MEDS: SODIUM CHLORIDE FLUSH 0.9% 10 ML SYRINGE IVP SCH ×4 (03:27→23:34)
[2023-04-03] MEDS: APIXABAN 5 MG TABLET PO SCH ×3 (08:42→20:26)
[2023-04-03] MEDS: CYANOCOBALAMIN 500 MCG TABLET PO SCH ×2 (08:42→12:25)
[2023-04-03] MEDS: ACETAMINOPHEN 325 MG TABLET PO PRN ×3 (08:42→18:33)
[2023-04-03] MEDS: QUEtiapine 25 MG TABLET PO SCH ×2 (08:43→20:26)
[2023-04-03] MEDS: LIDOCAINE PATCH 5% TOP SCH (08:43)
[2023-04-03] MEDS: levoFLOXacin 250 MG TABLET PO SCH ×2 (08:43→12:25)
[2023-04-03] MEDS: TAMSULOSIN 0.4 MG CAPSULE PO SCH ×3 (08:43→20:26)
[2023-04-03] MEDS: amLODIPine 5 MG TABLET PO SCH ×2 (08:43→12:26)
[2023-04-03] MEDS: FINASTERIDE 5 MG TABLET PO SCH ×2 (08:43→12:25)
[2023-04-03] MEDS: polyethylene glycoL 3350 17 GM PACKET PO SCH ×2 (08:43→12:26)
[2023-04-03] MEDS: SACCHAROMYCES BOULARDII 250 MG CAPSULE PO SCH ×2 (08:43→12:26)
[2023-04-03] MEDS: MULTIVITAMIN W/MINERALS TABLET PO SCH (12:26)
[2023-04-03] MEDS: DOCUSATE SODIUM 250 MG CAPSULE PO SCH (13:44)
[2023-04-03] MEDS: SENNA 8.6 MG TABLET PO SCH (13:44)
--- NOTE | 2023-04-03 15:30 | PROVIDER PROGRESS NOTE ---
Assessment/Plan - Problem List (1) UTI (urinary tract infection) Qualifiers: Urinary tract infection type: acute cystitis Hematuria presence: without hematuria Qualified Code(s): N30.00 - Acute cystitis without hematuria Assessment/Plan: Assessment/Plan: This patient's recent history and antibiotic use is complex however: He had a UTI that was being treated with Cipro, and on the urine cx from 03/10/23, he grew E coli and Proteus mirabilis. I think he had not completed the Cipro course of treatment. Then he came to the ER on 03/20 due to hematuria, and blood and ur cx were drawn, and the ED provider sent him home on Cefpodoxime. Then that 03/20 bld cx turned pos for Staph epi, felt to be a contaminant, but he was called on 03/22 and his reported he was worse. He came in now on 03/22 and had a fever on 03/23. From this latest ER presentation, his urine cx has no growth and bld cx have no growth. The admitting telemedicine doctor felt he had sepsis caused by a UTI. He received Cefepime in the ED and has been continued on empiric iv Ceftriaxone daily. I reviewed this entire sequence of events, results and antibx used with our pharmacist. He probably has a semitreated UTI. I reviewed all labs. Since zia ng this admission his white bld count has gone from 11.2 >> 13.7 >> 9.8 >> 11.4 >> 10.7 yesterday>> 10.1 today, I kept him on iv Ceftriaxone, which the E coli and Proteus are sens to. IVF were stopped. Plan: Will change ceftriaxone IV daily to oral Levaquin, based on the sensitivity profiles of the E coli and Proteus. This choice was reviewed with pooja Man today. I will plan a 21-day total course of antibiotics for good prostate penetration. He has gotten 6 days of iv antibx, so 15 more days using Levaquin once daily, plus a probiotic. Today is Day 1 of 15 days. I want to assess him after at least 24 hours of being on an oral antibiotic to assure that there is no return of fever or rising WBC. I reviewed all the above with the daughter and [id number] at bedside today (2) Acute urinary retention His home prostate meds Tamsolusin and Finasteride are being given here. This patient has had several episodes of urinary retention greater than 1 L. He had a Neumann in which was discontinued 2 days ago after bladder training. However, again last night Telemedicine doctor was called because the patient had 2 L found on bladder scanning and Neumann catheter insertion was ordered. Because of his dementia he has tried to pull out his Neumann, when he last had it, therefore soft restraints of upper extremities were needed Plan: Unfortunately we again have to order upper extremity restraints so he does not pull out his Neumann. The other alternative is to not use a chronic Neumann, but to schedule straight cathing for him possibly twice daily or at least daily, here and at the [facility]. SW checked if that center would do straight caths and they cannot. I discussed this with the at bedside, and [id number] present. March 28, 2023-we will straight cath every 6 hours due to significant urinary retention this will be as needed postvoid residual greater than 300. 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 Then he got weak and has not been able to stand. The patient now needs two person assist to stand or move, he thinks he is falling, he did not know what to do with his utensils to feed himself I resumed his home med Quietipine PT and OT evaluated him but he is not a candidate for rehab at a SNF since he is not directable due to his dementia. I updated the about this today, and said that he now may be bedbound or need to be put in a lift to be transferred from bed to a chair. She understood. The confirmed that she wants [facility] a [facility]. SW checked if that center would do straight caths and they cannot. I discussed this with the at bedside, and [id number] present. March 30, 2023 Will increase Seroquel to twice daily to better control his mood. He was somewhat more lethargic during the morning because of the dosing and we have been working on titrating to an appropriate dose so he is not combative during the morning hours but is not lethargic either (4) HTN This is a new diagnosis for him. His BP is as high as 180s over 100s. His nurse suspected that it was because he has poor pain control. He cannot tell us where his pain is because of his dementia As needed IV Hydralazine was ordered by the telemedicine doctor I addressed his pain control and started him on Amlodipine 5 mg daily Plan: Continue Amlodipine daily (5) Low back pain I spoke to his on 03/26 , asking where the source of his pain usually is and she said she thinks it's his lower back. I informed her that using narcotics for pain control will definitely add to his confusion and somnolence. I ordered a Lidocaine patch scheduled daily, not prn Plan: Continue pain control with a scheduled Lidocaine patch I have decreased his oxycodone from 5 mg every 6 hours prn to 2.5 mg every 8 hours prn. (6) Lethargy Only since he has gotten morphine or oxycodone has he been hypersomnolent. Plan: I will decrease his narcotic pain med dose oxycodone from 5 mg every 6 hours prn to 2.5 mg every 8 hours prn. (7) Chronic A-fib Plan: The patient was on Pradaxa, and a DOAC has been continued here. He has not been ordered to have telemetry (since I expected him to try to pull the patches off too), but his vital signs show stable heart rate (8) Sepsis RESOLVED Patient had criteria for sepsis: White blood count 13.7, fever of 38.0 at midnight, tachycardic with heart rate of 100 at rest. IVF were stopped. Plan: Continue with antibx (2) Pain in left hand Assessment/Plan: Check left hand x-rayRich resulted as no acute findings On April 01 - Current Meds Current Meds: Current Medications Generic Name Dose Route Start Last Admin Trade Name Freq PRN Reason Stop Dose Admin Acetaminophen 650 mg 03/22/23 19:45 04/03/23 12:25 Acetaminophen 325 Mg Tablet PO 650 mg Q4HR PRN Administration Pain 1 to 4, or Fever Amlodipine Besylate 5 mg 03/26/23 09:00 04/03/23 12:26 Amlodipine 5 Mg Tablet PO 5 mg DAILY TYLER Administration Apixaban 5 mg 03/23/23 09:00 04/03/23 12:27 Apixaban 5 Mg Tablet PO 5 mg BID TYLER Administration Calamine 1 applic 03/27/23 17:18 03/30/23 20:04 Calamine/Zinc Oxide 177 Ml Bottle TOP 1 applic PRN PRN Administration SKIN CARE Cyanocobalamin 500 mcg 03/29/23 10:00 04/03/23 12:25 Cyanocobalamin 500 Mcg Tablet PO 500 mcg DAILY TYLER Administration Docusate Sodium 250 - 500 mg 04/03/23 13:00 04/03/23 13:44 Docusate Sodium 250 Mg Capsule PO Not Given DAILY TYLER Finasteride 5 mg 03/23/23 09:00 04/03/23 12:25 Finasteride 5 Mg Tablet PO 5 mg DAILY TYLER Administration Levofloxacin 500 mg 03/28/23 09:00 04/03/23 12:25 Levofloxacin 250 Mg Tablet PO 500 mg DAILY TYLER Administration Lidocaine 1 patch 03/27/23 09:00 04/03/23 08:43 Lidocaine Patch 5% TOP 1 patch DAILY TYLER Administration Multi-Ingredient Ointment 1 applic 03/23/23 21:11 03/24/23 08:35 Zinc Oxide 20% Oint 30 Gm Tube TOP 1 applic PRN PRN Administration Skin Care Multivitamins/Minerals 1 tab 03/27/23 17:00 04/03/23 12:26 Multivitamin W/Minerals Tablet PO 1 tab QDLUNCH TYLER Administration Nystatin 1 applic 03/24/23 21:00 04/02/23 19:55 Nystatin Powder 15 Gm TOP 1 applic BID TYLER Administration Oxycodone HCl 2.5 mg 03/27/23 08:40 03/30/23 22:40 Oxycodone 5 Mg Tablet PO 2.5 mg Q8H PRN Administration PAIN 5-10 Polyethylene Glycol 17 gm 03/28/23 12:00 04/03/23 12:26 Polyethylene Glycol 3350 17 Gm Packet PO 17 gm DAILY TYLER Administration Quetiapine Fumarate 75 mg 04/01/23 21:00 04/02/23 19:55 Quetiapine 25 Mg Tablet PO 75 mg QPM TYLER Administration Saccharomyces Boulardii 250 mg 03/28/23 09:00 04/03/23 12:26 Saccharomyces Boulardii 250 Mg Capsule PO 250 mg DAILY TYLER Administration Senna 8.6 - 17.2 mg 04/03/23 13:00 04/03/23 13:44 Senna 8.6 Mg Tablet PO Not Given DAILY TYLER Sodium Chloride 10 ml 03/23/23 01:00 04/03/23 12:27 Sodium Chloride Flush 0.9% 10 Ml Syringe IVP Not Given 0100,0900,1700 TYLER Tamsulosin HCl 0.4 mg 03/24/23 21:00 04/03/23 12:27 Tamsulosin 0.4 Mg Capsule PO 0.4 mg BID TYLER Administration - Lab Result Fish Bone Diagrams: 03/31/23 07:56 03/31/23 07:56 - Additional Planning My Orders: My Active Orders 04/03/23 13:00 Docusate Sodium 250Mg Capsule [Colace 250Mg Capsule] 250 - 500 mg PO DAILY Senna [Senokot] 8.6 - 17.2 mg PO DAILY 04/04/23 09:00 QUEtiapine [SEROquel] 12.5 mg PO DAILY Subjective - Subjective Patient Reports: Other (Patient was being moved back in bed when I saw him and he was in some discomfort but got back in bed and felt comfortable.) Objective Vital Signs: Vital Signs - 24 hr 04/02/23 04/03/23 04/03/23 15:37 02:35 08:00 Temperature 37.0 C 36.7 C 36.7 C Heart Rate [ 67 70 Brachial] Heart Rate [ 99 Radial] Respiratory 16 16 18 Rate Blood Pressure 117/59 L 124/65 122/58 L [Right Brachial artery] O2 Saturation 98 97 98 Oxygen O2 Source [With Activity] Room air O2 Source Room air I&O (Last 24 Hrs): Intake and Output Totals x24h 04/01/23 04/02/23 04/03/23 23:59 23:59 23:59 Intake Total 1290 1570 Output Total 2150 1257 8375 Balance -943 -6116 -5504 General: Alert, Mild distress HEENT: Atraumatic Neck: Supple Neuro: Non Focal Cardiovascular: Regular rate, Normal S1, Normal S2 Respiratory: No respiratory distress Abdomen: Soft - Results Results: Laboratory Results WBC 8.7 x10^3/uL (4.8-10.8) 03/31/23 07:56 RBC 3.95 10^6/uL (4.70-6.10) L 03/31/23 07:56 Hgb 12.8 g/dL (14.0-18.0) L 03/31/23 07:56 Hct 38.3 % (42.0-52.0) L 03/31/23 07:56 MCV 97.0 fL (80.0-94.0) H 03/31/23 07:56 MCH 32.4 pg (27.0-31.0) H 03/31/23 07:56 MCHC 33.4 g/dL (32.0-36.0) 03/31/23 07:56 RDW 13.2 % (12.0-15.0) 03/31/23 07:56 Plt Count 376 10^3/uL (130-450) 03/31/23 07:56 MPV 9.9 fL (7.4-11.4) 03/31/23 07:56 Neut # (Auto) 5.3 10^3/uL (1.5-6.6) 03/31/23 07:56 Lymph # (Auto) 1.8 10^3/uL (1.5-3.5) 03/31/23 07:56 [place] # (Auto) 1.0 10^3/uL (0.0-1.0) 03/31/23 07:56 Eos # (Auto) 0.5 10^3/uL (0.0-0.7) 03/31/23 07:56 Baso # (Auto) 0.1 10^3/uL (0.0-0.1) 03/31/23 07:56 Absolute Nucleated RBC 0.00 x10^3/uL 03/31/23 07:56 Total Counted 100 03/22/23 18:25 Band Neuts % (Manual) 0 % (0-10) 03/22/23 18:25 Abnorm Lymph % (Manual) 0 % 03/22/23 18:25 Nucleated RBC % 0.0 /100WBC 03/31/23 07:56 Neutrophils # (Manual) 11.0 10^3/uL (1.5-6.6) H 03/22/23 18:25 Lymphocytes # (Manual) 1.4 10^3/uL (1.5-3.5) L 03/22/23 18:25 Monocytes # (Manual) 1.1 10^3/uL (0.0-1.0) H 03/22/23 18:25 Eosinophils # (Manual) 0.0 10^3/uL (0-0.7) 03/22/23 18:25 Basophils # (Manual) 0.3 10^3/uL (0-0.1) H 03/22/23 18:25 Differential Comment MANUAL DIFFERENTIAL 03/22/23 18:25 Platelet Estimate NORMAL (130-450,000) (NORMAL) 03/22/23 18:25 Platelet Morphology NORMAL APPEARANCE (NORMAL) 03/22/23 18:25 RBC Morph Micro Appear 1+ MACROCYTOSIS (NORMAL) 03/22/23 18:25 Sodium 142 mmol/L (135-145) 03/31/23 07:56 Potassium 3.6 mmol/L (3.5-5.0) 03/31/23 07:56 Chloride 108 mmol/L (101-111) 03/31/23 07:56 Carbon Dioxide 27 mmol/L (21-32) 03/31/23 07:56 Anion Gap 7.0 (6-13) 03/31/23 07:56 BUN 11 mg/dL (6-20) 03/31/23 07:56 Creatinine 0.8 mg/dL (0.6-1.2) 03/31/23 07:56 Estimated GFR (MDRD) 93 (>89) 03/31/23 07:56 Glucose 95 mg/dL (70-100) 03/31/23 07:56 Lactic Acid 1.6 mmol/L (0.5-2.2) 03/22/23 18:25 Calcium 8.7 mg/dL (8.5-10.3) 03/31/23 07:56 Magnesium 2.2 mg/dL (1.7-2.8) 03/28/23 05:02 Total Bilirubin 0.5 mg/dL (0.2-1.0) 03/31/23 07:56 AST 25 IU/L (10-42) 03/31/23 07:56 ALT 22 IU/L (10-60) 03/31/23 07:56 Alkaline Phosphatase 49 IU/L (42-121) 03/31/23 07:56 Total Protein 6.1 g/dL (6.7-8.2) L 03/31/23 07:56 Albumin 3.0 g/dL (3.2-5.5) L 03/31/23 07:56 Globulin 3.1 g/dL (2.1-4.2) 03/31/23 07:56 Albumin/Globulin Ratio 1.0 (1.0-2.2) 03/31/23 07:56 Vitamin B12 219 pg/mL (180-914) 03/27/23 08:45 Procalcitonin < 0.05 ng/mL (<0.5) 03/22/23 18:25 Urine Color RED/BLOODY 03/22/23 18:40 Urine Clarity TURBID (CLEAR) 03/22/23 18:40 Urine pH 6.5 PH (5.0-7.5) 03/22/23 18:40 Ur Specific [place] 1.025 (1.002-1.030) 03/22/23 18:40 Urine Protein >=300 mg/dL (NEGATIVE) H 03/22/23 18:40 Urine Glucose (UA) NEGATIVE mg/dL (NEGATIVE) 03/22/23 18:40 Urine Ketones TRACE mg/dL (NEGATIVE) 03/22/23 18:40 Urine Occult Blood LARGE (NEGATIVE) H 03/22/23 18:40 Urine Nitrite POSITIVE (NEGATIVE) H 03/22/23 18:40 Urine Bilirubin NEGATIVE (NEGATIVE) 03/22/23 18:40 Urine Urobilinogen 1 (NORMAL) E.U./dL (NORMAL) 03/22/23 18:40 Ur Leukocyte Esterase TRACE (NEGATIVE) H 03/22/23 18:40 Urine RBC TNTC /HPF (0-5) H 03/22/23 18:40 Urine WBC 4-5 /HPF (0-3) 03/22/23 18:40 Ur Squamous Epith Cells NONE SEEN (<= Few) 03/22/23 18:40 Amorphous Sediment Moderate /LPF 03/22/23 18:40 Urine Bacteria Few /HPF (None Seen) 03/22/23 18:40 Ur Microscopic Review INDICATED 03/22/23 18:40 Urine Culture Comments INDICATED 03/22/23 18:40 Nasal Adenovirus (PCR) NOT DETECTED 03/22/23 20:15 Nasal B. parapertussis DNA (PCR) NOT DETECTED 03/22/23 20:15 Nasal Coronavir 229E PCR NOT DETECTED 03/22/23 20:15 Nasal Coronavir HKU1 PCR NOT DETECTED 03/22/23 20:15 Nasal Coronavir NL63 PCR NOT DETECTED 03/22/23 20:15 Nasal Coronavir OC43 PCR NOT DETECTED 03/22/23 20:15 Nasal Enterovir/Rhinovir PCR NOT DETECTED 03/22/23 20:15 Nasal Influenza B PCR NOT DETECTED 03/22/23 20:15 Nasal Influenza A PCR NOT DETECTED 03/22/23 20:15 Nasal Parainfluen 1 PCR NOT DETECTED 03/22/23 20:15 Nasal Parainfluen 2 PCR NOT DETECTED 03/22/23 20:15 Nasal Parainfluen 3 PCR NOT DETECTED 03/22/23 20:15 Nasal Parainfluen 4 PCR NOT DETECTED 03/22/23 20:15 Nasal RSV (PCR) NOT DETECTED 03/22/23 20:15 Nasal B.pertussis DNA PCR NOT DETECTED 03/22/23 20:15 Nasal C.pneumoniae (PCR) NOT DETECTED 03/22/23 20:15 Chon Human Metapneumo PCR NOT DETECTED 03/22/23 20:15 Nasal M.pneumoniae (PCR) NOT DETECTED 03/22/23 20:15 Nasal SARS-CoV-2 (PCR) NOT DETECTED 03/22/23 20:15 Sepsis Event Note (H) - Evaluation Current Stage of Sepsis: Sepsis Possible source of Sepsis: positive: Unknown - Sepsis Criteria Sepsis Criteria: Recorded Heart Rate greater than 90 bpm, WBC count greater than 10% bands, WBC count greater than 12,000 or less than 4000 ABX Reporting Has patient been on IV antibiotics over the past 48 hours?: No
[2023-04-03] MEDS: NYSTATIN POWDER 15 GM TOP SCH ×2 (18:34→21:44)
[2023-04-03] MEDS: CALAMINE/ZINC OXIDE 177 ML BOTTLE TOP PRN (20:32)
[2023-04-04] MEDS ORDERED: SALINE ENEMA 133 ML BOTTLE RC ONE (08:00)
[2023-04-04 08:29] VITALS: BP 106/72
[2023-04-04] MEDS ORDERED: QUEtiapine 25 MG TABLET PO SCH (09:00)
[2023-04-04] MEDS: TAMSULOSIN 0.4 MG CAPSULE PO SCH (09:08)
[2023-04-04] MEDS: LIDOCAINE PATCH 5% TOP SCH (09:08)
[2023-04-04] MEDS: APIXABAN 5 MG TABLET PO SCH (09:09)
[2023-04-04] MEDS: SACCHAROMYCES BOULARDII 250 MG CAPSULE PO SCH (09:09)
[2023-04-04] MEDS: levoFLOXacin 250 MG TABLET PO SCH (09:09)
[2023-04-04] MEDS: SENNA 8.6 MG TABLET PO SCH (09:09)
[2023-04-04] MEDS: CYANOCOBALAMIN 500 MCG TABLET PO SCH (09:09)
[2023-04-04] MEDS: DOCUSATE SODIUM 250 MG CAPSULE PO SCH (09:09)
[2023-04-04] MEDS: amLODIPine 5 MG TABLET PO SCH (09:09)
[2023-04-04] MEDS: FINASTERIDE 5 MG TABLET PO SCH (09:09)
[2023-04-04] MEDS: polyethylene glycoL 3350 17 GM PACKET PO SCH (09:10)
[2023-04-04] MEDS: NYSTATIN POWDER 15 GM TOP SCH (09:10)
[2023-04-04] MEDS: SODIUM CHLORIDE FLUSH 0.9% 10 ML SYRINGE IVP SCH (09:10)
--- NOTE | 2023-04-04 09:17 | Discharge Plan ---
"Discharge Plan for SNF / [facility] - Discharge Plan And Transition Orders Problem Reviewed?: Yes Disposition: 03 SNF DC/Xfer Condition: Fair Allergies and Adverse Reactions: Allergies Allergy/AdvReac Type Severity Reaction Status Date / Time No Known Drug Allergies Allergy Verified 03/22/23 18:18 Health Concerns: Patient was hospitalized due to a UTI and urinary retention. He needs to complete several more days of antibiotic treatment for the infection. He now needs to be straight cathed 4 times a day if a bladder scan shows greater than 300 cc in the urinary bladder. The patient has dementia but is cooperative and pleasant. Unfortunately he does not follow cues, he is not rehabable. To transfer him from bed to chair r car I now requires a lift. Plan of Treatment: Continue all usual medications. Care Goals: Improvement in symptoms and stabilization are the goals. Assessment: The and other family members understand and are in agreement with the plan. - SNF / INTERMEDIATE Transition Orders Admit to (Facility): [facility] Under the care of (Name): Dr Ray Warren Discharge Diagnosis: (1) Sepsis (2) UTI (urinary tract infection) (3) Acute urinary retention On Tamsolusin and Finasteride but still needs straight cath prn (4) Dementia due to Alzheimer's disease (5) HTN (6) Low back pain (7) Chronic A-fib Medicare Certification Statement: I certify that [facility] jail care is medically necessary on a continuing basis for any of the conditions for which she/he is receiving care during hospitalization. Notify PCP of admission and forward orders to primary provider for signature. Weight on admission and: Monthly Call PCP immediately if weight increases by: 8 kg Other Notification Orders: Call PCP immediately if patient develops dyspnea, chest pain/tightness or edema. House Bowel Program: Yes Additional Bowel Program Orders: If no BM after 2 days, nurse may give M.O.M. 30ml PO PRN and/or ducolax Supp 1 SD and/or JAYLEEN 250mg P.O., and/or senna 1-2 tabs PO. On day 3 nurse may give repeat above order until residents constipation is resolved. Annual Influenza Vaccine (between Jun 23 and January 20): Yes Two-step PPD per [facility] [phone] or approved exception documents: Yes Treatments & Other Orders: Bladder scan the pt every 6 hours. Straight catheter insert as needed, if the bladder scan shows greater than 300 cc of urine. Patient needs to be fed or set up tray and fed all meals. Medication Orders: PLEASE REFER TO THE DISCHARGE MEDICATION LIST. Insulin Orders?: No - Medications New Prescriptions: Acetaminophen [Tylenol] 650 mg PO Q4HR PRN #60 tab PRN Reason: Pain 1 to 4, or Fever Saccharomyces Boulardii [Florastor] 250 mg PO DAILY #7 cap levoFLOXacin [Levaquin] 500 mg PO DAILY #7 tab Lidocaine Patch 5% [Lidoderm Patch] 1 patch TOP DAILY #30 patch polyethylene glycoL 3350 [Miralax] 17 gm PO DAILY #30 packet amLODIPine [Norvasc] 5 mg PO DAILY #30 tab Nystatin [Nystop] 1 applic TOP BID PRN #30 each PRN Reason: As Needed Per Provider Orders QUEtiapine [SEROquel] 12.5 mg PO DAILY #15 tab Multivitamin W/Minerals [Theragran M] 1 tab PO QDLUNCH #30 tab Cyanocobalamin [Vitamin B-12] 500 mcg PO DAILY #30 tab - Diet Type: No added salt Texture: Regular Liquids: Thin May have monthly special meal: Yes - Therapies | Activity Rehabilitation Potential: Maintain present ADL Functional Activity: Activity as Tolerated Follow Up: See primary care provider for a hospital follow-up office visit in the next 1 to 4 weeks."
--- NOTE | 2023-04-04 11:17 | DISCHARGE SUMMARY ---
Discharge Summary Admit Date: 03/22/23 Discharge Date: 04/04/23 Discharging Provider: Dr Vida Pineda Primary Care Provider: Dr Ray Warren Condition at Discharge: Fair Discharge Disposition: DC/Xfer - HPI History of Present Illness: 82-year-old male return to the emergency department via EMS for concerns of possible sepsis as well as positive blood cultures. This patient was seen here in this emergency department on 20 March by my colleague. At that time there were some concerns of abdominal pain and dysuria as well as recurrent urinary tract infections. Subsequently labs and urinalysis were obtained. Labs felt to be consistent with acute infection and patient was started on cefpodoxime. At the last ED visit he had a very mild white blood cell count elevation of 11.2 thousand. Lactate was not elevated. CT of the abdomen showed no acute findings. Patient was discharged with prescription for cefpodoxime and treatment of the UTI. Subsequently blood cultures have resulted positive in one of the 2 sets for staph epidermis. This most likely represents a contaminant but when patient's was contacted at home she reported the patient had been febrile up to 102, more lethargic and confused from known baseline. EMS reported that they had given him some cold IV fluids in route to the ER and on presentation here he is afebrile. He is confused but without focal deficits. Given the patient's dementia history is obtained from the chart as well as EMS and previous ED records. Patient was discussed in detail with ER team, patient has dementia and was not able to give me any meaningful history on the televideo, in the back group his telemetry did show A fib with rate in 90-100's. Patient given one dose of Vanco and Cefepime. As per his patient is DNR and plan is to send him to memory care unit once he is discharged from this hospitalization. does want medical management - HOSPITAL COURSE Hospital Course: (1) Sepsis Patient met criteria for sepsis: he was tachy at 100 bpm, febrile to 38.0 degrees C, had a elevated white count of 13.7 with a L shift, and was more obtunded than his usual confusion. He improved with IV fluids and IV antibiotics. (2) UTI (urinary tract infection) This patient's recent history and antibiotic use was complex. He had a UTI that was being treated with Cipro, and on the urine cx from 03/10/23, he grew E coli and Proteus mirabilis. He had not completed the Cipro course of treatment, when he came to the ER on 03/20 due to hematuria. A blood and ur cx were drawn, and the ED provider sent him home on Cefpodoxime. Then that 03/20 bld cx turned pos for Staph epi, felt to be a contaminant, but he was called on 03/22 and his reported he was worse. He came in on 03/22 and had a fever on 03/23. Initially the telemedicine admitting doctor felt he had sepsis caused by a UTI. He received Cefepime x1 in the ED, but was continued on empiric iv Ceftriaxone daily. During this hospitalization, his urine cx had no growth and bld cx had no growth. He probably had a semitreated UTI, since during this admission his WBC went from 11.2 >> 13.7 >> 9.8 >> 11.4 >> 10.7 >> 10.1. So he was kept on iv Ceftriaxone, which the E coli and Proteus were sensitive to. Eventually, the IV Ceftriaxone was changed to oral Levaquin, based on the sensitivity profiles of the E coli and Proteus and he was discharged to take oral Levaquin. A 21-day total course of antibiotics was planned for good prostate penetration, and he received 6 days of iv antibx and was already on oral Levaquin while here. His discharge was delayed several days until the [place] and his insurance company arranged financing. (3) Acute urinary retention He was kept on Tamsolusin and Finasteride, and had a Neumann temporarily. The Neumann was removed but he still needed straight cath prn. 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 Then he got weak and could not stand and could not use a walker correctly. The patient now needed two person assist to stand or move.When upright, he thinks he is falling. He no longer knew what to do with his utensils to feed himself. I resumed his home med Quietipine. PT and OT evaluated him but he was not a candidate for rehab at a SNF, since he was not directable due to his dementia. He has become bedbound or needs a lift to be transferred from bed to a chair. (5) HTN This was a new diagnosis for him. His BP was as high as 180s/100s, possibly initially from poor pain control (his assumed he had LBP). He received prn IV Hydralazine then needed to be started on Amlodipine 5 mg daily, and was discharged on this. (6) Low back pain PRN pain meds and scheduled topical Lidocaine daily patche were ordered. (7) Chronic A-fib He was kept on a DOAC for stroke prevention, while here. - ALLERGIES Allergies/Adverse Reactions: Allergies Allergy/AdvReac Type Severity Reaction Status Date / Time No Known Drug Allergies Allergy Verified 03/22/23 18:18 - MEDICATIONS Home Medications: Ambulatory Orders Medication Instructions Recorded Confirmed Finasteride [Proscar] 5 mg PO DAILY tablet 07/07/20 03/23/23 Dabigatran Etexilate Mesylate 150 mg PO BID 11/22/20 03/23/23 [Pradaxa] Mupirocin 2% Oint [Bactroban 2% 1 applic TOP BID #22 gm 03/20/23 03/23/23 Oint] Tamsulosin [Flomax] 0.4 mg PO BID 03/23/23 03/23/23 Acetaminophen [Tylenol] 650 mg PO Q4HR PRN #60 tab 04/04/23 Cyanocobalamin [Vitamin B-12] 500 mcg PO DAILY #30 tab 04/04/23 Lidocaine Patch 5% [Lidoderm Patch] 1 patch TOP DAILY #30 patch 04/04/23 Multivitamin W/Minerals [Theragran 1 tab PO QDLUNCH #30 tab 04/04/23 M] Nystatin [Nystop] 1 applic TOP BID PRN #30 each 04/04/23 QUEtiapine [SEROquel] 12.5 mg PO DAILY #15 tab 04/04/23 Saccharomyces Boulardii [Florastor] 250 mg PO DAILY #7 cap 04/04/23 Senna [Senokot] 8.6 - 17.2 mg PO DAILY tab 04/04/23 Zinc Oxide 20% Oint [Zinc Oxide] 1 applic TOP PRN PRN each 04/04/23 amLODIPine [Norvasc] 5 mg PO DAILY #30 tab 04/04/23 levoFLOXacin [Levaquin] 500 mg PO DAILY #7 tab 04/04/23 polyethylene glycoL 3350 [Miralax] 17 gm PO DAILY #30 packet 04/04/23 - PHYSICAL EXAM AT DISCHARGE General Appearance: positive: No acute distress, Alert, Other (Tall elderly white male, minimally communicative.) Eyes Bilateral: positive: Normal inspection, EOMI ENT: positive: ENT inspection nml, No signs of dehydration Neck: positive: Nml inspection, No JVD Respiratory: positive: No respiratory distress, Breath sounds nml Cardiovascular: positive: No murmur, Irregularly irregular Abdomen: positive: Non-tender, No distention Skin: positive: Warm, Dry Extremities: positive: Non-tender, No pedal edema Neurologic/Psychiatric: positive: Disoriented to person, Disoriented to place, Disoriented to time, Other (Has generalized weakness) - LABS Result Diagrams: 03/31/23 07:56 03/31/23 07:56 - DIAGNOSTIC IMAGING Diagnostic Imaging Results: Final report reviewed - SEPSIS Current Stage of Sepsis: Sepsis Possible source of Sepsis: Genitourinary Sepsis Criteria: Recorded Heart Rate greater than 90 bpm, WBC count greater than 10% bands, WBC count greater than 12,000 or less than 4000, [employer]: altered consciousness (unrelated to primary neuro pathology) - FOLLOW UP Follow Up: See PCP after hospital discharge. - TIME SPENT Time Spent in Discharge (Minutes): 50
== END 2023-04-04 12:50 | DRG 872 ==
LOC: ED 18:11 → MS2 19:45
PROVIDERS: ADMIT Internal Medicine; ATTEND Internal Medicine
DX: A41.9 Sepsis, unspecified organism (principal); F03.90 Unspecified dementia, unspecified severity, without behavioral disturbance, psychotic disturbance, mood disturbance, and anxiety; N30.00 Acute cystitis without hematuria; I48.91 Unspecified atrial fibrillation; I48.20 Chronic atrial fibrillation, unspecified; Z86.73 Personal history of transient ischemic attack (TIA), and cerebral infarction without residual deficits; N40.1 Benign prostatic hyperplasia with lower urinary tract symptoms; N39.498 Other specified urinary incontinence; R33.8 Other retention of urine; R41.0 Disorientation, unspecified; Z87.440 Personal history of urinary (tract) infections; G30.9 Alzheimer's disease, unspecified; F02.80 Dementia in other diseases classified elsewhere, unspecified severity, without behavioral disturbance, psychotic disturbance, mood disturbance, and anxiety; I10 Essential (primary) hypertension; M54.50 Low back pain, unspecified; R53.1 Weakness; E78.00 Pure hypercholesterolemia, unspecified; Z66 Do not resuscitate; F41.9 Anxiety disorder, unspecified; G89.29 Other chronic pain; R40.0 Somnolence; T40.2X5A Adverse effect of other opioids, initial encounter; Z74.01 Bed confinement status; Z79.01 Long term (current) use of anticoagulants; Z78.1 Physical restraint status; Z87.891 Personal history of nicotine dependence; Y92.230 Patient room in hospital as the place of occurrence of the external cause; M79.642 Pain in left hand
CPT/HCPCS: 36415; 71045; 73120; 80048; 80053; 81001; 82607; 83605; 83735; 84145; 85025; 87040; 87086; 87633; 97162; 97166; 97530; 99285; A9270; J3370; 81003

== ENCOUNTER 2023-04-04 12:41 | Outpatient (CLI) | payer MEDICARE | END 2023-04-04 23:59 | disposition home or self-care (01) | LOC: EMS 12:41 | PROVIDERS: ATTEND Specialist | DX: A41.9 Sepsis, unspecified organism (principal); N39.0 Urinary tract infection, site not specified; F03.90 Unspecified dementia, unspecified severity, without behavioral disturbance, psychotic disturbance, mood disturbance, and anxiety; Z74.01 Bed confinement status | CPT/HCPCS: A0425; A0428 ==